=== PATIENT | male | born 1955 | race Caucasian/White ===

== ENCOUNTER → 2020-08-12 12:34 | Outpatient (BNVA) | payer BC, SELFPAY | PROVIDERS: PCP Internal Medicine; Visit Provider Internal Medicine | DX: Z76.89 Persons encountering health services in other specified circumstances (principal) ==

== ENCOUNTER → 2021-02-10 13:14 | Outpatient (BNVA) | payer BC, SELFPAY | PROVIDERS: PCP Internal Medicine; Referring Provider Internal Medicine; Visit Provider Internal Medicine ==

== ENCOUNTER → 2021-03-16 12:22 | Outpatient (BNVA) | payer BC, SELFPAY | PROVIDERS: PCP Internal Medicine; Visit Provider Physician Assistant ==

== ENCOUNTER 2021-03-28 08:29 | Outpatient (REF) | payer BC, SELFPAY ==
--- NOTE | ~2021-03-28 | FL_ITS ---
EXAMINATION: FL BARIUM SWALLOW CLINICAL INFORMATION: Dysphagia. COMPARISON: None. TECHNIQUE: Barium swallow examination is performed using fluoroscopic evaluation in addition to multiple fluoroscopic spot views. The patient is imaged both upright and prone and using both thick and thin sulfate along with effervescent granules. Fluoroscopy time: 2.1 minutes DAP: 23.003 Gycm2 Images: 61 FINDINGS: Following oral administration of thick barium and barium-coated turkey, there is normal propagation of bolus from the oral cavity through the pharynx and esophagus and into the stomach without any evidence of obstruction, narrowing or stricture. On placing patient prone and lying supine and oral administration of thin barium, there is good distention of the esophagus without any intraluminal filling defect. There is no gastroesophageal reflux or hiatal hernia. FL/FL barium swallow IMPRESSION: Unremarkable barium swallow exam. No obstruction, constriction or intraluminal lesion.
== END 2021-03-28 08:30 | disposition home or self-care (01) ==
LOC: HO.XRAY 08:29
PROVIDERS: PCP Internal Medicine; Visit Provider Physician Assistant
DX: R13.10 Dysphagia, unspecified (principal)
CPT/HCPCS: 74220

== ENCOUNTER 2021-04-18 08:28 | Outpatient (REF) | payer BC, SELFPAY ==
--- NOTE | ~2021-04-18 | US_ITS ---
EXAMINATION: US COMPLETE ABDOMEN WITH LIVER ELASTOGRAPHY CLINICAL INFORMATION: Gastroesophageal reflux disease without esophagitis. COMPARISON: Ultrasound abdomen 07/23/2018 TECHNIQUE: Real-time imaging of the abdominal viscera. Noninvasive ultrasound liver fibrosis assessment is performed using Roel ElastPQ point quantification shear wave elastography (pSWE) with a C5-2 MHz transducer. Multiple elastography samples are obtained. FINDINGS: PANCREAS: The visualized proximal body of the pancreas is homogeneous. The rest of the pancreas is obscured by overlying gas. ABDOMINAL AORTA: The proximal, middle, and distal aortic segments are normal in caliber. INFERIOR VENA CAVA: Visualized portions are normal. LIVER: The liver demonstrates normal size and contour with increased echogenicity. No focal lesion or intrahepatic biliary duct dilatation. The right lobe measures 20.0 cm in length. The left lobe measures 10.3 cm in length. Portal flow is hepatopetal. Shear wave liver elastography median stiffness is 1.83 m/s (reference: Normal median stiffness is 1.3 m/s or less). IQR/median stiffness to assess sampling precision is 0.26 (reference: Good quality data set is IQR/median stiffness of 0.15 or less). GALLBLADDER: Normal. The gallbladder is physiologically distended without evidence of stones, sludge, polyps, wall thickening or pericholecystic fluid. COMMON BILE DUCT: Normal in caliber measuring 0.3 cm in diameter. RIGHT KIDNEY: Normal. No hydronephrosis. No renal calculi or focal parenchymal lesions. The kidney measures 11.2 cm in maximum dimension. LEFT KIDNEY: Normal. No hydronephrosis. No renal calculi or focal parenchymal lesions. The kidney measures 12.4 cm in maximum dimension. SPLEEN: The spleen is mildly enlarged. The spleen measures 13.8 cm in maximum dimension. There is a splenule which measures 1.4 x 1.6 x 1.2 cm. FREE FLUID: None. US/US abdomen comp w elastography IMPRESSION: 1. Diffuse hepatic steatosis without focal lesion. There are mild splenomegaly The rest of the abdominal ultrasound is unremarkable. Overall no change from previous ultrasound exam 07/23/2018 with no echogenic renal calculi seen at this time. 2. Liver Elastography: Median liver stiffness measures 1.83 suggestive of cACLD. REFERENCE: Society of Radiologists in Ultrasound Liver Stiffness Thresholds (2020): LIVER STIFFNESS THRESHOLDS: *Liver Stiffness equal or less than 1.3 m/s: High probability of being normal. *Liver Stiffness less than 1.7 m/s: In the absence of other known clinical signs, rules out compensated advanced chronic liver disease. *Liver Stiffness 1.7-2.1 m/s: Suggestive of compensated advanced chronic liver disease but need further test for confirmation. *Liver Stiffness over 2.1 m/s: Rules in compensated advanced chronic liver disease. *Liver Stiffness over 2.4 m/s: Suggestive of clinically significant portal hypertension. QUALITY OF DATA SET: *IQR/Median value equal or less than 0.15 implies a quality data set. *IQR/Median value over 0.15 implies a poor quality data set. SIGNIFICANT CHANGE FROM PRIOR EXAM: Significant change if liver stiffness measurement is 10% or greater from prior exam. OTHER CONSIDERATIONS: The stage of liver fibrosis may be overestimated in the setting of acute hepatitis, liver inflammation, elevated liver function tests, hepatic vascular congestion, obstructive cholestasis, non-fasting state, and infiltrative diseases such as amyloidosis and lymphoma. In some patients with NAFLD, the liver stiffness thresholds for compensated advanced chronic liver disease may be lower. In causes other than viral hepatitis and NAFLD, liver stiffness thresholds are not well established.
== END 2021-04-18 08:29 | disposition home or self-care (01) ==
LOC: HO.US 08:28
PROVIDERS: PCP Internal Medicine; Visit Provider Physician Assistant
DX: K21.9 Gastro-esophageal reflux disease without esophagitis (principal)
CPT/HCPCS: 76705; 76981

== ENCOUNTER → 2021-09-13 13:04 | Outpatient (BNVA) | payer BC, SELFPAY | PROVIDERS: PCP Internal Medicine; Visit Provider Physician Assistant ==

== ENCOUNTER → 2021-11-14 12:51 | Outpatient (BNVA) | payer BC, SELFPAY | PROVIDERS: PCP Internal Medicine; Visit Provider Nurse Practitioner Family | DX: Z13.89 Encounter for screening for other disorder (principal) ==

== ENCOUNTER → 2022-03-27 15:12 | Outpatient (BNVA) | payer BC, SELFPAY | PROVIDERS: PCP Internal Medicine; Visit Provider Internal Medicine | DX: I63.40 Cerebral infarction due to embolism of unspecified cerebral artery (principal); I10 Essential (primary) hypertension; E11.8 Type 2 diabetes mellitus with unspecified complications; E78.5 Hyperlipidemia, unspecified; G47.33 Obstructive sleep apnea (adult) (pediatric) | CPT/HCPCS: 93005 ==

== ENCOUNTER 2022-07-19 09:43 | Outpatient (AMB) | payer BC, SELFPAY ==
--- NOTE | 2022-07-19 09:47 | MHC.OFFVIS ---
Intake Intake Visit Reasons: Hx of kidney stones Intake Note: New patient is present for HX of Kidney Stones Blood Thinner: Apixaban(Eliquis) Patient states that he does not feel any discomfort or pain. Does not believe he has any stones at this time. 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 Cornejo. He has a past medical history of embolic stroke, hypertension, GERD, obesity, obstructive sleep apnea, hyperlipidemia, and type 2 diabetes. He presents to the office today for follow-up of his nephrolithiasis. In discussion with the patient today he reports to be doing and feeling well. He reports a previous longstanding history of nephrolithiasis requiring surgical intervention in the past with Dr. Torres and Dr. Lima at [facility]. Recent renal imaging results reviewed with the patient today. Bilateral kidneys with no calculi, lesions, and or hydronephrosis noted. When asked he reports compliance with potassium citrate and allopurinol for as prescribed. When asked he does report urinary dribbling however he denies urinary urgency, urinary frequency, incontinence, nocturia, hematuria, dysuria, foul smelling urine, changes to urinary stream, flank pain, fever, and or chills. He is happy with his current voiding parameters. In office urinalysis results reviewed with the patient today. He otherwise offers no other issues or concerns at this time. [facility] Medical History Embolic stroke Essential hypertension GERD (gastroesophageal reflux disease) Morbid obesity GERMAN (obstructive sleep apnea) Other and unspecified hyperlipidemia Stroke Type 2 diabetes mellitus with unspecified complications Surgical History History of esophagogastroduodenoscopy (EGD) History of loop recorder (~02/13/20) History of transesophageal echocardiography (AMINA) (~02/19/20) Hx of colonoscopy Status post uvulopalatopharyngoplasty Family History Father No problems noted. Mother No problems noted. Social History Household Members: Spouse Household Members Other:: 1 son Alcohol intake: current Patient Tobacco Use Status: Former Tobacco user Quit Date: 30 years ago Current occupational status: unemployed Review of Systems Const Denies chills and Denies fever(s) Card Reports no additional complaints and Denies syncope Resp Denies cough GI Denies abdominal pain and Denies heartburn Reports as per HPI and Denies change in libido Neuro Denies syncope Psych Denies change in libido Endo Denies change in libido Physical Exam Const General: cooperative, healthy appearing, comfortable and no acute distress Orientation/consciousness: patient oriented x3 HEENT Face and sinus: Yes normal facial exam Mouth: moist mucous membranes Neck Neck: Yes normal visual inspection, Yes full ROM and Yes trachea midline Chest Chest palpation & inspection: normal inspection of the chest Resp Effort & Inspection: normal respiratory effort, able to speak in complete sentences and no respiratory distress GI Inspection: Yes normal to inspection Back/Spine/Pelvis Cervical Spine: normal cervical lordosis Thoracic/Lumbar Spine: thoracic and lumbar spine normal to inspection Skin General skin exam: no rashes or lesions noted Neuro General: patient oriented x3, gait normal, tone normal and moves all extremities Extrem General: Yes normal to inspection and Yes capillary refill normal Results AMB Urinalysis, Automated UA Leukoctes 0 Erika/uL Last Edit by GRADY Silva on 07/19/22 10:22 UA Nitrite Negative Last Edit by GRADY Silva on 07/19/22 10:22 UA Urobilinogen 0.2 mg/dL Last Edit by GRADY Silva on 07/19/22 10:22 UA Protein 15 mg/dL Last Edit by GRADY Silva on 07/19/22 10:22 UA pH 5.5 Last Edit by GRADY Silva on 07/19/22 10:22 UA Blood 0 Luis Miguel/uL Last Edit by GRADY Silva on 07/19/22 10:22 UA Specific Reagan 1.010 Last Edit by GRADY Silva on 07/19/22 10:22 UA Ketone Negative Last Edit by GRADY Silva on 07/19/22 10:22 UA Bilirubin 0 mg/dL Last Edit by GRADY Silva on 07/19/22 10:22 UA Glucose 1000 mg/dL Last Edit by GRADY Silva on 07/19/22 10:22 Results Reviewed Results Reviewed: Laboratory Last Values Urine pH (Auto) 5.5 07/19/22 09:52 Specific Reagan (Auto) 1.010 07/19/22 09:52 Urine Protein (Auto) 15 mg/dL 07/19/22 09:52 Glucose (UA)(Auto) 1000 mg/dL 07/19/22 09:52 Urine Ketones (Auto) Negative 07/19/22 09:52 Urine Blood (Auto) 0 Luis Miguel/uL 07/19/22 09:52 Urine Nitrite (Auto) Negative 07/19/22 09:52 Urine Bilirubin (Auto) 0 mg/dL 07/19/22 09:52 Urine Urobilinogen (Auto) 0.2 mg/dL 07/19/22 09:52 Leukocyte Esterase (Auto) 0 Erika/uL 07/19/22 09:52 Assessment & Plan Assessment & Plan (1) Bilateral nephrolithiasis: Comment: Longstanding prior ureteroscopy and ESWL Code(s): N20.0 - Calculus of kidney Plan Start potassium citrate Six-month follow-up Orders: Orders AMB Urinalysis Automated 07/19/22 Z13.9 - Encounter for screening, unspecified US renal BI 6 Months N20.0 - Calculus of kidney Medications: New potassium citrate ER 20 mEq (2 x 10 mEq (1,080 mg)) PO BID 360 tabs 1RF 90 days N20.0 - Calculus of kidney Patient Instructions: Imaging studies, laboratory and physical exam results were discussed and reviewed in detail. No major barriers to patient understanding were identified. An opportunity to ask questions regarding the treatment plan was provided. All questions were answered. The patient expressed understanding and agreement with the above treatment plan. The patient is aware they should contact our office by phone for worsening of their current condition or the appearance of new urologic symptoms. Compliance is encouraged with any medications and followup testing that is ordered. It is a privilege to participate in the urologic care of your patient. If you have any questions or concerns regarding treatment for the above conditions, or other urologic issues, please do not hesitate to contact me. The office telephone contact is [phone]. This note is constructed using voice recognition software. While every effort has been made to ensure accuracy orange picker machine operator errors may have been included. Yours sincerely, Dr Levar Green MD, [facility] - Urology Providers of Expert, Compassionate Care for the Genitourinary System Coding Level of Care Code New Pt Level 4 (84828) Diagnoses Bilateral nephrolithiasis N20.0
== END 2022-07-19 10:37 | disposition home or self-care (01) ==
LOC: HO.HUSH 09:43
PROVIDERS: PCP Internal Medicine; Visit Provider Urology
DX: N20.0 Calculus of kidney (principal)
CPT/HCPCS: 99204; 99499

== ENCOUNTER → 2022-08-23 15:39 | Outpatient (BNVA) | payer BC, SELFPAY | PROVIDERS: PCP Internal Medicine; Visit Provider Nurse Practitioner Family | DX: Z13.89 Encounter for screening for other disorder (principal) ==

== ENCOUNTER 2022-09-13 08:58 | Outpatient (REF) | payer BC, SELFPAY ==
[2022-09-13 09:05] VITALS: BP 155/70; PULSE 65; RESP 16; TEMP 36.4; O2SAT 98
[2022-09-13 09:06] VITALS: BMI 32.5
[2022-09-13 09:47] VITALS: BP 136/67; PULSE 60; RESP 16; O2SAT 98
--- NOTE | 2022-09-13 10:43 | PM.OP ---
Brief Operative Note Date of Service: 09/13/22 Pre-op diagnosis: Implantable loop recorder in place Post-op diagnosis: same Procedure: Removal of implantable loop recorder Implants: After obtaining consent patient was brought to the minor surgery suite. Patient was day and laid on the operative table. The precordial area was then shaved, prepped and draped in a sterile fashion. Patient was then given 2% lidocaine intradermally and subcutaneously over the implantable loop recorder. A small incision of about 1.5 cm reserve made over the head of the device. The device was then removed with help of a Stephany retractor. The wound was then closed with a Steri-Strip in a sterile fashion after obtaining adequate hemostasis. A pressure dressing was then applied Surgeon: Sam Fairchild MD Anesthesia: local Was an Senior Javascript Engineer used for this Procedure?: No Estimated blood loss (mL): 5 Pathology: none sent Condition: stable Disposition: same day
== END 2022-09-13 08:59 | disposition home or self-care (01) ==
LOC: HO.MS 08:58
PROVIDERS: PCP Internal Medicine; Visit Provider Internal Medicine Cardiovascular Disease
PROC: (CPT 33286; principal; 2022-09-13 09:00)
DX: Z45.09 Encounter for adjustment and management of other cardiac device (principal)
CPT/HCPCS: 33286

== ENCOUNTER → 2022-09-21 14:40 | Outpatient (BNVA) | payer BC, SELFPAY | PROVIDERS: PCP Internal Medicine; Referring Provider Internal Medicine; Visit Provider Internal Medicine | DX: Z13.89 Encounter for screening for other disorder (principal) ==

== ENCOUNTER 2022-10-23 10:30 | Outpatient (REF) | payer BC, SELFPAY ==
--- NOTE | ~2022-10-23 | XR_ITS ---
EXAMINATION: X-ray bilateral knees CLINICAL INFORMATION: Knee pain COMPARISON: 06/24/2018 x-ray. TECHNIQUE: AP bilateral knees one view. Right knee 2 views. FINDINGS: Right knee: Severe patellofemoral compartment arthritis, marked joint space loss, osteophytes, sclerosis. Mild medial and lateral compartment arthritis. Small ossific densities within the joint space, suggestive of loose bodies. Probable component of chondrocalcinosis. No acute fracture or dislocation is seen. Left knee: On the AP projection, there is Mild medial and lateral compartment osteoarthritis. Chondrocalcinosis/loose bodies in the medial and lateral compartment. Chronic appearing ossifications along the lateral pole of the patella, incompletely evaluated. XR/XR knee RT 2V IMPRESSION: Right knee: Tricompartment osteoarthritis. Severe patellofemoral compartment arthritis. Interval progression from previous. Loose bodies. Probable chondrocalcinosis. Left knee: Mild osteoarthritis as above. Chondrocalcinosis/loose bodies.
--- NOTE | ~2022-10-23 | XR_ITS ---
EXAMINATION: X-ray bilateral knees CLINICAL INFORMATION: Knee pain COMPARISON: 06/24/2018 x-ray. TECHNIQUE: AP bilateral knees one view. Right knee 2 views. FINDINGS: Right knee: Severe patellofemoral compartment arthritis, marked joint space loss, osteophytes, sclerosis. Mild medial and lateral compartment arthritis. Small ossific densities within the joint space, suggestive of loose bodies. Probable component of chondrocalcinosis. No acute fracture or dislocation is seen. Left knee: On the AP projection, there is Mild medial and lateral compartment osteoarthritis. Chondrocalcinosis/loose bodies in the medial and lateral compartment. Chronic appearing ossifications along the lateral pole of the patella, incompletely evaluated. XR/XR knee standing BI IMPRESSION: Right knee: Tricompartment osteoarthritis. Severe patellofemoral compartment arthritis. Interval progression from previous. Loose bodies. Probable chondrocalcinosis. Left knee: Mild osteoarthritis as above. Chondrocalcinosis/loose bodies.
== END 2022-10-23 10:31 | disposition home or self-care (01) ==
LOC: HO.HOSX 10:30
PROVIDERS: Visit Provider Orthopaedic Surgery
DX: M17.11 Unilateral primary osteoarthritis, right knee (principal); E11.8 Type 2 diabetes mellitus with unspecified complications; I63.40 Cerebral infarction due to embolism of unspecified cerebral artery
CPT/HCPCS: 20610; 73560; 73565; J1100

== ENCOUNTER 2022-12-28 08:57 | Outpatient (REF) | payer BC, SELFPAY ==
--- NOTE | ~2022-12-28 | US_ITS ---
EXAMINATION: US RETROPERITONEAL LIMITED (RENAL ONLY) CLINICAL INFORMATION: Calculus of kidney. COMPARISON: Ultrasound kidneys 08/08/2021. X-ray abdomen KUB 08/08/2021 and 08/20/2020. Ultrasound abdomen complete 04/18/2021. TECHNIQUE: Real-time imaging of the kidneys. FINDINGS: RIGHT KIDNEY: 10.8 x 5.3 x 5.7 cm (SAG x AP x TRV). The kidney is normal in size, contour, and echogenicity. Renal cortical thickness is normal. No calculi or focal parenchymal lesions. No hydronephrosis. LEFT KIDNEY: 11.7 x 5.9 x 4.9 cm (SAG x AP x TRV). The kidney is normal in size, contour, and echogenicity. Renal cortical thickness is normal. No calculi or focal parenchymal lesions. No hydronephrosis. Few linear echogenic areas are seen. US/US renal BI IMPRESSION: Essentially unremarkable renal ultrasound. No echogenic stones or hydronephrosis. Nonspecific few linear echogenic areas in left kidney.
== END 2022-12-28 08:58 | disposition home or self-care (01) ==
LOC: HO.US 08:57
PROVIDERS: PCP Internal Medicine; Visit Provider Urology
DX: N20.0 Calculus of kidney (principal)
CPT/HCPCS: 76775

== ENCOUNTER → 2023-01-25 14:23 | Outpatient (BNVA) | payer BC, SELFPAY | PROVIDERS: Visit Provider Internal Medicine | DX: I63.40 Cerebral infarction due to embolism of unspecified cerebral artery (principal); I10 Essential (primary) hypertension | CPT/HCPCS: 93005 ==

== ENCOUNTER 2023-03-27 10:00 | Outpatient (AMB) | payer BC, SELFPAY ==
--- NOTE | 2023-03-27 10:02 | A.OFFVIS_ITS ---
Intake Intake Visit Reasons: 6m/US(set) Intake Note: Patient presents for follow up Kidney Stones/ultrasound (imaging 12/28/22) Urology Medications: none Blood Thinner: Apixaban(Eliquis) Principal Accounts Clerk Required: No Accompanied by: Self / Same As Patient Allergies Sulfa (Sulfonamide Antibiotics) [SULFA (SULFONAMIDE ANTIBIOTICS)] Allergy (Intermediate, Verified 03/27/23 10:42) HIVES pioglitazone [From Actos] Adverse Reaction (Unknown, Verified 03/27/23 10:42) ankle swelling Medication List - Last Reconciled 03/27/23 by LAMBERTO Cuellar allopurinol 100 mg PO DAILY alpha lipoic acid 600 mg PO BID apixaban 5 mg PO BID dulaglutide (Trulicity) mg subcut empagliflozin 25 mg PO DAILY fluticasone propionate 50 mcg/actuation sprays intranasal folic acid 1 mg PO DAILY lisinopril 20 mg PO DAILY loratadine (Allergy Relief (loratadine)) 10 mg PO DAILY metformin 1,000 mg PO BID omeprazole 40 mg PO DAILY rosuvastatin 40 mg PO DAILY HPI HPI Comments History of Present Illness Details John is a very pleasant 67-year-old male patient of Dr. Cornejo. He has a past medical history of embolic stroke, hypertension, GERD, obesity, obstructive sleep apnea, hyperlipidemia, and type 2 diabetes. He presents to the office today for follow-up of his nephrolithiasis. In discussion with the patient today he reports to be doing and feeling well. He reports a previous longstanding history of nephrolithiasis requiring surgical intervention in the past with Dr. Torres and Dr. Lima at [facility]. Recent renal imaging results reviewed with the patient today. Bilateral kidneys with no calculi, lesions, and or hydronephrosis noted. When asked he reports compliance with potassium citrate and allopurinol for as prescribed. When asked he does report urinary dribbling however he denies urinary urgency, urinary frequency, incontinence, nocturia, hematuria, dysuria, foul smelling urine, changes to urinary stream, flank pain, fever, and or chills. He is happy with his current voiding parameters. In office urinalysis results reviewed with the patient today. He otherwise offers no other issues or concerns at this time. FORMERLY [facility], 1928–1983 Medical History Embolic stroke Essential hypertension GERD (gastroesophageal reflux disease) Morbid obesity GERMAN (obstructive sleep apnea) Other and unspecified hyperlipidemia Stroke Type 2 diabetes mellitus with unspecified complications Surgical History History of esophagogastroduodenoscopy (EGD) History of loop recorder (~02/13/20) History of transesophageal echocardiography (AMINA) (~02/19/20) Hx of colonoscopy Status post uvulopalatopharyngoplasty Family History Father No problems noted. Mother No problems noted. Social History Household Members: Spouse Household Members Other:: 1 son Alcohol intake: current Patient Tobacco Use Status: Former Tobacco user Quit Date: 30 years ago Current occupational status: unemployed Review of Systems Const All systems reviewed & are unremarkable except as noted in HPI and below Reports as per HPI Eyes Reports no additional complaints ENT Reports no additional complaints Card Reports as per HPI Resp Reports no additional complaints GI Reports as per HPI Reports as per HPI Musc Reports no additional complaints Neuro Reports as per HPI Psych Reports no additional complaints Endo Reports as per HPI Murail/Lymph Reports no additional complaints Aller/Immun Reports no additional complaints Physical Exam Const General: cooperative, healthy appearing, comfortable, no acute distress, well developed, alert and awake Nutritional Appearance: overweight Orientation/consciousness: patient oriented x3 Limitations: no limitations HEENT Head: Yes normal to inspection, Yes normocephalic and Yes atraumatic Ears: hearing grossly normal bilaterally Eyes General: appearance normal, both eyes and all related structures Neck Neck: Yes normal visual inspection and Yes trachea midline Chest Chest palpation & inspection: normal inspection of the chest Resp Effort & Inspection: normal respiratory effort and able to speak in complete sentences Cardio Rate: regular rate GI Inspection: Yes normal to inspection General: Yes no CVA tenderness Back/Spine/Pelvis Back: no CVA tenderness Skin General skin exam: no rashes or lesions noted Neuro General: patient oriented x3 Extrem General: Yes normal to inspection Psych Appearance: grossly normal and well kempt Mental Status: mental status grossly normal Speech and movement: Normal speech and movement present and Clear speech present Affect: normal affect Attitude: cooperative Thought process: Normal thought process present Thought content: Normal thought content present Insight: Good insight present (Psych) Judgement: Good judgement present (Psych) Results AMB Urinalysis, Automated UA Leukoctes 0 Erika/uL Last Edit by Newsummitbiodanny Noonan on 03/27/23 10:30 UA Nitrite Negative Last Edit by inFreeDAalon ParkingCarmaleno on 03/27/23 10:30 UA Urobilinogen 0.2 mg/dL Last Edit by inFreeDAalon ParkingCarmaleno on 03/27/23 10:30 UA Protein 15 mg/dL Last Edit by BioMarker Strategiesleno on 03/27/23 10:30 UA pH 6.0 Last Edit by CrepeGuys on 03/27/23 10:30 UA Blood 0 Luis Miguel/uL Last Edit by [employer] Strategiesleno on 03/27/23 10:30 UA Specific [place] 1.010 Last Edit by [employer] Strategiesleno on 03/27/23 10:30 UA Ketone Negative Last Edit by [employer] Strategiesleno on 03/27/23 10:30 UA Bilirubin 0 mg/dL Last Edit by CrepeGuys on 03/27/23 10:30 UA Glucose 1000 mg/dL Last Edit by CrepeGuys on 03/27/23 10:30 Results Reviewed Results Reviewed: Laboratory Last Values Urine pH (Auto) 6.0 03/27/23 10:03 Specific [place] (Auto) 1.010 03/27/23 10:03 Urine Protein (Auto) 15 mg/dL 03/27/23 10:03 Glucose (UA)(Auto) 1000 mg/dL 03/27/23 10:03 Urine Ketones (Auto) Negative 03/27/23 10:03 Urine Blood (Auto) 0 Luis Miguel/uL 03/27/23 10:03 Urine Nitrite (Auto) Negative 03/27/23 10:03 Urine Bilirubin (Auto) 0 mg/dL 03/27/23 10:03 Urine Urobilinogen (Auto) 0.2 mg/dL 03/27/23 10:03 Leukocyte Esterase (Auto) 0 Erika/uL 03/27/23 10:03 Date of Service: 12/28/22 EXAMINATION: US RETROPERITONEAL LIMITED (RENAL ONLY) FINDINGS: RIGHT KIDNEY: 10.8 x 5.3 x 5.7 cm (SAG x AP x TRV). The kidney is normal in size, contour, and echogenicity. Renal cortical thickness is normal. No calculi or focal parenchymal lesions. No hydronephrosis. LEFT KIDNEY: 11.7 x 5.9 x 4.9 cm (SAG x AP x TRV). The kidney is normal in size, contour, and echogenicity. Renal cortical thickness is normal. No calculi or focal parenchymal lesions. No hydronephrosis. Few linear echogenic areas are seen. IMPRESSION: Essentially unremarkable renal ultrasound. No echogenic stones or hydronephrosis. Nonspecific few linear echogenic areas in left kidney. Assessment & Plan Assessment & Plan (1) Bilateral nephrolithiasis: Comment: Longstanding prior ureteroscopy and ESWL Code(s): N20.0 - Calculus of kidney Plan In office urinalysis results reviewed with the patient today; as noted above. Recent renal ultrasound results reviewed with the patient today; as noted above Continue Allopurinol as prescribed Stop potassium citrate as discussed Educated, encouraged, and instructed on the importance of drinking plenty of water daily. Continue adding 1 oz of lemon juice to water daily. Patient denies any bothersome urinary issues or concerns at this time. Discussed pelvic floor exercises/therapy to assist with urinary dribbling; information provided. Retroperitoneal ultrasound in 6 months. Follow-up in 6 months with imaging to be completed prior; or sooner with any issues, concerns, and or questions. Orders: Orders US retroperitoneal comp 6 Months N20.0 - Calculus of kidney AMB Urinalysis Automated Today N20.0 - Calculus of kidney, Z13.9 - Encounter for screening, unspecified Patient Instructions: The patient had an opportunity to ask questions regarding the treatment plan. All questions were answered. Physical exam, labs, and imaging were discussed and reviewed in detail. As well as risks, benefits, and discussion of treatment choices. No major barriers to understanding were identified. The patient expressed understanding and agreement with the above treatment plan. The patient was made aware they should contact our office by phone for worsening of their current condition, the appearance of new symptoms, or with any questions or concerns. Compliance is encouraged with any medications and follow up testing that is ordered. It is a privilege to be allowed the opportunity to participate in? your urological care.? Again, if you have any questions or concerns If you have any questions or concerns please do not hesitate to contact me. The office is [phone]. This note is constructed using voice recognition software. While every effort has been made to ensure accuracy button station worker errors may have been included. Yours sincerely, LAMBERTO Cuellar Coding Level of Care Code Est Pt Level 3 (33740) Diagnoses Bilateral nephrolithiasis N20.0
== END 2023-03-27 10:50 | disposition home or self-care (01) ==
PROVIDERS: PCP Internal Medicine; Visit Provider Nurse Practitioner Family
DX: Z13.9 Encounter for screening, unspecified (principal); N20.0 Calculus of kidney
CPT/HCPCS: 99213

== ENCOUNTER → 2023-03-27 10:00 | Outpatient (BNVA) | payer BC, SELFPAY | PROVIDERS: PCP Internal Medicine; Visit Provider Nurse Practitioner Family | DX: N20.0 Calculus of kidney (principal) | CPT/HCPCS: 81003 ==

== ENCOUNTER 2023-09-20 09:59 | Outpatient (REF) | payer BC, SELFPAY ==
--- NOTE | ~2023-09-20 | US_ITS ---
EXAMINATION: US RETROPERITONEAL COMPLETE (RENAL) CLINICAL INFORMATION: Calculus of kidney. COMPARISON: Renal ultrasound 12/28/2022 and 08/08/2021. X-ray abdomen 08/08/2021. TECHNIQUE: Real-time imaging of the kidneys and bladder. FINDINGS: RIGHT KIDNEY: 11.4 x 7.4 x 5.8 cm (SAG x AP x TRV). The kidney is normal in size, contour, and echogenicity. Renal cortical thickness is normal. No calculi or focal parenchymal lesions. No hydronephrosis. LEFT KIDNEY: 12.6 x 6.8 x 6.3 cm (SAG x AP x TRV). The kidney is normal in size, contour, and echogenicity. Renal cortical thickness is normal. No calculi or focal parenchymal lesions. No hydronephrosis. BLADDER: Well distended. Bilateral ureteral jets are demonstrated. Prevoid bladder volume is 280 mL. Postvoid bladder volume is 15 mL. There is bladder wall thickening to 9 mm. OTHER: Prostate dimensions are 4.6 x 3.9 x 4.8 cm, volume 44.9 ml. US/US retroperitoneal comp IMPRESSION: 1. Unremarkable ultrasound appearance of the kidneys. 2. There is mild prostatomegaly. 3. There is bladder wall thickening to 9 mm, possibly hypertrophic. Recommend correlation with the patient's most recent urinalysis.
== END 2023-09-20 10:00 | disposition home or self-care (01) ==
LOC: HO.US 09:59
PROVIDERS: Visit Provider Nurse Practitioner Family
DX: N20.0 Calculus of kidney (principal)
CPT/HCPCS: 76770

== ENCOUNTER 2023-09-25 09:28 | Outpatient (AMB) | payer BC, SELFPAY ==
--- NOTE | 2023-09-25 09:06 | A.OFFVIS_ITS ---
Intake Intake Visit Reasons: 6m follow up/US(set) Intake Note: Patient presents today for follow up bilateral nephrolithiasis and ultrasound Imagin09/20/23 Urology Medications: Allopurinol Blood Thinner: Apixaban Spring Crater Required: No Accompanied by: Self / Same As Patient Allergies Sulfa (Sulfonamide Antibiotics) [SULFA (SULFONAMIDE ANTIBIOTICS)] Allergy (Intermediate, Verified 09/25/23 20:57) HIVES pioglitazone [From Actos] Adverse Reaction (Unknown, Verified 09/25/23 20:57) ankle swelling Medication List - Last Reconciled 09/25/23 by LUÍS Cuellar- allopurinol 100 mg PO DAILY alpha lipoic acid 600 mg PO BID apixaban 5 mg PO BID empagliflozin 25 mg PO DAILY fluticasone propionate 50 mcg/actuation sprays intranasal folic acid 1 mg PO DAILY lisinopril 20 mg PO DAILY loratadine (Allergy Relief (loratadine)) 10 mg PO DAILY metformin 1,000 mg PO BID omeprazole 40 mg PO DAILY tirzepatide (Mounjaro) 2.5 mg subcut QWEEK HPI HPI Comments History of Present Illness Details John is a very pleasant 67-year-old male patient of Dr. Cornejo. He has a past medical history of embolic stroke, hypertension, GERD, obesity, obstructive sleep apnea, hyperlipidemia, and type 2 diabetes. He presents to the office today for follow-up of his nephrolithiasis. In discussion with the patient today he reports to be doing and feeling well. Recent renal imaging results reviewed with the patient today. Bilateral kidneys with no calculi, lesions, and or hydronephrosis. The bladder is well distended. Bilateral ureteral jets are demonstrated. Pre void bladder volume is approximately 280 mL. Postvoid bladder volume is approximately 15 mL. There is bladder wall thickening to 9 mm. He reports a previous longstanding history of nephrolithiasis requiring surgical intervention in the past with Dr. Torres and Dr. Lima at [facility]. When asked he does report urinary dribbling however he denies urinary urgency, urinary frequency, incontinence, nocturia, hematuria, dysuria, foul smelling urine, changes to urinary stream, flank pain, fever, and or chills. He is happy with his current voiding parameters. In office urinalysis results reviewed with the patient today. He otherwise offers no other issues or concerns at this time. PSA 01/26--0.7 PFS Medical History Morbid obesity GERD (gastroesophageal reflux disease) GERMAN (obstructive sleep apnea) Other and unspecified hyperlipidemia Essential hypertension Type 2 diabetes mellitus with unspecified complications Embolic stroke Stroke Surgical History Hx of colonoscopy History of esophagogastroduodenoscopy (EGD) Status post uvulopalatopharyngoplasty History of transesophageal echocardiography (AMINA) (~02/19/20) History of loop recorder (~02/13/20) Family History Father No problems noted. Mother No problems noted. Social History Household Members: Spouse Household Members Other:: 1 son Alcohol intake: current Patient Tobacco Use Status: Former Tobacco user Quit Date: 30 years ago Current occupational status: unemployed Review of Systems Const All systems reviewed & are unremarkable except as noted in HPI and below Reports as per HPI Eyes Reports no additional complaints ENT Reports no additional complaints Card Reports as per HPI Resp Reports no additional complaints GI Reports as per HPI Reports as per HPI Musc Reports no additional complaints Neuro Reports as per HPI Psych Reports no additional complaints Endo Reports as per HPI Murali/Lymph Reports no additional complaints Aller/Immun Reports no additional complaints Physical Exam Const General: cooperative, healthy appearing, comfortable, no acute distress, well developed, alert and awake Nutritional Appearance: overweight Orientation/consciousness: patient oriented x3 Limitations: no limitations HEENT Head: Yes normal to inspection, Yes normocephalic and Yes atraumatic Ears: hearing grossly normal bilaterally Eyes General: appearance normal, both eyes and all related structures Neck Neck: Yes normal visual inspection and Yes trachea midline Chest Chest palpation & inspection: normal inspection of the chest Resp Effort & Inspection: normal respiratory effort and able to speak in complete sentences Cardio Rate: regular rate GI Inspection: Yes normal to inspection General: Yes no CVA tenderness Back/Spine/Pelvis Back: no CVA tenderness Skin General skin exam: no rashes or lesions noted Neuro General: patient oriented x3 Extrem General: Yes normal to inspection Psych Appearance: grossly normal and well kempt Mental Status: mental status grossly normal Speech and movement: Normal speech and movement present and Clear speech present Affect: normal affect Attitude: cooperative Thought process: Normal thought process present Thought content: Normal thought content present Insight: Good insight present (Psych) Judgement: Good judgement present (Psych) Results AMB Urinalysis, Automated UA Leukoctes 0 Erika/uL Last Edit by eBryl Mcqueen CMA on 09/25/23 09 :47 UA Nitrite Negative Last Edit by Beryl Mcqueen CMA on 09/25/23 09: 47 UA Urobilinogen 0.2 mg/dL Last Edit by Beryl Mcqueen CMA on 4 09:47 UA Protein 30 mg/dL Last Edit by Beryl Mcqueen CMA on 09/25/23 09:4 7 UA pH 6.0 Last Edit by Beryl Mcqueen CMA on 09/25/23 09:47 UA Blood 0 Luis Miguel/uL Last Edit by Beryl Mcqueen CMA on 09/25/23 09:47 UA Specific [place] 1.015 Last Edit by Beryl Mcqueen CMA on 09:47 UA Ketone Positive Last Edit by Beryl Mcqueen CMA on 09/25/23 09:4 7 5MG/DL Beryl Mcqueen 09/25/23 09:47 UA Bilirubin 0 mg/dL Last Edit by Beryl Mcqueen CMA on 09/25/23 09: 47 UA Glucose 1000 mg/dL Last Edit by Beryl Mcqueen CMA on 09/25/23 09 :47 Results Reviewed Results Reviewed: Laboratory Last Values Urine pH (Auto) 6.0 09/25/23 09:39 Specific [place] (Auto) 1.015 09/25/23 09:39 Urine Protein (Auto) 30 mg/dL 09/25/23 09:39 Glucose (UA)(Auto) 1000 mg/dL 09/25/23 09:39 Urine Ketones (Auto) Positive 09/25/23 09:39 Urine Blood (Auto) 0 Luis Miguel/uL 09/25/23 09:39 Urine Nitrite (Auto) Negative 09/25/23 09:39 Urine Bilirubin (Auto) 0 mg/dL 09/25/23 09:39 Urine Urobilinogen (Auto) 0.2 mg/dL 09/25/23 09:39 Leukocyte Esterase (Auto) 0 Erika/uL 09/25/23 09:39 Date of Service: 09/20/23 EXAMINATION: US RETROPERITONEAL COMPLETE (RENAL) FINDINGS: RIGHT KIDNEY: 11.4 x 7.4 x 5.8 cm (SAG x AP x TRV). The kidney is normal in size, contour, and echogenicity. Renal cortical thickness is normal. No calculi or focal parenchymal lesions. No hydronephrosis. LEFT KIDNEY: 12.6 x 6.8 x 6.3 cm (SAG x AP x TRV). The kidney is normal in size, contour, and echogenicity. Renal cortical thickness is normal. No calculi or focal parenchymal lesions. No hydronephrosis. BLADDER: Well distended. Bilateral ureteral jets are demonstrated. Prevoid bladder volume is 280 mL. Postvoid bladder volume is 15 mL. There is bladder wall thickening to 9 mm. OTHER: Prostate dimensions are 4.6 x 3.9 x 4.8 cm, volume 44.9 ml. IMPRESSION: 1. Unremarkable ultrasound appearance of the kidneys. 2. There is mild prostatomegaly. 3. There is bladder wall thickening to 9 mm, possibly hypertrophic. Recommend correlation with the patient's most recent urinalysis. Assessment & Plan Assessment & Plan (1) Bilateral nephrolithiasis: Comment: Longstanding prior ureteroscopy and ESWL Code(s): N20.0 - Calculus of kidney (2) Urinary dribbling: Code(s): N39.43 - Post-void dribbling (3) Bladder wall thickening: Code(s): N32.89 - Other specified disorders of bladder Plan In office urinalysis results reviewed with the patient today; as noted above. Recent retroperitoneal ultrasound results reviewed with the patient today; as noted above. Discussed at length potential causes for bladder wall thickening; discussed further workup with in office cystoscopy however patient denies any bothersome urinary issues and does not feel this is necessary at this time. He does report urinary dribbling; however does not find this bothersome. Reports be happy with current voiding parameters. Discussed, educated, and stressed the importance of drinking plenty of water daily. Discussed continue to add 1 oz of lemon juice to water daily. Will obtain PSA Follow-up in 6 months with labd to be completed prior and PVR at next office visit; or sooner with any issues, concerns, and or questions. Orders: Orders AMB Urinalysis Automated Today R33.9 - Retention of urine, unspecified Prostate Specific Antigen 6 Months N40.0 - Benign prostatic hyperplasia without lower urinary tract symptoms Patient Instructions: The patient had an opportunity to ask questions regarding the treatment plan. All questions were answered. Physical exam, labs, and imaging were discussed and reviewed in detail. As well as risks, benefits, and discussion of treatment choices. No major barriers to understanding were identified. The patient expressed understanding and agreement with the above treatment plan. The patient was made aware they should contact our office by phone for worsening of their current condition, the appearance of new symptoms, or with any questions or concerns. Compliance is encouraged with any medications and follow up testing that is ordered. It is a privilege to be allowed the opportunity to participate in? your urological care.? Again, if you have any questions or concerns If you have any questions or concerns please do not hesitate to contact me. The office is [phone]. This note is constructed using voice recognition software. While every effort has been made to ensure accuracy electrical power station technician errors may have been included. Yours sincerely, LAMBERTO Cuellra Coding Level of Care Code Est Pt Level 3 (01580) Diagnoses Bilateral nephrolithiasis N20.0 Urinary dribbling N39.43 Bladder wall thickening N32.89
== END 2023-09-25 10:17 | disposition home or self-care (01) ==
PROVIDERS: PCP Internal Medicine; Visit Provider Nurse Practitioner Family
DX: N20.0 Calculus of kidney (principal); N39.43 Post-void dribbling; N32.89 Other specified disorders of bladder
CPT/HCPCS: 99213

== ENCOUNTER → 2023-09-25 09:28 | Outpatient (BNVA) | payer BC, SELFPAY | PROVIDERS: PCP Internal Medicine; Visit Provider Nurse Practitioner Family | DX: N20.0 Calculus of kidney (principal); N39.43 Post-void dribbling; N32.89 Other specified disorders of bladder; R33.9 Retention of urine, unspecified | CPT/HCPCS: 81003 ==

== ENCOUNTER 2024-02-27 14:05 | Outpatient (AMB) | payer BC, SELFPAY ==
--- NOTE | 2024-02-27 14:13 | A.OFFVIS_ITS ---
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 Accompanied by: Self / Same As Patient Allergies Sulfa (Sulfonamide Antibiotics) [SULFA (SULFONAMIDE ANTIBIOTICS)] Allergy (Intermediate, Verified 09/25/23 20:57) HIVES pioglitazone [From Actos] Adverse Reaction (Unknown, Verified 09/25/23 20:57) ankle swelling Medication List - Last Reconciled 02/27/24 by Mango Morales MD allopurinol 100 mg PO DAILY alpha lipoic acid 600 mg PO BID apixaban 5 mg PO BID empagliflozin 25 mg PO DAILY fluticasone propionate 50 mcg/actuation sprays intranasal folic acid 1 mg PO DAILY lisinopril 20 mg PO DAILY loperamide 2 mg PO Q6H PRN loratadine (Allergy Relief (loratadine)) 10 mg PO DAILY metformin 1,000 mg PO BID omeprazole 40 mg PO DAILY simethicone (Gas Relief (simethicone)) 125 mg PO BID-QID PRN tirzepatide (Mounjaro) 2.5 mg subcut QWEEK HPI Comments Details: John returns for follow-up. To recall, he was referred initially for evaluation of cardioembolic source of stroke. He is empirically on Eliquis. About 26-27 years ago, he had a similar episode but not clear as to what happened if it was stroke or not. He has numerous cardiovascular risk factors including obesity, type 2 diabetes, h ypertension, dyslipidemia. Since last seen, he is doing good. No new complaints. Nothing cardiac whatsoever. There is a family history of cardiac issues in the family. Father had a myocardial infarction in his 50s and from the same. Mother had myocardial infarctions as well as bypass surgery. [facility] Medical History Morbid obesity GERD (gastroesophageal reflux disease) GERMAN (obstructive sleep apnea) Other and unspecified hyperlipidemia Essential hypertension Type 2 diabetes mellitus with unspecified complications Embolic stroke Stroke Surgical History Hx of colonoscopy History of esophagogastroduodenoscopy (EGD) Status post uvulopalatopharyngoplasty History of transesophageal echocardiography (AMINA) (~02/19/20) History of loop recorder (~02/13/20) Family History Father No problems noted. Mother No problems noted. Social History Household Members: Spouse Household Members Other:: 1 son Alcohol intake: current Patient Tobacco Use Status: Former Tobacco user Current occupational status: unemployed Review of Systems Const Denies chills, Denies fatigue, Denies fever(s), Denies weight gain and Denies weight loss ENT Denies dizziness Card Denies chest pain, Denies leg edema, Denies lightheadedness, Denies palpitations, Denies dyspnea on exertion, Denies orthopnea and Denies other Resp Denies cough and Denies dyspnea on exertion GI Denies hematochezia and Denies change in stool character Musc Denies abnormal gait, Denies muscle weakness, Denies numbness, Denies radiating pain into limb and Denies tingling Neuro Denies abnormal gait, Denies dizziness, Denies numbness and Denies tingling Endo Denies fatigue and Denies palpitations Physical Exam Vital Signs: Last Vital Signs Pulse 65 02/27/24 14:16 BP 118/60 02/27/24 14:16 BMI result Body Mass Index 30.8 Const General: comfortable and no acute distress Orientation/consciousness: patient oriented x3 HEENT Other: Unremarkable Head: Yes normal to inspection Neck Neck: Yes normal visual inspection Chest Chest palpation & inspection: normal inspection of the chest Resp Auscultation: clear to auscultation bilaterally Cardio Palpation: normal PMI Heart sounds: S1 normal heart sound present, S2 normal heart sound present, no gallops, no murmurs and no rubs GI Palpation (GI): Soft to palpation Back/Spine/Pelvis Other: unremarkable Skin General skin exam: no rashes or lesions noted Neuro General: patient oriented x3 Extrem General: Yes normal to inspection Psych Mental Status: mental status grossly normal Office Procedures EKG Details: EKG with underlying sinus rhythm at 65/Min; minimal criteria for LVH; can not exclude old inferior infarct but could be from body habitus; nonspecific ST-T changes. Overall, similar to prior. [id number], Complete Assessment & Plan Assessment & Plan (1) Embolic stroke: Code(s): I63.9 - Cerebral infarction, unspecified Category: Medical Qualifiers: Precerebral and cerebral artery: unspecified cerebral artery Qualified Code(s): I63.40 - Cerebral infarction due to embolism of unspecified cerebral artery (2) Type 2 diabetes mellitus with unspecified complications: Code(s): E11.8 - Type 2 diabetes mellitus with unspecified complications Category: Medical (3) Essential hypertension: Code(s): I10 - Essential (primary) hypertension Category: Medical (4) Other and unspecified hyperlipidemia: Code(s): E78.5 - Hyperlipidemia, unspecified Category: Medical (5) GERMAN (obstructive sleep apnea): Comment: s/p [id number] about 15 years ago Code(s): G47.33 - Obstructive sleep apnea (adult) (pediatric) Category: Medical (6) Morbid obesity: Code(s): E66.01 - Morbid (severe) obesity due to excess calories Category: Medical Plan All pertinent studies reviewed. Echocardiogram with LVEF 55-60% and otherwise unremarkable. Transesophageal echocardiogram showed evidence of atrial septal aneurysm, patent foramen ovale; [id number] shunt noted by color Doppler but bubble study was negative for [id number]-[id number] shunt. Implantable loop monitor showed 1 episode of possible atrial fibrillation but the episode was only for about 40 seconds and the rate was only in the 60s. Nothing recurrent after this episode. Myocardial perfusion imaging study from [facility], 2019 shows no evidence of any ischemia or infarction. He exercised for 8 minutes and 54 minutes on Kang protocol reaching 9 Mets. Brain MRI had shown a small infarct in cerebellum. Brain CT had also shown old infarcts. CTA of the neck does not show any significant disease. Overall, uncertain etiology for the stroke. Possible atrial fibrillation but there was only 1 episode on the ILR. As he has been on Eliquis without any issues he can continue the same. Otherwise, mainly risk factor modification. His weight is unlikely to change and has been like this for a long time. Other issues include diabetes, hypertension and dyslipidemia will need to be controlled as much able. He was on pravastatin in the past and we will switch that to Crestor last time. He states he got muscle aches and he stopped it completely. We can reduce his lipids and then probably either go back to pravastatin or try atorvastatin. A prior LDL was 86 mg/dL from [facility] [place] but he might have been on pravastatin at that time. Follow-up in 1 year. In the interim, he will call us with concerns. Orders: Orders Lipid Panel Today E78.5 - Hyperlipidemia, unspecified Liver Panel Today E78.5 - Hyperlipidemia, unspecified Coding Level of Care Code Est Pt Level 4 (91573) Diagnoses Cerebrovascular accident (CVA) due to embolism of cerebral artery I63.40 Precerebral and cerebral artery: unspecified cerebral artery Type 2 diabetes mellitus with unspecified complications E11.8 Essential hypertension I10 Other and unspecified hyperlipidemia E78.5 GERMAN (obstructive sleep apnea) G47.33 Morbid obesity E66.01 CPT Codes EKG - CPT: 14902-[id number], Complete ([id number])
[2024-02-27 14:16] VITALS: BP 118/60; PULSE 65; BMI 30.8
== END 2024-02-27 14:39 | disposition home or self-care (01) ==
PROVIDERS: Visit Provider Internal Medicine
DX: I63.40 Cerebral infarction due to embolism of unspecified cerebral artery (principal); E11.8 Type 2 diabetes mellitus with unspecified complications; I10 Essential (primary) hypertension; E78.5 Hyperlipidemia, unspecified; G47.33 Obstructive sleep apnea (adult) (pediatric); E66.01 Morbid (severe) obesity due to excess calories
CPT/HCPCS: 93010; 99214

== ENCOUNTER → 2024-02-27 14:05 | Outpatient (BNVA) | payer BC, SELFPAY | PROVIDERS: Visit Provider Internal Medicine | DX: I63.40 Cerebral infarction due to embolism of unspecified cerebral artery (principal); E11.8 Type 2 diabetes mellitus with unspecified complications; I10 Essential (primary) hypertension; E78.5 Hyperlipidemia, unspecified; G47.33 Obstructive sleep apnea (adult) (pediatric); E66.01 Morbid (severe) obesity due to excess calories; Z68.30 Body mass index [BMI] 30.0-30.9, adult; Z79.01 Long term (current) use of anticoagulants; Z79.84 Long term (current) use of oral hypoglycemic drugs; Z79.899 Other long term (current) drug therapy | CPT/HCPCS: 93005 ==

== ENCOUNTER 2024-03-03 12:57 | Outpatient (REF) | payer BC, SELFPAY ==
--- NOTE | ~2024-03-03 | US_ITS ---
EXAMINATION: US RETROPERITONEAL LIMITED (RENAL ONLY) CLINICAL INFORMATION: Calculus of kidney. COMPARISON: Ultrasound retroperitoneal 09/20/2023. Ultrasound renal 12/28/2022. X-ray abdomen 08/08/2021 and 08/20/2020. TECHNIQUE: Real-time imaging of the kidneys. Limited visualization due to bowel gas. FINDINGS: RIGHT KIDNEY: 11.7 x 6.5 x 6.3 cm (SAG x AP x TRV). No hydronephrosis. No renal calculi. Renal cortical thickness is normal. Limited visualization. LEFT KIDNEY: 12.5 x 6.1 x 5.2 cm (SAG x AP x TRV). 1.2 cm left renal lower pole calculus. Renal cortical thickness is normal. No hydronephrosis. Limited visualization. US/US renal BI IMPRESSION: 1.2 cm left renal lower pole calculus. No hydronephrosis.
== END 2024-03-03 12:58 | disposition home or self-care (01) ==
LOC: HO.US 12:57
PROVIDERS: PCP Nurse Practitioner Family; Visit Provider Nurse Practitioner Family
DX: N20.0 Calculus of kidney (principal)
CPT/HCPCS: 76775

== ENCOUNTER 2024-03-08 08:18 | Outpatient (REF) | payer BC, SELFPAY ==
[2024-03-08 10:01] LABS: Estimated Average Glucose 134 mg/dL; Hemoglobin A1c % 6.3 % (<6.0)
[2024-03-08 10:09] LABS: Alanine Aminotransferase 36 U/L (0-40); Albumin Level 4.3 g/dL (3.5-5.0); Alkaline Phosphatase 57 U/L (39-117); Anion Gap 12 (12-20); Aspartate Amino Transferase 22 U/L (5-37); Bilirubin Direct 0.2 mg/dL (0.0-0.5); Bilirubin Total 0.6 mg/dL (0.0-1.0); Blood Urea Nitrogen 18 mg/dL (9-16); Calcium 9.2 mg/dL (8.4-10.2); Carbon Dioxide 28 mmol/L (22-29); Chloride 106 mmol/L (96-108); Cholesterol 171 mg/dL (<200); Estimated Glomerular Filt Rate > 60; Glucose Random 109 mg/dL (60-115); HDL Cholesterol 45 mg/dL (>40); LDL Cholesterol Calculated 106 mg/dL (<100); Potassium 4.4 mmol/L (3.3-5.1); Sodium 142 mmol/L (135-145); Total Protein 6.8 g/dL (6.5-8.0); Triglycerides 102 mg/dL (<150)
[2024-03-08 10:16] LABS: Prostate Specific Antigen 0.34 ng/mL (<0.05-4.0)
== END 2024-03-08 08:19 | disposition home or self-care (01) ==
LOC: HO.LAB 08:18
PROVIDERS: Absent Provider Nurse Practitioner Family; PCP Nurse Practitioner Family; Visit Provider Internal Medicine
DX: Z12.5 Encounter for screening for malignant neoplasm of prostate (principal); N40.0 Benign prostatic hyperplasia without lower urinary tract symptoms; E11.8 Type 2 diabetes mellitus with unspecified complications; E78.5 Hyperlipidemia, unspecified
CPT/HCPCS: 36415; 80048; 80061; 80076; 83036; 84153

== ENCOUNTER 2024-04-03 12:51 | Emergency (ER) | payer BC, SELFPAY ==
[2024-04-03 12:55] VITALS: BP 185/66; PULSE 65; RESP 20; TEMP 36.2; O2SAT 99; BMI 30.2
--- NOTE | 2024-04-03 12:59 | ED.SKABFB ---
HPI - Skin/Abscess/Foreign Bdy General Chief complaint: Allergic Reaction Stated complaint: stung by swarm of bees , hard to swallow Time Seen by Provider: 04/03/24 13:01 History of Present Illness ED Provider: Keely PARIKH narrative: The patient is a 68-year-old male with a history of embolic cerebellar strokes who was on apixaban. He was doing some outdoor work today when he disturbed a high bees and sustained multiple bee stings on many areas of his body at around 12:15 PM. He says that he ran inside and took his clothes off because he had bees under his clothes. He then took shower. He has multiple bee stings on multiple portions of his body. He called his doctor's office and was advised to come to the emergency room. He subsequently developed a sense of generalized numbness to his face. He also feels like he has a slight sense of thickness in his throat and a slight sense of being unable to take a full breath. He took 50 mg of Benadryl prior to arrival in the emergency room. Related Data Home Medications ?Medication ?Instructions ?Recorded ?Confirmed alpha lipoic acid 600 mg capsule 600 mg PO BID 08/12/20 02/27/24 apixaban 5 mg tablet 5 mg PO BID 08/12/20 02/27/24 empagliflozin 25 mg tablet 25 mg PO DAILY 08/12/20 02/27/24 folic acid 1 mg tablet 1 mg PO DAILY 08/12/20 02/27/24 lisinopril 20 mg tablet 20 mg PO DAILY 08/12/20 02/27/24 loratadine 10 mg tablet (Allergy 10 mg PO DAILY 08/12/20 02/27/24 Relief (loratadine)) omeprazole 40 mg capsule,delayed 40 mg PO DAILY 08/12/20 02/27/24 release fluticasone propionate 50 spray intranasal 01/25/23 02/27/24 mcg/actuation nasal spray,suspension metformin 1,000 mg tablet 1,000 mg PO BID 03/27/23 02/27/24 tirzepatide 2.5 mg/0.5 mL 2.5 mg subcut QWEEK 09/25/23 02/27/24 subcutaneous pen injector (Franklyn) loperamide 2 mg capsule 2 mg PO Q6H PRN 02/27/24 02/27/24 simethicone 125 mg capsule (Gas 125 mg PO BID-QID PRN 02/27/24 02/27/24 Relief (simethicone)) Previous Rx's ?Medication ?Instructions ?Recorded allopurinol 100 mg tablet 100 mg PO DAILY 90 days #90 tabs 03/10/24 pravastatin 20 mg tablet 20 mg PO BEDTIME 90 days #90 tabs 03/18/24 epinephrine 0.3 mg/0.3 mL 0.3 mg (0.3 mL) IM Q4H PRN 04/03/24 injection, auto-injector hypersensitivity reaction #2 ea Allergies Allergy/AdvReac Type Severity Reaction Status Date / Time Sulfa (Sulfonamide Allergy Intermediate HIVES Verified 04/03/24 12:59 Antibiotics) [SULFA (SULFONAMIDE ANTIBIOTICS)] pioglitazone [From Actos] AdvReac Unknown ankle Verified 04/03/24 12:59 swelling Review of Systems Review of Systems: Yes all other systems are reviewed and are negative [facility] Past Medical History Medical History Morbid obesity GERD (gastroesophageal reflux disease) GERMAN (obstructive sleep apnea) Other and unspecified hyperlipidemia Essential hypertension Type 2 diabetes mellitus with unspecified complications Embolic stroke Stroke Surgical History Hx of colonoscopy History of esophagogastroduodenoscopy (EGD) Status post uvulopalatopharyngoplasty History of transesophageal echocardiography (AMINA) (~02/19/20) History of loop recorder (~02/13/20) Family History Family History Father No problems noted. Mother No problems noted. Social History Social History Household Members: Spouse Household Members Other:: 1 son Alcohol intake: current Patient Tobacco Use Status: Former Tobacco user Smoked in Last 30 Days: No Use of substances other than those prescribed or required for medical reasons: No Advance Directives: No Advance Directives Information Provided: Yes Do you have a plan to hurt others: No Plan Current occupational status: unemployed Physical Exam Vital Signs: Vital Signs: Last Vital Signs Temp 97.9 F 04/03/24 15:30 Pulse 88 04/03/24 15:30 Resp 17 04/03/24 15:30 BP 134/69 04/03/24 15:30 Pulse Ox 99 04/03/24 15:30 O2 Del Method Room Air 04/03/24 15:30 BMI result Body Mass Index 30.2 Const: Other: The patient is awake, alert, pleasant, cheerful, cooperative, he does not appear in acute distress. HEENT: Other: No obvious swelling to the face. Face is symmetrical. The pharynx appears unremarkable. The patient has had a uvulectomy. There is no posterior pharyngeal swelling. Eyes: General: appearance normal, both eyes and all related structures Conjunctivae: conjunctivae normal Pupils: Equal, round and reactive pupils present EOM: EOMs intact bilaterally Neck: Other: No stridor Resp: Other: No increased work of breathing. Air entry seems slightly less than anticipated. No cem wheezing however. Cardio: Rate: regular rate Rhythm: regular rhythm Heart sounds: S1 normal heart sound present and S2 normal heart sound present GI: Other: Abdomen is soft and nontender Skin: Other: The patient has multiple areas of patches of erythema consistent with bee stings. This is on his torso and on his extremities. He does not have diffuse urticaria. Neuro: Other: The patient is awake and alert with a normal mental status. The patient's speech might be very minimally thick but essentially his speech is normal. Face is symmetrical. Eye movements normal. Moves extremities normally. The patient is neurologically intact. Cranial nerves: Yes Equal, round and reactive pupils present Extrem: Other: The patient has some patches of erythema consistent with bee stings but no edema or hives. Course Course Course Narrative: This is a Rapid Medical Examination (RME) performed by Cecil Parrish PA-C in triage. Full HPI, ROS, assessment and treatment plan per primary provider in the Main ED. 68 yo male here for eval after sustaining multiple bee stings while working in the yard [employer]. admits numbness to entire face and tongue which began 15 mins after bee stings, now endorses throat tickle. no known allergy to bees. took 50 mg of benadryl 15 mins [employer] in ed. + airway patent. lungs clear. speaking in full complete sentences. Plan: basic labs, meds, ekg Medications Administered Discontinued Medications Generic Name Dose Route Start Last Admin Trade Name Konstantin PRN Reason Stop Dose Admin Albuterol Sulfate 2.5 mg 04/03/24 13:17 04/03/24 13:36 Albuterol Sulfate (0.083%) 2.5 Mg/3 Ml Vial.Neb INHALE 04/03/24 13:18 2.5 mg ONCE ONE Administration Dexamethasone 10 mg 04/03/24 15:00 04/03/24 15:42 Dexamethasone 2 Mg Tablet PO 04/03/24 15:01 10 mg ONCE ONE Administration Famotidine 20 mg 04/03/24 13:17 04/03/24 13:28 Famotidine 20 Mg Tablet PO 04/03/24 13:18 20 mg ONCE ONE Administration Loratadine 10 mg 04/03/24 13:17 04/03/24 13:28 Loratadine 10 Mg Tablet PO 04/03/24 13:18 10 mg ONCE ONE Administration Medical Decision Making Medical Decision Making [facility] Narrative: The patient is a 68-year-old male on apixaban because of a history of embolic strokes who is doing some gardening at his home when he disturbed a nest of bees and was stung multiple times on multiple parts of his body. He has multiple beast things but he does not have diffuser to carry or other signs of a clear generalized allergic reaction although has possibly some mild diminished air entry in his lungs without wheezes. The patient had already taken 50 mg of Benadryl prior to arrival. It was not clear to me that an EpiPen was indicated. He was given 10 mg of loratadine and 20 mg of oral famotidine. He was given an albuterol treatment. He was observed for several hours. ?Overall the patient felt improved although some of his localized beast sting reactions seemed to enlarge in size. ?He certainly had no worsening of any systemic symptoms. Ultimately I felt he was safe for discharge. He was given 10 mg of dexamethasone prior to discharge as well. I have sent an EpiPen prescription to his pharmacy. I think you should follow up with his doctor for a referral to an community relations coordinator for testing to see if he actually has any allergy findings. I suspect that this was probably more case of multiple local reactions rather than true anaphylaxis. Independent Interpretation I performed an independent interpretation of an: EKG Interpretation: EKG at 13:30 shows normal sinus rhythm at 65 beats per minute. No definite acute findings. Discharge Plan Discharge Clinical Impression: Bee sting Patient Disposition: Home, Self-Care Instructions: Insect Bite or Sting (ED) Additional Instructions: You had multiple bee stings. It is not clear if you really need an EpiPen but in the short run I have sent an EpiPen prescription to your pharmacy. I would recommend keeping the EpiPen Handy until you follow up with an community relations coordinator to discuss whether you truly are allergic to bee stings. In the short run also follow up with your regular doctor and perhaps they can give you a referral to an community relations coordinator. If you feel significantly worse please return to the emergency department. Prescriptions: New epinephrine 0.3 mg/0.3 mL auto-injector 0.3 mg IM Q4H PRN (Reason: hypersensitivity reaction) Qty: 2 0RF No Action allopurinol 100 mg tablet 100 mg PO DAILY 90 Days Qty: 90 0RF pravastatin 20 mg tablet 20 mg PO BEDTIME 90 Days Qty: 90 3RF folic acid 1 mg tablet 1 mg PO DAILY lisinopril 20 mg tablet 20 mg PO DAILY omeprazole 40 mg capsule,delayed release(DR/EC) 40 mg PO DAILY Eliquis 5 mg tablet 5 mg PO BID Jardiance 25 mg tablet 25 mg PO DAILY alpha lipoic acid 600 mg capsule 600 mg PO BID loratadine [Allergy Relief (loratadine)] 10 mg tablet 10 mg PO DAILY Mounjaro 2.5 mg/0.5 mL pen injector 2.5 mg subcut QWEEK fluticasone propionate 50 mcg/actuation spray,suspension intranasal metformin 1,000 mg tablet 1,000 mg PO BID loperamide 2 mg capsule 2 mg PO Q6H PRN simethicone [Gas Relief (simethicone)] 125 mg capsule 125 mg PO BID-QID PRN Referrals: Kika Alejandro, APPLIQUER ZIGZAG [Primary Care Provider] - (Multiple bee stings) Interventions: ED Discharge Assessment Last Done: 04/03/24 15:30 Discharge Date/Time: 04/03/24 15:46 Print Language: Cymro
--- NOTE | 2024-04-03 13:00 | ECG_ITS ---
Test Reason : Allergic Reaction Blood Pressure : / mmHG Vent. Rate : 065 BPM Atrial Rate : 065 BPM P-R Int : 202 ms QRS Dur : 106 ms QT Int : 386 ms P-R-T Axes : -14 -19 029 degrees QTc Int : 401 ms Normal sinus rhythm Cannot rule out Anterior infarct , age undetermined Abnormal ECG When compared with ECG of 26-JAN-2020 10:09, No significant change was found Referred By: Jhoan Lutz Electronically Signed By:ANA HUA
[2024-04-03 13:05] VITALS: BP 155/73; PULSE 65; RESP 16; O2SAT 98
[2024-04-03] MEDS: Famotidine 20 MG TABLET PO (13:28)
[2024-04-03] MEDS: Loratadine 10 MG TABLET PO (13:28)
[2024-04-03] MEDS: Albuterol Sulfate (0.083%) 2.5 MG/3 ML VIAL.NEB INHALE (13:36)
[2024-04-03 13:40] VITALS: PULSE 67; RESP 18; O2SAT 97
[2024-04-03 15:20] VITALS: BP 135/64; PULSE 62; RESP 20; TEMP 36.8; O2SAT 99
[2024-04-03 15:30] VITALS: BP 134/69; PULSE 88; RESP 17; TEMP 36.6; O2SAT 99
[2024-04-03] MEDS: dexAMETHasone 2 MG TABLET 10 MG PO (15:42)
== END 2024-04-03 15:46 | disposition home or self-care (01) ==
PROVIDERS: Emergency Provider Emergency Medicine; PCP Nurse Practitioner Family
DX: R13.19 Other dysphagia (principal); T63.441A Toxic effect of venom of bees, accidental (unintentional), initial encounter; R94.31 Abnormal electrocardiogram [ECG] [EKG]; R20.0 Anesthesia of skin; Z79.899 Other long term (current) drug therapy; Z87.891 Personal history of nicotine dependence
CPT/HCPCS: 93005; 94640; 99284; 99285; J8540

== ENCOUNTER 2024-04-16 10:29 | Outpatient (AMB) | payer BC, SELFPAY ==
--- NOTE | 2024-04-16 10:33 | A.OFFVIS_ITS ---
Intake Visit Reasons: 6m/US/PVR Intake Note: Patient presents today for follow up bilateral nephrolithiasis, urinary dribbling, ultrasound and lab results Imaging Completed: 03/03/24 PSA: 0.34 Urology Medications: Allopurinol Blood Thinner: Apixaban PVR: 14ml's Viscosity Tester Required: No Accompanied by: Self / Same As Patient Allergies Sulfa (Sulfonamide Antibiotics) [SULFA (SULFONAMIDE ANTIBIOTICS)] Allergy (Intermediate, Verified 04/16/24 11:11) HIVES pioglitazone [From Actos] Adverse Reaction (Unknown, Verified 04/16/24 11:11) ankle swelling Medication List - Last Reconciled 04/16/24 by LUÍS Cuellar- allopurinol 100 mg PO DAILY 90 days alpha lipoic acid 600 mg PO BID apixaban 5 mg PO BID empagliflozin 25 mg PO DAILY epinephrine 0.3 mg (0.3 mL) IM Q4H PRN fluticasone propionate 50 mcg/actuation sprays intranasal folic acid 1 mg PO DAILY lisinopril 20 mg PO DAILY loperamide 2 mg PO Q6H PRN loratadine (Allergy Relief (loratadine)) 10 mg PO DAILY metformin 1,000 mg PO BID omeprazole 40 mg PO DAILY potassium citrate ER 20 mEq (2 x 10 mEq (1,080 mg)) PO BID 90 days pravastatin 20 mg PO BEDTIME 90 days simethicone (Gas Relief (simethicone)) 125 mg PO BID-QID PRN tirzepatide (Mounjaro) mg subcut HPI Comments Details: John is a very pleasant 68-year-old male patient of Dr. Cornejo. He has a past medical history of embolic stroke, hypertension, GERD, obesity, obstructive sleep apnea, hyperlipidemia, and type 2 diabetes. He presents to the office today for follow-up of his nephrolithiasis. In discussion with the patient today he reports to be doing and feeling well. Recent renal imaging results reviewed with the patient today. Left kidney with 1.2 cm left renal lower pole calculus. No hydronephrosis noted bilaterally. When asked he currently denies any bothersome urinary issues or concerns. We discussed likelihood of uric acid forming stone given no stones noted on previous ultrasound 6 months ago. In office urinalysis results reviewed with the patient today. PH 5.5. We discussed, stress, and educated on the importance of adequat e hydration relation to nephrolithiasis as well as overall health and well- being. He does have a history of bladder wall thickening noted on previous imaging bladder wall thickening to 9 mm. He reports a previous longstanding history of nephrolithiasis requiring surgical intervention in the past with Dr. Torres and Dr. Lima at [facility]. When asked he does report urinary dribbling however he denies urinary urgency, urinary frequency, incontinence, nocturia, hematuria, dysuria, foul smelling urine, changes to urinary stream, flank pain, fever, and or chills. He otherwise offers no other issues or concerns at this time. PSAs 01/26 0.7, 03/29 0.3 PFSH Medical History Morbid obesity GERD (gastroesophageal reflux disease) GERMAN (obstructive sleep apnea) Other and unspecified hyperlipidemia Essential hypertension Type 2 diabetes mellitus with unspecified complications Embolic stroke Stroke Surgical History Hx of colonoscopy History of esophagogastroduodenoscopy (EGD) Status post uvulopalatopharyngoplasty History of transesophageal echocardiography (AMIAN) (~02/19/20) History of loop recorder (~02/13/20) Family History Father No problems noted. Mother No problems noted. Social History (Reviewed 02/27/24 @ 14:19 by Carline Mcqueen [facility]) Household Members: Spouse Household Members Other:: 1 son Alcohol intake: current Patient Tobacco Use Status: Former Tobacco user Current occupational status: unemployed Review of Systems Const All systems reviewed & are unremarkable except as noted in HPI and below Reports as per HPI Eyes Reports no additional complaints ENT Reports no additional complaints Card Reports as per HPI Resp Reports no additional complaints GI Reports as per HPI Reports as per HPI Musc Reports no additional complaints Neuro Reports as per HPI Psych Reports no additional complaints Endo Reports as per HPI Murali/Lymph Reports no additional complaints Aller/Immun Reports no additional complaints Physical Exam Const General: cooperative, healthy appearing, comfortable, no acute distress, well developed, alert and awake Nutritional Appearance: overweight Orientation/consciousness: patient oriented x3 Limitations: no limitations HEENT Head: Yes normal to inspection, Yes normocephalic and Yes atraumatic Ears: hearing grossly normal bilaterally Eyes General: appearance normal, both eyes and all related structures Neck Neck: Yes normal visual inspection and Yes trachea midline Chest Chest palpation & inspection: normal inspection of the chest Resp Effort & Inspection: normal respiratory effort and able to speak in complete sentences Cardio Rate: regular rate GI Inspection: Yes normal to inspection General: Yes no CVA tenderness Back/Spine/Pelvis Back: no CVA tenderness Skin General skin exam: no rashes or lesions noted Neuro General: patient oriented x3 Extrem General: Yes normal to inspection Psych Appearance: grossly normal and well kempt Mental Status: mental status grossly normal Speech and movement: Normal speech and movement present and Clear speech present Affect: normal affect Attitude: cooperative Thought process: Normal thought process present Thought content: Normal thought content present Insight: Fair insight present (Psych) Judgement: Fair judgement present (Psych) Office Procedures Post Void Residual Post Residual Void Post Void Residual (PVR): 14 [id number] Void Residual by ultrasound Results AMB Urinalysis, Automated UA Leukoctes 0 Erika/uL Last Edit by [employer] on 04/16/24 10:53 UA Nitrite Last Edit by [employer] on 04/16/24 10:53 UA Urobilinogen 0.2 mg/dL Last Edit by [employer] on 04/16/24 10:53 UA Protein 30 mg/dL Last Edit by [employer] on 04/16/24 10:53 UA pH 5.5 Last Edit by [employer] on 04/16/24 10:53 UA Blood 0 Luis Miguel/uL Last Edit by [employer] on 04/16/24 10:53 UA Specific [place] 1.015 Last Edit by [employer] on 04/16/24 10:53 UA Ketone Last Edit by [employer] on 04/16/24 10:53 UA Bilirubin 0 mg/dL Last Edit by [employer] on 04/16/24 10:53 UA Glucose 1000 mg/dL Last Edit by [employer] on 04/16/24 10:53 Results Reviewed Results Reviewed: Date of Service: 03/03/24 US RETROPERITONEAL LIMITED (RENAL ONLY) FINDINGS: RIGHT KIDNEY: 11.7 x 6.5 x 6.3 cm (SAG x AP x TRV). No hydronephrosis. No renal calculi. Renal cortical thickness is normal. Limited visualization. LEFT KIDNEY: 12.5 x 6.1 x 5.2 cm (SAG x AP x TRV). 1.2 cm left renal lower pole calculus. Renal cortical thickness is normal. No hydronephrosis. Limited visualization. IMPRESSION: 1.2 cm left renal lower pole calculus. No hydronephrosis. Assessment & Plan Assessment & Plan (1) Bilateral nephrolithiasis: Comment: Longstanding prior ureteroscopy and ESWL Code(s): N20.0 - Calculus of kidney Category: Medical Plan In office urinalysis results reviewed with the patient today; as noted above. Discussed, educated, and stressed the importance of adequate hydration relation to nephrolithiasis as well as overall health and well-being. Patient currently denies any bothersome urinary issues or concerns. Recent renal imaging results reviewed with the patient today. Discussed at length uric acid forming stones. Start potassium citrate as discussed and prescribed. Recent PSA results reviewed with the patient today; as noted above. Patient reports be happy with current voiding parameters. Will obtain renal ultrasound in 6 months. Follow-up in 6 months with imaging to be completed prior; or sooner with any issues, concerns, and or questions. Orders: Orders AMB Urinalysis Automated Today Z13.9 - Encounter for screening, unspecified AMB Post Void Residual by ultrasound Today N39.43 - Post-void dribbling US renal BI 6 Months N20.0 - Calculus of kidney Medications: New potassium citrate ER 20 mEq (2 x 10 mEq (1,080 mg)) PO BID 90 days 360 tabs 1RF N20.0 - Calculus of kidney Patient Instructions: The patient had an opportunity to ask questions regarding the treatment plan. All questions were answered. Physical exam, labs, and imaging were discussed and reviewed in detail. As well as risks, benefits, and discussion of treatment choices. No major barriers to understanding were identified. The patient expressed understanding and agreement with the above treatment plan. The patient was made aware they should contact our office by phone for worsening of their current condition, the appearance of new symptoms, or with any questions or concerns. Compliance is encouraged with any medications and follow up testing that is ordered. It is a privilege to be allowed the opportunity to participate in? your urological care.? Again, if you have any questions or concerns If you have any questions or concerns please do not hesitate to contact me. The office is [phone]. This note is constructed using voice recognition software. While every effort has been made to ensure accuracy ophthalmic aide errors may have been included. Yours sincerely, LUÍS Cuellar-PIPER Coding Level of Care Code Est Pt Level 4 (86684) Diagnoses Bilateral nephrolithiasis N20.0 CPT Codes Post Residual Void - PVR CPT Code: 36051-Fjer Void Residual by ultrasound ([id number])
== END 2024-04-16 11:13 | disposition home or self-care (01) ==
PROVIDERS: Visit Provider Nurse Practitioner Family
DX: Z13.9 Encounter for screening, unspecified (principal); N20.0 Calculus of kidney
CPT/HCPCS: 99214

== ENCOUNTER → 2024-04-16 10:29 | Outpatient (BNVA) | payer BC, SELFPAY | PROVIDERS: Visit Provider Nurse Practitioner Family | DX: N20.0 Calculus of kidney (principal); N39.43 Post-void dribbling | CPT/HCPCS: 51798; 81003 ==

== ENCOUNTER 2024-04-21 11:04 | Outpatient (AMB) | payer BC, SELFPAY ==
--- NOTE | 2024-04-21 11:15 | A.OFFPC_ITS ---
Vital Signs 04/21/24 11:26 Height 6 ft 1 in Weight 237 lb 6 oz BMI 31.3 BP 122/64 Blood Pressure Location Lt brachial Position Sitting Respiration 16 Pulse 68 Pulse Source Pulse Oximeter Temp 97.7 F Temp Source Oral Pulse Oximetry (%) 97 Oxygen Delivery Method Room Air Intake Visit Reasons: Establish Care Intake Note: patient here for new patient visit. Field Case Manager Required: No Allergies Sulfa (Sulfonamide Antibiotics) [SULFA (SULFONAMIDE ANTIBIOTICS)] Allergy (Intermediate, Verified 04/21/24 12:00) HIVES pioglitazone [From Actos] Adverse Reaction (Unknown, Verified 04/21/24 12:00) ankle swelling Medication List - Last Reconciled 04/21/24 by Kika Alejandro CNP allopurinol 100 mg PO DAILY 90 days alpha lipoic acid 600 mg PO BID apixaban 5 mg PO BID empagliflozin 25 mg PO DAILY fluticasone propionate 50 mcg/actuation sprays intranasal folic acid 1 mg PO DAILY lisinopril 20 mg PO DAILY loperamide 2 mg PO Q6H PRN loratadine (Allergy Relief (loratadine)) 10 mg PO DAILY metformin 1,000 mg PO BID omeprazole 40 mg PO DAILY potassium citrate ER 20 mEq (2 x 10 mEq (1,080 mg)) PO BID 90 days simethicone (Gas Relief (simethicone)) 125 mg PO BID-QID PRN tirzepatide (Mounjaro) mg subcut Tobacco use date assessed: 04/21/24 Fall risk assessment: 2 + Falls in past year Last assessed Fall Risk: 04/21/24 Dental Screening Dental Screen Date: 04/21/24 Did you have a dental visit in the last 12 months?: Yes Did you have a dental problem in the last 6 months where you did not have access to dental care?: No Was dental information given to patient?: Patient has dentist HPI HPI Comments History of Present Illness Details New patient Prior PCP:?Formerly [facility] (virtual) Last office visit/CPE: About 6 months ago Acute issue(s): Diabetes -He is on metformin 1000 mg twice daily, Jardiance 25mg daily, Mounjaro 10mg Weekly subcu injections -His last A1c was 6.3% on 03/08/2024 GERD -He is on omeprazole 40 mg daily HTN -Lisinopril 20mg daily History of embolic stroke -Eliquis 5mg daily Kidney stones -Potassium Citrate ER 10mg weekly He admits to taking his medications as prescribed without adverse reactions He notes that he has been making healthy lifestyle changes, including diet and exercise He denies anxiety or depressive symptoms He is followed by endocrinology at [facility] [place] [facility] He is followed [place] [facility] [place] for recurring renal calculi He is followed [place] [facility] Last colonoscopy was at [facility], possibly 6 years ago: Benign polyp He is up-to-date on shingles and pneumonia vaccines Last eye exam was with [facility] last fall. His next annual eye exam is scheduled for next month Last tetanus vaccine is unknown PMHx: GERD, GERMAN, hyperlipidemia, essential hypertension, type 2 diabetes, embolic stroke (2019), renal calculi, hepatic steatosis, IBS, intermittent low back pain, fibromyalgia, OA both knees SurgHx: Status post uvulopalatopharyngoplasty FHx: Mom: Hypertension, diabetes, cardiovascular disease. Dad: Hypertension. MGM: Hypertension, alcoholism, mental illness. PGM: Cardiovascular disease SocHx: Former smoker; quit 30 years ago. Drinks 3 beers monthly. Uses THC gummies or drops occasionally for pain management PFSH Medical History (Updated 04/21/24 @ 13:54 by Nohemi Lanza) Imbalance Memory loss Fatty liver Irritable bowel syndrome Arthritis Diabetes High cholesterol High blood pressure Sinusitis History of torn meniscus of knee Kidney stone Nasal sinus polyp Morbid obesity GERD (gastroesophageal reflux disease) GERMAN (obstructive sleep apnea) Other and unspecified hyperlipidemia Essential hypertension Type 2 diabetes mellitus with unspecified complications Embolic stroke Stroke Surgical History Hx of colonoscopy History of esophagogastroduodenoscopy (EGD) Status post uvulopalatopharyngoplasty History of transesophageal echocardiography (AMINA) (~02/19/20) History of loop recorder (~02/13/20) Family History (Updated 04/21/24 @ 13:56 by Nohemi Lanza) Father High blood pressure Mother High blood pressure Diabetes Cardiovascular disease Maternal Grandmother High blood pressure Alcohol abuse FH: mental illness Paternal Grandmother Cardiovascular disease Family/Other Cardiovascular disease Social History Household Members: Spouse Household Members Other:: 1 son Housing: House Alcohol intake: current Patient Tobacco Use Status: Former Tobacco user e-Cigarette/Vaping Use: Never Used service: No Current occupational status: unemployed Current occupational exposures/hazards: No Cognitive needs: No Hearing needs: No Vision needs: No Questionnaire PHQ-9 Over the last 2 weeks, how often have you been bothered by any of the following problems? 1. Little interest or pleasure in doing things: several days 2. Feeling down, depressed, or hopeless: not at all 3. Trouble falling or staying asleep, or sleeping too much: several days 4. Feeling tired or having little energy: more than half the days 5. Poor appetite or overeating: not at all 6. Feeling bad about yourself - or that you are a failure or have let yourself or your family down: not at all 7. Trouble concentrating on things, such as reading the newspaper or watching television: more than half the days 8. Moving or speaking so slowly that other people could have noticed. Or the opposite - being so fidgety or restless that you have been moving around a lot more than usual: more than half the days 9. Thoughts that you would be better off or of hurting yourself in some way: not at all Total score: 8 Depression Screening Interpretation: Positive (denies depression or h/o depression ) Depression Screening Done: Yes 43801 - PHQ-9 Billing: Yes Source: Developed by Drs. Jeromy Varghese, Radha Truong, Michael Shell and colleagues, with an educational emily from [employer]. Thrive Questionnaire Date Thrive assessed: 04/21/24 I am a: Patient What is your living situation today?: I have a steady place to live Within the past 12 months, did the food you bought not last and you didn't have the money to get more?: Never true Within the past 12 months, did you worry whether your food would run out before you got money to buy more?: Never true Do you have trouble paying for medicines?: No Do you have trouble getting transportation to medical appointments?: No Do you have trouble paying your heating and electricity bill?: No Do you have trouble taking care of your child, family member or friend?: No Do you have trouble with day-to-day activities such as bathing, preparing meals, shopping, managing finances, etc.?: No Are you currently unemployed and looking for a job?: No Are you interested in more education?: No Please select the resources that you would like help with: None Currently or been in a relationship where the following occur: No concerns reported THRIVE Score: 0 AUDIT C Alcohol Use Questionnaire (AUDIT-C) 1. How often do you have a drink containing alcohol?: 2-4 times a month 2. How many drinks containing alcohol do you have on a typical day when you are drinking?: 1 or 2 3. How often do you have six or more drinks on one occasion?: Never Total Score: 2 Score Reviewed/Action Taken: No KVNG-7 AMB Questionnaire KVNG-7 Date KVNG - 7 assessed: 04/21/24 Feeling nervous, anxious, or on edge: 1 = Several days Not being able to stop or control worryin = Not at all Worrying too much about different things: 1 = Several days Trouble relaxin = Several days Being so restless that it is hard to sit still: 1 = Several days Becoming easily annoyed or irritable: 1 = Several days Feeling afraid as if something awful might happen: 0 = Not at all Total KVNG-7 score (0-4 normal; 5-9 mild; 10-14 moderate; 15-21 severe): 5 Source: Developed by Drs. Jeromy Varghese, Radha Truong, Michael Shell and colleagues, with an educational emily from [employer]. KVNG-7 Assessment Billing KVNG-7 Assessment Tool: KVNG-7 Assessment 78515 Review of Systems Const Details: Const Denies chills, Denies fatigue, Denies fever(s), Denies headache(s) and Denies weakness ENT Denies dizziness and Denies headache(s) Card Denies chest pain, Denies lightheadedness, Denies dyspnea and Denies other (Palpitations) Resp Denies cough, Denies dyspnea, Denies wheezing and Denies other ( shortness of breath) GI Denies abdominal pain, Denies melena, Denies hematochezia, Denies change in bowel habits, Denies dyspepsia and Denies nausea Denies hematuria and Denies dysuria Musc Denies abnormal gait, Denies myalgias, Denies arthralgias, Denies numbness and Denies tingling Skin/Breast Denies rash, Denies unusual bruising and Denies wounds Neuro Denies abnormal gait, Denies dizziness, Denies headache(s), Denies memory loss, Denies numbness, Denies Sensory deficit (Neuro), Denies tingling and Denies weakness Psych Denies anxiety, Denies depression, Denies memory loss Endo Denies cold intolerance, Denies fatigue, Denies heat intolerance, Denies polydipsia and Denies polyuria Aller/Immun Denies wheezing Physical exam (Primary Care) Vital Signs: Last Vital Signs Temp 97.7 F 04/21/24 11:26 Pulse 68 04/21/24 11:26 Resp 16 04/21/24 11:26 BP 122/64 04/21/24 11:26 Pulse Ox 97 04/21/24 11:26 Oxygen Delivery Method Room Air 04/21/24 11:26 BMI result Body Mass Index 31.3 Tobacco/Smoking Status: Tobacco use Status Tobacco use date assessed 04/21/24 04/21/24 11:25 Patient Tobacco Use Status Former Tobacco user 04/21/24 11:16 e-Cigarette/Vaping Use Never Used 04/21/24 11:25 PHQ-9: PHQ-9 Score PHQ-9: Total score 8 04/21/24 13:56 Depression Screening Interpretation: Positive (denies depression or h/o depression ) Thrive Assessment: Date of Thrive Assessment Date Thrive assessed 04/21/24 04/21/24 11:32 Currently or been in a relationship where the following occur: No concerns reported Const Other: General: no acute distress and well developed Nutritional Appearance: well nourished Orientation/consciousness: patient oriented x3 HENMT Head: Yes normocephalic and Yes atraumatic Eyes General: appearance normal, both eyes and all related structures Pupils: Equal, round and reactive pupils present EOM: EOMs intact bilaterally Resp Effort & Inspection: normal respiratory effort Auscultation: clear to auscultation bilaterally Cardio Rate: regular rate Rhythm: regular rhythm Heart sounds: S1 normal heart sound present, S2 normal heart sound present, no gallops, no murmurs and no rubs GI Palpation (GI): No Abdominal aortic bruit present, Soft to palpation, nontender, No hepatosplenomegaly present and No Rebound tenderness present Auscultation: normal bowel sounds General: Yes no CVA tenderness Back/Spine/Pelvis Back: no CVA tenderness Cervical Spine: cervical ROM normal and No Cervical spine tenderness Thoracic/Lumbar Spine: thoraco-lumbar ROM normal, No pain with thoraco-lumbar ROM, No thoracic spinal tenderness and No lumbar spinal tenderness Extrem General: Yes normal to inspection, No edema and No calf tenderness Skin General: warm and dry. Normal skin color. Normal skin turgor Lesions: no lesions Rashes: no rashes Trauma: no lacerations or abrasions Wounds: no wounds Nails: normal Neuro General: patient oriented x3, gait normal and no focal neuro deficit Cranial nerves: Yes Equal, round and reactive pupils present Cognition (Neuro): normal cognition Gait exam (Neuro): Normal gait present Sensory Exam: No Sensory deficit (Neuro) Psych Appearance: grossly normal Affect: normal affect Attitude: cooperative Thought process: Normal thought process present Immunizations Boostrix Tdap 2.5 Lf unit-8 mcg-5 Lf/0.5 mL intramuscular syringe Performing Provider: Kika Alejandro CNP [place]forming [place] [facility] Administered by: Tona Fernandez RN on 04/21/24 12:49 Dose Route Admin Location Dispensed Lot Number Expiration Date [facility] Database Tester 0.5 mL IM Right Deltoid 0.5 mL [id number] 05/14/26 [id number] [employer] VIS Given Date VIS Provided VIS Publication Date 04/21/24 Single Vaccine 21 Eligibility Eligibility Date Funding Source Not [facility] Eligible 04/21/24 Private Assessment and Plan Assessment & Plan (1) Normal physical examination, routine: Code(s): Z00.00 - Encounter for general adult medical examination without abnormal findings Plan: No significant physical restrictions or limitations noted Continue current treatment regimen Continue follow-up with Cardiology, endocrinology, Urology, and Nephrology as planned Encouraged to get lab work done and follow-up for a telehealth visit 2-3 weeks for labs review Return sooner with symptoms or concerns Verbalized understanding and agreed with the treatment plan (2) Type 2 diabetes mellitus with unspecified complications: Code(s): E11.8 - Type 2 diabetes mellitus with unspecified complications Plan: His last A1c on 03/08/2024 was 6.3% Followed by [facility] Continue current treatment regimen Verbalized understanding and agreed with the plan (3) Essential hypertension: Code(s): I10 - Essential (primary) hypertension Plan: Resting blood pressure is 122/64, within goal of less than 130/80 Continue current treatment regimen Low-sodium diet encouraged Will continue to monitor Verbalized understanding and agreed with the plan (4) Embolic stroke: Code(s): I63.9 - Cerebral infarction, unspecified Qualifiers: Precerebral and cerebral artery: unspecified cerebral artery Qualified Code(s): I63.40 - Cerebral infarction due to embolism of unspecified cerebral artery Plan: History of embolic stroke Continue to take Eliquis 5 mg twice daily (5) Other and unspecified hyperlipidemia: Code(s): E78.5 - Hyperlipidemia, unspecified Plan: Recent lipid panel level is unremarkable except for slightly elevated LDL, 106; LDL goal is less than 100 He stop taking pravastatin 20 mg at bedtime Advised to limit foods high in saturated fat and avoid foods high in trans fat Routine exercise encouraged Continue follow-up with endocrinology as planned Verbalized understanding and agreed with the treatment plan (6) GERD (gastroesophageal reflux disease): Code(s): K21.9 - Gastro-esophageal reflux disease without esophagitis Plan: No acute symptoms Continue to take omeprazole as prescribed (7) Vaccine for tetanus toxoid: Code(s): Z23 - Encounter for immunization Plan: His last tetanus vaccine is unknown Tdap vaccine administered administered today by our nurse (8) Obesity (BMI 30-39.9): Code(s): E66.9 - Obesity, unspecified Plan: He currently weighs 237 lb, BMI is 31.3 Declines referral to dietitian or weight management at this time and notes he will continue to make lifestyle changes Healthy diet and routine exercise encouraged You may inform his PCP as needed for dietitian or weight management referral (9) Eye exam, routine: Code(s): Z01.00 - Encounter for examination of eyes and vision without abnormal findings Plan: Last eye exam was with [facility] last fall. His next annual eye exam is scheduled for next month He will sign a release for his PCP to obtain records (10) Laboratory tests ordered as part of a complete physical exam (CPE): Code(s): Z00.00 - Encounter for general adult medical examination without abnormal findings Plan: Fasting labs ordered as part of a complete physical exam. Advised to fast for at least 10 hours before getting labs drawn. May drink water Verbalized understanding and agreed with treatment plan. Orders: Orders PSA, Ultra Sensitive Today Z00.00 - Encounter for general adult medical examination without abnormal findings Microalbumin, Random (w Creat) Today Z00.00 - Encounter for general adult medical examination without abnormal findings TDaP Immunization Today Z23 - Encounter for immunization Complete Blood Count Auto Diff Today Z00.00 - Encounter for general adult medical examination without abnormal findings TSH reflex Free T4 Today Z00.00 - Encounter for general adult medical examination without abnormal findings Coding Level of Care Code New Pt Level 4 (09674) New Pt Prev Care >65yr (94657) Diagnoses Normal physical examination, routine Z00.00 Type 2 diabetes mellitus with unspecified complications E11.8 Essential hypertension I10 Cerebrovascular accident (CVA) due to embolism of cerebral artery I63.40 Precerebral and cerebral artery: unspecified cerebral artery Other and unspecified hyperlipidemia E78.5 GERD (gastroesophageal reflux disease) K21.9 Vaccine for tetanus toxoid Z23 Obesity (BMI 30-39.9) E66.9 Eye exam, routine Z01.00 Laboratory tests ordered as part of a complete physical exam (CPE) Z00.00 Additional Codes KVNG-7 Assessment Billing - KVNG-7 Assessment Tool: KVNG-7 Assessment [id number] ([id number])
[2024-04-21 11:26] VITALS: BP 122/64; PULSE 68; RESP 16; TEMP 36.5; O2SAT 97; BMI 31.3
== END 2024-04-21 12:54 | disposition home or self-care (01) ==
PROVIDERS: Visit Provider Nurse Practitioner Family
DX: Z00.00 Encounter for general adult medical examination without abnormal findings (principal); E11.8 Type 2 diabetes mellitus with unspecified complications; I10 Essential (primary) hypertension; I63.40 Cerebral infarction due to embolism of unspecified cerebral artery; E78.5 Hyperlipidemia, unspecified; K21.9 Gastro-esophageal reflux disease without esophagitis; Z23 Encounter for immunization; E66.9 Obesity, unspecified

== ENCOUNTER → 2024-04-21 11:04 | Outpatient (BNVA) | payer BC, SELFPAY | PROVIDERS: Visit Provider Nurse Practitioner Family | DX: Z00.00 Encounter for general adult medical examination without abnormal findings (principal); E11.8 Type 2 diabetes mellitus with unspecified complications; I10 Essential (primary) hypertension; E78.5 Hyperlipidemia, unspecified; K21.9 Gastro-esophageal reflux disease without esophagitis; E66.9 Obesity, unspecified; Z68.31 Body mass index [BMI] 31.0-31.9, adult; Z86.73 Personal history of transient ischemic attack (TIA), and cerebral infarction without residual deficits; Z79.01 Long term (current) use of anticoagulants; Z79.899 Other long term (current) drug therapy; Z23 Encounter for immunization | CPT/HCPCS: 90471; 90715; 96127 ==

== ENCOUNTER 2024-04-21 12:58 | Outpatient (REF) | payer BC, SELFPAY ==
[2024-04-21 14:30] LABS: MANUAL DIFF FLAG NO
[2024-04-21 14:39] LABS: Basophils Percent Auto 0.5 % (0-2); Eosinophils Absolute Auto 0.1 X10*3/uL (0.0-0.4); Eosinophils Percent Auto 2.2 % (0-4); Hematocrit 43.6 % (42.0-52.0); Hemoglobin 14.7 g/dl (14.0-18.0); Imm Gran Abs Auto 0.02 X10*3/uL (0.00-0.03); Imm Gran Pct Auto 0.3 % (0.0-0.4); Lymphocytes Absolute Auto 1.8 X10*3/uL (1.2-4.9); Lymphocytes Percent Auto 28.4 % (20-40); Mean Corpuscular HGB Conc 33.7 g/dl (31.0-36.0); Mean Corpuscular Hemoglobin 28.7 pg (27.0-33.0); Mean Corpuscular Volume 85.2 fL (80.0-98.0); Mean Platelet Volume 9.9 fL (9.4-12.4); Monocytes Absolute Auto 0.5 X10*3/uL (0.1-1.2); Monocytes Percent Auto 8.5 % (2-11); Neutrophils Absolute Auto 3.7 x10*3/uL (2.0-8.3); Neutrophils Percent Auto 60.1 % (45-73); Platelet Count 263 X10*3/uL (160-400); Red Blood Count 5.12 X10*6/uL (4.60-5.80); Red Cell Distribution Width 12.9 % (11.0-16.0); White Blood Count 6.2 X10*3/uL (4.8-10.8)
[2024-04-21 15:08] LABS: Creatinine Urine 49.26 mg/dL; Microalbum/Creatinine Ratio Ur 336.9 ug/mg cr (<30)
[2024-04-21 15:28] LABS: TSH reflex Free T4 2.15 uIU/mL (0.32-4.0)
[2024-04-27 11:49] LABS: PSA, Ultra Sensitive 0.69 ng/mL
== END 2024-04-21 12:59 | disposition home or self-care (01) ==
LOC: HO.WFDLDS 12:58
PROVIDERS: Visit Provider Nurse Practitioner Family
DX: Z00.00 Encounter for general adult medical examination without abnormal findings (principal); Z12.5 Encounter for screening for malignant neoplasm of prostate
CPT/HCPCS: 36415; 82043; 82570; 84153; 84443; 85025

== ENCOUNTER 2024-05-09 15:27 | Outpatient (AMB) | payer BC, SELFPAY ==
--- NOTE | 2024-05-09 15:24 | A.OFFPC_ITS ---
Intake Visit Reasons: Telehealth 2-3 wks labs review Accounts Payable Manager Required: No Allergies Sulfa (Sulfonamide Antibiotics) [SULFA (SULFONAMIDE ANTIBIOTICS)] Allergy (Intermediate, Verified 05/09/24 15:25) HIVES pioglitazone [From Actos] Adverse Reaction (Unknown, Verified 05/09/24 15:25) ankle swelling Tobacco use date assessed: 04/21/24 Dental Screening Dental Screen Date: 04/21/24 HPI HPI Comments History of Present Illness Details 68 y/o male presents for a telehealth fo r review of recent lab results He admits to taking his medications as prescribed He offers no complaints and denies acute symptoms at this time [facility] Medical History (Updated 05/09/24 @ 15:59 by Kika Alejandro CNP) Imbalance Memory loss Fatty liver Irritable bowel syndrome Arthritis Diabetes High cholesterol High blood pressure Sinusitis History of torn meniscus of knee Kidney stone Nasal sinus polyp Morbid obesity GERD (gastroesophageal reflux disease) GERMAN (obstructive sleep apnea) Other and unspecified hyperlipidemia Essential hypertension Type 2 diabetes mellitus with unspecified complications Embolic stroke Stroke Surgical History Hx of colonoscopy History of esophagogastroduodenoscopy (EGD) Status post uvulopalatopharyngoplasty History of transesophageal echocardiography (AMINA) (~02/19/20) History of loop recorder (~02/13/20) Family History (Updated 04/21/24 @ 13:56 by Nohemi Lanza MA) Father High blood pressure Mother High blood pressure Diabetes Cardiovascular disease Maternal Grandmother High blood pressure Alcohol abuse FH: mental illness Paternal Grandmother Cardiovascular disease Family/Other Cardiovascular disease Social History Household Members: Spouse Household Members Other:: 1 son Housing: House Alcohol intake: current Patient Tobacco Use Status: Former Tobacco user e-Cigarette/Vaping Use: Never Used service: No Current occupational status: unemployed Current occupational exposures/hazards: No Cognitive needs: No Hearing needs: No Vision needs: No Questionnaire Thrive Questionnaire Date Thrive assessed: 04/21/24 KVNG-7 AMB Questionnaire KVNG-7 Date KVNG - 7 assessed: 04/21/24 Source: Developed by Drs. Jeromy Varghese, Radha Truong, Michael Shell and colleagues, with an educational emily from [employer]. Review of Systems Const Details: Const Denies chills, Denies fatigue, Denies fever(s), Denies headache(s) and Denies weakness ENT Denies dizziness and Denies headache(s) Card Denies chest pain, Denies lightheadedness, Denies dyspnea and Denies other (Palp itations) Resp Denies cough, Denies dyspnea, Denies wheezing and Denies other ( shortness of breath) GI Denies abdominal pain, Denies melena, Denies hematochezia, Denies change in bowel habits, Denies dyspepsia and Denies nausea Denies hematuria and Denies dysuria Musc Denies abnormal gait, Denies myalgias, Denies arthralgias, Denies numbness and Denies tingling Skin/Breast Denies rash, Denies unusual bruising and Denies wounds Neuro Denies abnormal gait, Denies dizziness, Denies headache(s), Denies memory loss, Denies numbness, Denies Sensory deficit (Neuro), Denies tingling and Denies weakness Endo Denies cold intolerance, Denies fatigue, Denies heat intolerance, Denies polydipsia and Denies polyuria Aller/Immun Denies wheezing Physical exam (Primary Care) Tobacco/Smoking Status: Tobacco use Status Tobacco use date assessed 04/21/24 05/09/24 15:26 Patient Tobacco Use Status Former Tobacco user 05/09/24 15:26 e-Cigarette/Vaping Use Never Used 05/09/24 15:26 Thrive Assessment: Date of Thrive Assessment Date Thrive assessed 04/21/24 05/09/24 15:26 Const Other: Telehealth visit. No physical exam Telehealth Telehealth Telehealth Platform: Telephone Location of provider rendering services: practice address Location of patient: address on file Patient Identification confirmed using: Name, : Yes Telehealth method: voice only Patient verbally consented to treatment: Yes Patient verbally consented to billing insurance company: Yes Patient informed of any privacy concerns related to visit: Yes Coding Level of Care Code Tele Est Pt Level 3 (40457) Diagnoses Albuminuria R80.9 Time Spent (min) 15 Assessment & Plan Assessment & Plan (1) Albuminuria: Code(s): R80.9 - Proteinuria, unspecified Category: Medical Plan: Recent lab results are unremarkable except for elevated microalbumin/creatinine ratio, 336.9. BUN/creatinine and urinalysis is normal. Blood pressure is controlled and diabetes is well controlled. He is on an WILBERT-I He admits to drinking 5-6 cups of coffee daily. He is unsure whether he is well hydrated with water/fluids Dehydration is likely Adequate hydration encouraged Will recheck urine microalbumin/creatinine ratio in a couple months. Advised to get lab work done before his next visit May referred to Nephrology if albumin/creatinine ratio remains significantly e levated Verbalized understanding and agreed with the treatment plan Orders: Orders Microalbumin, Random (w Creat) 2 Months R80.9 - Proteinuria, unspecified
== END 2024-05-09 16:20 | disposition home or self-care (01) ==
LOC: HO.HMCFM 15:27
PROVIDERS: PCP Nurse Practitioner Family; Visit Provider Nurse Practitioner Family
DX: R80.9 Proteinuria, unspecified (principal)

== ENCOUNTER → 2024-05-09 15:27 | Outpatient (BNVA) | payer BC, SELFPAY | PROVIDERS: PCP Nurse Practitioner Family; Visit Provider Nurse Practitioner Family ==

== ENCOUNTER 2024-07-11 12:40 | Outpatient (AMB) | payer BC, SELFPAY ==
--- NOTE | 2024-07-11 13:52 | AM.OFFWIN_ITS ---
Intake Vital Signs 07/11/24 13:56 Weight 229 lb BP 140/90 H Blood Pressure Location Lt brachial Position Sitting Pulse 66 Pulse Source Pulse Oximeter Pulse Oximetry (%) 99 Oxygen Delivery Method Room Air Intake Visit Reasons: EP-yeast infection Intake Note: Patient here for some type of infection on his buttocks that he noticed about 1 month ago. Patient Tobacco Use Status: Former Tobacco user Allergies Sulfa (Sulfonamide Antibiotics) [SULFA (SULFONAMIDE ANTIBIOTICS)] Allergy (Intermediate, Verified 07/11/24 13:57) HIVES pioglitazone [From Actos] Adverse Reaction (Unknown, Verified 07/11/24 13:57) ankle swelling Do you need a note to return to daycare/school/sports/work: No HPI HPI Comments History of Present Illness Details History of Present Illness The patient is a 68-year-old male presenting with an anal rash for 2 months. The patient reports a long-standing history of gastrointestinal (GI) issues, which have intermittently led to hemorrhoids, typically resolving when his GI condition stabilizes. However, after a flare-up of GI issues in May and June, accompanied by a suspected exposure to listeria-contaminated chicken leading to fever and other symptoms, the hemorrhoids did not resolve as expected. A week and a half prior to this visit, upon inspection, the patient noted that it was not hemorrhoids causing discomfort but instead a red, rash-like irritation around the anus. This rash did not exhibit white crusting or dryness. Concerned about potential Jardiance-related side effects, the patient speculated a yeast infection due to past experiences and began using miconazole, which initially appeared beneficial but later ineffective. The patient expressed apprehension regarding a possible link to listeria or fungal infection due to similar historical presentations. Onset of symptoms started after consuming a recalled chicken salad, leading to listeria concerns which were not confirmed by diagnostic blood tests as his primary care provider advised emergency evaluation rather than non-emergency testing. Physical Exam General: Cooperative, healthy appearing, comfortable, no acute distress and well developed Orientation: Patient oriented x3 Limitations: Balance issues noted Head: Normal to inspection Ears: Hearing grossly normal bilaterally Nose: Normal external nose present Face and sinus: Normal facial exam Eyes: Appearance normal, both eyes and all related structures Neck: Normal visual inspection and Yes full ROM Respiratory: Normal respiratory effort and able to speak in complete sentences. Skin: erythematous rash around the anus Neuro: Patient oriented x3 Extremities: Normal to inspection [facility] Medical History (Updated 07/11/24 @ 14:16 by Eli Ash PA-C) Imbalance Memory loss Fatty liver Irritable bowel syndrome Arthritis Diabetes High cholesterol High blood pressure Sinusitis History of torn meniscus of knee Kidney stone Nasal sinus polyp Morbid obesity GERD (gastroesophageal reflux disease) GERMAN (obstructive sleep apnea) Other and unspecified hyperlipidemia Essential hypertension Type 2 diabetes mellitus with unspecified complications Embolic stroke Stroke Surgical History Hx of colonoscopy History of esophagogastroduodenoscopy (EGD) Status post uvulopalatopharyngoplasty History of transesophageal echocardiography (AMINA) (~02/19/20) History of loop recorder (~02/13/20) Family History (Updated 04/21/24 @ 13:56 by Nohemi Lanza MA) Father High blood pressure Mother High blood pressure Diabetes Cardiovascular disease Maternal Grandmother High blood pressure Alcohol abuse FH: mental illness Paternal Grandmother Cardiovascular disease Family/Other Cardiovascular disease Social History Household Members: Spouse Household Members Other:: 1 son Housing: House Alcohol intake: current Patient Tobacco Use Status: Former Tobacco user e-Cigarette/Vaping Use: Never Used service: No Current occupational status: unemployed Current occupational exposures/hazards: No Cognitive needs: No Hearing needs: No Vision needs: No Review of Systems Const All systems reviewed & are unremarkable except as noted in HPI and below Physical Exam Vital Signs: Last Vital Signs Pulse 66 07/11/24 13:56 BP 140/90 H 07/11/24 13:56 Pulse Ox 99 07/11/24 13:56 Oxygen Delivery Method Room Air 07/11/24 13:56 Assessment & Plan Assessment & Plan (1) Tinea cruris: Code(s): B35.6 - Tinea cruris Plan: - Continue topical antifungal cream (miconazole) application twice daily to manage local symptoms. Sent RX for fluconazole, may repeat dose in one week if symptoms persist. Keep the area clean and dry. - Advise the patient to maintain the affected area clean and dry to aid symptom resolution. Patient was informed and verbally consented to the use of an ambient scribe for clinic note documentation during this visit. Medications: New fluconazole may repeat second dose 7 days after first dose if symptoms persist 150 mg PO QWEEK 2 tabs 0RF Coding Level of Care Code Est Pt Level 3 (96846) Diagnoses Tinea cruris B35.6
[2024-07-11 13:56] VITALS: BP 140/90; PULSE 66; O2SAT 99
== END 2024-07-11 14:40 | disposition home or self-care (01) ==
PROVIDERS: PCP Nurse Practitioner Family; Visit Provider Physician Assistant
DX: B35.6 Tinea cruris (principal)

== ENCOUNTER 2024-08-11 15:55 | Outpatient (AMB) | payer BC, SELFPAY ==
[2024-08-11 15:57] VITALS: BP 124/76; PULSE 63; O2SAT 98; BMI 29.5
--- NOTE | 2024-08-11 15:57 | MHC.PC.OV ---
Vital Signs 08/11/24 15:57 Height 6 ft 1 in Weight 223 lb 6 oz BMI 29.5 BP 124/76 Blood Pressure Location Lt brachial Position Sitting Pulse 63 Pulse Source Pulse Oximeter Pulse Oximetry (%) 98 Oxygen Delivery Method Room Air Intake Visit Reasons: TITUS to Dr. Abdullahi Church Supervisor Required: No Accompanied by: Self / Same As Patient Allergies Sulfa (Sulfonamide Antibiotics) [SULFA (SULFONAMIDE ANTIBIOTICS)] Allergy (Intermediate, Verified 08/11/24 16:18) HIVES pioglitazone [From Actos] Adverse Reaction (Unknown, Verified 08/11/24 16:18) ankle swelling Medication List - Last Reconciled 08/11/24 by Derrek Abdullahi MD allopurinol 100 mg PO DAILY 90 days alpha lipoic acid 600 mg PO BID apixaban 5 mg PO BID 90 days empagliflozin 25 mg PO DAILY fluticasone propionate 50 mcg/actuation sprays intranasal folic acid 1 mg PO DAILY lisinopril 20 mg PO DAILY loperamide 2 mg PO Q6H PRN loratadine (Allergy Relief (loratadine)) 10 mg PO DAILY omeprazole 40 mg PO DAILY potassium citrate ER 20 mEq (2 x 10 mEq (1,080 mg)) PO BID 90 days simethicone (Gas Relief (simethicone)) 125 mg PO BID-QID PRN tirzepatide (Mounjaro) mg subcut Tobacco use date assessed: 08/11/24 Fall risk assessment: 1 Fall in past year Last assessed Fall Risk: 08/11/24 Dental Screening Dental Screen Date: 08/11/24 Did you have a dental visit in the last 12 months?: Yes Did you have a dental problem in the last 6 months where you did not have access to dental care?: No Was dental information given to patient?: Patient has dentist HPI TITUS to Dr. Abdullahi HPI Details Patient comes in today to transfer care from [facility] States that he currently feels okay but recalls that he had some concerns about a month ago about potential exposure to listeria after consuming some salads that were eventually recalled States that he had some GI symptoms at the time, including nausea, vomiting and diarrhea but these all gradually resolved on their own after a few days He reports (+) history of diabetes, embolic stroke and chronic low back pain He reports a longstanding issue with chronic back pain, originating several years ago and suggested by past x-rays to be related to spinal disc deterioration States that he was once considered for back surgery but has managed the pain conservatively since then Patient also describes intermittent generalized body pains, attributed in the past to fibromyalgia by a former physician. Despite trying acupuncture previously with success, he notes variable results with current practitioners. Diabetes management has been ongoing for many years. He has discontinued metformin approximately two months ago due to gastrointestinal side effects, resulting in symptom resolution Patient has a history of two embolic strokes, one discovered retrospectively, and is on chronic anticoagulation therapy due to a patent foramen ovale (PFO). He has managed his diabetes with additional medications and was under the care of a product safety coordinator for kidney stones until three years ago. His recent lab work revealed an elevated microalbumin/creatinine ratio, indicating possible chronic kidney disease, which he attributes to diabetes [facility] Medical History (Updated 08/12/24 @ 07:34 by Derrek Abdullahi MD) Lumbar degenerative disc disease Imbalance Memory loss Fatty liver Irritable bowel syndrome Arthritis Diabetes High cholesterol High blood pressure Sinusitis History of torn meniscus of knee Kidney stone Nasal sinus polyp Morbid obesity GERD (gastroesophageal reflux disease) GERMAN (obstructive sleep apnea) Other and unspecified hyperlipidemia Essential hypertension Type 2 diabetes mellitus with unspecified complications Embolic stroke Stroke Surgical History Hx of colonoscopy History of esophagogastroduodenoscopy (EGD) Status post uvulopalatopharyngoplasty History of transesophageal echocardiography (AMINA) (~02/19/20) History of loop recorder (~02/13/20) Family History Father High blood pressure Mother High blood pressure Diabetes Cardiovascular disease Maternal Grandmother High blood pressure Alcohol abuse FH: mental illness Paternal Grandmother Cardiovascular disease Family/Other Cardiovascular disease Social History Household Members: Spouse Household Members Other:: 1 son Housing: House Alcohol intake: current Patient Tobacco Use Status: Former Tobacco user e-Cigarette/Vaping Use: Never Used service: No Current occupational status: unemployed Current occupational exposures/hazards: No Cognitive needs: No Hearing needs: No Vision needs: No Questionnaire PHQ-9 Over the last 2 weeks, how often have you been bothered by any of the following problems? 1. Little interest or pleasure in doing things: several days 2. Feeling down, depressed, or hopeless: not at all 3. Trouble falling or staying asleep, or sleeping too much: several days 4. Feeling tired or having little energy: more than half the days 5. Poor appetite or overeating: not at all 6. Feeling bad about yourself - or that you are a failure or have let yourself or your family down: not at all 7. Trouble concentrating on things, such as reading the newspaper or watching television: more than half the days 8. Moving or speaking so slowly that other people could have noticed. Or the opposite - being so fidgety or restless that you have been moving around a lot more than usual: more than half the days 9. Thoughts that you would be better off or of hurting yourself in some way: not at all Total score: 8 Depression Screening Interpretation: Positive (denies depression or h/o depression ) Depression Screening Done: Yes 28136 - PHQ-9 Billing: Yes Source: Developed by Drs. Jeromy Varghese, Radha Truong, Michael Shell and colleagues, with an educational emily from [employer]. Thrive Questionnaire Date Thrive assessed: 08/11/24 I am a: Patient What is your living situation today?: I have a steady place to live Within the past 12 months, did the food you bought not last and you didn't have the money to get more?: Never true Within the past 12 months, did you worry whether your food would run out before you got money to buy more?: Never true Do you have trouble paying for medicines?: No Do you have trouble getting transportation to medical appointments?: No Do you have trouble paying your heating and electricity bill?: No Do you have trouble taking care of your child, family member or friend?: No Do you have trouble with day-to-day activities such as bathing, preparing meals, shopping, managing finances, etc.?: No Are you currently unemployed and looking for a job?: No Are you interested in more education?: No Please select the resources that you would like help with: None Currently or been in a relationship where the following occur: No concerns reported THRIVE Score: 0 AUDIT C Alcohol Use Questionnaire (AUDIT-C) 1. How often do you have a drink containing alcohol?: Monthly or less 2. How many drinks containing alcohol do you have on a typical day when you are drinking?: 1 or 2 3. How often do you have six or more drinks on one occasion?: Never Total Score: 1 Score Reviewed/Action Taken: Yes KVNG-7 AMB Questionnaire KVNG-7 Date KVNG - 7 assessed: 08/11/24 Feeling nervous, anxious, or on edge: 0 = Not at all Not being able to stop or control worryin = Not at all Worrying too much about different things: 0 = Not at all Trouble relaxin = Not at all Being so restless that it is hard to sit still: 0 = Not at all Becoming easily annoyed or irritable: 0 = Not at all Feeling afraid as if something awful might happen: 0 = Not at all Total KVNG-7 score (0-4 normal; 5-9 mild; 10-14 moderate; 15-21 severe): 0 Source: Developed by Drs. Jeromy Varghese, Radha Truong, Michael Shell and colleagues, with an educational emily from [employer]. Review of Systems Const Denies chills, Denies fatigue, Denies fever(s) and Denies headache(s) ENT Denies dysphagia, Denies dizziness, Denies otalgia, Denies headache(s), Denies neck pain, Denies odynophagia and Denies sore throat Card Denies chest pain, Denies palpitations and Denies dyspnea Resp Denies chest congestion, Denies cough and Denies dyspnea GI Denies abdominal pain, Denies constipation, Denies dysphagia, Denies heartburn, Denies diarrhea, Denies nausea, Denies odynophagia and Denies vomiting Denies dysuria, Denies nocturia and Denies urinary frequency Musc Reports back pain (over the lower back - chronic) and Denies neck pain Skin/Breast Denies rash Neuro Denies dizziness and Denies headache(s) Endo Denies fatigue and Denies palpitations Physical exam (Primary Care) Vital Signs: Last Vital Signs Pulse 63 08/11/24 15:57 BP 124/76 08/11/24 15:57 Pulse Ox 98 08/11/24 15:57 Oxygen Delivery Method Room Air 08/11/24 15:57 BMI result Body Mass Index 29.5 Tobacco/Smoking Status: Tobacco use Status Tobacco use date assessed 08/11/24 08/11/24 16:02 Patient Tobacco Use Status Former Tobacco user 08/11/24 16:02 e-Cigarette/Vaping Use Never Used 08/11/24 16:02 PHQ-9: PHQ-9 Score PHQ-9: Total score 8 08/11/24 16:35 Depression Screening Interpretation: Positive (denies depression or h/o depression ) Thrive Assessment: Date of Thrive Assessment Date Thrive assessed 08/11/24 08/11/24 16:02 Currently or been in a relationship where the following occur: No concerns reported Const General: no acute distress and alert HENMT Ears: TM's normal bilaterally and EAC's normal Throat: Yes posterior oropharynx normal and Yes tonsils normal (no TP congestion) Neck Neck: Yes supple and No lymphadenopathy Thyroid: Thyroid normal Resp Auscultation: clear to auscultation bilaterally, no rales and no wheezes Cardio Rate: regular rate Rhythm: regular rhythm Heart sounds: no murmurs GI Palpation (GI): Soft to palpation and nontender Auscultation: normal bowel sounds General: Yes no CVA tenderness Back/Spine/Pelvis Back: no CVA tenderness Thoracic/Lumbar Spine: lumbar spinal tenderness Skin General skin exam: no rashes or lesions noted Extrem General: Yes no clubbing, cyanosis or edema Coding Level of Care Code Est Pt Level 4 (67939) Diagnoses Cerebrovascular accident (CVA) due to embolism of cerebral artery I63.40 Precerebral and cerebral artery: unspecified cerebral artery Type 2 diabetes mellitus with unspecified complications E11.8 Essential hypertension I10 Other and unspecified hyperlipidemia E78.5 GERMAN (obstructive sleep apnea) G47.33 Degeneration of intervertebral disc of lumbar region with discogenic back pain M51.360 Disc-related pain type: discogenic back pain only Morbid obesity E66.01 Additional Codes PHQ-9 - 44372 - PHQ-9 Billing: Yes ([id number]) Assessment & Plan Assessment & Plan (1) Embolic stroke: Code(s): I63.9 - Cerebral infarction, unspecified Category: Medical Qualifiers: Precerebral and cerebral artery: unspecified cerebral artery Qualified Code(s): I63.40 - Cerebral infarction due to embolism of unspecified cerebral artery Plan: Echocardiogram with LVEF 55-60%; is otherwise unremarkable. Transesophageal echocardiogram showed evidence of atrial septal aneurysm, patent foramen ovale; quta-[id number] shunt noted by color Doppler but bubble study was negative for nxmqz-ui-lzno shunt. Implantable loop monitor showed 1 episode of possible atrial fibrillation but the episode was only for about 40 seconds and the rate was only in the 60s. Nothing recurrent after this episode. Myocardial perfusion imaging study from [facility], 2019 shows no evidence of any ischemia or infarction. He exercised for 8 minutes and 54 minutes on Kang protocol reaching 9 Mets. Brain MRI had shown a small infarct in cerebellum. Brain CT had also shown old infarcts. CTA of the neck does not show any significant disease. Continue Eliquis 5 mg BID for thromboembolism prophylaxis Follow-up with cardiology as scheduled (2) Type 2 diabetes mellitus with unspecified complications: Code(s): E11.8 - Type 2 diabetes mellitus with unspecified complications Category: Medical Plan: Patient's HgbA1c was most recently at 6.3% back in March 2024 - goal is at least less than 7.0% or an ideally less than 6.5% Reinforced diabetic diet Continue Jardiance 25 mg QD and Mounjaro 10 mg SQ once a week (3) Essential hypertension: Code(s): I10 - Essential (primary) hypertension Category: Medical Plan: Reinforced low-sodium diet - goal is systolic BP of 120 mm or less Continue lisinopril 20 mg QD (4) Other and unspecified hyperlipidemia: Code(s): E78.5 - Hyperlipidemia, unspecified Category: Medical Plan: Reinforce low-cholesterol diet Patient used to be on rosuvastatin 40 mg QD but does not appear to be on any medication for cholesterol at this time Will recheck his fasting lipids and labs in 3 months for follow-up (5) GERMAN (obstructive sleep apnea): Comment: s/p [id number] about 15 years ago Code(s): G47.33 - Obstructive sleep apnea (adult) (pediatric) Category: Medical Plan: Follow-up with sleep Medicine as scheduled (6) Lumbar degenerative disc disease: Code(s): M51.369 - Other intervertebral disc degeneration, lumbar region without mention of lumbar back pain or lower extremity pain Category: Medical Qualifiers: Disc-related pain type: discogenic back pain only Qualified Code(s): M51.360 - Other intervertebral disc degeneration, lumbar region with discogenic back pain only Plan: Reinforced activity and weight lifting restrictions Will send him for repeat x-rays of the lumbar spine for further evaluation/follow-up (7) Morbid obesity: Code(s): E66.01 - Morbid (severe) obesity due to excess calories Category: Medical Plan: Reinforced diet/exercise as tolerated/lose weight Plan Follow up in 3 months Orders: Orders Complete Blood Count Auto Diff 3 Months D64.9 - Anemia, unspecified Vitamin B12 and Folate 3 Months E53.8 - Deficiency of other specified B group vitamins Homocysteine 3 Months E72.11 - Homocystinuria XR lumbar spine 2-3V 08/11/24 M54.50 - Low back pain, unspecified Comprehensive [place]. Panel Fast 3 Months E78.00 - Pure hypercholesterolemia, unspecified Lipid Panel 3 Months E78.00 - Pure hypercholesterolemia, unspecified TSH reflex Free T4 3 Months E78.00 - Pure hypercholesterolemia, unspecified UA CC w/rflx Micro + Cult 3 Months R30.0 - Dysuria Microalbumin, Random (w Creat) 3 Months E11.9 - Type 2 diabetes mellitus without complications Hemoglobin A1c 3 Months E11.9 - Type 2 diabetes mellitus without complications Vitamin D 25-OH Total 3 Months E55.9 - Vitamin D deficiency, unspecified
--- OUTSIDE RECORDS SUMMARY | 2024-08-11 17:27 | XMS_ITS ---
Author Organization Unknown Allergies, Adverse Reactions, Alerts Substance Reaction Status Sulfa antibiotics Difficulty Breathing, rash, fe betty, nausea active Tetanus-diphtheria toxoids td possible r xn to Td (but received around the same time as a Sulfa drig- so cause of rxn undetermined) active Flonase bone pain in his nose active Problems Problem Status Start date Recorded date Hypertension active 2023-07-15 [id number]:1 1:03Z History of tobacco abuse active 2023-07-1510-15-09T13:11:09Z Chronic pain syndrome active 2023-07-1515T21:31:17Z Environmental allergies active 2023-07-152022T13:10:17Z Encounter for behavioral health screening active 2023-07-15 Encounter for wellness examination active 2022-08 History of CVA (cerebrovascular accident) active 2023-07-15 Advance care planning active 2023-07-152022-08T18:50:15Z Type 2 diabetes mellitus active 2023-07-1511-07-29T21:30:24Z GERD (gastroesophageal reflux disease) active 28-07-10 Prostate cancer screening active 2023-07-1528-07-10T13:10:04Z Colon cancer screening active 2023-07-1508-05T13:21:34Z Kidney stones active 2023-07-15 1951-72-57G16: 10:51Z Plan of Treatment Patient Care team information Name Category Status Period Participants - - Proposed period not known - - - Proposed period not known - - - Proposed period not known - - - Proposed period not known -
--- OUTSIDE RECORDS SUMMARY | 2024-08-11 17:27 | XMS_ITS ---
Continuity of Care Document (CCD) Created on: August 11, 2024 Melody John J External Reference #: [id number] : [id number] Sex: Male Author Organization [facility] [address] [place] [address] Phone [phone] Problems Active Problems Provider Date Type 2 diabetes mellitus BARBARA Howell Onse t: 12/04/2023 Essential hypertension BARBARA Howell Onset: 12/04/2023 Social History Type Date Description Comments Sex Unknown Tobacco Use Start: Unknown End: Unknown Quit 1992 ETOH Use Rarely consumes alcohol Tobacco Use Start: Unknown End: Unknown Patient is a former smoker Allergies and adverse reactions Active Allergies Criticality Reaction Severity Comments Date Sulfa Antibiotics Unable to assess criticality Nausea and Vomiting, Urticaria, High Fever 12/04/2023 Environmental Unable to assess criticality Congestion, swelling of the face, sinus infections 12/04/2023 Medications Active Medications SIG Qnty Indications Order ing Provider Date Onetouch UltraStrips use 1 strip via meter three times daily dx: e11.9 300units E11Chidi Laughlin M.D. 12/04/2023 Onetouch Delica Plus Lancets Extra Fine 33GPlus 33G Misc use one to test blood sugars twice a day dx: e11.9 300units Leroy Laughlin M.D. 12/04/2023 Freestyle Capri 2/Alvin/Flash Glucose Monitoring Sdghbe2Bxdwii Device use as directed with sensors dx: e11.9 1units E11Chidi Laughlin M.D. 12/04/2023 Freestyle Capri 2/Sensor/Flash Glucose Monitoring Gbwigs0Zfnkow Misc 1 sensor to skin every fourteen days as directed dx: e11.9 6units E11.9 Iva Laughlin M.D. 12/04/2023 Mounjaro7.5mg/0.5ML Solution Pen-Inject inject 7.5 mg subcutaneously once a week as directed Dx: E11.9 2ml E11.9 Iva Laughlin M.D. 12/04/2023 Probiotic BlendCapsules once each morning Unknown 0 Rwmnlgodru49dx Tablets one with dinner Unknown Alpha-Lipoic Fssm486yy Capsules a total of 600 mg each morning Unknown Tylenol Extra Zkpzbzfj475lb Tablets a few times a week, as needed for pain Unknown Vitamin B-ComplexTablets Daily - B6/Folic Acid/B12 tablet Unknown Couzybfypie621pv Chewtabs as needed, once or twice a month Unknown Loperamide HCL2mg Capsules as needed, every couple of weeks Unknown Metformin MBC2750wa Tablets Twice a day [facility] Jwjavggpnf07vb Tablets Once a day with dinner Rosalind Cornejo M.D. Lzmmaiqwp70ty Tablets Once a day in the morning Rosalind Cornejo M.D. Folic Plhd0ai Tablets Once a day with laraner Pillo Cid MD Aqzvblx3xe Tablets Twice a day Mango Tinoco MD Bncujgsjgxs960hv Tablets Once a day in the morning [facility] Vital Signs Date Vital Result Comment 12/04/2023 1:25pm BP Systolic 140 mmHg BP Diastolic 70 mmHg Heart Rate 79 /min Height 73 inches 6'1 Weight 240.00 lb BMI (Body Mass Index) 31.7 kg/m2 Results Test Acquired Date Facility Test Result [facility] Laboratory test finding 12/04/2023 Inhouse Glucose Fingerstick 107 Medical Devices Description No Information Available Encounters Type Date Location Provider Dx Diagnosis Office Visit 12/04/2023 1:30p Main Office BARBARA Howell E11.9 Type 2 diabet es mellitus without complications E66.9 Obesity, unspecified E78.5 Hyperlipidemia, unsp ecified I10 Essential (primary) hypertension Z68.31 Body mass index [BMI ] 31.0-31.9, adult Assessments Date Code Description Provider 12/04/2023 E11.9 Type 2 diabetes mellitus wit hout complications BARBARA Howell 12/04/2023 E66.9 Obesity, unspecified BARBARA Howell 12/04/2023 E78.5 Hyperlipidemia, unspecified BARBARA Howell 12/04/2023 I10 Essential (primary) hyperten brandy BARBARA Howell 12/04/2023 Z68.31 Body mass index [BMI] 31.0-3 1.9, adult ABRBARA Howell Plan of Treatment 12/04/2023 - BARBARA Howell* E11.9 Type 2 diabetes mellitus without complications * E66.9 Obesity, unspecified * E78.5 Hyperlipidemia, unspecified * I10 Essential (primary) hypertension * Z68.31 Body mass index [BMI] 31.0-31.9, adult* New Medication:* Mounjaro 7.5 mg/0.5ML * Onetouch Ultra * Onetouch Delica Plus Lancets Extra Fine 33G Plus 33G * Freestyle Capri 2/Alvin/Flash Glucose Monitoring System 2 Alvin * Freestyle Capri 2/Sensor/Flash Glucose Monitoring System 2 Sensor * New Labs:* CMP W/Egfr, Ordered: 12/04/23 * Lipid Panel, Ordered: 12/04/23 * Urine Microalb+Creat+Ratio RDM, Ordered: 12/04/23 Functional Status Description No Information Available Mental Status Description No Information Available Referrals Description No Information Available
== END 2024-08-11 16:48 | disposition home or self-care (01) ==
PROVIDERS: PCP Nurse Practitioner Family; Visit Provider Internal Medicine
DX: I63.40 Cerebral infarction due to embolism of unspecified cerebral artery (principal); E11.8 Type 2 diabetes mellitus with unspecified complications; E66.01 Morbid (severe) obesity due to excess calories; Z68.29 Body mass index [BMI] 29.0-29.9, adult; I10 Essential (primary) hypertension; E78.5 Hyperlipidemia, unspecified; G47.33 Obstructive sleep apnea (adult) (pediatric); M51.360 Other intervertebral disc degeneration, lumbar region with discogenic back pain only

== ENCOUNTER → 2024-08-11 15:55 | Outpatient (BNVA) | payer BC, SELFPAY | PROVIDERS: PCP Nurse Practitioner Family; Visit Provider Internal Medicine | DX: E11.8 Type 2 diabetes mellitus with unspecified complications (principal); I10 Essential (primary) hypertension; E78.5 Hyperlipidemia, unspecified; G47.33 Obstructive sleep apnea (adult) (pediatric); M51.360 Other intervertebral disc degeneration, lumbar region with discogenic back pain only; E66.01 Morbid (severe) obesity due to excess calories; Z68.29 Body mass index [BMI] 29.0-29.9, adult; Z86.73 Personal history of transient ischemic attack (TIA), and cerebral infarction without residual deficits; Z79.01 Long term (current) use of anticoagulants; Z79.899 Other long term (current) drug therapy | CPT/HCPCS: 96127 ==

== ENCOUNTER 2024-08-28 09:47 | Outpatient (REF) | payer BC, SELFPAY ==
--- NOTE | ~2024-08-28 | XR_ITS ---
CLINICAL HISTORY: M54.50 - Low back pain, unspecified 3 views lumbar spine Comparison: None Findings: Normal vertebral body alignment. No acute fractures or dislocation. There is multiple level degenerative disc change. There is aortic calcification. IMPRESSION: No acute findings. This document has been electronically signed by: Janak Velarde MD on 08/30/2024 08:04:30
== END 2024-08-28 09:48 | disposition home or self-care (01) ==
LOC: HO.XRAY 09:47
PROVIDERS: Visit Provider Internal Medicine
DX: M54.50 Low back pain, unspecified (principal)
CPT/HCPCS: 72100

== ENCOUNTER → 2024-08-28 09:50 | Outpatient (BNV) | payer BC, SELFPAY | PROVIDERS: Visit Provider Specialist | DX: M54.50 Low back pain, unspecified (principal) | CPT/HCPCS: 72100 ==

== ENCOUNTER 2024-10-01 12:30 | Outpatient (REF) | payer BC, SELFPAY ==
--- NOTE | ~2024-10-01 | US_ITS ---
EXAMINATION: US KIDNEY BILATERAL HISTORY: N20.0 - Calculus of kidney TECHNIQUE: Real-time grayscale ultrasound imaging of the kidneys was performed and images were reviewed. COMPARISON: Comparison is made with the prior examination dated 03/03/2024. FINDINGS: Right kidney: The right kidney measures 10.6 x 6.6 x 5.2 cm. Renal parenchymal echotexture and thickness are normal. There are no masses. There is no hydronephrosis or renal calculi. Left Kidney: The left kidney measures 12.9 x 5.9 x 4.9 cm. Renal parenchymal echotexture and thickness are normal. There are no masses. There is a linear calcification at the lower pole which may represent a calcified vessel. No definite calculi are seen. There is no hydronephrosis. US/US renal BI IMPRESSION: No definite renal calculi are identified. Electronically signed by: Jeromy Baires MD 10/01/2024 01:22 PM [facility]
--- OUTSIDE RECORDS SUMMARY | 2024-10-01 15:18 | XMS_ITS | Encounter Summary ---
Author Organization [facility], Address [address] [place] [address] Phone Care Team Providers Care Ruby Software Developer Name Role Phone Rosalind Cornejo MD Primary Care Provider [phone] Encounter Details Date Type Department Care Team (Late st Contact Info) Description 08/19/2021 Documentation Only [facility], [address] [place] [address] Yocatsa Whittington [address] [place] [phone] Social History Tobacco Use Types Packs/Day Years Used Date Smoking Tobacco: Former Cigarettes Q uit: 05/06/1993 Comments:Smoking History Inf o:Every day Alcohol Use Standard Drinks/Week Comments Yes 0 (1 standard drink = 0.6 oz pure alcohol) Alcoholic Drinks/day: Occasional social drink Sex and Gender Information Value Date Recorded Sex Assigned at Male 10/15/2020 2:24 PM EST Legal Sex Male 4:37 PM EST Gender Identity Male 10/15/2020 2:24 PM EST Sexual Orientation Straight 10/15/2020 2: 24 PM EST documented as of this encounter Plan of Treatment Not on file documented as of this encounter Visit Diagnoses Not on filedocumented in this encounter Care Teams Ruby Software Developer Relationship Specialty Start Date End Date Rosalind Cornejo MD [address] [place] [address] PCP - General 06/10/19 documented as of this encounter
--- OUTSIDE RECORDS SUMMARY | 2024-10-01 15:18 | XMS_ITS | Clinical Summary ---
Author Organization [facility], Address [address] [place] [address] Phone Care Team Providers Care Supervisor Respiratory Name Role Phone Rosalind Cornejo MD Primary Care Provider Allergies Active Allergy Reactions Criticality Noted Date Comments Sulfa Antibiotics Other (see comments) 02/06/20 20 Hydrocodone-Acetaminophen Other (see comments) 02/06/2020 Medications SITagliptin-metFO RMIN (Janumet) 50-1000 MG per tablet Take 1 tablet by mouth 2 (two) times a day Active simethicone (MYLICON) 125 MG chewable tablet Chew 1 tablet if needed Active loratadine (Claritin) 10 MG tablet Take 1 tablet by mouth 1 (one) time each day Active Alpha-Lipoic Acid 600 MG capsule Take 600 mg by mouth daily Active Empagliflozin 25 MG tablet Take 1 tablet by mouth daily Active Turmeric 400 MG capsule Take 1 capsule by mouth 1 (one) time each day Active allopurinol (ZYLOPRIM) 100 MG tablet TAKE 1 TABLET DAILY 90 tablet 3 1 Active apixaban (Eliquis) 5 MG tablet Take 5 mg by mouth twice a day 0 Active folic acid (FOLVITE) 1 MG tablet Take 1 mg by mouth 1 (one) time each day 0 Active omeprazole (PriLOSEC) [address] capsule Take 40 mg by mouth 1 (one) time each day Active Empagliflozin (Jardiance) 25 MG tablet Take 25 mg by mouth 1 (one) time each day Active lisinopril 20 MG tablet Take 20 mg by mouth every night Active Misc Natural Products (GLUCOSAMINE CHONDROITIN MSM PO) Take 2 tablets by mouth twice a day Active MAGNESIUM BISGLYCINATE PO Take 400 mg by mouth twice a day Active cholecalciferol (D3 Maximum Strength) 125 MCG (5000 UT) capsule Take 1 tablet by mouth 1 (one) time each day Active omega-3 (FISH OIL) 1200 MG capsule Take 2,400 mg by mouth twice a day Active B UYDTYYD-QPFWSJ-RX PO Take 3 tablets by mouth 1 (one) time each day in the morning Active acetaminophen (TYLENOL) 500 MG tablet Take 1-2 tablets by mouth if needed Active pravastatin (PRAVACHOL) 20 MG tablet Take 20 mg by mouth every night Active Active Problems Problem Noted Date Diagnosed Date Chronic kidney disease, stage 2 (mild) 1 Hypertensive disorder 10/22/2020 Increased frequency of urination 02/06/2020 Jose Raul hematuria 02/06/2020 Lower urinary tract symptoms due to benign prostatic hypertrophy 02/06/2020 Renal stone 02/06/2020 Diabetes mellitus 03/03/2013 Overview (04/15/2021): Diabetes mellitus Diabetes mellitus Immunizations Name Administration Dates Next Due Influenza Split High Dose Preservative Free IM 1 08/16/2019 Pneumococcal Polysaccharide 08/17/2020 Family History Medical History Relation Comments Heart disease Father Heart disease Mother Relation Status Comments Father Unknown Mother Social History Tobacco Use Types Packs/Day Years [...] Orientation Straight 10/15/2020 2: 24 PM EST Last Filed Vital Signs Vital Sign Reading Time Taken Comments Blood Pressure 115/62 02/27/2018 12:00 PM EDT Pulse 71 02/27/2018 12:00 PM EDT Temperature - - Respiratory Rate 16 02/27/2018 12:00 PM EDT Oxygen Saturation - - Inhaled Oxygen Concentration - - Weight 110 kg (243 lb) 02/27/2018 12:00 PM EDT Height 185.4 cm (6' 1 ) 02/27/2018 12:00 PM EDT Body Mass Index 32.06 02/27/2018 12:00 PM EDT Plan of Treatment Health Maintenance Due Date Last Done Comments Colorectal Cancer Screening: Annual FOBT 2005 Colorectal Cancer Screening: Colonoscopy 2005 Colorectal Cancer Screening: Sigmoidoscopy 2005 Diabetes: Hemoglobin A1C 10/24/2019 Diabetes: Ophthalmology Exam 10/24/2019 Diabetes: Pedal Pulse Checked 10/24/2019 Diabetes: Sensory Foot Exam 10/24/2019 Diabetes: Visual Foot Exam 10/24/2019 Pneumococcal Vaccine: 65+ Ye ars (2 of 2 - PCV) 08/17/2021 08/17/2020 Influenza Vaccine (#1) 2024 06/16/2020 Hepatitis B Vaccine Aged Out No longe r eligible based on patient's age to complete this topic Insurance [facility] Care Teams Supervisor Respiratory Relationship Specialty Start Date End Date Rosalind Cornejo MD [address] [place] [address] PCP - General 06/10/19
--- OUTSIDE RECORDS SUMMARY | 2024-10-01 15:18 | XMS_ITS | Continuity of Care Document ---
Author Organization [facility] [address] [place] [address] Phone [phone] Problems Active Problems Provider Date Type 2 [...] 300units Leroy Laughlin M.D. 12/04/2023 Freestyle Capri 2/Sterling/Flash Glucose Monitoring Vwecyc5Imybtm Device use as directed with sensors dx: e11.9 1units E11Chidi Laughlin M.D. 12/04/2023 Freestyle Capri 2/Sensor/Flash Glucose Monitoring Iwruei2Gunohv Misc 1 sensor to skin every fourteen days as directed dx: e11.9 6units E11.9 Iva Laughlin M.D. 12/04/2023 Mounjaro7.5mg/0.5ML Solution Pen-Inject inject 7.5 mg subcutaneously once a week as directed Dx: E11.9 2ml E11.9 Iva Laughlin M.D. 12/04/2023 Probiotic BlendCapsules once each morning Unknown 0 Dolcbqndyp37an Tablets one with dinner Unknown Alpha-Lipoic Hbzy656xq Capsules a total of 600 mg each morning Unknown Tylenol Extra Ijdviwwi201vn Tablets a few times a week, as needed for pain Unknown Vitamin B-ComplexTablets Daily - B6/Folic Acid/B12 tablet Unknown Hscqmhbejip109nl Chewtabs as needed, once or twice a month Unknown Loperamide HCL2mg Capsules as needed, every couple of weeks Unknown Metformin EAX4197ls Tablets Twice a day [facility] Crkenlynop43cu Tablets Once a day with dinner Rosalind Cornejo M.D. Qjyihdhcj63ml Tablets Once a day in the morning Rosalind Cornejo M.D. Folic Nrfb7ql Tablets Once a day with laraner Pillo Cid MD Abyqcdu9ip Tablets Twice a day Mango Tinoco MD Kchhutnulcf877xd Tablets Once a day in the morning [facility] Vital Signs Date Vital Result Comment 12/04/2023 [...] Body mass index [BMI] 31.0-3 1.9, adult BARBARA Howell Plan of Treatment 12/04/2023 - BARBARA Howell* E11.9 Type 2 diabetes mellitus without complications * E66.9 Obesity, unspecified * E78.5 Hyperlipidemia, unspecified * I10 Essential (primary) hypertension * Z68.31 Body mass index [BMI] 31.0-31.9, adult* New Medication:* Mounjaro 7.5 mg/0.5ML * Onetouch Ultra * Onetouch Delica Plus Lancets Extra Fine 33G Plus 33G * Freestyle Capri 2/Sterling/Flash Glucose Monitoring System 2 Sterling * Freestyle Capri 2/Sensor/Flash Glucose Monitoring System 2 Sensor * New Labs:* CMP W/Egfr, Ordered: 12/04/23 * Lipid Panel, Ordered: 12/04/23 * Urine Microalb+Creat+Ratio RDM, Ordered: 12/04/23 Functional Status Description No Information Available Mental Status Description No Information Available Referrals Description No Information Available
== END 2024-10-01 12:31 | disposition home or self-care (01) ==
LOC: HO.US 12:30
PROVIDERS: Visit Provider Nurse Practitioner Family
DX: N20.0 Calculus of kidney (principal)
CPT/HCPCS: 76775

== ENCOUNTER → 2024-10-01 12:32 | Outpatient (BNV) | payer BC, SELFPAY | PROVIDERS: Visit Provider Radiology Diagnostic Radiology | DX: N20.0 Calculus of kidney (principal) | CPT/HCPCS: 76775 ==

== ENCOUNTER 2024-10-10 14:35 | Outpatient (REF) | payer BC, SELFPAY ==
--- NOTE | ~2024-10-10 | CT_ITS ---
CLINICAL HISTORY: SINO NASAL POLYPS CT sinus without IV contrast Comparison: None Findings: The frontal, ethmoid, sphenoid and maxillary sinuses are well pneumatized . No air-fluid levels. Small polyps within the left maxillary sinus and ethmoid cavities. Ostiomeatal units demonstrated bilateral antrectomies and partial ethmoidectomies Mucoperiosteal thickening right frontal recess. No mitchel bullosa. Bilateral middle turbinectomies.No Blaze cells. Nasal septum slightly deviated to the right The planum sphenoidale, cribriform plate and orbital scott are intact. The orbital contents are unremarkable. The visualized mastoid air cells showed no effusion. Symmetric fat-containing parapharyngeal spaces. The limited view the intracranial contents are unremarkable. Temporomandibular joints are congruent. Impression: 1. 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 2. Small polyps within the left maxillary sinus and right ethmoid air cell surgical bed. Minimal mucoperiosteal thickening floor the right maxillary sinus This document has been electronically signed by: Jean Paul Mathew MD on 10/13/2024 10:46:28
--- OUTSIDE RECORDS SUMMARY | 2024-10-10 16:17 | XMS_ITS | Encounter Summary ---
Author Organization [facility], Address [address] [place] [address] Phone Care Team Providers Care Cmm Inspector Name Role Phone Rosalind Cornejo MD Primary Care Provider [phone]- [phone] Encounter Details Date Type Department Care Team (Late st Contact Info) Description 08/19/2021 Documentation Only [facility], [address] [place] [address] Yocasta Whittington [address] [place] [phone] Social History Tobacco Use Types Packs/Day Years [...] on filedocumented in this encounter Care Teams Cmm Inspector Relationship Specialty Start Date End Date Rosalind Cornejo MD [address] [place] [address] PCP - General 06/10/19 documented as of this encounter
--- OUTSIDE RECORDS SUMMARY | 2024-10-10 16:17 | XMS_ITS | Clinical Summary ---
Author Organization [facility], Address [address] [facility] [address] [place] [address] Phone Care Team Providers Care Snap Attacher Name Role Phone Rosalind Cornejo MD Primary [...] by mouth twice a day Active B MUMBABJ-ULUGDM-MH PO Take 3 tablets by mouth 1 [...] this topic Insurance [facility] Care Teams Snap Attacher Relationship Specialty Start Date End Date Rosalind Cornejo MD [address] [place] [address] PCP - General 06/10/19
--- OUTSIDE RECORDS SUMMARY | 2024-10-10 16:17 | XMS_ITS ---
[...] Start date Recorded date Hypertension active 2023-07-15 5310-68-96Q07:1 1:03Z History of tobacco abuse active 2023-07-1510-15-09T13:11:09Z [...] screening active 2023-07-1508-05T13:21:34Z Kidney stones active 2023-07-15 9667-37-20K60: 10:51Z Plan of Treatment Patient Care team information Name Category Status Period Participants - - Proposed period not known - - - Proposed period not known - - - Proposed period not known - - - Proposed period not known - - - Proposed period not known -
--- OUTSIDE RECORDS SUMMARY | 2024-10-10 16:17 | XMS_ITS | Continuity of Care Document ---
Author Organization [facility] [address] [place] [address] Phone [phone] Problems Active Problems Provider Date Type 2 [...] 300units Leroy Laughlin M.D. 12/04/2023 Freestyle Capri 2/Hoskins/Flash Glucose Monitoring Razgrv5Acweqq Device use as directed with sensors dx: e11.9 1units E11Chidi Laughlin M.D. 12/04/2023 Freestyle Capri 2/Sensor/Flash Glucose Monitoring Jfetun0Oxemoo Misc 1 sensor to skin every fourteen days as directed dx: e11.9 6units E11.9 Iva Laughlin M.D. 12/04/2023 Mounjaro7.5mg/0.5ML Solution Pen-Inject inject 7.5 mg subcutaneously once a week as directed Dx: E11.9 2ml E11.9 Iva Laughlin M.D. 12/04/2023 Probiotic BlendCapsules once each morning Unknown 0 Rssjvmpaao93zm Tablets one with dinner Unknown Alpha-Lipoic Splz558uy Capsules a total of 600 mg each morning Unknown Tylenol Extra Kadghzaf847la Tablets a few times a week, as needed for pain Unknown Vitamin B-ComplexTablets Daily - B6/Folic Acid/B12 tablet Unknown Fqcvrtjuvji141lm Chewtabs as needed, once or twice a month Unknown Loperamide HCL2mg Capsules as needed, every couple of weeks Unknown Metformin OTV0518th Tablets Twice a day [facility] Ebpzxqhyux52vy Tablets Once a day with dinner Rosalind Cornejo M.D. Wxruwigwx54ga Tablets Once a day in the morning Rosalind Cornejo M.D. Folic Sgaa2md Tablets Once a day with laraner Pillo Cid MD Ajlqfwt2yw Tablets Twice a day Mango Tinoco MD Cjsszqbfjwu062mu Tablets Once a day in the morning [facility] Vital Signs Date Vital Result Comment [...] Fine 33G Plus 33G * Freestyle Capri 2/Hoskins/Flash Glucose Monitoring System 2 Hoskins * Freestyle Capri 2/Sensor/Flash Glucose Monitoring System 2 Sensor * New Labs:* CMP W/Egfr, Ordered: 12/04/23 * Lipid Panel, Ordered: 12/04/23 * Urine Microalb+Creat+Ratio RDM, Ordered: 12/04/23 Functional Status Description No Information Available Mental Status Description No Information Available Referrals Description No Information Available
== END 2024-10-10 14:36 | disposition home or self-care (01) ==
LOC: HO.CT 14:35
PROVIDERS: Visit Provider Otolaryngology
DX: J33.0 Polyp of nasal cavity (principal)
CPT/HCPCS: 70486

== ENCOUNTER → 2024-10-10 14:37 | Outpatient (BNV) | payer BC, SELFPAY | PROVIDERS: Visit Provider Radiology Diagnostic Radiology | DX: J33.9 Nasal polyp, unspecified (principal) | CPT/HCPCS: 70486 ==

== ENCOUNTER 2024-10-14 10:31 | Outpatient (REF) | payer BC, SELFPAY ==
--- OUTSIDE RECORDS SUMMARY | 2024-10-14 14:05 | XMS_ITS | Encounter Summary ---
Author Organization [facility], Address [address] [place] [address] Phone Care Team Providers Care Coloring Machine Operator Name Role Phone Rosalind Cornejo MD Primary Care Provider [phone] Encounter Details Date Type Department Care Team (Late st Contact Info) Description 08/19/2021 Documentation Only [facility], [address] [place] [address] Yocasta Whittington [address] [place] [phone] Social History Tobacco Use Types Packs/Day Years [...] on filedocumented in this encounter Care Teams Coloring Machine Operator Relationship Specialty Start Date End Date Rosalind Cornejo MD [address] [place] [address] PCP - General 06/10/19 documented as of this encounter
--- OUTSIDE RECORDS SUMMARY | 2024-10-14 14:05 | XMS_ITS ---
Continuity of Care Document (CCD) Created on: October 14, 2024 Melody John J External Reference #: [id number] : [id number] Sex: Male Author Organization [facility] [address] [place] [address] Phone [phone] Problems Active Problems Provider Date Type 2 [...] 300units Leroy Laughlin M.D. 12/04/2023 Freestyle Capri 2/[place]/Flash Glucose Monitoring Tjcrdi3Ihglem Device use as directed with sensors dx: e11.9 1units E11Chidi Laughlin M.D. 12/04/2023 Freestyle Capri 2/Sensor/Flash Glucose Monitoring Ykfffg8Kbfwho Misc 1 sensor to skin every fourteen days as directed dx: e11.9 6units E11.9 Iva Laughlin M.D. 12/04/2023 Mounjaro7.5mg/0.5ML Solution Pen-Inject inject 7.5 mg subcutaneously once a week as directed Dx: E11.9 2ml E11.9 Iva Laughlin M.D. 12/04/2023 Probiotic BlendCapsules once each morning Unknown 0 Izhyxzomnc64tw Tablets one with dinner Unknown Alpha-Lipoic Wkex444uy Capsules a total of 600 mg each morning Unknown Tylenol Extra Xgiolawd420no Tablets a few times a week, as needed for pain Unknown Vitamin B-ComplexTablets Daily - B6/Folic Acid/B12 tablet Unknown Kdararticui642iv Chewtabs as needed, once or twice a month Unknown Loperamide HCL2mg Capsules as needed, every couple of weeks Unknown Metformin EQK5468kx Tablets Twice a day [facility] Qahwuegthl79gv Tablets Once a day with dinner Rosalind Cornejo M.D. Xnzxcxryd81pg Tablets Once a day in the morning Rosalind Cornejo M.D. Folic Vgpo1ed Tablets Once a day with laraner Pillo Cid MD Jrmtbhp1tj Tablets Twice a day Mango Tinoco MD Mojvunnrhud122av Tablets Once a day in the morning [facility] Vital Signs Date Vital Result Comment [...] Body mass index [BMI] 31.0-3 1.9, adult BABRARA Howell Plan of Treatment 12/04/2023 - BARBARA Howell* E11.9 Type 2 diabetes mellitus without complications * E66.9 Obesity, unspecified * E78.5 Hyperlipidemia, unspecified * I10 Essential (primary) hypertension * Z68.31 Body mass index [BMI] 31.0-31.9, adult* New Medication:* Mounjaro 7.5 mg/0.5ML * Onetouch Ultra * Onetouch Delica Plus Lancets Extra Fine 33G Plus 33G * Freestyle Capri 2/[place]/Flash Glucose Monitoring System 2 [place] * Freestyle Capri 2/Sensor/Flash Glucose Monitoring System 2 Sensor * New Labs:* CMP W/Egfr, Ordered: 12/04/23 * Lipid Panel, Ordered: 12/04/23 * Urine Microalb+Creat+Ratio RDM, Ordered: 12/04/23 Functional Status Description No Information Available Mental Status Description No Information Available Referrals Description No Information Available
--- OUTSIDE RECORDS SUMMARY | 2024-10-14 14:05 | XMS_ITS | Clinical Summary ---
Author Organization [facility], Address [address] [place] [address] Phone Care Team Providers Care Amalgamator Name Role Phone Rosalind Cornejo MD Primary Care Provider [phone] Allergies Active Allergy Reactions Criticality Noted Date [...] by mouth twice a day Active B RTHZDMU-YOMMER-JT PO Take 3 tablets by mouth 1 [...] patient's age to complete this topic Insurance [facility] Care Teams Amalgamator Relationship Specialty Start Date End Date Rosalind Cornejo MD [address] [place] [address] PCP - General 06/10/19
[2024-10-14 16:14] LABS: Urine Cytology See Pathology rpt
== END 2024-10-14 10:32 | disposition home or self-care (01) ==
LOC: HO.LNP 10:31
PROVIDERS: Visit Provider Nurse Practitioner Family
DX: R31.0 Gross hematuria (principal)
CPT/HCPCS: 81003; 88112

== ENCOUNTER 2024-10-14 10:31 | Outpatient (AMB) | payer BC, SELFPAY ==
--- NOTE | 2024-10-14 10:33 | A.OFFVIS_ITS ---
Intake Visit Reasons: 6m/US(set) Intake Note: Patient presents today for a 6 month follow up/US Imaging Completed: 10/01/24 Urology Medications: Allopurinol Blood Thinner: Apixaban Antibiotic Allergy: Sulfa PVR: 14ml's Senior Business Development Analyst Required: No Accompanied by: Self / Same As Patient Allergies Sulfa (Sulfonamide Antibiotics) [SULFA (SULFONAMIDE ANTIBIOTICS)] Allergy (Intermediate, Verified 10/14/24 10:53) HIVES pioglitazone [From Actos] Adverse Reaction (Unknown, Verified 10/14/24 10:53) ankle swelling Medication List - Last Reconciled 10/14/24 by LUÍS Cuellar- allopurinol 100 mg PO DAILY 90 days alpha lipoic acid 600 mg PO BID apixaban 5 mg PO BID 90 days empagliflozin 25 mg PO DAILY fluconazole 150 mg PO Q3D 2 doses fluticasone propionate 50 mcg/actuation sprays intranasal folic acid 1 mg PO DAILY lisinopril 20 mg PO DAILY loperamide 2 mg PO Q6H PRN loratadine (Allergy Relief (loratadine)) 10 mg PO DAILY omeprazole 40 mg PO DAILY 90 days potassium citrate ER 20 mEq (2 x 10 mEq (1,080 mg)) PO BID 90 days simethicone (Gas Relief (simethicone)) 125 mg PO BID-QID PRN tirzepatide (Mounjaro) mg subcut HPI Comments Details: John is a very pleasant 68-year-old male patient of Dr. Cornejo. He has a past medical history of embolic stroke, hypertension, GERD, obesity, obstructive sleep apnea, hyperlipidemia, and type 2 diabetes. He presents to the office today for follow-up of his nephrolithiasis. In discussion with the patient today he reports to be doing and feeling well. Recent renal imaging results reviewed with the patient today. 09/30 bilateral kidneys with normal echotexture and thickness. There are no renal masses or hydronephrosis noted bilaterally. No renal calculi noted. He does report noting episode of gross hematuria since his last office visit here. He reports this is happened in the past however is unsure if this is related to his longstanding history of nephrolithiasis. We discussed at length potential causes of gross hematuria as well as further workup to include CT urogram for further assessment evaluation as well as near future in office cystoscopy. 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 In office urinalysis results reviewed with the patient today. PVR 14 mL. He discusses his longstanding history of nephrolithiasis and surgical intervention for nephrolithiasis with Dr. Torres and Dr. Lima at [facility]. When asked he does report urinary dribbling however he denies urinary urgency, urinary frequency, incontinence, nocturia, dysuria, foul smelling urine, changes to urinary stream, flank pain, fever, and or chills. He otherwise offers no other issues or concerns at this time. PSAs 01/26 0.7, 03/29 0.3. PFSH Medical History Lumbar degenerative disc disease Imbalance Memory loss Fatty liver Irritable bowel syndrome Arthritis Diabetes High cholesterol High blood pressure Sinusitis History of torn meniscus of knee Kidney stone Nasal sinus polyp Morbid obesity GERD (gastroesophageal reflux disease) GERMAN (obstructive sleep apnea) Other and unspecified hyperlipidemia Essential hypertension Type 2 diabetes mellitus with unspecified complications Embolic stroke Stroke Surgical History Hx of colonoscopy History of esophagogastroduodenoscopy (EGD) Status post uvulopalatopharyngoplasty History of transesophageal echocardiography (AMINA) (~02/19/20) History of loop recorder (~02/13/20) Family History Father High blood pressure Mother High blood pressure Diabetes Cardiovascular disease Maternal Grandmother High blood pressure Alcohol abuse FH: mental illness Paternal Grandmother Cardiovascular disease Family/Other Cardiovascular disease Social History Household Members: Spouse Household Members Other:: 1 son Housing: House Alcohol intake: current Patient Tobacco Use Status: Former Tobacco user e-Cigarette/Vaping Use: Never Used service: No Current occupational status: unemployed Current occupational exposures/hazards: No Cognitive needs: No Hearing needs: No Vision needs: No Review of Systems Const All systems reviewed & are unremarkable except as noted in HPI and below Reports as per HPI Eyes Reports no additional complaints ENT Reports no additional complaints Card Reports as per HPI Resp Reports no additional complaints GI Reports as per HPI Reports as per HPI Musc Reports no additional complaints Neuro Reports as per HPI Psych Reports no additional complaints Endo Reports as per HPI Murali/Lymph Reports no additional complaints Aller/Immun Reports no additional complaints Physical Exam Const General: cooperative, healthy appearing, comfortable, no acute distress, well developed, alert and awake Nutritional Appearance: overweight Orientation/consciousness: patient oriented x3 Limitations: no limitations HEENT Head: Yes normal to inspection, Yes normocephalic and Yes atraumatic Ears: hearing grossly normal bilaterally Eyes General: appearance normal, both eyes and all related structures Neck Neck: Yes normal visual inspection and Yes trachea midline Chest Chest palpation & inspection: normal inspection of the chest Resp Effort & Inspection: normal respiratory effort and able to speak in complete sentences Cardio Rate: regular rate GI Inspection: Yes normal to inspection General: Yes no CVA tenderness Back/Spine/Pelvis Back: no CVA tenderness Skin General skin exam: no rashes or lesions noted Neuro General: patient oriented x3 Extrem General: Yes normal to inspection Psych Appearance: grossly normal and well kempt Mental Status: mental status grossly normal Speech and movement: Normal speech and movement present and Clear speech present Affect: normal affect Attitude: cooperative Thought process: Normal thought process present Thought content: Normal thought content present Insight: Fair insight present (Psych) Judgement: Fair judgement present (Psych) Results AMB Urinalysis, Automated UA Leukoctes 0 Erika/uL Last Edit by Lyla Vance on 10/14/24 11:11 UA Nitrite Negative Last Edit by Lyla Vance on 10/14/24 11:11 UA Urobilinogen 3.5 mg/dL Last Edit by Lyla Vance on 10/14/24 11:11 UA Protein 0.3 mg/dL Last Edit by Lyla Vance on 10/14/24 11:11 UA pH 5.5 Last Edit by Lyla Vance on 10/14/24 11:11 UA Blood 0 Luis Miguel/uL Last Edit by Lyla Vance on 10/14/24 11:11 UA Specific [place] 1.015 Last Edit by Lyla Vance on 10/14/24 11:11 UA Ketone Negative Last Edit by Lyla Vance on 10/14/24 11:11 UA Bilirubin 0 mg/dL Last Edit by Lyla Vance on 10/14/24 11:11 UA Glucose 60 mg/dL Last Edit by Lyla Vance on 10/14/24 11:11 Results Reviewed Results Reviewed: Laboratory Last Values Urine pH (Auto) 5.5 10/14/24 10:43 Specific [place] (Auto) 1.015 10/14/24 10:43 Urine Protein (Auto) 0.3 mg/dL 10/14/24 10:43 Glucose (UA)(Auto) 60 mg/dL 10/14/24 10:43 Urine Ketones (Auto) Negative 10/14/24 10:43 Urine Blood (Auto) 0 Luis Miguel/uL 10/14/24 10:43 Urine Nitrite (Auto) Negative 10/14/24 10:43 Urine Bilirubin (Auto) 0 mg/dL 10/14/24 10:43 Urine Urobilinogen (Auto) 3.5 mg/dL 10/14/24 10:43 Leukocyte Esterase (Auto) 0 Erika/uL 10/14/24 10:43 Date of Service: 10/01/24 EXAMINATION: US KIDNEY BILATERAL FINDINGS: Right kidney: The right kidney measures 10.6 x 6.6 x 5.2 cm. Renal parenchymal echotexture and thickness are normal. There are no masses. There is no hydronephrosis or renal calculi. Left Kidney: The left kidney measures 12.9 x 5.9 x 4.9 cm. Renal parenchymal echotexture and thickness are normal. There are no masses. There is a linear calcification at the lower pole which may represent a calcified vessel. No definite calculi are seen. There is no hydronephrosis. IMPRESSION: No definite renal calculi are identified. Assessment & Plan Assessment & Plan (1) Gross hematuria: Code(s): R31.0 - Gross hematuria Category: Medical (2) Urinary dribbling: Code(s): N39.43 - Post-void dribbling Category: Medical (3) Bilateral nephrolithiasis: Comment: Longstanding prior ureteroscopy and ESWL Code(s): N20.0 - Calculus of kidney Category: Medical Plan In office urinalysis results reviewed with the patient today; no hematuria noted; will send for urine cytology We discussed at length potential causes of gross hematuria as well as further workup and risks and benefits of these interventions. Recent renal imaging results reviewed with patient today; as noted above. Patient currently denies any bothersome urinary issues. Reports be happy with current voiding parameters. Will obtain CT urogram for further assessment evaluation. BUN and creatinine ordered for imaging. Will obtain PSA for further assessment evaluation. Discussed, educated, and stressed the importance of adequate hydration relation to nephrolithiasis as well as overall health and well-being. We discussed importance of management and diabetes for overall health and well- being. Follow-up in 3 months with imaging and labs; or sooner with any issues, concerns, and or questions. Orders: Orders AMB Urinalysis Automated Today Z13.9 - Encounter for screening, unspecified CT urogram Today R31.0 - Gross hematuria Prostate Specific Antigen Today N39.43 - Post-void dribbling Blood Urea Nitrogen Today R31.0 - Gross hematuria Creatinine Today R31.0 - Gross hematuria Urine Cytology Today R31.0 - Gross hematuria Patient Instructions: The patient had an opportunity to ask questions regarding the treatment plan. All questions were answered. Physical exam, labs, and imaging were discussed and reviewed in detail. As well as risks, benefits, and discussion of treatment choices. No major barriers to understanding were identified. The patient expressed understanding and agreement with the above treatment plan. The patient was made aware they should contact our office by phone for worsening of their current condition, the appearance of new symptoms, or with any questions or concerns. Compliance is encouraged with any medications and follow up testing that is ordered. It is a privilege to be allowed the opportunity to participate in? your urological care.? Again, if you have any questions or concerns If you have any questions or concerns please do not hesitate to contact me. The office is [phone]. This note is constructed using voice recognition software. While every effort has been made to ensure accuracy conveyor tender concrete mixing plant errors may have been included. Yours sincerely, LAMBERTO Cuellar Coding Level of Care Code Est Pt Level 4 (40573) Complex EM visit Add On G2211 Diagnoses Gross hematuria R31.0 Urinary dribbling N39.43 Bilateral nephrolithiasis N20.0 Time Spent (min) 25
--- OUTSIDE RECORDS SUMMARY | 2024-10-14 12:35 | XMS_ITS | Encounter Summary ---
Author Organization [facility], Address [address] [place] [address] Phone Care Team Providers Care Childcare Attendant Name Role Phone Rosalind Cornejo MD Primary Care Provider [phone] Encounter Details Date Type Department Care Team (Late st Contact Info) Description 08/19/2021 Documentation Only [facility], [address] [place] [address] Yocasta Whittington [address] [place] [phone] Social History Tobacco Use Types Packs/Day Years [...] on filedocumented in this encounter Care Teams Childcare Attendant Relationship Specialty Start Date End Date Rosalind Cornejo MD [address] [place] [address] PCP - General 06/10/19 documented as of this encounter
--- OUTSIDE RECORDS SUMMARY | 2024-10-14 12:35 | XMS_ITS | Continuity of Care Document ---
Author Organization [facility] [address] [place] [address] Phone [phone] Problems Active Problems Provider Date Type 2 [...] sugars twice a day dx: e11.9 300units Leory Laughlin M.D. 12/04/2023 Freestyle Capri 2/[place]/Flash Glucose Monitoring Vyuodu6Kbdtzi Device use as directed with sensors dx: e11.9 1units E11Chidi Laughlin M.D. 12/04/2023 Freestyle Cpari 2/Sensor/Flash Glucose Monitoring Milxyo0Yioudg Misc 1 sensor to skin every fourteen days as directed dx: e11.9 6units E11.9 Iva Laughlin M.D. 12/04/2023 Mounjaro7.5mg/0.5ML Solution Pen-Inject inject 7.5 mg subcutaneously once a week as directed Dx: E11.9 2ml E11.9 Iva Laughlin M.D. 12/04/2023 Probiotic BlendCapsules once each morning Unknown 0 Bgihutftck70zs Tablets one with dinner Unknown Alpha-Lipoic Vehy477nh Capsules a total of 600 mg each morning Unknown Tylenol Extra Yyrqnpxr253ig Tablets a few times a week, as needed for pain Unknown Vitamin B-ComplexTablets Daily - B6/Folic Acid/B12 tablet Unknown Qwgggunmozd899xo Chewtabs as needed, once or twice a month Unknown Loperamide HCL2mg Capsules as needed, every couple of weeks Unknown Metformin [id number] Tablets Twice a day [facility] Aifmfwkhsl02lp Tablets Once a day with dinner Rosalind Cornejo M.D. Ndhzsecyt62fq Tablets Once a day in the morning Rosalind Cornejo M.D. Folic Fztn4cw Tablets Once a day with lraaner Pillo Cid MD Vllburc0wm Tablets Twice a day Mango Tinoco MD Epwcamizdlu820rm Tablets Once a day in the morning [facility] Vital Signs Date Vital Result Comment 12/04/2023 1:25pm BP Systolic 140 mmHg BP Diastolic 70 mmHg Heart Rate 79 /min Height 73 inches 6'1 Weight 240.00 lb BMI (Body Mass Index) 31.7 kg/m2 Results Test Acquired Date Facility Test Result H/L Range N ote Glucose Fingerstick 12/04/2023 Inhouse Glucose Fingerstick 107 [employer] [...] Fine 33G Plus 33G * Freestyle Capri 2/[place]/Flash Glucose Monitoring System 2 [place] * Freestyle Capri 2/Sensor/Flash Glucose Monitoring System 2 Sensor * New Labs:* CMP W/Egfr, Ordered: 12/04/23 * Lipid Panel, Ordered: 12/04/23 * Urine Microalb+Creat+Ratio RDM, Ordered: 12/04/23 Functional Status Description No Information Available Mental Status Description No Information Available Referrals Description No Information Available
--- OUTSIDE RECORDS SUMMARY | 2024-10-14 12:36 | XMS_ITS | Clinical Summary ---
Author Organization [facility], Address [address] [place] [address] Phone Care Team Providers Care Sales Professional Bilingual Name Role Phone Rosalind Cornejo MD Primary Care Provider [phone] Allergies Active Allergy Reactions Criticality Noted Date [...] by mouth twice a day Active B KQVJOIA-JJAKZF-KB PO Take 3 tablets by mouth 1 [...] patient's age to complete this topic Insurance [facility] Care Teams Sales Professional Bilingual Relationship Specialty Start Date End Date Rosalind Cornejo MD [address] [place] [address] PCP - General 06/10/19
== END 2024-10-14 11:23 | disposition home or self-care (01) ==
LOC: HO.HUSH 10:32
PROVIDERS: Visit Provider Nurse Practitioner Family
DX: R31.0 Gross hematuria (principal); N39.43 Post-void dribbling; N20.0 Calculus of kidney; Z13.9 Encounter for screening, unspecified
CPT/HCPCS: 99214

== ENCOUNTER 2024-11-07 08:50 | Outpatient (REF) | payer BC, SELFPAY ==
[2024-11-07 09:12] LABS: MANUAL DIFF FLAG NO
--- OUTSIDE RECORDS SUMMARY | 2024-11-07 09:21 | XMS_ITS | Clinical Summary ---
Author Organization [facility], Address [address] [place] [address] Phone Care Team Providers Care Web Database Developer Name Role Phone Rosalind Cornejo MD [...] by mouth twice a day Active B XJQUYJK-KHOZOL-IX PO Take 3 tablets by mouth 1 [...] patient's age to complete this topic Insurance [facility] Care Teams Web Database Developer Relationship Specialty Start Date End Date Rosalind Cornejo MD [address] [place] [address] PCP - General 06/10/19
--- OUTSIDE RECORDS SUMMARY | 2024-11-07 09:21 | XMS_ITS ---
[...] Start date Recorded date Hypertension active 2023-07-15 0060-52-16G76:1 1:03Z History of tobacco abuse active 2023-07-1510-15-09T13:11:09Z [...] screening active 2023-07-1508-05T13:21:34Z Kidney stones active 2023-07-15 0075-12-50N43: 10:51Z Plan of Treatment Patient Care team information Name Category Status Period Participants - - Proposed period not known - - - Proposed period not known - - - Proposed period not known - - - Proposed period not known - - - Proposed period not known -
--- OUTSIDE RECORDS SUMMARY | 2024-11-07 09:21 | XMS_ITS | Encounter Summary ---
Author Organization [facility], Address [address] [place] [address] Phone Care Team Providers Care Retail Planning Manager Name Role Phone Rosalind Cornejo MD Primary Care Provider [phone]- [phone] Encounter Details Date Type Department Care Team (Late st Contact Info) Description 08/19/2021 Documentation Only [facility], [address] [place] [address] Yocasta Whittington [address] [place] [phone] Social History Tobacco Use Types Packs/Day Years [...] on filedocumented in this encounter Care Teams Retail Planning Manager Relationship Specialty Start Date End Date Rosalind Cornejo MD [address] [place] [address] PCP - General 06/10/19 documented as of this encounter
[2024-11-07 09:41] LABS: Basophils Percent Auto 0.6 % (0-2); Eosinophils Absolute Auto 0.3 X10*3/uL (0.0-0.4); Hematocrit 44.9 % (42.0-52.0); Hemoglobin 14.8 g/dl (14.0-18.0); Imm Gran Abs Auto 0.03 X10*3/uL (0.00-0.03); Imm Gran Pct Auto 0.6 % (0.0-0.4); Lymphocytes Absolute Auto 1.8 X10*3/uL (1.2-4.9); Lymphocytes Percent Auto 35.9 % (20-40); Mean Corpuscular Hemoglobin 28.4 pg (27.0-33.0); Monocytes Absolute Auto 0.5 X10*3/uL (0.1-1.2); Monocytes Percent Auto 9.4 % (2-11); Neutrophils Absolute Auto 2.4 x10*3/uL (2.0-8.3); Neutrophils Percent Auto 48.5 % (45-73); Platelet Count 309 X10*3/uL (160-400); Red Blood Count 5.22 X10*6/uL (4.60-5.80)
[2024-11-07 10:03] LABS: Appearance Urine Clear; Color Urine Yellow; Glucose Urine UA >=1000 mg/dL (Negative); Leukocyte Esterase Urine Negative (Negative); Nitrite Urine Negative (Negative); PH 6.5 (5.0-9.0); Specific Gravity - Urine >= 1.030 (1.005-1.025); UMIC TRIGGER UACC YES; Urine Blood Negative (Negative); Urine Ketones Negative (Negative); Urine Protein 30 (1+) mg/dL (Neg-Trace)
[2024-11-07 10:05] LABS: Bacteria Urine None Seen (None Seen); Hyaline Casts Urine 0-2 /LPF (0-2); RBC Urine 0-2 /HPF (0-2); Squamous Epithelial Cell Urine 0-2 /HPF (0-2); WBC Urine 0-5 /HPF (0-5)
[2024-11-07 11:03] LABS: Creatinine Urine 92.08 mg/dL; Microalbum/Creatinine Ratio Ur 274.7 ug/mg cr (<30)
[2024-11-07 11:13] LABS: Folate 12.7 ng/mL (> or = 4.0); Vitamin B12 375 pg/mL (200-900)
[2024-11-07 11:25] LABS: Alanine Aminotransferase 22 U/L (0-40); Albumin Level 4.5 g/dL (3.5-5.0); Alkaline Phosphatase 78 U/L (39-117); Anion Gap 11 (12-20); Aspartate Amino Transferase 22 U/L (5-37); Bilirubin Total 0.3 mg/dL (0.0-1.0); Blood Urea Nitrogen 27 mg/dL (9-16); Calcium 9.6 mg/dL (8.4-10.2); Carbon Dioxide 29 mmol/L (22-29); Chloride 108 mmol/L (96-108); Cholesterol 168 mg/dL (<200); Estimated Glomerular Filt Rate > 60; Glucose Fasting 123 mg/dL (60-99); HDL Cholesterol 37 mg/dL (>40); LDL Cholesterol Calculated 114 mg/dL (<100); Potassium 5.1 mmol/L (3.3-5.1); Sodium 143 mmol/L (135-145); Total Protein 7.4 g/dL (6.5-8.0); Triglycerides 86 mg/dL (<150)
[2024-11-07 11:26] LABS: Estimated Average Glucose 134 mg/dL; Hemoglobin A1C 175.1846 umol/L; Hemoglobin A1c % 6.3 % (<6.0)
[2024-11-07 11:28] LABS: Vitamin D 25-OH Total 43.4 ng/mL (>30)
[2024-11-12 21:38] LABS: Homocysteine 17.9 umol/L (<11.4)
== END 2024-11-07 08:51 | disposition home or self-care (01) ==
LOC: HO.LAB 08:50
PROVIDERS: PCP Internal Medicine; Visit Provider Internal Medicine
DX: D64.9 Anemia, unspecified (principal); E78.00 Pure hypercholesterolemia, unspecified; E11.9 Type 2 diabetes mellitus without complications; E53.8 Deficiency of other specified B group vitamins; E72.11 Homocystinuria; E55.9 Vitamin D deficiency, unspecified
CPT/HCPCS: 36415; 80053; 80061; 81001; 81003; 82043; 82306; 82570; 82607; 82746; 83036; 83090; 84443; 85025

== ENCOUNTER 2024-11-11 15:22 | Outpatient (AMB) | payer BC, SELFPAY ==
[2024-11-11 15:23] VITALS: BP 110/64; PULSE 68; O2SAT 96; BMI 30.3
--- NOTE | 2024-11-11 15:23 | A.OFFPC_ITS ---
Vital Signs 11/11/24 15:23 Height 6 ft 1 in Weight 229 lb 6 oz BMI 30.3 BP 110/64 Blood Pressure Location Lt brachial Position Sitting Pulse 68 Pulse Source Pulse Oximeter Pulse Oximetry (%) 96 Oxygen Delivery Method Room Air Intake Visit Reasons: DM Tetryl Wringer Operator Required: No Accompanied by: Self / Same As Patient Allergies Sulfa (Sulfonamide Antibiotics) [SULFA (SULFONAMIDE ANTIBIOTICS)] Allergy (Intermediate, Verified 11/11/24 15:45) HIVES pravastatin Adverse Reaction (Intermediate, Verified 11/11/24 15:58) increased muscle pains rosuvastatin Adverse Reaction (Intermediate, Verified 11/11/24 15:58) increased muscle pains pioglitazone [From Actos] Adverse Reaction (Unknown, Verified 11/11/24 15:45) ankle swelling Medication List - Last Reconciled 11/11/24 by Derrek Abdullahi MD allopurinol 100 mg PO DAILY 90 days alpha lipoic acid 600 mg PO BID amoxicillin-pot clavulanate 875-125 mg 1 tab PO BID 10 days apixaban 5 mg PO BID 90 days empagliflozin 25 mg PO DAILY fluconazole 150 mg PO Q3D 2 doses fluticasone propionate 50 mcg/actuation sprays intranasal folic acid 1 mg PO DAILY lisinopril 20 mg PO DAILY loperamide 2 mg PO Q6H PRN loratadine (Allergy Relief (loratadine)) 10 mg PO DAILY omeprazole 40 mg PO DAILY 90 days potassium citrate ER 20 mEq (2 x 10 mEq (1,080 mg)) PO BID 90 days simethicone (Gas Relief (simethicone)) 125 mg PO BID-QID PRN tirzepatide (Mounjaro) 10 mg subcut QWEEK Tobacco use date assessed: 11/11/24 Fall risk assessment: 2 + Falls in past year Last assessed Fall Risk: 11/11/24 Dental Screening Dental Screen Date: 11/11/24 Did you have a dental visit in the last 12 months?: Yes Did you have a dental problem in the last 6 months where you did not have access to dental care?: No Was dental information given to patient?: Patient has dentist HPI KYRA HPI Details Patient comes in today for his follow-up visit States that he feels okay He denies any headaches or dizziness Denies any chest pains, no shortness of breath No nausea/vomiting, no abdominal pain No change in bowel habits noted States that his chronic low back pain and joint pains have been mostly manageable He had his follow-up labs done a few days ago - to discuss his results [facility] Medical History (Updated 11/16/24 @ 23:04 by Derrek Abdullahi MD) Pure hypercholesterolemia Lumbar degenerative disc disease Imbalance Memory loss Fatty liver Irritable bowel syndrome Arthritis Diabetes High cholesterol High blood pressure Sinusitis History of torn meniscus of knee Kidney stone Nasal sinus polyp Morbid obesity GERD (gastroesophageal reflux disease) GERMAN (obstructive sleep apnea) Other and unspecified hyperlipidemia Essential hypertension Type 2 diabetes mellitus with unspecified complications Embolic stroke Stroke Surgical History Hx of colonoscopy History of esophagogastroduodenoscopy (EGD) Status post uvulopalatopharyngoplasty History of transesophageal echocardiography (AMINA) (~02/19/20) History of loop recorder (~02/13/20) Family History Father High blood pressure Mother High blood pressure Diabetes Cardiovascular disease Maternal Grandmother High blood pressure Alcohol abuse FH: mental illness Paternal Grandmother Cardiovascular disease Family/Other Cardiovascular disease Social History Household Members: Spouse Household Members Other:: 1 son Housing: House Alcohol intake: current Patient Tobacco Use Status: Former Tobacco user e-Cigarette/Vaping Use: Never Used service: No Current occupational status: unemployed Current occupational exposures/hazards: No Cognitive needs: No Hearing needs: No Vision needs: No Questionnaire PHQ-9 Over the last 2 weeks, how often have you been bothered by any of the following problems? 1. Little interest or pleasure in doing things: several days 2. Feeling down, depressed, or hopeless: not at all 3. Trouble falling or staying asleep, or sleeping too much: several days 4. Feeling tired or having little energy: more than half the days 5. Poor appetite or overeating: not at all 6. Feeling bad about yourself - or that you are a failure or have let yourself or your family down: not at all 7. Trouble concentrating on things, such as reading the newspaper or watching television: more than half the days 8. Moving or speaking so slowly that other people could have noticed. Or the opposite - being so fidgety or restless that you have been moving around a lot more than usual: more than half the days 9. Thoughts that you would be better off or of hurting yourself in some way: not at all Total score: 8 Depression Screening Interpretation: Positive (denies depression or h/o depression) Depression Screening Done: Yes 20850 - PHQ-9 Billing: Yes Source: Developed by Drs. Jeromy Varghese, Radha Truong, Michael Shell and colleagues, with an educational emily from [employer]. Thrive Questionnaire Date Thrive assessed: 11/11/24 I am a: Patient What is your living situation today?: I have a steady place to live Within the past 12 months, did the food you bought not last and you didn't have the money to get more?: Never true Within the past 12 months, did you worry whether your food would run out before you got money to buy more?: Never true Do you have trouble paying for medicines?: No Do you have trouble getting transportation to medical appointments?: No Do you have trouble paying your heating and electricity bill?: No Do you have trouble taking care of your child, family member or friend?: No Do you have trouble with day-to-day activities such as bathing, preparing meals, shopping, managing finances, etc.?: No Are you currently unemployed and looking for a job?: No Are you interested in more education?: No Please select the resources that you would like help with: None Currently or been in a relationship where the following occur: No concerns reported THRIVE Score: 0 AUDIT C Alcohol Use Questionnaire (AUDIT-C) 1. How often do you have a drink containing alcohol?: Monthly or less 2. How many drinks containing alcohol do you have on a typical day when you are drinking?: 1 or 2 3. How often do you have six or more drinks on one occasion?: Never Total Score: 1 Score Reviewed/Action Taken: Yes KVNG-7 AMB Questionnaire KVNG-7 Date KVNG - 7 assessed: 11/11/24 Feeling nervous, anxious, or on edge: 0 = Not at all Not being able to stop or control worryin = Not at all Worrying too much about different things: 0 = Not at all Trouble relaxin = Not at all Being so restless that it is hard to sit still: 0 = Not at all Becoming easily annoyed or irritable: 0 = Not at all Feeling afraid as if something awful might happen: 0 = Not at all Total KVNG-7 score (0-4 normal; 5-9 mild; 10-14 moderate; 15-21 severe): 0 Source: Developed by Drs. Jeromy Varghese, Radha Truong, Michael Shell and colleagues, with an educational emily from [employer]. Review of Systems Const Denies chills, Denies fatigue, Denies fever(s) and Denies headache(s) ENT Denies dysphagia, Denies dizziness, Denies otalgia, Denies headache(s), Denies neck pain, Denies odynophagia and Denies sore throat Card Denies chest pain, Denies palpitations and Denies dyspnea Resp Denies chest congestion, Denies cough and Denies dyspnea GI Denies abdominal pain, Denies constipation, Denies dysphagia, Denies heartburn, Denies diarrhea, Denies nausea, Denies odynophagia and Denies vomiting Denies dysuria, Denies nocturia and Denies urinary frequency Musc Reports back pain (over the lower back - chronic) and Denies neck pain Skin/Breast Denies rash Neuro Denies dizziness and Denies headache(s) Endo Denies fatigue and Denies palpitations Physical exam (Primary Care) Vital Signs: Last Vital Signs Pulse 68 11/11/24 15:23 BP 110/64 11/11/24 15:23 Pulse Ox 96 11/11/24 15:23 Oxygen Delivery Method Room Air 11/11/24 15:23 BMI result Body Mass Index 30.3 Tobacco/Smoking Status: Tobacco use Status Tobacco use date assessed 11/11/24 11/11/24 15:27 Patient Tobacco Use Status Former Tobacco user 11/11/24 15:27 e-Cigarette/Vaping Use Never Used 11/11/24 15:27 PHQ-9: PHQ-9 Score PHQ-9: Total score 8 11/11/24 15:49 Depression Screening Interpretation: Positive (denies depression or h/o depression) Thrive Assessment: Date of Thrive Assessment Date Thrive assessed 11/11/24 11/11/24 15:27 Currently or been in a relationship where the following occur: No concerns reported Const General: no acute distress and alert HENMT Ears: TM's normal bilaterally and EAC's normal Throat: Yes posterior oropharynx normal and Yes tonsils normal (no TP congestion) Neck Neck: Yes supple and No lymphadenopathy Thyroid: Thyroid normal Resp Auscultation: clear to auscultation bilaterally, no rales and no wheezes Cardio Rate: regular rate Rhythm: regular rhythm Heart sounds: no murmurs GI Palpation (GI): Soft to palpation and nontender Auscultation: normal bowel sounds General: Yes no CVA tenderness Back/Spine/Pelvis Back: no CVA tenderness Thoracic/Lumbar Spine: lumbar spinal tenderness Skin General skin exam: no rashes or lesions noted Extrem General: Yes no clubbing, cyanosis or edema Results Reviewed Results Reviewed: Laboratory Tests 10/14/24 11/07/24 11/07/24 10:43 09:02 09:04 WBC 5.0 Hgb 14.8 Hct 44.9 Plt Count 309 Sodium 143 Potassium 5.1 Creatinine 1.10 Estimated GFR > 60 Fasting Glucose 123 H Hemoglobin A1c % 6.3 H Calcium 9.6 AST 22 ALT 22 Triglycerides 86 Cholesterol 168 LDL Cholesterol, Calc 114 H HDL Cholesterol 37 L Vitamin B12 375 25-OH Vitamin D Total 43.4 TSH 1.70 Ur Specific [place] >= 1.030 H Specific [place] (Auto) 1.015 Urine Protein 30 (1+) H Urine Glucose (UA) >=1000 H Urine Blood Negative Urine Nitrite Negative Ur Leukocyte Esterase Negative Microalb/Creat Ratio 274.7 H Coding Level of Care Code Est Pt Level 4 (98794) Complex EM visit Add On G2211 Diagnoses Cerebrovascular accident (CVA) due to embolism of cerebral artery I63.40 Precerebral and cerebral artery: unspecified cerebral artery Type 2 diabetes mellitus with unspecified complications E11.8 Essential hypertension I10 Pure hypercholesterolemia E78.00 GERMAN (obstructive sleep apnea) G47.33 Degeneration of intervertebral disc of lumbar region with discogenic back pain M51.360 Disc-related pain type: discogenic back pain only Morbid obesity E66.01 Additional Codes PHQ-9 - 39349 - PHQ-9 Billing: Yes ([id number]) Assessment & Plan Assessment & Plan (1) Embolic stroke: Code(s): I63.9 - Cerebral infarction, unspecified Category: Medical Qualifiers: Precerebral and cerebral artery: unspecified cerebral artery Qualified Code(s): I63.40 - Cerebral infarction due to embolism of unspecified cerebral artery Plan: Transthoracic echocardiogram with LVEF 55-60%; is otherwise unremarkable. Transesophageal echocardiogram showed evidence of atrial septal aneurysm, patent foramen ovale; vbjv-jg-krxje shunt noted by color Doppler but bubble study was negative for dvozh-jz-gepb shunt. Implantable loop monitor showed 1 episode of possible atrial fibrillation but the episode was only for about 40 seconds and the rate was only in the 60s. Nothing recurrent after this episode. Myocardial perfusion imaging study from [facility] done in 2019 showed no evidence of any ischemia or infarction. He exercised for 8 minutes and 54 minutes on Kang protocol reaching 9 Mets. Brain MRI had shown a small infarct in cerebellum. Brain CT had also shown old infarcts. CTA of the neck does not show any significant disease. Continue Eliquis 5 mg BID for thromboembolism prophylaxis Follow-up with cardiology as scheduled (2) Type 2 diabetes mellitus with unspecified complications: Code(s): E11.8 - Type 2 diabetes mellitus with unspecified complications Category: Medical Plan: Patient's HgbA1c was at 6.3% on his labs done a few days ago, same as his previous HgbA1c (6.3%) done back in March 2024 - goal is at least less than 7.0% or an ideally less than 6.5% Reinforced diabetic diet Continue Jardiance 25 mg QD and Mounjaro 10 mg SQ once a week (3) Essential hypertension: Code(s): I10 - Essential (primary) hypertension Category: Medical Plan: Reinforced low-sodium diet - goal is systolic BP of 120 mm or less Continue Lisinopril 20 mg QD (4) Pure hypercholesterolemia: Code(s): E78.00 - Pure hypercholesterolemia, unspecified Category: Medical Plan: Results of his labs done a few days ago reviewed and discussed with patient - he is advised that his cholesterol numbers are still NOT at goal Reinforced low cholesterol diet Patient used to take Rosuvastatin 40 mg QD but states that he quit taking it due to increased myalgia while on the medication He recalls experiencing similar symptoms with Pravastatin in the past He is advised that his Homocysteine level was also elevated on his recent labs, suggesting an increased risk There was also (+) aortic calcifications noted incidentally on lumbar spine x- rays done back in August 2024 Will try starting patient on Repatha 140 mg SQ every 2 weeks to help get his cholesterol numbers to goal Will recheck his fasting lipids and labs in 4 months for follow-up (5) GERMAN (obstructive sleep apnea): Comment: s/p ymjxp-exuuno-bbuocswzcdfifa about 15 years ago Code(s): G47.33 - Obstructive sleep apnea (adult) (pediatric) Category: Medical Plan: Follow-up with Sleep Medicine as scheduled (6) Lumbar degenerative disc disease: Code(s): M51.369 - Other intervertebral disc degeneration, lumbar region without mention of lumbar back pain or lower extremity pain Category: Medical Qualifiers: Disc-related pain type: discogenic back pain only Qualified Code(s): M51.360 - Other intervertebral disc degeneration, lumbar region with discogenic back pain only Plan: Reinforced activity and weight lifting restrictions Repeat x-rays of the lumbar spine done back in August 2024 revealed (+) multilevel degenerative disc changes but no acute findings (7) Morbid obesity: Code(s): E66.01 - Morbid (severe) obesity due to excess calories Category: Medical Plan: Reinforced diet/exercise as tolerated/lose weight Plan Follow up in 4 months Orders: Orders Hemoglobin A1c 4 Months E11.9 - Type 2 diabetes mellitus without complications Lipid Panel 4 Months E78.00 - Pure hypercholesterolemia, unspecified Complete Blood Count Auto Diff 4 Months D64.9 - Anemia, unspecified Comprehensive [place]. Panel Fast 4 Months E78.00 - Pure hypercholesterolemia, unspecified Medications: New Repatha SureClick (evolocumab) 140 mg subcut Q2W 4 weeks 2 mL 5RF NS Changed From tirzepatide (Mounjaro) subcut To tirzepatide (Mounjaro) 10 mg subcut QWEEK Discontinued amoxicillin-pot clavulanate 875-125 mg Discontinued Reason: Patient no longer taking 1 tab PO BID 10 days 20 tabs 0RF
--- OUTSIDE RECORDS SUMMARY | 2024-11-11 18:17 | XMS_ITS ---
[...] Start date Recorded date Hypertension active 2023-07-15 9594-17-73T40:1 1:03Z History of tobacco abuse active 2023-07-1510-15-09T13:11:09Z [...] screening active 2023-07-1508-05T13:21:34Z Kidney stones active 2023-07-15 5042-96-10Z10: 10:51Z Plan of Treatment Patient Care team information Name Category Status Period Participants - - Proposed period not known - - - Proposed period not known - - - Proposed period not known - - - Proposed period not known - - - Proposed period not known -
--- OUTSIDE RECORDS SUMMARY | 2024-11-11 18:17 | XMS_ITS | Clinical Summary ---
Author Organization [facility], Address [address] [place] [address] Phone Care Team Providers Care Airborne Operations Superintendent Name Role Phone Rosalind Cornejo MD Primary [...] by mouth twice a day Active B JBZPYOC-BYVZLW-LV PO Take 3 tablets by mouth 1 [...] 2 - PCV) 08/17/2021 08/17/2020 Influenza Vaccine (Season Ended) 2025 06/16/20 Hepatitis B Vaccine Aged Out No longe r eligible based on patient's age to complete this topic Insurance [facility] Care Teams Airborne Operations Superintendent Relationship Specialty Start Date End Date Rosalind Cornejo MD [address] [place] [address] PCP - General 06/10/19
--- OUTSIDE RECORDS SUMMARY | 2024-11-11 18:17 | XMS_ITS | Continuity of Care Document ---
Author Organization [facility] [address] [place] [address] Phone [phone] Problems Active Problems Provider Date Type 2 [...] 300units Leroy Laughlin M.D. 12/04/2023 Freestyle Capri 2/[place]/Flash Glucose Monitoring Lsruvq1Zmxydt Device use as directed with sensors dx: e11.9 1units E11Chidi Laughlin M.D. 12/04/2023 Freestyle Capri 2/Sensor/Flash Glucose Monitoring Jdmfkl4Exiobn Misc 1 sensor to skin every fourteen days as directed dx: e11.9 6units E11.9 Iva Laughlin M.D. 12/04/2023 Mounjaro7.5mg/0.5ML Solution Pen-Inject inject 7.5 mg subcutaneously once a week as directed Dx: E11.9 2ml E11.9 Iva Laughlin M.D. 12/04/2023 Probiotic BlendCapsules once each morning Unknown 0 Bzzvjspiyb04fk Tablets one with dinner Unknown Alpha-Lipoic Boah052ff Capsules a total of 600 mg each morning Unknown Tylenol Extra Iaphxitu762sf Tablets a few times a week, as needed for pain Unknown Vitamin B-ComplexTablets Daily - B6/Folic Acid/B12 tablet Unknown Fuwmfjlzqng113uh Chewtabs as needed, once or twice a month Unknown Loperamide HCL2mg Capsules as needed, every couple of weeks Unknown Metformin SQJ1101xv Tablets Twice a day [facility] Vdtvhaktqt72te Tablets Once a day with dinner Rosalind Cornejo M.D. Ncxixdjzw00yw Tablets Once a day in the morning Rosalind Cornejo M.D. Folic Fnzn2oh Tablets Once a day with laraner Pillo Cid MD Wungkfu3bt Tablets Twice a day Mango Tinoco MD Wwtwtvtmjlt161rg Tablets Once a day in the morning [facility] Vital Signs Date Vital Result Comment [...] Fine 33G Plus 33G * Freestyle Capri 2/[place]/Flash Glucose Monitoring System 2 [place] * Freestyle Capri 2/Sensor/Flash Glucose Monitoring System 2 Sensor * New Labs:* CMP W/Egfr, Ordered: 12/04/23 * Lipid Panel, Ordered: 12/04/23 * Urine Microalb+Creat+Ratio RDM, Ordered: 12/04/23 Functional Status Description No Information Available Mental Status Description No Information Available Referrals Description No Information Available
--- OUTSIDE RECORDS SUMMARY | 2024-11-11 18:17 | XMS_ITS | Encounter Summary ---
Author Organization [facility], Address [address] [place] [address] Phone Care Team Providers Care Certified Ophthalmic Technician Name Role Phone Rosalind Cornejo MD Primary Care Provider [phone] Encounter Details Date Type Department Care Team (Late st Contact Info) Description 08/19/2021 Documentation Only [facility], [address] [place] [address] Yocasta Whittington [address] [place] [id number] Social History Tobacco Use Types Packs/Day Years [...] on filedocumented in this encounter Care Teams Certified Ophthalmic Technician Relationship Specialty Start Date End Date Rosalind Cornejo MD [address] [place] [address] PCP - General 06/10/19 documented as of this encounter
== END 2024-11-11 16:10 | disposition home or self-care (01) ==
LOC: HO.HMCH 15:22
PROVIDERS: PCP Nurse Practitioner Family; Visit Provider Internal Medicine
DX: I63.40 Cerebral infarction due to embolism of unspecified cerebral artery (principal); E11.8 Type 2 diabetes mellitus with unspecified complications; E66.01 Morbid (severe) obesity due to excess calories; Z68.30 Body mass index [BMI] 30.0-30.9, adult; I10 Essential (primary) hypertension; E78.00 Pure hypercholesterolemia, unspecified; G47.33 Obstructive sleep apnea (adult) (pediatric); M51.360 Other intervertebral disc degeneration, lumbar region with discogenic back pain only

== ENCOUNTER → 2024-11-11 15:22 | Outpatient (BNVA) | payer BC, SELFPAY | PROVIDERS: PCP Nurse Practitioner Family; Visit Provider Internal Medicine | DX: E11.8 Type 2 diabetes mellitus with unspecified complications (principal); I10 Essential (primary) hypertension; E78.00 Pure hypercholesterolemia, unspecified; G47.33 Obstructive sleep apnea (adult) (pediatric); M51.360 Other intervertebral disc degeneration, lumbar region with discogenic back pain only; E66.01 Morbid (severe) obesity due to excess calories; Z68.30 Body mass index [BMI] 30.0-30.9, adult; Z86.73 Personal history of transient ischemic attack (TIA), and cerebral infarction without residual deficits; Z79.01 Long term (current) use of anticoagulants; Z79.84 Long term (current) use of oral hypoglycemic drugs; Z79.899 Other long term (current) drug therapy | CPT/HCPCS: 96127 ==

== ENCOUNTER 2025-01-05 07:55 | Outpatient (REF) | payer BC, SELFPAY ==
--- OUTSIDE RECORDS SUMMARY | 2025-01-05 07:59 | XMS_ITS | Continuity of Care Document ---
Author Organization [facility] [address] [place] [address] Phone [phone] Problems Active Problems Provider Date Type 2 [...] 300units Leroy Laughlin M.D. 12/04/2023 Freestyle Capri 2/Brent/Flash Glucose Monitoring Pznkvd7Mnfsjt Device use as directed with sensors dx: e11.9 1units E11Chidi Laughlin M.D. 12/04/2023 Freestyle Capri 2/Sensor/Flash Glucose Monitoring Qwhlpy5Xxplhj Misc 1 sensor to skin every fourteen days as directed dx: e11.9 6units E11.9 Iva Laughlin M.D. 12/04/2023 Mounjaro7.5mg/0.5ML Solution Pen-Inject inject 7.5 mg subcutaneously once a week as directed Dx: E11.9 2ml E11.9 Iva Laughlin M.D. 12/04/2023 Probiotic BlendCapsules once each morning Unknown 0 Xfgenensxa03dh Tablets one with dinner Unknown Alpha-Lipoic Uofh300im Capsules a total of 600 mg each morning Unknown Tylenol Extra Vwalmezx949mx Tablets a few times a week, as needed for pain Unknown Vitamin B-ComplexTablets Daily - B6/Folic Acid/B12 tablet Unknown Ktfvnewrxpi165fm Chewtabs as needed, once or twice a month Unknown Loperamide HCL2mg Capsules as needed, every couple of weeks Unknown Metformin HUK0733ut Tablets Twice a day [facility] Bzydbtllwh50ha Tablets Once a day with dinner Rosalind Cornejo M.D. Mqlvxdvlw14ti Tablets Once a day in the morning Rosalind Cornejo M.D. Folic Qhiq9wh Tablets Once a day with laraner Pillo Cid MD Aocgped3so Tablets Twice a day Mango Tinoco MD Kditamkjwuo305hn Tablets Once a day in the morning [facility] Vital Signs Date Vital Result Comment 12/04/2023 [...] Fine 33G Plus 33G * Freestyle Capri 2/Brent/Flash Glucose Monitoring System 2 Brent * Freestyle Capri 2/Sensor/Flash Glucose Monitoring System 2 Sensor * New Labs:* CMP W/Egfr, Ordered: 12/04/23 * Lipid Panel, Ordered: 12/04/23 * Urine Microalb+Creat+Ratio RDM, Ordered: 12/04/23 Functional Status Description No Information Available Mental Status Description No Information Available Referrals Description No Information Available
[2025-01-05 08:50] LABS: Blood Urea Nitrogen 24 mg/dL (9-16); Estimated Glomerular Filt Rate 58
[2025-01-05 09:13] LABS: Prostate Specific Antigen 0.37 ng/mL (<0.05-4.0)
== END 2025-01-05 07:56 | disposition home or self-care (01) ==
LOC: HO.LAB 07:55
PROVIDERS: PCP Internal Medicine; Visit Provider Nurse Practitioner Family
DX: R31.0 Gross hematuria (principal); N39.43 Post-void dribbling; Z12.5 Encounter for screening for malignant neoplasm of prostate
CPT/HCPCS: 36415; 82565; 84153; 84520

== ENCOUNTER 2025-01-13 09:15 | Outpatient (REF) | payer BC, SELFPAY ==
--- NOTE | ~2025-01-13 | CT_ITS ---
CLINICAL HISTORY: R31.0 - Gross hematuria CT abdomen and pelvis with and without contrast Comparison: None Findings: No consolidation or effusion. There are several tiny nonobstructive calculi within the lower pole of the left kidney. Solitary 2 mm nonobstructive calculus within the right kidney. No ureteral calculus or hydronephrosis. 4 mm cyst within the lower pole of the left kidney. No suspicious kidney nodule. The liver, spleen, pancreas and adrenal glands are unremarkable. There are no calcified gallstones. Small umbilical hernia containing fat. No bowel herniation. No bowel edema or dilatation. Heterogeneous prostate gland with median lobe hypertrophy. Borderline bladder wall thickening. Normal appendix. The bones are intact. IMPRESSION: 1. There are tiny nonobstructive calculi within the bilateral kidneys. 2. Borderline thickening of the bladder wall. Correlate with urinalysis to exclude cystitis. 3. Heterogeneous prostate gland with median lobe hypertrophy. This document has been electronically signed by: Jennifer Lares MD on 01/13/2025 15:59:30
[2025-01-13] MEDS: iohexoL 350 MG/ML 100 ML INFUS..BTL IV (10:22)
== END 2025-01-13 09:16 | disposition home or self-care (01) ==
LOC: HO.CT 09:15
PROVIDERS: PCP Internal Medicine; Visit Provider Nurse Practitioner Family
DX: R31.0 Gross hematuria (principal)
CPT/HCPCS: 74178; Q9967

== ENCOUNTER → 2025-01-13 09:17 | Outpatient (BNV) | payer BC, SELFPAY | PROVIDERS: PCP Internal Medicine; Visit Provider Radiology Diagnostic Radiology | DX: R31.0 Gross hematuria (principal) | CPT/HCPCS: 74178 ==

== ENCOUNTER 2025-02-26 13:45 | Outpatient (AMB) | payer BC, SELFPAY ==
--- OUTSIDE RECORDS SUMMARY | 2025-02-26 13:48 | XMS_ITS | Patient Health Record ---
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 Name Role Phone Chantal CHANG, Rosalind Primary Care Provider Andres Westbrook Unavailable [phone] Allergies Allergen (clinical drug ingredient) Drug/Non Drug Allergy documented on EMR Reaction Allergy Type Onset Date Status gentamicin Gentamicin Sulfate Unknown Drug Allergy Active Spinal Needle Unknown Drug Allergy Act nilda sulfa Unknown Drug Allergy Active general Unknown Drug Allergy Active Reason For Referral No Information Medications Medication SIG (Take, Route, Frequency, Duration) Notes Start Date End Date Status Aspirin 81 MG 1 tablet Orally Once a day Active Ranitidine & Diet Manage Prod 150 MG Orally Active Etodolac 500 MG 1 tablet Orally Twic e a day Not-Taking tiZANidine HCl 4 MG 1 tablet as needed Orally every 8 hrs Active glipiZIDE Not-Taking Extra-Depth Diabetic Shoes with 3 Pair Custom heat-molded multi-density innersoles . for 1 year . Dx: 250.60,735.4,701; Duration: . Active B Complex Orally Active Lactic Acid E 10-3500 %-UNT/30GM as directed Externally bid; Duration: 30 days 02/17/2014 Not-Takin g Vitamin B 12 250 MCG Orally Active Loratadine 10 MG 1 tablet Orally Once a day Active D3 Adult 1000 UNIT Orally A ctive Metoprolol Succinate ER 25 MG 1 tablet Orally Once a day Active Fish Oil + D3 3987-1876 MG-UNIT 1 capsule Orally Three times a day Active Nortriptyline HCl 25 MG 1 capsule Orally Once a day Active Ginseng-Complex 800 MG Orally Active Pravastatin Sodium 40 MG 1 tablet Orally Once a day Active Omeprazole Active Urea 40 % 1 application to affected area on feet Externally Twice a day; Duration: 30 days 08/13/2015 Active Biotin 5000 MCG 1 capsule Orally Onc e a day Active Janumet 50-1000 MG 1 tablet with meals Orally Twice a day Active Chromium Picolinate 800 MCG Orally Active Lisinopril 20 MG 1 tablet Orally Once a day Active Cinnamon Plus Chromium 200-1000 MCG-MG Orally Active Problems No Known Problems Plan Of Treatment Pending Test Test Name Order Date Hemoglobin A1c 02/09/2015 [id number] NAIL, 6 OR MORE 05/11/2015 [id number] NAIL, 6 OR MORE 08/13/2015 [id number] NAIL, 6 OR MORE 02/17/2014 [id number] NAIL, 6 OR MORE 02/09/2015 [id number]-Tlyx Destruction, 1-14 02/09/2015 [id number]-Nqja Destruction, 1-14 02/17/2014 [id number]-Xaiz Destruction, 1-14 08/13/2015 [id number]-GQBZ SKIN LESIONS, OVER 4 02/18/20 14 [id number]-MITV SKIN LESIONS, OVER 4 02/10/20 15 [id number]-WBCG SKIN LESIONS, OVER 4 08/13/19 16 [id number]-TOXL SKIN LESIONS, OVER 4 05/11/20 15 Insurance Providers Payer Name Payer Address Payer Phone Subscriber Number Group Number Insured Name Patient Relationship to Insured Coverage Start Date Coverage End Date [facility] [address] [place] [address] [phone] [id number] Spouse - patient is the spouse of the insured Medical (General) History Medical History History ICD Code Anxiety Arthritis Back,Hip,and Knee pain Fibromyalgia Headaches High blood pressure Reflux Sinus conditions Diabetic Surgical History Surgery Date(Month/Year) UPPP 2003 Sinus cleaning 2003
--- OUTSIDE RECORDS SUMMARY | 2025-02-26 13:49 | XMS_ITS | Clinical Summary ---
Author Organization [facility] Address [address] [place] [address] [place] [id number] Phone Care Team Providers Care Wood Cutter Name Role Phone Juwan Su MD Unavailable [phone] Derrek Abdullahi MD Primary Care Provider [phone] Allergies Active Allergy Reactions Criticality Noted Date Comments Gentamicin Sulfate Unknown 01/15/2025 Hydrocodone-Acetaminop hen 02/06/2020 Other reaction(s): Other (see comments) Sulfa (Sulfonamide Antibiotics) Other (See Comments) 01/08/2018 Medications lisinopril (PRINIVIL,ZESTRIL ) 20 MG tablet Take 1 tablet by mouth daily. Active loperamide (IMODIUM) 2 mg capsule Take 2 mg by mouth as needed. Active loratadine (CLARITIN) 10 mg tablet Take 1 tablet by mouth daily. Active simethicone (MYLICON) 125 MG chewable tablet Take 1 tablet by mouth as needed. Active allopurinol (ZYLOPRIM) 100 MG tablet Take 1 tablet by mouth daily. 9 Active alpha lipoic acid 600 mg Cap Take 600 mg by mouth daily. Active Medication-Free TextIndications:c bd oil/ gummies Indications: cbd oil/ gummies Active apixaban (ELIQUIS) 5 mg tablet Take 5 mg by mouth 2 (two) times a day. Active omeprazole (PRILOSEC) 40 MG capsule Take 40 mg by mouth daily. Active MOUNJARO 10 mg/0.5 mL PnIj subcutaneous penIndications:Ty pe 2 diabetes mellitus without complication, without long-term current use of insulin INJECT 0.5 MLS (10 MG TOTAL) UNDER THE SKIN ONCE A WEEK 2 mL 11 4 Active magnesium 250 mg Tab Take 300 mg by mouth 2 (two) times a day. 5 Active fluticasone propionate (FLONASE ALLERGY RELIEF NASL) 1 spray by Nasal route daily. 5 Active empagliflozin (JARDIANCE) 25 mg tabletIndications :Type 2 diabetes mellitus without complication, without long-term current use of insulin Take 1 tablet (25 mg total) by mouth daily. 90 tablet 3 5 Active REPATHA SURECLICK 140 mg/mL PnIj subcutaneous pen injector 5 Active Active Problems Problem Noted Date Diagnosed Date Type 2 diabetes mellitus wit hout complication, without long-term current use of insulin 03/03/2013 Overview (09/26/2014): Diabetes mellitus Assessment & Plan (01/15/2025 12:30 PM EDT): - His blood glucose levels have remained stable, with an estimated A1c of 6.8% based on 9 days of CGM data and an average glucose level of 144. The variation in his blood sugar levels is 15.6%, which is within the goal of less than 36%. - The current medication regimen appears to be effectively managing his condition. His A1c level has decreased from 6.2% in September to 6% today. - He will continue his current regimen of Mounjaro 10 mg weekly and Jardiance 25 mg daily. He was advised to utilize his existing supply of Mounjaro 5 mg by taking two doses per week. - He was also advised to monitor the expiration dates of his medications and to keep them until their expiration date in case needed for future use. - He reports experiencing fatigue and cold intolerance, which are not believed to be related to his blood sugar levels. - His thyroid function was within the normal range in April, and his hemoglobin level was in the normal range at 14.7. - He was advised to consult with his primary care physician regarding these symptoms and to consider having his thyroid function and CBC rechecked Orders: POCT Hemoglobin A1c Follow-up: The patient will follow up in 6 months. Assessment & Plan (09/16/2024 4:37 PM EST): Continues on moderate dosing of GIP/GLP1, max dosing of SGLT2 Has been off metformin and longstanding GI symptoms have resolved, recommend remaining off of this, especially with no negative impact on sugars Discussed concern with yeast infection, this does not sound completely due to SGLT2i use, but did discuss the risk Currently having no symptoms, so we discussed monitoring this and reaching out if having any repeated yeast infections/UTIs Will continue current doses of GLP1/GIP an SGLT2i Blood pressure normal today, up to date on annual routine labwork which has been scanned in Up to date on eye and foot care Advised to contact office with any questions or concerns, otherwise we will follow up in 4 months Assessment & Plan (06/16/2024 4:22 PM EST): Continues on moderate dosing of GIP/GLP1, max dosing of SGLT2 and metformin GI concerns that have been ongoing even before initiation of GIP/GLP1 We discussed trialing off metformin to see if this helps with GI symptoms Discussed CGM trial to be done with start of increased dosage which Prakash is agreeable to Will continue current doses of GLP1/GIP an SGLT2i Blood pressure normal today, up to date on annual routine labwork which has been scanned in Up to date on eye and foot care Advised to contact office with any questions or concerns, otherwise we will follow up in 3 months Assessment & Plan (04/09/2024 8:07 PM EDT): Blood sugar patterns very good per CGM up until date of multiple bee stings, then blood sugars tend to run quite a bit higher, likely related to physical stress and treatment to reduce allergic reaction Advised to continue SGLT2i and metformin at current dosing, Mounjaro 10 mg dose seems to be reasonable Encouraged reaching out with any questions or concerns prior to next visit We will follow up in 2 months Assessment & Plan (03/12/2024 11:12 AM EDT): A1c has improved and is meeting goal Continues on moderate dosing of GIP/GLP1, max dosing of SGLT2 and metformin, tolerating these well for the most part We discussed optimizing GLP1ra/GIP, Through shared decision making, Prakash would like to try increase Mounjaro to benefit from additional weight loss We discussed signs/symptoms of hypoglycemia and while low risk, did discuss this is possible with increased GLP/GIP dosage and metformin use and would mean decrease of metformin would be necessary Discussed CGM trial to be done with start of increased dosage which Prakash is agreeable to Will continue on metformin and SGLT2i Blood pressure normal today Up to date on annual labwork, these were reviewed with Prakash, GFR in optimal range, discussed cholesterol panel and benefit of statin, Prakash is followed by cardiology and we will defer to them with med decision Advised to contact office with any questions or concerns, otherwise we will follow up in 3 months, sooner via the patient gateway to discuss CGM results with increased Mounjaro dosing Assessment & Plan (09/11/2023 2:13 PM EST): A1c has improved mildly since last visit Continues on GLP1, SGLT2, and metformin, tolerating these well for the most part We discussed optimizing GLP1 dose or switching to GLP1ra/GIP medication, Mounjaro, this was revisited today Through shared decision making, Prakash would like to try Mounjaro since there wasn't much improvement he saw with GLP1 dose optimization Will continue on metformin and SGLT2i Blood pressure normal today Up to date on annual labwork, these were reviewed, GFR in optimal range, microalbuminuria present, continues on SGLT2i which will offer some renal protection Received updated covid booster and flu vaccine at local pharmacy Encouraged efforts at balanced, mindful eating and making slow, gradual lifestyle adjustments Encouraged efforts at increasing physical activity as tolerated Advised to contact office with any questions or concerns, otherwise we will follow up in 6 months, I will check in with Prakash in about a month to see how he is tolerating Mounjaro and we will assess need for dose optimization. Assessment & Plan (08/29/2023 11:21 AM EST): CGM Trial Type of Diabetes: Diabetes mellitus Type 2 Assessment/HPI: John is here today for CGM trial. Procedures: Glucose Monitoring: Type of Sensor: Tutorspree G6 Pro Instruction: Patient Instructed on:, Calibrations, When to test BS, Troubleshooting, What to expect with the sensor, Patient instructed to remove sensor if redness, pain or bleeding occurs. . Insertion Site Selected: Right Arm Site Prep: Insertion site wiped with alcohol. Insertion: completed, area looks good, no redness, no bleeding. Plan: Patient will remove sensor and return in 2 weeks to drop off at front counter clerk or follow up appointment. Assessment & Plan (06/11/2023 2:04 PM EST): A1c has worsened since last visit despite starting GLP1ra therapy, patient is tolerating this well for the most part, does some unusual side effects We discussed optimizing dose or switching to GLP1ra/GIP medication, Shantanuunrachel, we discussed this at length today Through shared decision making, Prakash will trial optimized dose of Trulicity, if unable to tolerate increase or does not lead to blood sugar improvement, then will try Mounrachel Randalluel is agreeable to this, we discussed that he can trial the increased dose at home by doubling up current 0.75 mg supply until able to get prescription from the pharmacy Will continue on metformin and SGLT2i Blood pressure normal today Up to date on annual labwork, these were reviewed, GFR in optimal range, microalbuminuria present, continues on SGLT2i which will offer some renal protection Received updated covid booster and flu vaccine at local pharmacy Encouraged efforts at balanced, mindful eating and making slow, gradual lifestyle adjustments Encouraged efforts at increasing physical activity as tolerated Advised to contact office with any questions or concerns, otherwise we will follow up in 3 months, Prakash will come in 2 weeks sooner for CGM placement. He plans on doing an unblinded Dexcom G6 Pro CGM again prior to our followup Assessment & Plan (03/07/2023 4:28 PM EDT): CGM download reviewed with John, A1c improved, but supoptimal TIR on trial Reassuring for minimal variation and TAR2 Could consider GLP-1ra therapy if needed for stronger glycemic reduction compared to Januvia component part of Gale Lopez is agreeable to try this, reviewed that this would require a new script of metformin alone to be sent, John is agreeable with this Reviewed action, timing, frequency, administration technique, side effects, and risk vs benefits with medication GLP-1ra would be desirable given added protection against CV events Demonstrated administration with byron rocha and John appropriately demonstrated this back appropriately Will continue on metformin and SGLT2i Blood pressure normal today Up to date on annual labwork, these were reviewed, GFR in optimal range, microalbuminuria present, continues on SGLT2i which will offer some renal protection Encouraged efforts at balanced, mindful eating and making slow, gradual lifestyle adjustments Encouraged efforts at increasing physical activity as tolerated Advised to contact office with any questions or concerns, otherwise we will follow up in 3 months Assessment & Plan (02/20/2023 3:22 PM EDT): John has been having worsening control, latest A1c is 7.8% With limited glycemic data, difficult to assess efficacy of current diabetes regimen. We discussed the value in doing a CGM trial, John is agreeable to an unblinded CGM trial and will follow along with Dexcom Could consider GLP-1ra therapy if needed for more glycemic reduction On metformin- DPP4i combo, does report occ diarrhea, not taking evening dose with dinner, encouraged to do so and to see if this helps symptoms On SGLT2i, does report UTIs twice a year, not necessarily bothered by these, doesn't feel this started around the time of SGLT2 start, encouraged to stay well hydrated to decrease risk for UTIs Blood pressure essentially normal today. Labs >[facility], has had recent labs at [facility] which we can request Encouraged efforts at balanced, mindful eating and making slow, gradual lifestyle adjustments Encouraged efforts at increasing physical activity as tolerated Advised to contact office with any questions or concerns, otherwise we will follow up in 2 weeks for CGM evaluation CGM Trial Type of Diabetes: Diabetes mellitus Type 2 Assessment/HPI: John is here today for CGM trial. Procedures: Glucose Monitoring: Type of Sensor: Dexcom Pro unblinded Instruction: Patient Instructed on:, Calibrations, When to test BS, Troubleshooting, What to expect with the sensor, Patient instructed to remove sensor if redness, pain or bleeding occurs. . Insertion Site Selected: left arm Site Prep: Insertion site wiped with alcohol. Insertion: completed, area looks good, no redness, no bleeding. Plan: Patient will remove sensor and return in 2 weeks for follow up appointment. Obstructive sleep apnea syndrome 03/03/2013 Overview (09/26/2014): Obstructive sleep apnea syndrome Chronic pain 03/03/2013 Overview (09/26/2014): Chronic pain Encounters Date Type Department Care Team Description 01/15/2025 11:20 AM EDT Office Visit [facility] [address] [place] [address] Matilda Hannah, BAILEY Type 2 diabetes mellitus without complication, without long-term current use of insulin (Primary Dx) 01/06/2025 10:30 AM EDT Nurse Only [address] [place] [address] Matilda Hannah, BAILEY Type 2 diabetes mellitus without complication, without long-term current use of insulin (Primary Dx) 12/08/[address] [place] [address] Chanelle Moreno MA Medication Refill from Last 3 Months Immunizations Immunization Administration Dates Next Due COVID-19 (Pre-05/28) Pfizer Vaccine, mRNA, PF ,09/25/2020 Influenza High-Dose Quadrivalent Preservative Fr ee IM 06/16/2020 Influenza, whole 06/06/2010 Pneumococcal conjugate PCV20 04/10/2023 Pneumococcal polysaccharide PPSV23 08/17/2020 Family History Medical History Relation Comments Coronary artery disease Father coronary artery disease Coronary artery disease Mother coronary artery disease Multiple sclerosis Sister Multiple scle rosis Relation Status Comments Father Mother Sister Social History Tobacco Use Types Packs/Day Years Used Date Smoking Tobacco: Former Passive Smoke Exposure: Past Smokeless Tobacco: Never Tobacco Cessation:Counseling Given: Not Answered Alcohol Use Standard Drinks/Week Comments Yes 0 (1 standard drink = 0.6 oz pur e alcohol) once a week maybe Education Answer Date Recorded Are you interested in more education? Not on elyssa e 11/30/2022 Are you concerned about learning? Not on file 11/30/2022 No 11/30/2022 No 11/30/2022 Digital Access Answer Date Recorded No 12/31/2022 No 12/31/2022 Reliable internet access at home? Not on file 12/31/2022 Device with a working camera? Not on file Sex and Gender Information Value Date Recorded Sex Assigned at Male 08/10/2020 12:39 AM EST Legal Sex Male 7:59 PM EST Gender Identity Male 08/10/2020 12:39 AM EST Sexual Orientation Not on file Last Filed Vital Signs Vital Sign Reading Time Taken Comments Blood Pressure 105/55 01/15/2025 11:22 AM EDT Pulse 70 01/15/2025 11:22 AM EDT Temperature 36.6 C (97.8 F) 09/11/2023 10:10 AM EST Respiratory Rate 20 08/10/2020 12:3 7 AM EST Oxygen Saturation 97% 01/15/2025 11: 22 AM EDT Inhaled Oxygen Concentration - - Weight 102.4 kg (225 lb 12.8 oz) 2024 11:22 AM EDT Height 185.4 cm (6' 0.99 ) 09/16/2024 1 0:51 AM EST Body Mass Index 29.8 09/16/2024 10:51 AM EST Plan of Treatment Upcoming Encounters Date Type Department Care Team (Late st Contact Info) Description 06/23/2025 9:00 AM EST Office Visit [facility] [address] [place] [address] Katelyn Santa [address] [facility] [place] [address] [email or web address] 07/16/2025 11:20 AM EST Office Visit [facility] [address] [place] [address] Matilda Hannah CNP [address] [facility] [place] [address] [email or web address] Health Maintenance Due Date Last Done Comments Adult Td,Tdap Booster 1955 DEPRESSION SCREENING 1968 SMOKING Hx and SMOKELESS TOBACCO SCREENING 1969 COLOGUARD 2001 FIT TEST 2001 FOBT 2001 SIGMOIDOSCOPY 2001 VIRTUAL COLONOSCOPY 2001 DIABETIC EYE EXAM 09/26/2014 CREATININE LEVEL 08/10/2021 08/10/2020, 01/2018, 09/04/2017, Additional history exists POTASSIUM LEVEL 08/10/2021 08/10/2020, 08/08, 07/05/2017 ABDOMINAL AORTIC ANEURYSM (AAA) SCREENING 2021 LIPID PANEL 01/27/2024 01/26/2023, 09/04/2017 COVID-19 VACCINE ( season) 2024 05/17/2023, 05/09/2022, 11/17/2021, Additional history exists BLOOD PRESSURE 07/17/2025 01/15/2025 HEMOGLOBIN A1C 07/17/2025 01/15/2025, 09/06, 06/16/2024, Additional history exists COLONOSCOPY 01/09/2028 01/08/2018 COLORECTAL CANCER SCREENING 01/09/2028 HEPATITIS C SCREENING Completed 12/14/2017 PNEUMOCOCCAL VACCINES (50+ years) Completed 04/10/2023, 08/17/2020 RSV VACCINE Completed 06/17/2023 ZOSTER VACCINES Completed 07/13/2023, 03/04/2023 HEPATITIS A VACCINES Aged Out No long er eligible based on patient's age to complete this topic HIB VACCINES Aged Out No longer eligi ble based on patient's age to complete this topic MENINGOCOCCAL VACCINES (ACWY) Aged Out No longer eligible based on patient's age to complete this topic MENINGOCOCCAL VACCINES (B) Aged Out N o longer eligible based on patient's age to complete this topic Medical Devices Not on file Procedures Procedure Name Priority Date/Time Associated Diagnosis Comments POCT HEMOGLOBIN A1C Routine 01/15/2025 11:48 AM EDT Type 2 diabetes mellitus without complication, without long-term current use of insulin BASIC METABOLIC PANEL STAT 08/10/2020 1:05 AM EST ENDOSCOPY, COLON 01/08/2018 5:39 PM EDT LIPID PANEL Routine 09/04/2017 9:49 AM EST Uric acid nephrolithiasis from Last 3 Months or Most Recently Relevant to Health Maintenance Results * (ABNORMAL) POCT Hemoglobin A1c (01/15/2025 11:48 AM EDT) Hemoglobin A1c 6.0(A) 4.2 - 5.6 % [facility] Other 01/15/2025 11:4 8 AM EDT us Matilda Hannah CNP POINT OF CARE TEST ORDERABLES Final Result Performing Organization Address [facility] Co de Phone Number [address] [address], [facility] * (ABNORMAL) Basic metabolic panel (08/10/2020 1:05 AM EST) SODIUM 139 133 - 146 mmol/L [facility] CHLORIDE 103 96 - 108 mmol/L [facility] POTASSIUM 4.5 3.3 - 5.1 mmol/L [facility] CO2 28 21 - 35 mmol/L [facility] BUN 19 6 - 19 mg/dL [facility] CREATININE 1.10 0.5 - 1.5 mg/dL [facility] GLUCOSE 156(H) 70 - 99 mg/dL [facility] CALCIUM 9.4 8.4 - 10.3 mg/dL [facility] EGFR 71 >59 mL/min/1.7 3m2 [facility] Comment:Estimated glomerular filtration rate calculated using the CKD-EPI equation. ANION GAP 13 10 - 20 mmol/L [facility] Blood 08/10/2020 1:05 AM EST 08/10/2020 1:29 AM EST us Jeromy Klein MD LAB BLOOD ORDERABLES Fin al Result Performing Organization Address City/[facility]/ZIP Co de Phone Number [address] [address] * ENDOSCOPY, COLON (01/08/2018 5:39 PM EDT) Narrative Transcriptions Ray Hernandez MD - 01/08/2018 5:39 PM EDT Patient Name: John Oliver Attending MD:: RAY HERNANDEZ MD Procedure Date: 01/08/2018 5:39 PM Date of : 1955 Age: 62 Admit Type: Outpatient Gender: Male Room: [place] [address] Referring MD: ROSALIND HUTCHINS MD Exam Type: Colonoscopy Indications: Change in bowel habits Medications: Sedation Required Anesthesia Staff Assistance Procedure: Informed consent was obtained from the patient after discussion of the indications, limitations,alternatives, benefits, and risks of the procedure. Risksspecifically discussed include but are not limited to medication reactions, missed lesions, bleeding, perforation, orthe need for emergent surgery. Throughout the procedure, the patient's blood pressure, pulse, end-tidal CO2, and oxygen saturations were monitored continuously. The Olympus pediatric variable colonoscope [id number]-[id number] was introduced through the anus and advanced to thececum, identified by appendiceal orifice and ileocecal valve.The colonoscopy was performed without difficulty. Thepatient tolerated the procedure well. The quality of the bowel preparation was good. Complications: No immediate complications. Estimated blood loss:Minimal. Findings: The perianal and digital rectal examinations werenormal. A 5 mm polyp was found in the transverse colon. Thepolyp was sessile. The polyp was removed with a cold biopsy forceps. Resection and retrieval were complete. Few small diverticula, no significant diverticulardisease. Internal hemorrhoids were found during retroflexion.The hemorrhoids were mild. Impression: - One 5 mm polyp in the transverse colon, removed witha cold biopsy forceps. Resected and retrieved. - Internal hemorrhoids. Recommendation: - Discharge patient to home (ambulatory). - Await pathology results. - Return to GI office as previously scheduled. RYA HERNANDEZ MD 01/08/2018 6:12:37 PM This report has been signed electronically. Number of Addenda: 0 Note Initiated On: 01/08/2018 5:39 PM Procedure Code(s): --- Professional --- 93195, Colonoscopy, flexible; with biopsy, single or multiple --- Technical --- 48903, Colonoscopy, flexible; with biopsy, single or multiple Diagnosis Code(s): --- Professional --- D12.3, Benign neoplasm of transverse colon (hepatic flexure orsplenic flexure) K64.8, Other hemorrhoids R19.4, Change in bowel habit --- Technical --- D12.3, Benign neoplasm of transverse colon (hepatic flexure orsplenic flexure) K64.8, Other hemorrhoids R19.4, Change in bowel habit CPT copyright 2016 [employer]. All rights reserved. The codes documented in this report are preliminary and upon project controls specialist reviewmay be revised to meet current compliance requirements. [address] [place] [id number] [place] Rosalind Hutchins MD GI PROCEDURE ORDERABLES Fin al Result * Lipid panel (09/04/2017 9:49 AM EST) HDL 47 mg/dL [facility] Comment: Interpretation: Risk Level Males Decreased >45 mg/dL Average 40-45 mg/dL Increased <40 mg/dL CHOLESTEROL 195 0 - 240 mg/dL [facility] TRIGLYCERIDES 113 30 - 160 mg/dL [facility] LDL 125 50 - 129 mg/dL [facility] Comment: LDL levels in terms of risk for coronary heart disease: <100 mg/dL: Optimal 100-129 mg/dL: Near or above optimal 130-159 mg/dL: Borderline high 160-189 mg/dL: High >190 mg/dL: Very High CARDIAC RISK RATIO 4.1 3.4 - 5.0 [facility] Blood 09/04/2017 9:49 AM EST 09/04/2017 9:53 AM EST us Raymond Shafer MD LAB BLOOD ORDERABLES Final Resul t [address] [address] from Last 3 Months or Most Recently Relevant to Health Maintenance Insurance [place] [address] [place] [address] [place] [address] [place] [address] [place] [address] [place] [address] [place] [address] [facility] Care Teams Wood Cutter Relationship Specialty Start Date End Date Derrek Abdullahi MD [address] [place] [address] [place] [address] PCP - General Internal Medicine 09/16/24 Juwan Su MD [address] [place] [address], [address] [place] [id number] Historical LMR Provider 05/27/17 Additional Source Comments The information contained in this document represents components of the legal health record. It is not the complete legal health record.[facility]
--- OUTSIDE RECORDS SUMMARY | 2025-02-26 13:49 | XMS_ITS | Continuity of Care Document ---
Author Organization [facility] [address] [place] [address] Phone [phone] Problems Active Problems Provider Date Type 2 diabetes mellitus BARBARA Howell Onse t: 12/04/2023 Essential hypertension BARBARA Howell Onset: 12/04/2023 Social History Type Date Description Comments Sex Male Sex Unknown Tobacco Use Start: Unknown End: [...] sugars twice a day dx: e11.9 300units E11Chidi Laughlin M.D. 12/04/2023 Freestyle Capri 2/[place]/Flash Glucose Monitoring [id number] Device use as directed with sensors dx: e11.9 1units E11Chidi Laughlin M.D. 12/04/2023 Freestyle Capri 2/Sensor/Flash Glucose Monitoring [id number] Misc 1 sensor to skin every fourteen days as directed dx: e11.9 6units E11.9 Iva Laughlin M.D. 12/04/2023 Mounjaro7.5mg/0.5ML Solution Pen-Inject inject 7.5 mg subcutaneously once a week as directed Dx: E11.9 2ml E11.9 Iva Laughlin M.D. 12/04/2023 Probiotic BlendCapsules once each morning Unknown 0 Rqatxpxfti22ii Tablets one with dinner Unknown Alpha-Lipoic Ibqd628ss Capsules a total of 600 mg each morning Unknown Tylenol Extra [id number] Tablets a few times a week, as needed for pain Unknown Vitamin B-ComplexTablets Daily - B6/Folic Acid/B12 tablet Unknown Kgezwsyvevm751gu Chewtabs as needed, once or twice a month Unknown Loperamide HCL2mg Capsules as needed, every couple of weeks Unknown Metformin [id number] Tablets Twice a day [facility] Supxkvqegz60um Tablets Once a day with dinner Rosalind Cornejo M.D. Arnakiuzh93xz Tablets Once a day in the morning Rosalind Cornejo M.D. Folic Otjo1dd Tablets Once a day with dinner Pillo Cid MD Wegkuji2or Tablets Twice a day Mango Tinoco MD Pjrxejphccb711lt Tablets Once a day in the morning [facility] Vital Signs Date Vital Result Comment [...] Fine 33G Plus 33G * Freestyle Capri 2/[place]/Flash Glucose Monitoring System 2 [place] * Freestyle Capri 2/Sensor/Flash Glucose Monitoring System 2 Sensor * New Labs:* CMP W/Egfr, Ordered: 12/04/23 * Lipid Panel, Ordered: 12/04/23 * Urine Microalb+Creat+Ratio RDM, Ordered: 12/04/23 Functional Status Description No Information Available Mental Status Description No Information Available Referrals Description No Information Available
--- OUTSIDE RECORDS SUMMARY | 2025-02-26 13:49 | XMS_ITS | Encounter Summary ---
Author Organization [facility], Address [address] [place] [address] Phone Care Team Providers Care Die Filer Name Role Phone Rosalind Cornejo MD Primary Care Provider [phone] Encounter Details Date Type Department Care Team (Late st Contact Info) Description 08/19/2021 Documentation Only [facility], [address] [place] [address] Yocasta Whittington [address] [place] [phone] Social History Tobacco Use Types Packs/Day Years [...] on filedocumented in this encounter Care Teams Die Filer Relationship Specialty Start Date End Date Rosalind Cornejo MD [address] [place] [id number] PCP - General 06/10/19 documented as of this encounter
[2025-02-26 13:50] VITALS: BP 120/60; PULSE 63; BMI 29.7
--- NOTE | 2025-02-26 13:50 | A.OFFVIS_ITS ---
Vital Signs 02/26/25 13:50 Height 6 ft 1 in Weight 224 lb 13.944 oz BMI 29.7 BP 120/60 Blood Pressure Location Lt brachial Position Sitting Pulse 63 Pulse Source Monitor Intake Visit Reasons: 1 yr f/up Allergies Sulfa (Sulfonamide Antibiotics) (SULFA (SULFONAMIDE ANTIBIOTICS)) Allergy (Intermediate, Verified 11/11/24 15:45) HIVES pravastatin Adverse Reaction (Intermediate, Verified 11/11/24 15:58) increased muscle pains rosuvastatin Adverse Reaction (Intermediate, Verified 11/11/24 15:58) increased muscle pains pioglitazone (From Actos) Adverse Reaction (Unknown, Verified 11/11/24 15:45) ankle swelling Medication List - Last Reconciled 02/26/25 by Mango Morales MD allopurinol 100 mg PO DAILY 90 days alpha lipoic acid 600 mg PO BID apixaban 5 mg PO BID 90 days doxycycline hyclate 200 mg (2 x 100 mg) PO ONCE empagliflozin 25 mg PO DAILY fluconazole 150 mg PO Q3D 2 doses fluticasone propionate 50 mcg/actuation sprays intranasal folic acid 1 mg PO DAILY lisinopril 20 mg PO DAILY loperamide 2 mg PO Q6H PRN loratadine (Allergy Relief (loratadine)) 10 mg PO DAILY omeprazole 40 mg PO DAILY 90 days potassium citrate ER 20 mEq (2 x 10 mEq (1,080 mg)) PO BID 90 days Repatha SureClick (evolocumab) 140 mg subcut Q2W 4 weeks NS simethicone (Gas Relief (simethicone)) 125 mg PO BID-QID PRN tirzepatide (Mounjaro) 10 mg subcut QWEEK HPI Comments Details: John returns for follow-up. To recall, he was referred initially for evaluation of cardioembolic source of stroke. He is empirically on Eliquis. More than 30 years ago, he had a similar episode but not clear as to what happened if it was stroke or not. He has numerous cardiovascular risk factors including obesity, type 2 diabetes, hypertension, dyslipidemia. Since last seen, he is doing good. No new complaints. Nothing cardiac whatsoever. [facility] Medical History (Updated 02/26/25 @ 10:25 by Jhony Garrett MA) Carpal tunnel syndrome Carpal tunnel syndrome, bilateral upper limbs Pure hypercholesterolemia Lumbar degenerative disc disease Imbalance Memory loss Fatty liver Irritable bowel syndrome Arthritis Diabetes High cholesterol High blood pressure Sinusitis History of torn meniscus of knee Kidney stone Nasal sinus polyp Morbid obesity GERD (gastroesophageal reflux disease) GERMAN (obstructive sleep apnea) Other and unspecified hyperlipidemia Essential hypertension Type 2 diabetes mellitus with unspecified complications Embolic stroke Stroke Surgical History Hx of colonoscopy History of esophagogastroduodenoscopy (EGD) Status post uvulopalatopharyngoplasty History of transesophageal echocardiography (AMINA) (~02/19/20) History of loop recorder (~02/13/20) Family History Father High blood pressure Mother High blood pressure Diabetes Cardiovascular disease Maternal Grandmother High blood pressure Alcohol abuse FH: mental illness Paternal Grandmother Cardiovascular disease Family/Other Cardiovascular disease Social History Household Members: Spouse Household Members Other:: 1 son Housing: House Alcohol intake: current Patient Tobacco Use Status: Former Tobacco user e-Cigarette/Vaping Use: Never Used service: No Current occupational status: unemployed Current occupational exposures/hazards: No Cognitive needs: No Hearing needs: No Vision needs: No Review of Systems Const Denies weakness ENT Denies dizziness Card Denies chest pain, Denies chest pain with activity, Denies syncope, Denies rapid heart rate, Denies pedal edema, Denies edema, Denies leg edema, Denies lightheadedness, Denies palpitations, Denies dyspnea, Denies dyspnea on exertion and Denies orthopnea Resp Denies cough, Denies dyspnea and Denies dyspnea on exertion GI Denies hematochezia and Denies change in stool character Musc Denies abnormal gait, Denies muscle cramps, Denies muscle weakness, Denies numbness, Denies radiating pain into limb and Denies tingling Neuro Denies abnormal gait, Denies dizziness, Denies syncope, Denies numbness, Denies tingling and Denies weakness Endo Denies palpitations Physical Exam Vital Signs: Last Vital Signs Pulse 63 02/26/25 13:50 BP 120/60 02/26/25 13:50 BMI result Body Mass Index 29.7 Const General: comfortable and no acute distress Orientation/consciousness: patient oriented x3 HEENT Other: Unremarkable Head: Yes normal to inspection Neck Neck: Yes normal visual inspection Chest Chest palpation & inspection: normal inspection of the chest Resp Auscultation: clear to auscultation bilaterally Cardio Palpation: normal PMI Heart sounds: S1 normal heart sound present, S2 normal heart sound present, no gallops, no murmurs and no rubs GI Palpation (GI): Soft to palpation Back/Spine/Pelvis Other: unremarkable Skin General skin exam: no rashes or lesions noted Neuro General: patient oriented x3 Extrem General: Yes normal to inspection Psych Mental Status: mental status grossly normal Office Procedures EKG Details: EKG with underlying sinus rhythm at 63/Min; no ischemic changes; [place] [address]-Qqzprnrrxibhshyzx, Complete Assessment & Plan Assessment & Plan (1) Embolic stroke: Code(s): I63.9 - Cerebral infarction, unspecified Category: Medical Qualifiers: Precerebral and cerebral artery: unspecified cerebral artery Qualified Code(s): I63.40 - Cerebral infarction due to embolism of unspecified cerebral artery (2) Type 2 diabetes mellitus with unspecified complications: Code(s): E11.8 - Type 2 diabetes mellitus with unspecified complications Category: Medical (3) Essential hypertension: Code(s): I10 - Essential (primary) hypertension Category: Medical (4) Other and unspecified hyperlipidemia: Code(s): E78.5 - Hyperlipidemia, unspecified Category: Medical (5) GERMAN (obstructive sleep apnea): Comment: s/p xtheb-thclzs-sahlkumshxoqbr about 15 years ago Code(s): G47.33 - Obstructive sleep apnea (adult) (pediatric) Category: Medical (6) Morbid obesity: Code(s): E66.01 - Morbid (severe) obesity due to excess calories Category: Medical Plan Pertinent studies reviewed. Echocardiogram with LVEF 55-60% and otherwise unremarkable. Transesophageal echocardiogram showed evidence of atrial septal aneurysm, patent foramen ovale; lkua-sd-thkfk shunt noted by color Doppler, but bubble study was negative for biweb-zw-xigm shunt. Implantable loop monitor showed 1 episode of possible atrial fibrillation but the episode was only for about 40 seconds and the rate was only in the 60s. Nothing recurrent after this episode. Myocardial perfusion imaging study from [facility], 2019 shows no evidence of any ischemia or infarction. He exercised for 8 minutes and 54 minutes on Kang protocol reaching 9 Mets. Brain MRI had shown a small infarct in cerebellum. Brain CT had also shown old infarcts. CTA of the neck does not show any significant disease. Overall, uncertain etiology for the stroke. ? PFO vs atrial fibrillation but there was only 1 episode on the ILR. As he has been on Eliquis without any issues he can continue the same. He also feels comfortable taking it long-term and would prefer to keep it that way. Otherwise, mainly risk factor modification. His weight is unlikely to change and has been like this for a long time. Other issues include diabetes, hypertension and dyslipidemia will need to be controlled as much able. Last hemoglobin A1c is 6.3%. Repeat lipids pending on Repatha. Follow-up in 1 year. In the interim, he will call us with concerns. Discussion Notes During the consultation, we discussed the patient's history of stroke and the management of his cardiovascular conditions. I explained the rationale for continuing Eliquis despite the lack of consistent atrial fibrillation detection, emphasizing the importance of stroke prevention. We also reviewed the patent foramen ovale and concluded that surgical intervention is not warranted at this time due to insufficient evidence of its contribution to the patient's strokes. The patient was informed about the cosmetic nature of varicose veins and the potential benefits of compression stockings to reduce swelling. Patient was informed and verbally consented to the use of an ambient scribe for clinic note documentation during this visit. Patient Instructions: - Continue taking Eliquis as prescribed to prevent stroke. - Monitor for any signs of bleeding and report significant changes. - Consider using compression stockings to reduce swelling in the legs. - Schedule regular follow-up appointments to monitor cardiovascular health. Coding Level of Care Code Est Pt Level 4 (25374) Diagnoses Cerebrovascular accident (CVA) due to embolism of cerebral artery I63.40 Precerebral and cerebral artery: unspecified cerebral artery Type 2 diabetes mellitus with unspecified complications E11.8 Essential hypertension I10 Other and unspecified hyperlipidemia E78.5 GERMAN (obstructive sleep apnea) G47.33 Morbid obesity E66.01 CPT Codes EKG - CPT: 08626-[id number], Complete ([id number])
== END 2025-02-26 14:21 | disposition home or self-care (01) ==
LOC: HO.HCS 13:46
PROVIDERS: Visit Provider Internal Medicine
DX: I63.40 Cerebral infarction due to embolism of unspecified cerebral artery (principal); E11.8 Type 2 diabetes mellitus with unspecified complications; I10 Essential (primary) hypertension; E78.5 Hyperlipidemia, unspecified; G47.33 Obstructive sleep apnea (adult) (pediatric); E66.01 Morbid (severe) obesity due to excess calories
CPT/HCPCS: 93010; 99214

== ENCOUNTER → 2025-02-26 13:45 | Outpatient (BNVA) | payer BC, SELFPAY | PROVIDERS: Visit Provider Internal Medicine | DX: I63.40 Cerebral infarction due to embolism of unspecified cerebral artery (principal); E11.8 Type 2 diabetes mellitus with unspecified complications; I10 Essential (primary) hypertension; E78.5 Hyperlipidemia, unspecified; G47.33 Obstructive sleep apnea (adult) (pediatric); E66.01 Morbid (severe) obesity due to excess calories; Z68.29 Body mass index [BMI] 29.0-29.9, adult; Z79.01 Long term (current) use of anticoagulants | CPT/HCPCS: 93005 ==

== ENCOUNTER 2025-03-03 09:24 | Outpatient (AMB) | payer BC, SELFPAY ==
--- NOTE | 2025-03-03 09:25 | A.OFFVIS_ITS ---
Intake Visit Reasons: [address]/ Labs(set) Intake Note: Patient is present for 4M/CT/LABS Urology Medication:ALLOPURINOL,POTASSIUM CITRATE Antibiotic Allergy:SULFA,PRAVASTATIN,ROSUVASTASTIN Blood Thinner:APIXABAN Karate Teacher Required: No Allergies Sulfa (Sulfonamide Antibiotics) (SULFA (SULFONAMIDE ANTIBIOTICS)) Allergy (Intermediate, Verified 03/03/25 10:18) HIVES pravastatin Adverse Reaction (Intermediate, Verified 03/03/25 10:18) increased muscle pains rosuvastatin Adverse Reaction (Intermediate, Verified 03/03/25 10:18) increased muscle pains pioglitazone (From Actos) Adverse Reaction (Unknown, Verified 03/03/25 10:18) ankle swelling Medication List - Last Reconciled 03/03/25 by LAMBERTO Cuellar allopurinol 100 mg PO DAILY 90 days alpha lipoic acid 600 mg PO BID apixaban 5 mg PO BID 90 days empagliflozin 25 mg PO DAILY fluticasone propionate 50 mcg/actuation sprays intranasal lisinopril 20 mg PO DAILY loperamide 2 mg PO Q6H PRN loratadine (Allergy Relief (loratadine)) 10 mg PO DAILY omeprazole 40 mg PO DAILY 90 days potassium citrate ER 20 mEq (2 x 10 mEq (1,080 mg)) PO BID 90 days Repatha SureClick (evolocumab) 140 mg subcut Q2W 4 weeks NS simethicone (Gas Relief (simethicone)) 125 mg PO BID-QID PRN tirzepatide (Mounjaro) 10 mg subcut QWEEK HPI Comments Details: John is a very pleasant 69-year-old male patient of Dr. Cornejo. He has a past medical history of embolic stroke, hypertension, GERD, obesity, obstructive sleep apnea, hyperlipidemia, and type 2 diabetes. He presents to the office today for follow-up of his nephrolithiasis, renal cysts, and microscopic hematuria. In discussion with the patient today he reports to be doing and feeling well. Recent renal imaging results reviewed with the patient today. CT urogram 01/28 there are several tiny nonobstructing calculi within the lower pole of the left kidney. Solitary 2 mm nonobstructive calculus within the right kidney. No ureteral calculus or hydronephrosis. 4 mm cyst within the lower pole of the left kidney. No suspicious kidney nodules. Penis prostate gland within the median lobe hypertrophy. Borderline bladder wall thickening. Correlate with urinalysis to exclude cystitis. In office urinalysis results reviewed with the patient today. No microscopic hematuria noted. When asked he denies any bothersome urinary issues. We did discussed signs and symptoms of bladder wall thickening and cystitis. When asked he does report urinary dribbling however he denies urinary urgency, urinary frequency, incontinence, nocturia, dysuria, foul smelling urine, changes to urinary stream, flank pain, fever, and or chills. He otherwise offers no other issues or concerns at this time. PSAs 01/26 0.7, 03/29 0.3. 01/28 0.4 He discusses his longstanding history of nephrolithiasis and surgical intervention for nephrolithiasis with Dr. Torres and Dr. Lima at [facility]. He also discusses his upcoming appointment with his PCP next month. He reports compliance with potassium citrate and allopurinol as prescribed. [facility] Medical History Carpal tunnel syndrome Carpal tunnel syndrome, bilateral upper limbs Pure hypercholesterolemia Lumbar degenerative disc disease Imbalance Memory loss Fatty liver Irritable bowel syndrome Arthritis Diabetes High cholesterol High blood pressure Sinusitis History of torn meniscus of knee Kidney stone Nasal sinus polyp Morbid obesity GERD (gastroesophageal reflux disease) GERMAN (obstructive sleep apnea) Other and unspecified hyperlipidemia Essential hypertension Type 2 diabetes mellitus with unspecified complications Embolic stroke Stroke Surgical History Hx of colonoscopy History of esophagogastroduodenoscopy (EGD) Status post uvulopalatopharyngoplasty History of transesophageal echocardiography (AMINA) (~02/19/20) History of loop recorder (~02/13/20) Family History Father High blood pressure Mother High blood pressure Diabetes Cardiovascular disease Maternal Grandmother High blood pressure Alcohol abuse FH: mental illness Paternal Grandmother Cardiovascular disease Family/Other Cardiovascular disease Social History Household Members: Spouse Household Members Other:: 1 son Housing: House Alcohol intake: current Patient Tobacco Use Status: Former Tobacco user e-Cigarette/Vaping Use: Never Used service: No Current occupational status: unemployed Current occupational exposures/hazards: No Cognitive needs: No Hearing needs: No Vision needs: No Review of Systems Const All systems reviewed & are unremarkable except as noted in HPI and below Reports as per HPI Eyes Reports no additional complaints ENT Reports no additional complaints Card Reports as per HPI Resp Reports no additional complaints GI Reports as per HPI Reports as per HPI Musc Reports no additional complaints Neuro Reports as per HPI Psych Reports no additional complaints Endo Reports as per HPI Murali/Lymph Reports no additional complaints Aller/Immun Reports no additional complaints Physical Exam Const General: cooperative, healthy appearing, comfortable, no acute distress, well developed, alert and awake Nutritional Appearance: overweight Orientation/consciousness: patient oriented x3 Limitations: no limitations HEENT Head: Yes normal to inspection, Yes normocephalic and Yes atraumatic Ears: hearing grossly normal bilaterally Eyes General: appearance normal, both eyes and all related structures Neck Neck: Yes normal visual inspection and Yes trachea midline Chest Chest palpation & inspection: normal inspection of the chest Resp Effort & Inspection: normal respiratory effort and able to speak in complete sentences Cardio Rate: regular rate GI Inspection: Yes normal to inspection General: Yes no CVA tenderness Back/Spine/Pelvis Back: no CVA tenderness Skin General skin exam: no rashes or lesions noted Neuro General: patient oriented x3 Extrem General: Yes normal to inspection Psych Appearance: grossly normal and well kempt Mental Status: mental status grossly normal Speech and movement: Normal speech and movement present and Clear speech present Affect: normal affect Attitude: cooperative Thought process: Normal thought process present Thought content: Normal thought content present Insight: Fair insight present (Psych) Judgement: Fair judgement present (Psych) Results AMB Urinalysis, Automated UA Leukoctes 0 Erika/uL Last Edit by DONALD Anderson on 03/03/25 09:43 UA Nitrite Negative Last Edit by DONALD Anderson on 03/03/25 09:43 UA Urobilinogen 0.2 mg/dL Last Edit by DONALD Anderson on 03/03/25 09:4 3 UA Protein 15 mg/dL Last Edit by DONALD Anderson on 03/03/25 09:43 UA pH 6.0 Last Edit by DONALD Anderson on 03/03/25 09:43 UA Blood 0 Luis Miguel/uL Last Edit by DONALD Anderson on 03/03/25 09:43 UA Specific Goldonna 1.015 Last Edit by DONALD Anderson on 03/03/25 09: 43 UA Ketone Negative Last Edit by DONALD Anderson on 03/03/25 09:43 UA Bilirubin 0 mg/dL Last Edit by DONALD Anderson on 03/03/25 09:43 UA Glucose 1000 mg/dL Last Edit by DONALD Anderson on 03/03/25 09:43 Results Reviewed Results Reviewed: Laboratory Last Values Urine pH (Auto) 6.0 03/03/25 09:32 Specific Goldonna (Auto) 1.015 03/03/25 09:32 Urine Protein (Auto) 15 mg/dL 03/03/25 09:32 Glucose (UA)(Auto) 1000 mg/dL 03/03/25 09:32 Urine Ketones (Auto) Negative 03/03/25 09:32 Urine Blood (Auto) 0 Luis Miguel/uL 03/03/25 09:32 Urine Nitrite (Auto) Negative 03/03/25 09:32 Urine Bilirubin (Auto) 0 mg/dL 03/03/25 09:32 Urine Urobilinogen (Auto) 0.2 mg/dL 03/03/25 09:32 Leukocyte Esterase (Auto) 0 Erika/uL 03/03/25 09:32 Date of Service: 01/13/25 Procedure(s): CT urogram Findings: No consolidation or effusion. There are several tiny nonobstructive calculi within the lower pole of the left kidney. Solitary 2 mm nonobstructive calculus within the right kidney. No ureteral calculus or hydronephrosis. 4 mm cyst within the lower pole of the left kidney. No suspicious kidney nodule. The liver, spleen, pancreas and adrenal glands are unremarkable. There are no calcified gallstones. Small umbilical hernia containing fat. No bowel herniation. No bowel edema or dilatation. Heterogeneous prostate gland with median lobe hypertrophy. Borderline bladder wall thickening. Normal appendix. The bones are intact. IMPRESSION: 1. There are tiny nonobstructive calculi within the bilateral kidneys. 2. Borderline thickening of the bladder wall. Correlate with urinalysis to exclude cystitis. 3. Heterogeneous prostate gland with median lobe hypertrophy. Assessment & Plan Assessment & Plan (1) Bilateral nephrolithiasis: Comment: Longstanding prior ureteroscopy and ESWL Code(s): N20.0 - Calculus of kidney Category: Medical (2) Urinary dribbling: Code(s): N39.43 - Post-void dribbling Category: Medical (3) Bladder wall thickening: Code(s): N32.89 - Other specified disorders of bladder Category: Medical Plan In office urinalysis results with the patient today; as noted above. Previous urine cytology results reviewed with the patient today; as noted above. Recent CT results reviewed with the patient today; as noted above. He currently denies any bothersome urinary issues or concerns. He reports be happy with current. We discussed potential causes nephrolithiasis, microscopic hematuria, bladder wall thickening, and question of cystitis; we discussed further treatment options and risks and benefits of these treatment options. All questions were answered. Continue potassium citrate and allopurinol as prescribed. Will continue with surveillance monitoring. We discussed the importance of adequate hydration relation to nephrolithiasis as well as overall health and well-being. We discussed the importance of management and diabetes for overall health and well-being. Will obtain renal ultrasound in 6 months. Follow-up in 6 months with imaging and labs; or sooner with any issues, concerns, and or questions. Orders: Orders AMB Urinalysis Automated Today Z13.9 - Encounter for screening, unspecified US renal BI 6 Months N20.0 - Calculus of kidney Creatinine Today R39.15 - Urgency of urination Blood Urea Nitrogen Today R39.15 - Urgency of urination Patient Instructions: The patient had an opportunity to ask questions regarding the treatment plan. All questions were answered. Physical exam, labs, and imaging were discussed and reviewed in detail. As well as risks, benefits, and discussion of treatment choices. No major barriers to understanding were identified. The patient expressed understanding and agreement with the above treatment plan. The patient was made aware they should contact our office by phone for worsening of their current condition, the appearance of new symptoms, or with any questions or concerns. Compliance is encouraged with any medications and follow up testing that is ordered. It is a privilege to be allowed the opportunity to participate in? your urological care.? Again, if you have any questions or concerns If you have any questions or concerns please do not hesitate to contact me. The office is [phone]. This note is constructed using voice recognition software. While every effort has been made to ensure accuracy bunch maker errors may have been included. Yours sincerely, LAMBERTO Cuellar Coding Level of Care Code Est Pt Level 3 (66279) Complex EM visit Add On G2211 Diagnoses Bilateral nephrolithiasis N20.0 Urinary dribbling N39.43 Bladder wall thickening N32.89
--- OUTSIDE RECORDS SUMMARY | 2025-03-03 09:51 | XMS_ITS | Clinical Summary ---
Author Organization [facility] Address [address] [place] [address] [place] [address] Phone Care Team Providers Care Almond Paste Mixer Name Role Phone Juwan Su MD Unavailable [phone] Derrek Abdullahi MD Primary Care Provider [phone] Allergies Active Allergy Reactions Criticality Noted Date [...] trial. Procedures: Glucose Monitoring: Type of Sensor: DeskMetrics G6 Pro Instruction: Patient Instructed on:, Calibrations, [...] 2 weeks to drop off at front line leader or follow up appointment. Assessment & Plan [...] normal today. Labs >2 years old in [facility], has had recent labs at [facility] which we can request Encouraged efforts at [...] Description 01/15/2025 11:20 AM EDT Office Visit [facility] Diabetes [address] [place] [address] Matilad Hannah, BAILEY Type 2 diabetes mellitus without complication, without long-term current use of insulin (Primary Dx) 01/06/2025 10:30 AM EDT Nurse Only [address] [place] [address] Matilda Hannah, BAILEY Type 2 diabetes mellitus without complication, without long-term current use of insulin (Primary Dx) 12/08/[address] [place] [address] Chanelle Moreno MA Medication Refill from Last [...] Description 06/23/2025 9:00 AM EST Office Visit [facility] Medicine [address] [place] [address] Katelyn Santa [address] [facility] [place] [address] [email or web address] 07/16/2025 11:20 AM EST Office Visit [facility] Diabetes Center [address] [place] [address] Matilda Hannah CNP [address] [facility], 1st [place] [address] Health Maintenance Due Date Last Done Comments [...] Hemoglobin A1c 6.0(A) 4.2 - 5.6 % [facility] Other 01/15/2025 11:4 8 AM EDT us Matilda Hannah CNP POINT OF CARE TEST ORDERABLES Final Result Performing Organization Address [facility] Co de Phone Number [address] [address], [facility] * (ABNORMAL) Basic metabolic panel (08/10/2020 1:05 AM EST) SODIUM 139 133 - 146 mmol/L [facility] CHLORIDE 103 96 - 108 mmol/L [facility] POTASSIUM 4.5 3.3 - 5.1 mmol/L [facility] CO2 28 21 - 35 mmol/L [facility] BUN 19 6 - 19 mg/dL [facility] CREATININE 1.10 0.5 - 1.5 mg/dL [facility] GLUCOSE 156(H) 70 - 99 mg/dL [facility] CALCIUM 9.4 8.4 - 10.3 mg/dL [facility] EGFR 71 >59 mL/min/1.7 3m2 [facility] Comment:Estimated glomerular filtration rate calculated using the CKD-EPI equation. ANION GAP 13 10 - 20 mmol/L [facility] Blood 08/10/2020 1:05 AM EST 08/10/2020 1:29 AM EST us Jeromy Klein MD LAB BLOOD ORDERABLES Fin al Result Performing Organization Address City/[facility]/ZIP Co de Phone Number [address] [address] * ENDOSCOPY, COLON (01/08/2018 5:39 PM EDT) Narrative Transcriptions Ray Hernandez MD - 01/08/2018 5:39 PM EDT Patient Name: John Oliver Attending MD:: RAY HERNANDEZ MD Procedure Date: 01/08/2018 5:39 PM Date of : 1955 Age: 62 Admit Type: Outpatient Gender: Male Room: [place] [address] Referring MD: ROSALIND HUTCHINS MD Exam Type: [...] Return to GI office as previously scheduled. RAY HERNANDEZ MD 01/08/2018 6:12:37 PM This report has been signed electronically. Number of Addenda: 0 Note Initiated On: 01/08/2018 5:39 PM Procedure Code(s): --- Professional --- 96361, Colonoscopy, flexible; with biopsy, single or multiple --- Technical --- 80542, Colonoscopy, flexible; with biopsy, single or multiple Diagnosis Code(s): --- Professional --- D12.3, Benign neoplasm of transverse colon (hepatic flexure orsplenic flexure) K64.8, Other hemorrhoids R19.4, Change in bowel habit --- Technical --- D12.3, Benign neoplasm of transverse colon (hepatic flexure orsplenic flexure) K64.8, Other hemorrhoids R19.4, Change in bowel habit CPT copyright 2016 [employer]. All rights reserved. The codes documented in this report are preliminary and upon home service consultant reviewmay be revised to meet current compliance requirements. [address] [place] [address] us Rosalind Hutchins MD GI PROCEDURE ORDERABLES Fin al Result * Lipid panel (09/04/2017 9:49 AM EST) HDL 47 mg/dL [facility] Comment: Interpretation: Risk Level Males Decreased >45 mg/dL Average 40-45 mg/dL Increased <40 mg/dL CHOLESTEROL 195 0 - 240 mg/dL [facility] TRIGLYCERIDES 113 30 - 160 mg/dL [facility] LDL 125 50 - 129 mg/dL [facility] Comment: LDL levels in terms of risk for coronary heart disease: <100 mg/dL: Optimal 100-129 mg/dL: Near or above optimal 130-159 mg/dL: Borderline high 160-189 mg/dL: High >190 mg/dL: Very High CARDIAC RISK RATIO 4.1 3.4 - 5.0 [facility] Blood 09/04/2017 9:49 AM EST 09/04/2017 9:53 AM EST us Raymond Shafer MD LAB BLOOD ORDERABLES Final Resul t [address] [address] from Last 3 Months or Most Recently Relevant to Health Maintenance Insurance [address] [address] [place] [address] [place] [address] [place] [address] [place] [address] [place] [address] [place] [address] [facility] Care Teams Almond Paste Mixer Relationship Specialty Start Date End Date Derrek Abdullahi MD [address] [place] [address] [place] [address] PCP - General Internal Medicine 09/16/24 Juwan Su MD [address] [place] [address], [address] [place] [address] Historical LMR Provider 05/27/17 Additional Source Comments The information contained in this document represents components of the legal health record. It is not the complete legal health record.[facility]
--- OUTSIDE RECORDS SUMMARY | 2025-03-03 09:51 | XMS_ITS | Encounter Summary ---
Author Organization [facility], Address [address] [place] [address] Phone Care Team Providers Care Speech Pathology Supervisor Name Role Phone Rosalind Cornejo MD Primary Care Provider [phone] Encounter Details Date Type Department Care Team (Late st Contact Info) Description 08/19/2021 Documentation Only [facility], [address] [place] [address] Yocasta Whittington [address] [place] [phone] Social History Tobacco Use Types Packs/Day Years [...] on filedocumented in this encounter Care Teams Speech Pathology Supervisor Relationship Specialty Start Date End Date Rosalind Cornejo MD [address] [place] [address] PCP - General 06/10/19 documented as of this encounter
--- OUTSIDE RECORDS SUMMARY | 2025-03-03 09:51 | XMS_ITS | Continuity of Care Document ---
Author Organization [facility] [address] [facility] [address] [place] [address] Phone [phone] Problems Active Problems Provider Date Type 2 [...] twice a day dx: e11.9 300units E11Chidi Laughiln M.D. 12/04/2023 Freestyle Capri 2/[place]/Flash Glucose Monitoring Jnzldw7Ctgdni Device use as directed with sensors dx: e11.9 1units E11Chidi Laughlin M.D. 12/04/2023 Freestyle Capri 2/Sensor/Flash Glucose Monitoring Alclft2Hueonm Misc 1 sensor to skin every fourteen days as directed dx: e11.9 6units E11.9 Iva Laughlin M.D. 12/04/2023 Mounjaro7.5mg/0.5ML Solution Pen-Inject inject 7.5 mg subcutaneously once a week as directed Dx: E11.9 2ml E11.9 Iva Laughlin M.D. 12/04/2023 Probiotic BlendCapsules once each morning Unknown 0 Hoovrkyizo97qq Tablets one with dinner Unknown Alpha-Lipoic Zljq539lk Capsules a total of 600 mg each morning Unknown Tylenol Extra Nzkfsafn692wv Tablets a few times a week, as needed for pain Unknown Vitamin B-ComplexTablets Daily - B6/Folic Acid/B12 tablet Unknown Csnvfoxlrgs602og Chewtabs as needed, once or twice a month Unknown Loperamide HCL2mg Capsules as needed, every couple of weeks Unknown Metformin LMH3765ll Tablets Twice a day [facility] Zdiexzvidv92oa Tablets Once a day with dinner Rosalind Cornejo M.D. Dhoztggfo70aa Tablets Once a day in the morning Rosalind Cornejo M.D. Folic Gnnv2ji Tablets Once a day with dinner Pillo Cid MD Hhrcdwq5ma Tablets Twice a day Mango Tinoco MD Nwtpjbilsjf233kp Tablets Once a day in the morning [facility] Vital Signs Date Vital Result Comment 12/04/2023 [...] Fine 33G Plus 33G * Freestyle Capri 2/[place]/Flash Glucose Monitoring System 2 [place] * Freestyle Capri 2/Sensor/Flash Glucose Monitoring System 2 Sensor * New Labs:* CMP W/Egfr, Ordered: 12/04/23 * Lipid Panel, Ordered: 12/04/23 * Urine Microalb+Creat+Ratio RDM, Ordered: 12/04/23 Functional Status Description No Information Available Mental Status Description No Information Available Referrals Description No Information Available
--- OUTSIDE RECORDS SUMMARY | 2025-03-03 09:51 | XMS_ITS | Patient Health Record ---
Author Organization [facility] [place] Address [address] [place] [address] Care Team Providers Care Bottom Polisher Name Role Phone Chantal CHANG, Rosalind Primary Care Provider Andres Westbrook Unavailable [phone] Allergies Allergen (clinical drug ingredient) Drug/Non Drug [...] a day Active Fish Oil + D3 2196-2609 MG-UNIT 1 capsule Orally Three times a [...] Test Name Order Date Hemoglobin A1c 02/09/2015 70279-[id number] NAIL, 6 OR MORE 05/11/2015 61769-MRTQWUL NAIL, 6 OR MORE 08/13/2015 48209-DJUYVEY NAIL, 6 OR MORE 02/17/2014 72625-TECKXGE NAIL, 6 OR MORE 02/09/2015 62666-Epcw Destruction, 1-14 02/09/2015 76946-Okec Destruction, 1-14 02/17/2014 02212-Yibg Destruction, 1-14 08/13/2015 28731-SUZX SKIN LESIONS, OVER 4 02/18/20 14 66521-DLYJ SKIN LESIONS, OVER 4 02/10/20 15 85466-KICD SKIN LESIONS, OVER 4 08/13/19 16 47631-QFQW SKIN LESIONS, OVER 4 05/11/20 15 Insurance Providers Payer Name Payer Address Payer Phone Subscriber Number Group Number Insured Name Patient Relationship to Insured Coverage Start Date Coverage End Date [facility] [address] [place] [address] [id number] Spouse - patient is the spouse of the insured Medical (General) History Medical History History ICD Code Anxiety Arthritis Back,Hip,and Knee pain Fibromyalgia Headaches High blood pressure Reflux Sinus conditions Diabetic Surgical History Surgery Date(Month/Year) UPPP 2003 Sinus cleaning 2003
== END 2025-03-03 10:20 | disposition home or self-care (01) ==
LOC: HO.HUSH 09:24
PROVIDERS: Visit Provider Nurse Practitioner Family
DX: N20.0 Calculus of kidney (principal); N39.43 Post-void dribbling; N32.89 Other specified disorders of bladder; Z13.9 Encounter for screening, unspecified
CPT/HCPCS: 99213

== ENCOUNTER → 2025-03-03 09:24 | Outpatient (BNVA) | payer BC, SELFPAY | PROVIDERS: Visit Provider Nurse Practitioner Family | DX: N20.0 Calculus of kidney (principal) | CPT/HCPCS: 81003 ==

== ENCOUNTER 2025-03-04 14:00 | Outpatient (AMB) | payer BC, SELFPAY ==
--- NOTE | 2025-03-04 14:29 | MHC.OFFVIS ---
Vital Signs 03/04/25 14:29 Height 6 ft 1 in Intake Visit Reasons: 6 month hand cramp Allergies Sulfa (Sulfonamide Antibiotics) (SULFA (SULFONAMIDE ANTIBIOTICS)) Allergy (Intermediate, Verified 03/04/25 14:33) HIVES pravastatin Adverse Reaction (Intermediate, Verified 03/04/25 14:33) increased muscle pains rosuvastatin Adverse Reaction (Intermediate, Verified 03/04/25 14:33) increased muscle pains pioglitazone (From Actos) Adverse Reaction (Unknown, Verified 03/04/25 14:33) ankle swelling Medication List - Last Reconciled 03/04/25 by Dione Anne, BAILEY allopurinol 100 mg PO DAILY 90 days alpha lipoic acid 600 mg PO BID apixaban 5 mg PO BID 90 days empagliflozin 25 mg PO DAILY fluticasone propionate 50 mcg/actuation sprays intranasal lisinopril 20 mg PO DAILY loperamide 2 mg PO Q6H PRN loratadine (Allergy Relief (loratadine)) 10 mg PO DAILY omeprazole 40 mg PO DAILY 90 days potassium citrate ER 20 mEq (2 x 10 mEq (1,080 mg)) PO BID 90 days Repatha SureClick (evolocumab) 140 mg subcut Q2W 4 weeks NS simethicone (Gas Relief (simethicone)) 125 mg PO BID-QID PRN tirzepatide (Mounjaro) 10 mg subcut QWEEK HPI Comments Details: He was doing okay. Notices balance is off a bit more the last few months. He had one fall few weeks ago when walking his dog as he was rushing through construction site. Nocturnal hand cramps are much better with magnesium twice a day, down to about 1-2x/week from 5+/week. Fingers very rarely getting locked and contorted. Found to have PFO, had LINQ implant for monitoring afib which apparently showed one episode of possible afib lasting about 20 minutes. Some fatigue and weakness. Had small cerebellar embolic stroke in 01/2020. Hx of generalized body pain diagnosed as fibromyalgia, hypertension, hyperlipidemia, possibly sleep apnea, and a stroke in 1992 with acute onset of vertigo and imbalance, and CT scan in 2009 that showed an inferior right cerebellar infarct. He was worked up at [facility] in 2012 for his neurological problem. On the morning of admission, he woke up and as he opened his eyes, everything appeared tilted and things started to move. He felt nauseous and thought he might be getting a migraine, so he rested for a while. When he tried to get up and walk, everything was spinning and he started to vomit. MRI of the brain showed 2 small acute infarcts in the left cerebellum and the vermian area, and an old stroke in the right inferior cerebellum. There may also be a small punctate acute stroke in the right hemisphere in the insular cortex. He had a CTA, which showed no occlusive disease in the neck or intracranial circulation. 2012 MRA of head and neck were normal. He has had an echo which was negative, but AMINA shows a PFO. Cardiac rhythm has been normal. [facility] Medical History Carpal tunnel syndrome Carpal tunnel syndrome, bilateral upper limbs Pure hypercholesterolemia Lumbar degenerative disc disease Imbalance Memory loss Fatty liver Irritable bowel syndrome Arthritis Diabetes High cholesterol High blood pressure Sinusitis History of torn meniscus of knee Kidney stone Nasal sinus polyp Morbid obesity GERD (gastroesophageal reflux disease) GERMAN (obstructive sleep apnea) Other and unspecified hyperlipidemia Essential hypertension Type 2 diabetes mellitus with unspecified complications Embolic stroke Stroke Surgical History Hx of colonoscopy History of esophagogastroduodenoscopy (EGD) Status post uvulopalatopharyngoplasty History of transesophageal echocardiography (AMINA) (~02/19/20) History of loop recorder (~02/13/20) Family History Father High blood pressure Mother High blood pressure Diabetes Cardiovascular disease Maternal Grandmother High blood pressure Alcohol abuse FH: mental illness Paternal Grandmother Cardiovascular disease Family/Other Cardiovascular disease Social History Household Members: Spouse Household Members Other:: 1 son Housing: House Alcohol intake: current Patient Tobacco Use Status: Former Tobacco user e-Cigarette/Vaping Use: Never Used service: No Current occupational status: unemployed Current occupational exposures/hazards: No Cognitive needs: No Hearing needs: No Vision needs: No Review of Systems Const Denies chills, Denies daytime sleepiness, Denies difficulty sleeping, Denies fatigue, Denies fever(s), Denies frequent falls, Denies headache(s), Denies increased appetite, Denies poor appetite, Denies snoring, Denies weakness, Denies weight gain and Denies weight loss Eyes Denies loss of vision ENT Denies vertigo, Denies dizziness, Denies headache(s) and Denies neck pain Card Denies chest pain at rest, Denies chest pain with activity, Denies syncope, Denies leg edema, Denies palpitations, Denies dyspnea and Denies dyspnea on exertion Resp Denies cough, Denies dyspnea, Denies dyspnea on exertion and Denies snoring GI Denies abdominal pain, Denies constipation, Denies heartburn, Denies diarrhea and Denies nausea Denies urinary frequency, Denies urinary incontinence and Denies urinary urgency Musc Denies abnormal gait, Reports back pain, Reports myalgias, Reports arthralgias, Denies neck pain, Reports numbness and Reports tingling Neuro Denies abnormal gait, Denies vertigo, Denies dizziness, Denies syncope, Denies frequent falls, Denies headache(s), Denies lack of coordination, Denies loss of vision, Denies memory loss, Reports numbness, Denies Other visual disturbances, Denies restless legs, Denies seizure-like activity, Reports tingling, Denies paresthesias, Denies tremor(s) and Denies weakness Psych Denies anxiety, Denies depression, Denies auditory hallucinations, Denies memory loss and Denies visual hallucinations Endo Denies fatigue and Denies palpitations Physical Exam Const Other: General Appearance:? normal, in no acute distress. Heart:? S1, S2 normal, no murmurs. Lungs:? clear anteriorly and posteriorly. Musculoskeletal:? normal. Extremities:? L great toe mild swelling. Psych:? alert, oriented, cognitive function intact, cooperative with exam. Neuro Other: Abnormal Neurological Findings:?none.? Mental Status: alert and oriented X 3. Normal attention, orientation, memory, and affect. Cranial Nerves: Pupils are equal, round, and reactive to light. External ocular muscles are intact. Visual chamberlain are full, no ptosis. Face is symmetrical, no facial weakness or droop. Facial sensations are normal. Tongue protrudes in midline. Palate elevates symmetrically. Shoulder shrugging is normal Motor Examination: Normal muscle tone, bulk and strength. No atrophy or fasciculations. No drift of the extended upper extremities. DTR 2+. Plantars are flexor. Straight Leg Raisin degrees. Sensory Exam: Normal light touch, temperature, pinprick, vibration, and joint-position sensations. Rhomberg sign is absent. Coordination: No ataxia. No titubation. Dorbiw-qu-eend, yaik-lqnp-rspo test, and rapid alternating movements were normal. Gait Exam: Within normal limits. Cerebellar Signs: Fjhsvn-ho-epvk and njjg-jw-eylp is normal. No dysdiadochokinesia. Extrapyramidal System: No tremor, rigidity with normal facial expressions. No bradykinesia. No bradyphrenia. Normal arm swing and posture. No propulsion or retropulsion. Speech: Normal. No dysphasia or dysarthria. Assessment & Plan Assessment & Plan (1) Nocturnal muscle cramp: Code(s): R25.2 - Cramp and spasm Category: Medical Plan: Continue magnesium 300mg 1 capsule twice a day. (2) History of stroke: Code(s): Z86.73 - Personal history of transient ischemic attack (TIA), and cerebral infarction without residual deficits Category: Medical Plan: He was interested in PT referral to help with balance. Referral placed. Orders: Orders PT Evaluation and Treatment Today Z86.73 - Personal history of transient ischemic attack (TIA), and cerebral infarction without residual deficits Coding Level of Care Code Est Pt Level 4 (51622) Diagnoses Nocturnal muscle cramp R25.2 History of stroke Z86.73
--- OUTSIDE RECORDS SUMMARY | 2025-03-04 14:41 | XMS_ITS | Encounter Summary ---
Author Organization [facility], Address [address] [place] [address] Phone Care Team Providers Care Scallop Dredger Name Role Phone Rosalind Cornejo MD Primary Care Provider [phone] Encounter Details Date Type Department Care Team (Late st Contact Info) Description 08/19/2021 Documentation Only [facility], [address] [place] [address] Yocasta Whittington [address] [place] [phone] Social History Tobacco Use Types Packs/Day Years [...] on filedocumented in this encounter Care Teams Scallop Dredger Relationship Specialty Start Date End Date Rosalind Cornejo MD [address] [place] [address] PCP - General 06/10/19 documented as of this encounter
--- OUTSIDE RECORDS SUMMARY | 2025-03-04 14:41 | XMS_ITS | Continuity of Care Document ---
Author Organization [facility] [address] [facility] [address] [place] [address] Phone [phone] Problems Active Problems Provider Date Type 2 [...] 300units E11Chidi Laughlin M.D. 12/04/2023 Freestyle Capri 2/[place]/Flash Glucose Monitoring Updxoj3Wltxnf Device use as directed with sensors dx: e11.9 1units E11Chidi Laughlin M.D. 12/04/2023 Freestyle Capri 2/Sensor/Flash Glucose Monitoring Vgckku5Fdxvij Misc 1 sensor to skin every fourteen days as directed dx: e11.9 6units E11.9 Iva Laughlin M.D. 12/04/2023 Mounjaro7.5mg/0.5ML Solution Pen-Inject inject 7.5 mg subcutaneously once a week as directed Dx: E11.9 2ml E11.9 Iva Laughlin M.D. 12/04/2023 Probiotic BlendCapsules once each morning Unknown 0 Iniuznptjh55uu Tablets one with dinner Unknown Alpha-Lipoic Bjgx260ek Capsules a total of 600 mg each morning Unknown Tylenol Extra Cqsdostf273di Tablets a few times a week, as needed for pain Unknown Vitamin B-ComplexTablets Daily - B6/Folic Acid/B12 tablet Unknown Vwqypvppmwr898ka Chewtabs as needed, once or twice a month Unknown Loperamide HCL2mg Capsules as needed, every couple of weeks Unknown Metformin PPV0799xm Tablets Twice a day [facility] Puiesqnwwl97kh Tablets Once a day with dinner Rosalind Cornejo M.D. Mectqlktf63kg Tablets Once a day in the morning Rosalind Cornejo M.D. Folic Cypj5bu Tablets Once a day with dinner Pillo Cid MD Bngzdyk9fi Tablets Twice a day Mango Tinoco MD Dnfvhoifheu950qh Tablets Once a day in the morning [facility] Vital Signs Date Vital Result Comment [...] Fine 33G Plus 33G * Freestyle Capri 2/[place]/Flash Glucose Monitoring System 2 [place] * Freestyle Capri 2/Sensor/Flash Glucose Monitoring System 2 Sensor * New Labs:* CMP W/Egfr, Ordered: 12/04/23 * Lipid Panel, Ordered: 12/04/23 * Urine Microalb+Creat+Ratio RDM, Ordered: 12/04/23 Functional Status Description No Information Available Mental Status Description No Information Available Referrals Description No Information Available
--- OUTSIDE RECORDS SUMMARY | 2025-03-04 14:41 | XMS_ITS | Patient Health Record ---
Author Organization [facility] [place] Address [address] [place] [address] Care Team Providers Care Racking Machine Operator Name Role Phone Chantal CHANG, Rosalind Primary Care Provider Andres Westbrook Unavailable [phone] Allergies Allergen (clinical drug ingredient) Drug/Non Drug [...] a day Active Fish Oil + D3 6763-4453 MG-UNIT 1 capsule Orally Three times a [...] Test Name Order Date Hemoglobin A1c 02/09/2015 [id number] NAIL, 6 OR MORE 05/11/2015 58516-EMAHMBA NAIL, 6 OR MORE 08/13/2015 57599-WYYHVZK NAIL, 6 OR MORE 02/17/2014 76002-KMOKLZY NAIL, 6 OR MORE 02/09/2015 39345-Mdvg Destruction, 1-14 02/09/2015 87966-Pwux Destruction, 1-14 02/17/2014 13170-Cvmt Destruction, 1-14 08/13/2015 11554-GKKV SKIN LESIONS, OVER 4 02/18/20 14 31021-IVSI SKIN LESIONS, OVER 4 02/10/20 15 64006-IZEZ SKIN LESIONS, OVER 4 08/13/19 16 72923-JTIU SKIN LESIONS, OVER 4 05/11/20 15 Insurance Providers Payer Name Payer Address Payer Phone Subscriber Number Group Number Insured Name Patient Relationship to Insured Coverage Start Date Coverage End Date [facility] [address] [place] [address] [phone] [id number] [address] Spouse - patient is the spouse of the insured Medical (General) History Medical History History ICD Code Anxiety Arthritis Back,Hip,and Knee pain Fibromyalgia Headaches High blood pressure Reflux Sinus conditions Diabetic Surgical History Surgery Date(Month/Year) UPPP 2003 Sinus cleaning 2003
--- OUTSIDE RECORDS SUMMARY | 2025-03-04 14:41 | XMS_ITS | Clinical Summary ---
Author Organization [facility] Address [address] [place] [address] [place] [address] Phone Care Team Providers Care Teletray Operator Name Role Phone Juwan Su MD Unavailable [phone] Derrek Abdullahi MD Primary Care Provider [phone] Allergies Active Allergy Reactions Criticality Noted Date [...] trial. Procedures: Glucose Monitoring: Type of Sensor: [employer] G6 Pro Instruction: Patient Instructed on:, Calibrations, [...] in 2 weeks to drop off at motel front desk attendant or follow up appointment. Assessment & Plan [...] normal today. Labs >2 years old in [place], has had recent labs at [facility] which we can request Encouraged efforts at [...] Description 01/15/2025 11:20 AM EDT Office Visit [facility] Diabetes [address] [place] [address] Matilda Hannah, BAILEY Type 2 diabetes mellitus without complication, without long-term current use of insulin (Primary Dx) 01/06/2025 10:30 AM EDT Nurse Only [address] [place] [address] Maitlda Hannah, BAILEY Type 2 diabetes mellitus without complication, without long-term current use of insulin (Primary Dx) 12/08/[address] [place] [address] Chanelle Moreno MA Medication Refill from Last [...] Description 06/23/2025 9:00 AM EST Office Visit [facility] Medicine [address] [place] [address] Katelyn Santa [address] [facility] [place] [address] [email or web address] 07/16/2025 11:20 AM EST Office Visit [facility] [address] [place] [address] Matilda Hannah CNP [address] [facility] 1st [place] [address] Health Maintenance Due Date Last Done Comments [...] Hemoglobin A1c 6.0(A) 4.2 - 5.6 % [facility] Other 01/15/2025 11:4 8 AM EDT us Matilda Hannah CNP POINT OF CARE TEST ORDERABLES Final Result Performing Organization Address [facility] Co de Phone Number [address] [address], [facility] * (ABNORMAL) Basic metabolic panel (08/10/2020 1:05 AM EST) SODIUM 139 133 - 146 mmol/L [facility] CHLORIDE 103 96 - 108 mmol/L [facility] POTASSIUM 4.5 3.3 - 5.1 mmol/L [facility] CO2 28 21 - 35 mmol/L [facility] BUN 19 6 - 19 mg/dL [facility] CREATININE 1.10 0.5 - 1.5 mg/dL [facility] GLUCOSE 156(H) 70 - 99 mg/dL [facility] CALCIUM 9.4 8.4 - 10.3 mg/dL [facility] EGFR 71 >59 mL/min/1.7 3m2 [facility] Comment:Estimated glomerular filtration rate calculated using the CKD-EPI equation. ANION GAP 13 10 - 20 mmol/L [facility] Blood 08/10/2020 1:05 AM EST 08/10/2020 1:29 AM EST us Jeromy Klein MD LAB BLOOD ORDERABLES Fin al Result Performing Organization Address City/[facility]/ZIP Co de Phone Number [address] [address] * ENDOSCOPY, COLON (01/08/2018 5:39 PM EDT) Narrative Transcriptions Ray Hernandez MD - 01/08/2018 5:39 PM EDT Patient Name: John Oliver Attending MD:: RAY HERNANDEZ MD Procedure Date: 01/08/2018 5:39 PM Date of : 1955 Age: 62 Admit Type: Outpatient Gender: Male Room: [place] [address] Referring MD: ROSALIND HUTCHINS MD Exam Type: [...] 5:39 PM Procedure Code(s): --- Professional --- 35688, Colonoscopy, flexible; with biopsy, single or multiple --- Technical --- 91905, Colonoscopy, flexible; with biopsy, single or multiple Diagnosis Code(s): --- Professional --- D12.3, Benign neoplasm of transverse colon (hepatic flexure orsplenic flexure) K64.8, Other hemorrhoids R19.4, Change in bowel habit --- Technical --- D12.3, Benign neoplasm of transverse colon (hepatic flexure orsplenic flexure) K64.8, Other hemorrhoids R19.4, Change in bowel habit CPT copyright 2016 [employer]. All rights reserved. The codes documented in this report are preliminary and upon manager technical support reviewmay be revised to meet current compliance requirements. [address] [place] [address] us Rosalind Hutchins MD GI PROCEDURE ORDERABLES Fin al Result * Lipid panel (09/04/2017 9:49 AM EST) HDL 47 mg/dL [facility] Comment: Interpretation: Risk Level Males Decreased >45 mg/dL Average 40-45 mg/dL Increased <40 mg/dL CHOLESTEROL 195 0 - 240 mg/dL [facility] TRIGLYCERIDES 113 30 - 160 mg/dL [facility] LDL 125 50 - 129 mg/dL [facility] Comment: LDL levels in terms of risk for coronary heart disease: <100 mg/dL: Optimal 100-129 mg/dL: Near or above optimal 130-159 mg/dL: Borderline high 160-189 mg/dL: High >190 mg/dL: Very High CARDIAC RISK RATIO 4.1 3.4 - 5.0 [facility] Blood 09/04/2017 9:49 AM EST 09/04/2017 9:53 AM EST us Raymond Shafer MD LAB BLOOD ORDERABLES Final Resul t [address] [address] from Last 3 Months or Most Recently Relevant to Health Maintenance Insurance [place] [address] [place] [address] [place] [address] [place] [address] [place] [address] [place] [address] [place] [address] [facility] Care Teams Teletray Operator Relationship Specialty Start Date End Date Derrek Abdullahi MD [address] [place] [address] [place] [address] PCP - General Internal Medicine 09/16/24 Juwan Su MD [address] [place] [address], [address] [place] [id number] Historical LMR Provider 05/27/17 Additional Source Comments The information contained in this document represents components of the legal health record. It is not the complete legal health record.[facility]
== END 2025-03-04 14:58 | disposition home or self-care (01) ==
LOC: HO.HSM 14:00
PROVIDERS: PCP Internal Medicine; Referring Provider Internal Medicine; Visit Provider Registered Nurse
DX: R25.2 Cramp and spasm (principal); Z86.73 Personal history of transient ischemic attack (TIA), and cerebral infarction without residual deficits
CPT/HCPCS: 99214

== ENCOUNTER 2025-03-24 08:02 | Outpatient (REF) | payer BC, SELFPAY ==
[2025-03-24 08:38] LABS: MANUAL DIFF FLAG NO
[2025-03-24 08:50] LABS: Hematocrit 43.1 % (42.0-52.0); Hemoglobin 14.4 g/dl (14.0-18.0); Imm Gran Abs Auto 0.02 X10*3/uL (0.00-0.03); Imm Gran Pct Auto 0.4 % (0.0-0.4); Lymphocytes Absolute Auto 1.5 X10*3/uL (1.2-4.9); Mean Corpuscular HGB Conc 33.4 g/dl (31.0-36.0); Mean Corpuscular Hemoglobin 28.7 pg (27.0-33.0); Mean Corpuscular Volume 86.0 fL (80.0-98.0); NRBC Abs Auto 0.000 X10*3/uL (0.0-0.012); NRBC Pct Auto 0.0 /100WBC (0.0-0.2); Platelet Count 249 X10*3/uL (160-400); Red Blood Count 5.01 X10*6/uL (4.60-5.80); White Blood Count 5.6 X10*3/uL (4.8-10.8)
[2025-03-24 09:08] LABS: Appearance Urine Clear; Glucose Urine UA >=1000 mg/dL (Negative); PH 7.0 (5.0-9.0); Specific Gravity - Urine >= 1.030 (1.005-1.025); UMIC TRIGGER UACC YES
[2025-03-24 09:37] LABS: Alanine Aminotransferase 21 U/L (0-40); Albumin Level 4.5 g/dL (3.5-5.0); Alkaline Phosphatase 77 U/L (39-117); Anion Gap 14 (12-20); Aspartate Amino Transferase 34 U/L (5-37); Blood Urea Nitrogen 23 mg/dL (9-16); Calcium 9.2 mg/dL (8.4-10.2); Carbon Dioxide 28 mmol/L (22-29); Chloride 106 mmol/L (96-108); Cholesterol 100 mg/dL (<200); Estimated Glomerular Filt Rate > 60; HDL Cholesterol 42 mg/dL (>40); Potassium 4.6 mmol/L (3.3-5.1); Sodium 143 mmol/L (135-145); Total Protein 6.9 g/dL (6.5-8.0); Triglycerides 101 mg/dL (<150)
[2025-03-24 09:44] LABS: Hemoglobin A1C 169.6729 umol/L; Total Hemoglobin (HGBA1C) 3759.1911 umol/L
== END 2025-03-24 08:03 | disposition home or self-care (01) ==
LOC: HO.LAB 08:02
PROVIDERS: PCP Internal Medicine; Visit Provider Internal Medicine
DX: E78.00 Pure hypercholesterolemia, unspecified (principal); E11.9 Type 2 diabetes mellitus without complications; D64.9 Anemia, unspecified; R30.0 Dysuria
CPT/HCPCS: 36415; 80053; 80061; 81001; 81003; 83036; 85025

== ENCOUNTER 2025-04-02 15:55 | Outpatient (AMB) | payer BC, SELFPAY ==
[2025-04-02 16:01] VITALS: BP 132/66; PULSE 66; TEMP 36.2; O2SAT 98; BMI 29.3
--- NOTE | 2025-04-02 16:01 | MHC.PC.OV ---
Vital Signs 04/02/25 16:01 Height 6 ft 1 in Weight 222 lb BMI 29.3 BP 132/66 Blood Pressure Location Lt brachial Position Sitting Pulse 66 Pulse Source Pulse Oximeter Temp 97.1 F Temp Source Temporal Artery Scan Pulse Oximetry (%) 98 Oxygen Delivery Method Room Air Intake Visit Reasons: 4 Months Allergies Sulfa (Sulfonamide Antibiotics) (SULFA (SULFONAMIDE ANTIBIOTICS)) Allergy (Intermediate, Verified 04/02/25 16:27) HIVES pravastatin Adverse Reaction (Intermediate, Verified 04/02/25 16:27) increased muscle pains rosuvastatin Adverse Reaction (Intermediate, Verified 04/02/25 16:27) increased muscle pains pioglitazone (From Actos) Adverse Reaction (Unknown, Verified 04/02/25 16:27) ankle swelling Medication List - Last Reconciled 04/02/25 by Derrek Abdullahi MD allopurinol 100 mg PO DAILY 90 days alpha lipoic acid 600 mg PO BID apixaban 5 mg PO BID 90 days empagliflozin 25 mg PO DAILY fluticasone propionate 50 mcg/actuation sprays intranasal lisinopril 20 mg PO DAILY loperamide 2 mg PO Q6H PRN loratadine (Allergy Relief (loratadine)) 10 mg PO DAILY omeprazole 40 mg PO DAILY 90 days potassium citrate ER 20 mEq (2 x 10 mEq (1,080 mg)) PO BID 90 days Repatha SureClick (evolocumab) 140 mg subcut Q2W 4 weeks NS simethicone (Gas Relief (simethicone)) 125 mg PO BID-QID PRN tirzepatide (Mounjaro) 10 mg subcut QWEEK Tobacco use date assessed: 04/02/25 Fall risk assessment: 1 Fall in past year Last assessed Fall Risk: 04/02/25 Dental Screening Dental Screen Date: 04/02/25 Did you have a dental visit in the last 12 months?: Yes Did you have a dental problem in the last 6 months where you did not have access to dental care?: No Was dental information given to patient?: Patient has dentist HPI 4 Months HPI Details Patient comes in today for his follow-up visit States that he feels okay He denies any headaches or dizziness Denies any chest pains, no shortness of breath No nausea/vomiting, no abdominal pain but reports that he has been experiencing recurrent heartburns symptoms over the past few weeks despite his current Rx No change in bowel habits noted States that his chronic low back pain and joint pains have been mostly manageable He had his follow-up labs done last week - to discuss his results [facility] Medical History Carpal tunnel syndrome Carpal tunnel syndrome, bilateral upper limbs Pure hypercholesterolemia Lumbar degenerative disc disease Imbalance Memory loss Fatty liver Irritable bowel syndrome Arthritis Diabetes High cholesterol High blood pressure Sinusitis History of torn meniscus of knee Kidney stone Nasal sinus polyp Morbid obesity GERD (gastroesophageal reflux disease) GERMAN (obstructive sleep apnea) Other and unspecified hyperlipidemia Essential hypertension Type 2 diabetes mellitus with unspecified complications Embolic stroke Stroke Surgical History Hx of colonoscopy History of esophagogastroduodenoscopy (EGD) Status post uvulopalatopharyngoplasty History of transesophageal echocardiography (AMINA) (~02/19/20) History of loop recorder (~02/13/20) Family History Father High blood pressure Mother High blood pressure Diabetes Cardiovascular disease Maternal Grandmother High blood pressure Alcohol abuse FH: mental illness Paternal Grandmother Cardiovascular disease Family/Other Cardiovascular disease Social History Household Members: Spouse Household Members Other:: 1 son Housing: House Alcohol intake: current Patient Tobacco Use Status: Former Tobacco user e-Cigarette/Vaping Use: Never Used service: No Current occupational status: unemployed Current occupational exposures/hazards: No Cognitive needs: No Hearing needs: No Vision needs: No Questionnaire PHQ-9 Over the last 2 weeks, how often have you been bothered by any of the following problems? 1. Little interest or pleasure in doing things: not at all 2. Feeling down, depressed, or hopeless: not at all 3. Trouble falling or staying asleep, or sleeping too much: not at all 4. Feeling tired or having little energy: not at all 5. Poor appetite or overeating: not at all 6. Feeling bad about yourself - or that you are a failure or have let yourself or your family down: not at all 7. Trouble concentrating on things, such as reading the newspaper or watching television: not at all 8. Moving or speaking so slowly that other people could have noticed. Or the opposite - being so fidgety or restless that you have been moving around a lot more than usual: not at all 9. Thoughts that you would be better off or of hurting yourself in some way: not at all Total score: 0 Depression Screening Interpretation: Negative Depression Screening Done: Yes 48920 - PHQ-9 Billing: Yes Source: Developed by Drs. Jeromy Varghese, Radha Truong, Michael Shell and colleagues, with an educational emily from [employer]. Thrive Questionnaire Date Thrive assessed: 03/30/25 I am a: Patient What is your living situation today?: I have a steady place to live Within the past 12 months, did the food you bought not last and you didn't have the money to get more?: Never true Within the past 12 months, did you worry whether your food would run out before you got money to buy more?: Never true Do you have trouble paying for medicines?: No Do you have trouble getting transportation to medical appointments?: No Do you have trouble paying your heating and electricity bill?: No Do you have trouble taking care of your child, family member or friend?: No Do you have trouble with day-to-day activities such as bathing, preparing meals, shopping, managing finances, etc.?: No Are you currently unemployed and looking for a job?: No Are you interested in more education?: No Please select the resources that you would like help with: None Currently or been in a relationship where the following occur: No concerns reported THRIVE Score: 0 AUDIT C Alcohol Use Questionnaire (AUDIT-C) 1. How often do you have a drink containing alcohol?: 2-4 times a month 2. How many drinks containing alcohol do you have on a typical day when you are drinking?: 1 or 2 3. How often do you have six or more drinks on one occasion?: Never Total Score: 2 Score Reviewed/Action Taken: Yes KVNG-7 AMB Questionnaire KVNG-7 Date KVNG - 7 assessed: 11/11/24 Feeling nervous, anxious, or on edge: 0 = Not at all Not being able to stop or control worryin = Not at all Worrying too much about different things: 0 = Not at all Trouble relaxin = Several days Being so restless that it is hard to sit still: 0 = Not at all Becoming easily annoyed or irritable: 0 = Not at all Feeling afraid as if something awful might happen: 1 = Several days Total KVNG-7 score (0-4 normal; 5-9 mild; 10-14 moderate; 15-21 severe): 2 Source: Developed by Drs. Jeromy Varghese, Radha Truong, Michael Shell and colleagues, with an educational emily from [employer]. Review of Systems Const Denies chills, Denies fatigue, Denies fever(s) and Denies headache(s) ENT Denies dysphagia, Denies dizziness, Denies otalgia, Denies headache(s), Denies neck pain, Denies odynophagia and Denies sore throat Card Denies chest pain, Denies palpitations and Denies dyspnea Resp Denies chest congestion, Denies cough and Denies dyspnea GI Denies abdominal pain, Denies constipation, Denies dysphagia, Reports heartburn (increased lately), Denies diarrhea, Denies nausea, Denies odynophagia and Denies vomiting Denies difficulty urinating, Denies dysuria, Denies nocturia and Denies urinary frequency Musc Reports back pain (over the lower back - chronic) and Denies neck pain Skin/Breast Denies rash Neuro Denies dizziness and Denies headache(s) Endo Denies fatigue and Denies palpitations Physical exam (Primary Care) Vital Signs: Last Vital Signs Temp 97.1 F 04/02/25 16:01 Pulse 66 04/02/25 16:01 BP 132/66 04/02/25 16:01 Pulse Ox 98 04/02/25 16:01 Oxygen Delivery Method Room Air 04/02/25 16:01 BMI result Body Mass Index 29.3 Tobacco/Smoking Status: Tobacco use Status Tobacco use date assessed 04/02/25 04/02/25 16:08 Patient Tobacco Use Status Former Tobacco user 04/02/25 16:08 e-Cigarette/Vaping Use Never Used 04/02/25 16:08 PHQ-9: PHQ-9 Score PHQ-9: Total score 0 04/02/25 16:33 Depression Screening Interpretation: Negative Thrive Assessment: Date of Thrive Assessment Date Thrive assessed 03/30/25 04/02/25 16:08 Currently or been in a relationship where the following occur: No concerns reported Const General: no acute distress and alert HENMT Ears: TM's normal bilaterally and EAC's normal Throat: Yes posterior oropharynx normal and Yes tonsils normal (no TP congestion) Neck Neck: Yes supple and No lymphadenopathy Thyroid: Thyroid normal Resp Auscultation: clear to auscultation bilaterally, no rales and no wheezes Cardio Rate: regular rate Rhythm: regular rhythm Heart sounds: no murmurs GI Palpation (GI): Soft to palpation and nontender Auscultation: normal bowel sounds General: Yes no CVA tenderness Back/Spine/Pelvis Back: no CVA tenderness Thoracic/Lumbar Spine: lumbar spinal tenderness Skin General skin exam: no rashes or lesions noted Extrem General: Yes no clubbing, cyanosis or edema Results Reviewed Results Reviewed: Laboratory Tests 03/24/25 03/24/25 08:22 08:34 WBC 5.6 Hgb 14.4 Hct 43.1 Plt Count 249 Sodium 143 Potassium 4.6 Creatinine 1.05 Estimated GFR > 60 Fasting Glucose 119 H Hemoglobin A1c % 6.3 H Calcium 9.2 AST 34 ALT 21 Triglycerides 101 Cholesterol 100 LDL Cholesterol, Calc 38 HDL Cholesterol 42 Ur Specific Combs >= 1.030 H Urine Protein 30 (1+) H Urine Glucose (UA) >=1000 H Urine Blood Negative Urine Nitrite Negative Ur Leukocyte Esterase Negative Coding Level of Care Code Est Pt Level 4 (35111) Diagnoses Cerebrovascular accident (CVA) due to embolism of cerebral artery I63.40 Precerebral and cerebral artery: unspecified cerebral artery Type 2 diabetes mellitus with unspecified complications E11.8 Essential hypertension I10 Pure hypercholesterolemia E78.00 GERMAN (obstructive sleep apnea) G47.33 Gastroesophageal reflux disease without esophagitis K21.9 Esophagitis presence: without esophagitis Degeneration of intervertebral disc of lumbar region with discogenic back pain M51.360 Disc-related pain type: discogenic back pain only Morbid obesity E66.01 Additional Codes PHQ-9 - 31204 - PHQ-9 Billing: Yes ([id number]) Assessment & Plan Assessment & Plan (1) Embolic stroke: Code(s): I63.9 - Cerebral infarction, unspecified Category: Medical Qualifiers: Precerebral and cerebral artery: unspecified cerebral artery Qualified Code(s): I63.40 - Cerebral infarction due to embolism of unspecified cerebral artery Plan: Transthoracic echocardiogram with LVEF 55-60%; is otherwise unremarkable. Transesophageal echocardiogram showed evidence of atrial septal aneurysm, patent foramen ovale; ecmt-[id number]-pnydd shunt noted by color Doppler but bubble study was negative for loegu-yz-kdga shunt. Implantable loop monitor showed 1 episode of possible atrial fibrillation but the episode was only for about 40 seconds and the rate was only in the 60s. Nothing recurrent after this episode. Myocardial perfusion imaging study from [facility] done in 2019 showed no evidence of any ischemia or infarction. He exercised for 8 minutes and 54 minutes on Kang protocol reaching 9 Mets. Brain MRI had shown a small infarct in cerebellum. Brain CT had also shown old infarcts. CTA of the neck does not show any significant disease. Continue Eliquis 5 mg BID for thromboembolism prophylaxis Follow-up with cardiology as scheduled (2) Type 2 diabetes mellitus with unspecified complications: Code(s): E11.8 - Type 2 diabetes mellitus with unspecified complications Category: Medical Plan: Patient's HgbA1c was again at 6.3% on his labs done last week - goal is at least less than 7.0% or ideally less than 6.5% Reinforced diabetic diet Continue Jardiance 25 mg QD and Mounjaro 10 mg SQ once a week (3) Essential hypertension: Code(s): I10 - Essential (primary) hypertension Category: Medical Plan: Reinforced low-sodium diet - goal is systolic BP of 120 mm or less Continue Lisinopril 20 mg QD (4) Pure hypercholesterolemia: Code(s): E78.00 - Pure hypercholesterolemia, unspecified Category: Medical Plan: Results of his labs done last week reviewed and discussed with patient - he is advised that his cholesterol numbers have improved significantly from previous Reinforced low cholesterol diet Patient used to take Rosuvastatin 40 mg QD but states that he quit taking it due to increased myalgia while on the medication He recalls experiencing similar symptoms with Pravastatin in the past He is advised that his Homocysteine level was also elevated on his recent labs, suggesting an increased risk Continue Repatha 140 mg SQ every 2 weeks Will recheck his fasting lipids and labs in 4 months for follow-up (5) GERMAN (obstructive sleep apnea): Comment: s/p [id number] about 15 years ago Code(s): G47.33 - Obstructive sleep apnea (adult) (pediatric) Category: Medical Plan: Follow-up with Sleep Medicine as scheduled (6) GERD (gastroesophageal reflux disease): Code(s): K21.9 - Gastro-esophageal reflux disease without esophagitis Category: Medical Qualifiers: Esophagitis presence: without esophagitis Qualified Code(s): K21.9 - Gastro-esophageal reflux disease without esophagitis Plan: Dietary restrictions reinforced Continue Omeprazole 40 mg QD Due to his increasing heartburn despite his current Rx, will refer him to GI for further evaluation He is also now due for repeat colonoscopy and will refer him to GI for this as well (7) Lumbar degenerative disc disease: Code(s): M51.369 - Other intervertebral disc degeneration, lumbar region without mention of lumbar back pain or lower extremity pain Category: Medical Qualifiers: Disc-related pain type: discogenic back pain only Qualified Code(s): M51.360 - Other intervertebral disc degeneration, lumbar region with discogenic back pain only Plan: Reinforced activity and weight lifting restrictions Repeat x-rays of the lumbar spine done back in August 2024 revealed (+) multilevel degenerative disc changes but no acute findings (8) Morbid obesity: Code(s): E66.01 - Morbid (severe) obesity due to excess calories Category: Medical Plan: Reinforced diet/exercise as tolerated/lose weight Plan Follow up in 4 months Orders: Orders Comprehensive Strawberry. Panel Fast 4 Months E78.00 - Pure hypercholesterolemia, unspecified UA CC w/rflx Micro + Cult 4 Months R30.0 - Dysuria Hemoglobin A1c 4 Months E11.9 - Type 2 diabetes mellitus without complications Vitamin B12 and Folate 4 Months E53.8 - Deficiency of other specified B group vitamins Complete Blood Count Auto Diff 4 Months D64.9 - Anemia, unspecified Lipid Panel 4 Months E78.00 - Pure hypercholesterolemia, unspecified TSH reflex Free T4 4 Months E78.00 - Pure hypercholesterolemia, unspecified Microalbumin, Random (w Creat) 4 Months E11.9 - Type 2 diabetes mellitus without complications Vitamin D 25-OH Total 4 Months E55.9 - Vitamin D deficiency, unspecified Referrals Gastroenterology Referral K21.9 - Gastro-esophageal reflux disease without esophagitis, Z12.11 - Encounter for screening for malignant neoplasm of colon
--- OUTSIDE RECORDS SUMMARY | 2025-04-02 16:16 | XMS_ITS | Encounter Summary ---
Author Organization [facility] Address [address] [place] [address] [place] [address] Phone Care Team Providers Care Demolition Specialist Name Role Phone Rosalind Cornejo MD Primary Care Provider [phone] Benji Hassan MD Unavailable [phone] Tex Lin MD Unavailable [email or web address] Juwan Su MD Unavailable [phone] Rosalind Cornejo MD Unavailable [phone] John Santoyo PACKAGING MACHINE OPERATOR Unavailable [phone] Rosalind Cornejo MD Unavailable [phone] pS Gusman DO Primary Care Provider Chanda Fernando DISPLAY DECORATOR Unavailable [phone] Rosalind Cornejo MD Unavailable [phone] Andrei Hayes MD Primary Care Provider Derrek Abdullahi MD Primary Care Provider Encounter Details Date Type Department Care Team (Late st Contact Info) Description 05/26/2017 Ancillary Orders [facility] Department [address] [place] [address] Gm Torres MD [facility], [address] [place] [address] [email or web address] Kidney stones Social History Tobacco Use Types Packs/Day Years Used Date Smoking Tobacco: Former Sex and Gender Information Value Date Recorded Sex Assigned at Male 08/10/2020 12:39 AM EST Legal Sex Male 7:59 PM EST Gender Identity Male 08/10/2020 12:39 AM EST Sexual Orientation Not on file documented as of this encounter Plan of Treatment Upcoming Encounters Date Type Department Care Team (Late st Contact Info) Description 06/23/2025 9:00 AM EST Office Visit [facility] Family Medicine [address] [place] [address] [place] [address] Katelyn Santa [address] [facility], [address] [place] [address] [email or web address] 07/16/2025 11:20 AM EST Office Visit [facility] [address] [place] [address] Matilda Hannah CNP [address] [facility], 1st [place] [address] documented as of this encounter Results * US Kidneys and Bladder (06/08/2017 9:58 AM EDT) Anatomical Region Laterality Modality Abdomen, Kidney Ultrasound 06/08/2017 10:0 3 AM EDT Impressions 06/08/2017 10:06 AM EDT Bilateral non-obstructing nephrolithiasis without additional renal pathology apparent. Approximate 4% post void residual bladder volume. POS [id number] Narrative 06/08/2017 10:06 AM EDT COMPARISON: 12/27/2016 FINDINGS: The kidneys are within normal limits overall size with right measuring 12.2 x 6.5 cm and left 13.1 x 6.0 cm in a longitudinal plane. There is chronic shadowing calculus in the lower pole of the left kidney currently measuring 8 mm in span. There is a 7 mm echogenic focus in lower pole of the right kidney which displays twinkle artifact and may represent the calculus demonstrated on the CT, although it seems to be bigger currently. No additional calculi are identified. No renal mass or cyst are noted. No hydronephrosis present. The pre-void bladder measured 486.0 cc and the post-void bladder 21.5 cc consistent with a approximate 4% residual volume. No gross intravesicular mass was identified. Procedure Note Benji Bell MD - 06/08/2017 COMPARISON: 12/27/2016 FINDINGS: The kidneys are within normal limits overall size with right djibxpjur78.2 x 6.5 cm and left 13.1 x 6.0 cm in a longitudinal plane. There ischronic shadowing calculus in the lower pole of the left kidney currentlymeasuring 8 mm in span. There is a 7 mm echogenic focus in lower pole ofthe right kidney which displays twinkle artifact and may represent thecalculus demonstrated on the CT, although it seems to be bigger currently.No additional calculi are identified. No renal mass or cyst are noted.No hydronephrosis present. The pre-void bladder measured 486.0 cc and the post-void bladder 21.5 ccconsistent with a approximate 4% residual volume. No gross intravesicularmass was identified. IMPRESSION: Bilateral non-obstructing nephrolithiasis without additional renalpathology apparent. Approximate 4% post void residual bladder volume. POS [id number] Gm Torres MD [facility] RENAL Final Result documented in this encounter Visit Diagnoses Diagnosis Kidney stones Calculus of kidney Kidney stones Calculus of kidney documented in this encounter Care Teams Demolition Specialist Relationship Specialty Start Date End Date Rosalind Cornejo MD [address] [place] [address] PCP - General 02/03/14 08/08/23 Sp Gusman DO [address] [place] [address], 2nd [place] [address] PCP - General Family Medicine 08/09/23 02/18/24 Andrei Hayes MD [address] [place] [address] PCP - General Family Medicine 02/19/24 09/15/24 Derrek Abdullahi MD [address] [place] [address] [place] [address] PCP - General Internal Medicine 09/16/24 Benji Hassan MD [address] [place] [address] [email or web address] Historical LMR Provider 05/27/17 08/13/21 Tex Lin MD [email or web address] Historical LMR Provider 05/27/17 08/13/21 Juwan Su MD [address] [place] [address] [email or web address] Historical LMR Provider 05/27/17 Rosalind Cornejo MD [address] [place] [address] [email or web address] Historical LMR Provider 05/27/17 08/08/23 John Santoyo CNP [address] [place] [address] Historical LMR Provider 05/27/17 08/13/21 Rosalind Cornejo MD [address] [place] [address] [email or web address] Insurance Assigned Provider 12/07/18 08/08/23 Chanda Fernando, DISPLAY DECORATOR [address] [place] [address] Nurse Practitioner 08/09/23 09/15/24 Rosalind Cornejo MD [address] [place] [address] [email or web address] Insurance Assigned Provider 12/07/18 10/13/23 documented as of this encounter Additional Source Comments The information contained in this document represents components of the legal health record. It is not the complete legal health record.[facility]
--- OUTSIDE RECORDS SUMMARY | 2025-04-02 16:16 | XMS_ITS | Clinical Summary ---
Author Organization [facility], Address [address] [facility] 3 [place] [address] Phone Care Team Providers Care Technical Training Instructor Name Role Phone Rosalind Cornejo MD Primary [...] by mouth twice a day Active B [id number] PO Take 3 tablets by mouth 1 [...] Overview (04/15/2021): Diabetes mellitus Diabetes mellitus Immunizations Immunization Administration Dates Next Due Influenza Split High [...] Diabetes: Visual Foot Exam 10/24/2019 Pneumococcal Vaccine: 50+ Ye ars (2 of 2 - PCV) 08/17/2021 08/17/2020 Influenza Vaccine (#1) 2025 06/16/2020 Pneumococcal Vaccine: Peds ( 0 to 5 Years) and At-Risk Patients (6 to 49 Years) Discontinued 08/17/2020 Hepatitis B Vaccine Aged Out No longe r eligible based on patient's age to complete this topic Insurance [facility] Care Teams Technical Training Instructor Relationship Specialty Start Date End Date Rosalind Cornejo MD [address] [place] [address] PCP - General 06/10/19
--- OUTSIDE RECORDS SUMMARY | 2025-04-02 16:16 | XMS_ITS | Encounter Summary ---
Author Organization [facility] Address [address] [facility] [address] [place] [address] Phone Care Team Providers Care Data Processing Equipment Repairer Name Role Phone Rosalind Cornejo MD Primary Care Provider [phone] Janak Hassan MD Unavailable [phone] Tex Lin MD Unavailable [email or web address] Juwan Su MD Unavailable [phone] Rosalind Cornejo MD Unavailable [phone] John Santoyo FORKLIFT TRUCK OPERATOR Unavailable [phone] Rosalind Cornejo MD Unavailable Sp Gusman DO Primary Care Provider Chanda Fernando PROFESSOR OF ARCHITECTURE Unavailable [phone] Rosalind Cornejo MD Unavailable [phone] Andrei Hayes MD Primary Care Provider Derrek Abdullahi MD Primary Care Provider Encounter Details Date Type Department Care Team (Latest Contact Info) Description 09/11/2017 Transcribe Orders [facility] Laboratory [address] [place], [place] [phone] Raymond Shafer MD [address] [facility] [address] [place], [place] [id number] Uric acid nephrolithiasis (Primary Dx) Social History Tobacco Use Types Packs/Day Years [...] Description 06/23/2025 9:00 AM EST Office Visit [facility] [address] [place] [address] Katelyn Santa 22 [facility], [address] [place] [address] [email or web address] 07/16/2025 11:20 AM EST Office Visit [facility] [address] [place] [address] Matilda Hannah CNP 22 [facility], 1st [place] [address] documented as of this encounter Results * Creatinine clearance (09/11/2017 4:11 PM EST) URINE CREATININE Cancelled due to incomplete collection. mg/dL [facility] Comment:Corrected on 09/12 A T 1004: previously reported as 51 Blood 09/11/2017 4:11 PM EST 09/11/2017 4:14 PM EST us Raymond Shafer MD LAB BLOOD ORDERABLES Edited Resu lt - Final [facility] [address] [place] [address] * Sodium, 24 hr urine (09/11/2017 4:11 PM EST) URINE SODIUM Cancelled due to incomplete collection. mmol/L [facility] Comment:Corrected on 09/12 A T 1004: previously reported as 91 SODIUM OUTPUT NOT CALCULATED 40 - 220 mmol/total output [facility] Comment:Corrected on 09/12 A T 1004: previously reported as 288 Urine (Urine) 09/11/2017 4:1 1 PM EST 09/11/2017 4:14 PM EST us Raymond Shafer MD URINE ORDERABLES Edited Result - Final Performing Organization Address [facility] de Phone Number [address] [address] * Potassium, 24 hr urine (09/11/2017 4:11 PM EST) URINE POTASSIUM Cancelled due to incomplete collection. mmol/L [facility] Comment:Corrected on 09/12 A T 1004: previously reported as 21.9 POTASSIUM OUTPUT NOT CALCULATED mmol/total output [facility] Comment:Corrected on 09/12 A T 1004: previously reported as 69.2 Urine (Urine) 09/11/2017 4:1 1 PM EST 09/11/2017 4:14 PM EST us Raymond Shafer MD URINE ORDERABLES Edited Result - Final Performing Organization Address [facility] de Phone Number [address] [address] * Uric acid, 24 hr urine (09/11/2017 4:11 PM EST) URINE URIC ACID Cancelled due to incomplete clooection. mg/dL [facility] Comment:Corrected on 09/12 A T 1004: previously reported as 20.8 Uric Acid, Timed Urine NOT CALCULATED 250 - 750 mg/total output [facility] Comment:Corrected on 09/12 A T 1004: previously reported as 657.3 Urine (Urine) 09/11/2017 4:1 1 PM EST 09/11/2017 4:14 PM EST us Raymond Shafer MD URINE ORDERABLES Edited Result - Final Performing Organization Address [facility] de Phone Number [address] [address] * Phosphorus, 24 hr urine (09/11/2017 4:11 PM EST) URINE PHOSPHORUS Cancelled due to incomplete collection. mg/dL [facility] Comment:Corrected on 09/12 A T 1004: previously reported as 29.7 PHOSPHORUS OUTPUT NOT CALCULATED 400 - 1300 mg/total output [facility] Comment:Corrected on 09/12 A T 1004: previously reported as 938.5 Urine (Urine) 09/11/2017 4:1 1 PM EST 09/11/2017 4:14 PM EST us Raymond Shafer MD URINE ORDERABLES Edited Result - Final Performing Organization Address [facility]/ZIP Co de Phone Number [address] [address] * Calcium, 24 hour urine (09/11/2017 4:11 PM EST) URINE CALCIUM Cancelled due to incomplete collection. mg/dL [facility] Comment:Corrected on 09/12 A T 1004: previously reported as 2.8 CALCIUM OUTPUT NOT CALCULATED 100 - 300 mg/total output [facility] Comment:Corrected on 09/12 A T 1004: previously reported as 88 Urine (Urine) 09/11/2017 4:1 1 PM EST 09/11/2017 4:14 PM EST us Raymond Shafer MD URINE ORDERABLES Edited Result - Final [address] [address] * Total protein, 24 hr urine (09/11/2017 4:11 PM EST) URINE TOTAL PROTEIN Cancelled due to incomplete collection. mg/dL [facility] Comment:Corrected on 09/12 A T 1004: previously reported as 7.6 Protein, time varied urine (mg/TV) NOT CALCULATED 0 - 165 mg/total output [facility] Comment:Corrected on 09/12 A T 1004: previously reported as 240 Urine (Urine) 09/11/2017 4:1 1 PM EST 09/11/2017 4:14 PM EST us Raymond Shafer MD URINE ORDERABLES Edited Result - Final [address] [address] documented in this encounter 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 Care Teams Data Processing Equipment Repairer Relationship Specialty Start Date End Date Rosalind Cornejo MD [address] [place] [address] [email or web address] PCP - General 02/03/14 08/08/23 Sp Gusman DO [address] [place] [address] PCP - General Family Medicine 08/09/23 02/18/24 Andrei Haeys MD [address] [place] [address] PCP - General Family Medicine 02/19/24 09/15/24 Derrek Abdullahi MD [address] [place] [address] [place] [address] PCP - General Internal Medicine 09/16/24 Janak Hassan MD [address] [place] [address] [email or web address] Historical LMR Provider 05/27/17 08/13/21 Tex Lin MD [email or web address] Historical LMR Provider 05/27/17 08/13/21 Juwan Su MD [address] [address] Historical LMR Provider 05/27/17 Rosalind Cornejo MD [address] [place] [address] Historical LMR Provider 05/27/17 08/08/23 John Santoyo CNP [address] [place] [address] Historical LMR Provider 05/27/17 08/13/21 Rosalind Cornejo MD [address] [place] [address] Insurance Assigned Provider 12/07/18 08/08/23 Chanda Fernando NP [address] [place] [address] Nurse Practitioner 08/09/23 09/15/24 Rosalind Cornejo MD [address] [place] [email or web address] Insurance Assigned Provider 12/07/18 10/13/23 documented as of this encounter Additional Source Comments The information contained in this document represents components of the legal health record. It is not the complete legal health record.[facility]
--- OUTSIDE RECORDS SUMMARY | 2025-04-02 16:16 | XMS_ITS | Encounter Summary ---
Author Organization [facility], Address [address] [place] [address] Phone Care Team Providers Care Leak Operator Paraffin Plant Name Role Phone Rosalind Cornejo MD Primary Care Provider [phone] Encounter Details Date Type Department Care Team (Late st Contact Info) Description 08/19/2021 Documentation Only [facility], [address] [place] [address] Yocasta Whittington [address] [place] [phone] Social History Tobacco Use Types Packs/Day Years [...] on filedocumented in this encounter Care Teams Leak Operator Paraffin Plant Relationship Specialty Start Date End Date Rosalind Cornejo MD [address] [place] [address] PCP - General 06/10/19 documented as of this encounter
--- OUTSIDE RECORDS SUMMARY | 2025-04-02 16:16 | XMS_ITS | Encounter Summary ---
Author Organization [facility] Address [address] [place] [address] [place] [address] Phone Care Team Providers Care Software Asset Manager Name Role Phone Rosalind Cornejo MD Primary Care Provider [phone] Janak Hassan MD Unavailable [phone] Tex Lin MD Unavailable [email or web address] Juwan Su MD Unavailable [phone] Rosalind Cornejo MD Unavailable [phone] John Santoyo MICROBIOLOGY TECHNICIAN Unavailable [phone] Rosalind Cornejo MD Unavailable [phone] Sp Gusman DO Primary Care Provider Chanda Fernando OTR REFRIGERATED CDL TRUCK DRIVER Unavailable [phone] Rosalind Cornejo MD Unavailable [phone] Andrei Hayes MD Primary Care Provider Derrek Abdullahi MD Primary Care Provider Encounter Details Date Type Department Care Team (Latest Contact Info) Description 09/07/2017 Transcribe Orders [facility] Specimen Processing [address] [place] [address] Rosalind Cornejo MD [address] [place], [place] [phone] [email or web address] Positive serum cytomegalovirus (CMV) IgM antibody (Primary Dx); Elevated LFTs Social History Tobacco Use Types Packs/Day Years [...] [facility] Family Medicine [address] [place] [address] Katelyn Santa [address] [facility] [place] [address] [email or web address] 07/16/2025 11:20 AM EST Office Visit [facility] [address] [place] [address] Matilda Hannah, BAILEY [address] [facility], 1st [place] [address] documented as of this encounter Procedures Procedure Name Priority Date/Time Associated Diagnosis Comments MISCELLANEOUS LAB TEST Routine 09/04/2017 9:49 AM EST LAB ADD ON Routine 09/04/2017 9:49 AM EST Positive serum cytomegalovirus (CMV) IgM antibody Elevated LFTs documented in this encounter Results * Miscellaneous lab test (09/04/2017 9:49 AM EST) TESTS REQUESTED CYTOMEGALOVIRUS AB, IGM AND IGG [facility] SPECIMEN/TUBE TYPE SERUM [facility] REQUEST RECEIVED Request received. A separate order for the requested test will be generated by the laboratory. [facility] 09/04/2017 9:49 AM EST 09/07/2017 12:39 PM EST Rosalind Cornejo MD LAB BLOOD ORDERABLES Final Result [address] [address] * Lab Add On: CMV IGG/IGM (09/04/2017 9:49 AM EST) CONTACT INFORMATION [id number] [facility] TEST REQUESTED CMV IGG IGM REVIEW ENGINEER [facility] Comments (Chemistry) ADD ON COMPLETE. [facility] 09/04/2017 9:49 AM EST 09/07/2017 12:39 PM EST us Rosalind Cornejo MD LAB BLOOD ORDERABLES Edited Result - Final Performing Organization Address [facility]/ZIP Co de Phone Number [address] [address] documented in this encounter Visit Diagnoses Diagnosis Positive serum cytomegalovirus (CMV) IgM antibody- Primary Elevated LFTs Other abnormal blood chemistry documented in this encounter Care Teams Software Asset Manager Relationship Specialty Start Date End Date Rosalind Cornejo MD [address] [place] [address] PCP - General 02/03/14 08/08/23 Sp Gusman DO [address] [place] [address] PCP - General Family Medicine 08/09/23 02/18/24 Andrei Hayes MD [address] [place] [address] PCP - General Family Medicine 02/19/24 09/15/24 Derrek Abdullahi MD [address] [place] [address] [place] [address] PCP - General Internal Medicine 09/16/24 Janak Hassan MD [address] [place] [address] [email or web address] Historical LMR Provider 05/27/17 08/13/21 Tex Lin MD [email or web address] Historical LMR Provider 05/27/17 08/13/21 Juwan Su MD [address] [place] [address] [email or web address] Historical LMR Provider 05/27/17 Rosalind Cornejo MD [address] [place] [address] [email or web address] Historical LMR Provider 05/27/17 08/08/23 John Santoyo CNP [address] [place] [address] Historical LMR Provider 05/27/17 08/13/21 Rosalind Cornejo MD [address] [place] [email or web address] Insurance Assigned Provider 12/07/18 08/08/23 Chanda Fernando NP [address] [place] [address] Nurse Practitioner 08/09/23 09/15/24 Rosalind Cornejo MD [address] [place] [address] [email or web address] Insurance Assigned Provider 12/07/18 10/13/23 documented as of this encounter Additional Source Comments The information contained in this document represents components of the legal health record. It is not the complete legal health record.[facility]
--- OUTSIDE RECORDS SUMMARY | 2025-04-02 16:16 | XMS_ITS | Encounter Summary ---
Author Organization [facility] Address [address] [place] [address] [place] [address] Phone Care Team Providers Care Typewriter Ribbon Winder Name Role Phone Rosalind Cornejo MD Primary Care Provider [phone] Janak Hassan MD Unavailable [phone] Tex Lin MD Unavailable [email or web address] Juwan Su MD Unavailable [phone] Rosalind Cornejo MD Unavailable John Santoyo CLINICAL ATHLETIC INSTRUCTOR Unavailable [phone] Rosalind Cornejo MD Unavailable Sp Gusman DO Primary Care Provider Chanda Fernando APARTMENT HOUSE MANAGER Unavailable [phone] Rosalind Cornejo MD Unavailable [phone] Andrei Hayes MD Primary Care Provider Derrek Abdullahi MD Primary Care Provider Encounter Details Date Type Department Care Team (Late st Contact Info) Description 07/05/2017 Transcribe Orders [facility] Laboratory [address] [place], [place] [phone] Rosalind Cornejo MD [address] [place], [place] [id number] [email or web address] Fever, unspecified fever cause (Primary Dx) Social History Tobacco Use Types [...] Description 06/23/2025 9:00 AM EST Office Visit [facility] [address] [place] [address] [place] [address] Katelyn Santa 22 [facility], [address] [place] [address] [email or web address] 07/16/2025 11:20 AM EST Office Visit [facility] [address] [place] [address] Matilda Hannah CNP [address] [place] [address], 1[address] [place] [address] documented as of this encounter Results * Rapid influenza A and B (07/05/2017 2:02 PM EST) Influenza A Ag Negative Negative [facility] Influenza B Ag Negative Negative [facility] Other (Nasal) 07/05/2017 2:0 2 PM EST 07/05/2017 2:06 PM EST us Rosalind Cornejo MD MICROBIOLOGY - GENERAL FINA DEXTER Final Result [facility] [address] [place] [address] documented in this encounter Visit Diagnoses Diagnosis Fever, unspecified fever cause- Primary documented in this encounter Care Teams Typewriter Ribbon Winder Relationship Specialty Start Date End Date Rosalind Cornejo MD [address] [place] [address] PCP - General 02/03/14 08/08/23 Sp Gusman DO [address] [place] [address] PCP - General Family Medicine 08/09/23 02/18/24 Andrei Hayes MD [address] [place] [address] PCP - General Family Medicine 02/19/24 09/15/24 Derrek Abdullahi MD [address] [place] [address] [facility] [place] [address] PCP - General Internal Medicine 09/16/24 Janak Hassan MD [address] [place] [address] Historical LMR Provider 05/27/17 08/13/21 Tex Lin MD [email or web address] Historical LMR Provider 05/27/17 08/13/21 Juwan Su MD [address] [place] [address] Historical LMR Provider 05/27/17 Rosalind Cornejo MD [address] [place] [address] Historical LMR Provider 05/27/17 08/08/23 John Santoyo CNP [address] [place] [address] [email or web address] Historical LMR Provider 05/27/17 08/13/21 Rosalind Cornejo MD [address] [place] [address] [email or web address] Insurance Assigned Provider 12/07/18 08/08/23 Chanda Fernando NP [address] [place] [address] Nurse Practitioner 08/09/23 09/15/24 Rosalind Cornejo MD [address] [place] [address] [email or web address] Insurance Assigned Provider 12/07/18 10/13/23 documented as of this encounter Additional Source Comments The information contained in this document represents components of the legal health record. It is not the complete legal health record.[facility]
--- OUTSIDE RECORDS SUMMARY | 2025-04-02 16:16 | XMS_ITS | Patient Health Record ---
Author Organization [facility] [place] Address [address] [place] [address] Care Team Providers Care Environmental Remediation Engineer Name Role Phone Chantal CHANG, Rosalind Primary Care Provider Andres Westbrook Unavailable [phone] Allergies Allergen (clinical drug ingredient) Drug/Non Drug [...] a day Active Fish Oil + D3 2003-4821 MG-UNIT 1 capsule Orally Three times a [...] Test Name Order Date Hemoglobin A1c 02/09/2015 [id number] NAIL, 6 OR MORE 05/11/2015 [id number] NAIL, 6 OR MORE 08/13/2015 [id number] NAIL, 6 OR MORE 02/17/2014 [id number] NAIL, 6 OR MORE 02/09/2015 10648-Gzyv Destruction, 1-14 02/09/2015 48873-Pdxw Destruction, 1-14 02/17/2014 92284-Qanf Destruction, 1-14 08/13/2015 81256-SHRH SKIN LESIONS, OVER 4 02/18/20 14 97381-[id number] SKIN LESIONS, OVER 4 02/10/20 15 39632-AXUA SKIN LESIONS, OVER 4 08/13/19 16 08568-EFAZ SKIN LESIONS, OVER 4 05/11/20 15 Insurance Providers Payer Name Payer Address Payer Phone Subscriber Number Group Number Insured Name Patient Relationship to Insured Coverage Start Date Coverage End Date [facility] [address] [place] [address] [phone] [id number] Crystal Oliver Spouse - patient is the spouse of the insured Medical (General) History Medical History History ICD Code Anxiety Arthritis Back,Hip,and Knee pain Fibromyalgia Headaches High blood pressure Reflux Sinus conditions Diabetic Surgical History Surgery Date(Month/Year) UPPP 2003 Sinus cleaning 2003
--- OUTSIDE RECORDS SUMMARY | 2025-04-02 16:16 | XMS_ITS | Encounter Summary ---
Author Organization [facility] Address [address] [place] [address] [place] [address] Phone Care Team Providers Care Laborer Gold Leaf Name Role Phone Rosalind Cornejo MD Primary Care Provider [phone] Janak Hassan MD Unavailable [phone] Tex Lin MD Unavailable [email or web address] Juwan Su MD Unavailable [phone] Rosalind Cornejo MD Unavailable [phone] John Santoyo FOOD ORDER DELIVERY RUNNER Unavailable [phone] Rosalind Cornejo MD Unavailable [phone] Sp Gusman DO Primary Care Provider [phone] Chanda Fernando MOLDER BENCH Unavailable [phone] Rosalind Cornejo MD Unavailable [phone] Andrei Hayes MD Primary Care Provider Derrek Abdullahi MD Primary Care Provider Encounter Details Date Type Department Care Team (Late st Contact Info) Description 07/14/2017 Transcribe Orders [facility] Laboratory 30 [place] [address] Rosalind Cornejo MD 15 [place], [place] [phone] Elevated LFTs (Primary Dx) Social History Tobacco Use Types [...] Description 06/23/2025 9:00 AM EST Office Visit [address] [place] [address] Katelyn Santa 22 [facility], [address] [place] [address] [email or web address] 07/16/2025 11:20 AM EST Office Visit [facility] [address] [place] [address] Matilda Hannah CNP [address] [place] [address], [address] [place] [address] documented as of this encounter Visit Diagnoses Diagnosis Elevated LFTs- Primary Other abnormal blood chemistry documented in this encounter Care Teams Laborer Gold Leaf Relationship Specialty Start Date End Date Rosalind Cornejo MD [address] [place] [address] [email or web address] PCP - General 02/03/14 08/08/23 Sp Gusman DO [address] [address] PCP - General Family Medicine 08/09/23 02/18/24 Andrei Hayes MD [address] [place] [address] PCP - General Family Medicine 02/19/24 09/15/24 Derrek Abdullahi MD [address] [place] [address] [place] [address] PCP - General Internal Medicine 09/16/24 Janak Hassan MD [address] [place] [address] [email or web address] Historical LMR Provider 05/27/17 08/13/21 Tex Lin MD [email or web address] Historical LMR Provider 05/27/17 08/13/21 Juwan Su MD [address] [place] [address] [email or web address] Historical LMR Provider 05/27/17 Rosalind Cornejo MD [address] [place] [address] [email or web address] Historical LMR Provider 05/27/17 08/08/23 John Santoyo CNP [address] [place] [address] [email or web address] Historical LMR Provider 05/27/17 08/13/21 Rosalind Cornejo MD [address] [place] [address] [email or web address] Insurance Assigned Provider 12/07/18 08/08/23 Chanda Fernando MOLDER BENCH [address] [place] [address] Nurse Practitioner 08/09/23 09/15/24 Rosalind Corenjo MD [address] [place] [address] [email or web address] Insurance Assigned Provider 12/07/18 10/13/23 documented as of this encounter Additional Source Comments The information contained in this document represents components of the legal health record. It is not the complete legal health record.[facility]
--- OUTSIDE RECORDS SUMMARY | 2025-04-02 16:16 | XMS_ITS | Encounter Summary ---
Author Organization [facility] Address [address] [place] [address] [place] [address] Phone Care Team Providers Care Registered Nurse Obstetrics Name Role Phone Rosalind Cornejo MD Primary Care Provider [phone] Janak Hassan MD Unavailable [phone] Tex Lin MD Unavailable [email or web address] Juwan Su MD Unavailable [phone] Rosalind Cornejo MD Unavailable [phone] John Santoyo CERTIFIED MEDICAL RECORDS CODER Unavailable [phone] Rosalind Cornejo MD Unavailable [phone] Sp Gusman DO Primary Care Provider [phone] Chanda Fernando ELECTRIC METER TESTER HELPER Unavailable [phone] Rosalind Cornejo MD Unavailable [phone] Andrei Hayes MD Primary Care Provider Derrek Abdullahi MD Primary Care Provider [phone] Encounter Details Date Type Department Care Team (Late st Contact Info) Description 01/08/2018 Procedure Pass [facility] Endoscopy Admitting Dept Virtual Department [address] [place] [address] Social History Tobacco Use Types Packs/Day Years Used Date Smoking Tobacco: Former Smokeless Tobacco: Never Alcohol Use Standard Drinks/Week Comments Yes 0 (1 standard drink = 0.6 oz pur e alcohol) rare Sex and Gender Information Value Date Recorded Sex Assigned at Male 08/10/2020 12:39 AM EST Legal Sex Male 7:59 PM EST Gender Identity Male 08/10/2020 12:39 AM EST Sexual Orientation Not on file documented as of this encounter Plan of Treatment Upcoming Encounters Date Type Department Care Team (Late st Contact Info) Description 06/23/2025 9:00 AM EST Office Visit [facility] [address] [place] [address] [place] [address] Katelyn Santa 22 [facility], [address] [place] [address] [email or web address] 07/16/2025 11:20 AM EST Office Visit [facility] [address] [place] [address] [place] [address] Matilda Hannah CNP [address] [place] [address], [address] [place] [address] documented as of this encounter Visit Diagnoses Not on filedocumented in this encounter Care Teams Registered Nurse Obstetrics Relationship Specialty Start Date End Date Rosalind Cornejo MD [address] [place] [address] PCP - General 02/03/14 08/08/23 Sp Gusman DO [address] [address] PCP - General Family Medicine 08/09/23 02/18/24 Andrei Hayes MD [address] [place] [address] PCP - General Family Medicine 02/19/24 09/15/24 Derrek Abdullahi MD [address] [place] [address] [place] [address] PCP - General Internal Medicine 09/16/24 Janak Hassan MD [address] [place] [address] [email or web address] Historical LMR Provider 05/27/17 08/13/21 Tex Lin MD [email or web address] Historical LMR Provider 05/27/17 08/13/21 Juwan Su MD [address] [place] [address] [email or web address] Historical LMR Provider 05/27/17 Rosalind Cornejo MD [address] [place] [address] [email or web address] Historical LMR Provider 05/27/17 08/08/23 John Santoyo CERTIFIED MEDICAL RECORDS CODER [address] [place] [address] [email or web address] Historical LMR Provider 05/27/17 08/13/21 Rosalind Cornejo MD [address] [place] [address] [email or web address] Insurance Assigned Provider 12/07/18 08/08/23 Chanda Fernando, ELECTRIC METER TESTER HELPER [address] [place] [address] Nurse Practitioner 08/09/23 09/15/24 Rosalind Cornejo MD [address] [place] [address] [email or web address] Insurance Assigned Provider 12/07/18 10/13/23 documented as of this encounter Additional Source Comments The information contained in this document represents components of the legal health record. It is not the complete legal health record.[facility]
--- OUTSIDE RECORDS SUMMARY | 2025-04-02 16:16 | XMS_ITS | Continuity of Care Document ---
Author Organization [facility] [address] [place] [address] Phone [phone] Problems Active Problems Provider Date Type 2 [...] 300units E11Chidi Laughlin M.D. 12/04/2023 Freestyle Capri 2/Cimarron/Flash Glucose Monitoring Fygnfx3Xnbfrx Device use as directed with sensors dx: e11.9 1units E11Chidi Laughlin M.D. 12/04/2023 Freestyle Capri 2/Sensor/Flash Glucose Monitoring Dgjymr5Vlpkyv Misc 1 sensor to skin every fourteen days as directed dx: e11.9 6units E11.9 Iva Laughlin M.D. 12/04/2023 Mounjaro7.5mg/0.5ML Solution Pen-Inject inject 7.5 mg subcutaneously once a week as directed Dx: E11.9 2ml E11.9 Iva Laughlin M.D. 12/04/2023 Probiotic BlendCapsules once each morning Unknown 0 Puwlwcqger91ea Tablets one with dinner Unknown Alpha-Lipoic Iioz423bp Capsules a total of 600 mg each morning Unknown Tylenol Extra Ljvfkqsk823yo Tablets a few times a week, as needed for pain Unknown Vitamin B-ComplexTablets Daily - B6/Folic Acid/B12 tablet Unknown Wwavydgmure095di Chewtabs as needed, once or twice a month Unknown Loperamide HCL2mg Capsules as needed, every couple of weeks Unknown Metformin QRQ8557vo Tablets Twice a day [facility] Vhrmcqowzf37qn Tablets Once a day with dinner Rosalind Cornejo M.D. Ybgxzmuer06ii Tablets Once a day in the morning Rosalind Cornejo M.D. Folic Gmmp9ud Tablets Once a day with dinner Pillo Cid MD Phbdegg9xb Tablets Twice a day Mango Tinoco MD Nknrekbiudu392zg Tablets Once a day in the morning [facility] Vital Signs Date Vital Result Comment [...] Fine 33G Plus 33G * Freestyle Capri 2/Cimarron/Flash Glucose Monitoring System 2 Cimarron * Freestyle Capri 2/Sensor/Flash Glucose Monitoring System 2 Sensor * New Labs:* CMP W/Egfr, Ordered: 12/04/23 * Lipid Panel, Ordered: 12/04/23 * Urine Microalb+Creat+Ratio RDM, Ordered: 12/04/23 Functional Status Description No Information Available Mental Status Description No Information Available Referrals Description No Information Available
--- OUTSIDE RECORDS SUMMARY | 2025-04-02 16:16 | XMS_ITS | Encounter Summary ---
Author Organization [facility] Address [address] [place] [address] [place] [address] Phone Care Team Providers Care Actuarial Associate Name Role Phone Rosalind Cornejo MD Primary Care Provider [phone] Janak Hassan MD Unavailable [phone] Tex Lin MD Unavailable [email or web address] Juwan Su MD Unavailable [phone] Rosalind Cornejo MD Unavailable John Santoyo MONORAIL CAR OPERATOR Unavailable [phone] Rosalind Cornejo MD Unavailable [phone] Sp Gusman DO Primary Care Provider Chanda Fernando LOG TRUCK DRIVER Unavailable [phone] Rosalind Cornejo MD Unavailable [phone] Andrei Hayes MD Primary Care Provider Derrek Abdullahi MD Primary Care Provider Encounter Details Date Type Department Care Team (Late st Contact Info) Description 07/23/2017 Transcribe Orders [facility] Laboratory [address] [place] [address] Rosalind Cornejo MD 15 [place], [place] [phone] [email or web address] Elevated liver function tests (Primary Dx) Social History Tobacco Use Types [...] Description 06/23/2025 9:00 AM EST Office Visit [facility] [address] [place] [address] [place] [address] Katelyn Santa 22 [facility], [address] [place] [address] [email or web address] 07/16/2025 11:20 AM EST Office Visit [facility] [address] [place] [address] Matilda Hannah, BAILEY 22 [facility], 1st [place] [address] documented as of this encounter Results * (ABNORMAL) LFTs (hepatic panel) (07/23/2017 10:12 AM EST) ALKALINE PHOSPHATASE 57 39 - 117 U/L [facility] TOTAL BILIRUBIN 0.4 0 - 1.2 mg/dL [facility] DIRECT BILIRUBIN <0.2 0 - 0.3 mg/dL [facility] Bilirubin (Indirect) NOT CALCULATED 0 - 1.5 mg/dL [facility] AST 61(H) 0 - 37 U/L [facility] ALT 104(H) 0 - 40 U/L [facility] TOTAL PROTEIN 6.4(L) 6.5 - 8.0 g/dL [facility] ALBUMIN 3.8(L) 3.9 - 4.8 g/dL [facility] GLOBULIN 2.6 1 - 4.8 g/dL [facility] A/G Ratio 1.46 1.00 - 4.80 RATIO [facility] Blood 07/23/2017 10:1 2 AM EST 07/23/2017 10:13 AM EST Rosalind Cornejo MD LAB BLOOD ORDERABLES Final Result [address] [address] documented in this encounter Visit Diagnoses Diagnosis Elevated liver function tests- Primary Other abnormal blood chemistry documented in this encounter Care Teams Actuarial Associate Relationship Specialty Start Date End Date Rosalind Cornejo MD [address] [place] [address] [email or web address] PCP - General 02/03/14 08/08/23 Sp Gusman DO [address] [place] [address] PCP - General Family Medicine 08/09/23 02/18/24 Andrei Hayes MD [address] [place] [address] PCP - General Family Medicine 02/19/24 09/15/24 Derrek Abdullahi MD [address] [place] [address] [place] [address] PCP - General Internal Medicine 09/16/24 Janak Hassan MD [address] [place] [address] [email or web address] Historical LMR Provider 05/27/17 08/13/21 Tex Lin MD [email or web address] Historical LMR Provider 05/27/17 08/13/21 Juwan Su MD [address] [address] Historical LMR Provider 05/27/17 Rosalind Cornejo MD [address] [place] [address] Historical LMR Provider 05/27/17 08/08/23 John Santoyo MONORAIL CAR OPERATOR [address] [place] [address] Historical LMR Provider 05/27/17 08/13/21 Rosalind Cornejo MD [address] [place] [address] [email or web address] Insurance Assigned Provider 12/07/18 08/08/23 Chanda Fernando NP [address] [place] [address] Nurse Practitioner 08/09/23 09/15/24 Rosalind Cornejo MD [address] [place] [address] [email or web address] Insurance Assigned Provider 12/07/18 10/13/23 documented as of this encounter Additional Source Comments The information contained in this document represents components of the legal health record. It is not the complete legal health record.[facility]
--- OUTSIDE RECORDS SUMMARY | 2025-04-02 16:16 | XMS_ITS | Encounter Summary ---
Author Organization [facility] Address [address] [place] [address] [place] [address] Phone Care Team Providers Care Go Cart Mechanic Name Role Phone Rosalind Cornejo MD Primary Care Provider [phone] Janak Hassan MD Unavailable [phone] Tex Lin MD Unavailable [email or web address] Juwan Su MD Unavailable [phone] Rosalind Cornejo MD Unavailable [phone] John Santoyo TESTER [employer] Unavailable [phone] Rosalind Cornejo MD Unavailable [phone] Sp Gusman DO Primary Care Provider [phone] Chanda Fernando ROVING INSPECTOR Unavailable [phone] Rosalind Cornejo MD Unavailable [phone] Andrei Hayes MD Primary Care Provider Derrek Abdullahi MD Primary Care Provider Encounter Details Date Type Department Care Team (Late st Contact Info) Description 09/04/2017 Transcribe Orders [facility] Laboratory [address] [place] [address] Rosalind Cornejo MD [address] [place], [place] [phone] [email or web address] Elevated LFTs (Primary Dx) Social History Tobacco [...] Description 06/23/2025 9:00 AM EST Office Visit [facility] Medicine [address] [place] [address] [place] [address] Katelyn Santa [address] [facility], [address] [place] [address] [email or web address] 07/16/2025 11:20 AM EST Office Visit [facility] [address] [place] [address] Matilda Hannah CNP [address] [facility], 1st [place] [address] documented as of this encounter Results * (ABNORMAL) Hemoglobin A1c (09/04/2017 9:49 AM EST) Pathologist [facility] HEMOGLOBIN A1C 7.4(H) 4.3 - 5.8 % [facility] Blood 09/04/2017 9:49 AM EST 09/04/2017 9:53 AM EST us Rosalind Cornejo MD LAB BLOOD ORDERABLES Final Result [facility] [address] [place] [address] * Cytomegalovirus (CMV) PCR, blood (09/04/2017 9:49 AM EST) CMV DNA DETECT/QUANT <137 Undetected IU/mL [facility] Comment: (NOTE) Result in log IU/mL is <2.14. CMV DNA level detected is <137 IU/mL (2.14 log IU/mL). This assay cannot accurately quantify CMV DNA below this level. ADDITIONAL INFORMATION The quantification range of this assay is 137 to 9,100,000 IU/mL (2.14 log to 6.96 log IU/mL) with a limit of detection at 91 IU/mL (1.96 log IU/mL). Testing was performed by the HUE AmpliPrep/HUE TaqMan CMV Test ([employer] Mutations within the CMV UL54 genomic sequence targeted by this assay may result in under-quantification of or failure to detect this virus in plasma. Testing by an alternative molecular assay should be requested in patients suspected to have clinically significant CMV viremia despite negative or low CMV viral loads with this assay. Blood (Blood) 09/04/2017 9:4 9 AM EST 09/04/2017 9:55 AM EST Rosalind Cornejo MD NON CULTURE MICROBIOLOGY Fi nal Result [facility] [address] [place] [address] documented in this encounter Visit Diagnoses Diagnosis Elevated LFTs- Primary Other abnormal blood chemistry documented in this encounter Care Teams Go Cart Mechanic Relationship Specialty Start Date End Date Rosalind Cornejo MD [address] [place] [email or web address] PCP - General 02/03/14 08/08/23 Sp Gusman DO [address] [place] [address], [address] [place] [address] PCP - General Family Medicine 08/09/23 02/18/24 Andrei Hayes MD [address] [place] [address] PCP - General Family Medicine 02/19/24 09/15/24 Derrek Abdullahi MD [address] [place] [address] [place] [address] PCP - General Internal Medicine 09/16/24 Janak Hassan MD [address] [place] [address] [email or web address] Historical LMR Provider 05/27/17 08/13/21 Tex Lin MD [email or web address] Historical LMR Provider 05/27/17 08/13/21 Juwan Su MD [address] [place] [address] [email or web address] Historical LMR Provider 05/27/17 Rosalind Cornejo MD [address] [place] [address] [email or web address] Historical LMR Provider 05/27/17 08/08/23 John Santoyo CNP [address] [place] [address] Historical LMR Provider 05/27/17 08/13/21 Rosalind Cornejo MD [address] [place] [address] [email or web address] Insurance Assigned Provider 12/07/18 08/08/23 Chanda Fernando, ROVING INSPECTOR [address] [place] [address] Nurse Practitioner 08/09/23 09/15/24 Rosalind Cornejo MD [address] [place] [address] [email or web address] Insurance Assigned Provider 12/07/18 10/13/23 documented as of this encounter Additional Source Comments The information contained in this document represents components of the legal health record. It is not the complete legal health record.[facility]
--- OUTSIDE RECORDS SUMMARY | 2025-04-02 16:16 | XMS_ITS | Encounter Summary ---
Author Organization [facility] Address [address] [place] [address] [place] [phone] Phone Care Team Providers Care Data Entry Assistant Name Role Phone Rosalind Cornejo MD Primary Care Provider [phone] Janak Hassan MD Unavailable [phone] Tex Lin MD Unavailable [email or web address] Juwan Su MD Unavailable [phone] Rosalind Cornejo MD Unavailable [phone] John Santoyo TICK INSPECTOR Unavailable [phone] Rosalind Cornejo MD Unavailable Sp Gusman DO Primary Care Provider Chanda Fernando EMBROIDERY MACHINE OPERATOR Unavailable [phone] Rosalind Cornejo MD Unavailable [phone] Andrei Hayes MD Primary Care Provider Derrek Abdullahi MD Primary Care Provider Encounter Details Date Type Department Care Team (Late st Contact Info) Description 07/05/[address] [facility] Laboratory [address] [place] [address] Rosalind Cornejo MD 15 [place], [place] [phone] [email or web address] Tick bite, subsequent encounter (Primary Dx) Social History Tobacco Use Types [...] Description 06/23/2025 9:00 AM EST Office Visit [facility] Family Medicine [address] [place] [address] Katelyn Santa [address] [facility] [place] [address] [email or web address] 07/16/2025 11:20 AM EST Office Visit [facility] [address] [place] [address] Matilda Hannah, BAILEY [address] [facility], 1st [place] [address] documented as of this encounter Procedures Procedure Name Priority Date/Time Associated Diagnosis Comments CMV ANTIBODY, IGG (BELSANO SENDOUT) Routine 07/05/2017 1:20 PM EST Tick bite, subsequent encounter BABESIA SPECIES PCR Routine 07/05/2017 1 :20 PM EST Tick bite, subsequent encounter BLOOD CULTURE, ROUTINE Routine 7 1:20 PM EST Tick bite, subsequent encounter BLOOD CULTURE, ROUTINE Routine 7 1:20 PM EST Tick bite, subsequent encounter Ehrlichia/anaplasma PCR Routine 07/05/20 17 1:20 PM EST Tick bite, subsequent encounter LYME SCREEN WITH REFLEX TO WESTERN BLOT, BLOOD Routine 07/05/2017 1:20 PM EST Tick bite, subsequent encounter COMPREHENSIVE METABOLIC PANEL Routine 07/05/2017 1:20 PM EST Tick bite, subsequent encounter BABESIA SEROLOGY Routine 07/05/2017 1:20 PM EST Tick bite, subsequent encounter NICK-BOUDREAUX VIRUS (EBV) ANTIBODY PANEL Routine 07/05/2017 1:20 PM EST Tick bite, subsequent encounter CYTOMEGALOVIRUS (CMV) ANTIBODY, IGM Routine 07/05/2017 1:20 PM EST Tick bite, subsequent encounter SEDIMENTATION RATE (ESR) Routine 07/05/2017 1:20 PM EST Tick bite, subsequent encounter CBC AND DIFFERENTIAL Routine 07/05/2017 1:20 PM EST Tick bite, subsequent encounter C-REACTIVE PROTEIN Routine 07/05/2017 1: 20 PM EST Tick bite, subsequent encounter documented in this encounter Results * Blood culture, routine (07/05/2017 1:20 PM EST) Specimen Source/ Description BLOOD Blood BLOOD [facility] Special Requests None [facility] Culture/Test NO GROWTH 5 DAYS [facility] Report Status 07/10/2017 FINAL [facility] Blood (Blood) 07/05/2017 1:2 0 PM EST 07/05/2017 1:35 PM EST Rosalind Cornejo MD MICROBIOLOGY - GENERAL FINA DEXTER Final Result [facility] [address] [place] [address] * Blood culture, routine (07/05/2017 1:20 PM EST) Specimen Source/ Description BLOOD Blood BLOOD [facility] Special Requests None [facility] Culture/Test NO GROWTH 5 DAYS [facility] Report Status 07/10/2017 FINAL [facility] Blood (Blood) 07/05/2017 1:2 0 PM EST 07/05/2017 1:36 PM EST Rosalind Cornejo MD MICROBIOLOGY - GENERAL FINA DEXTER Final Result [facility] [address] [place] [address] * Babesia species PCR (07/05/2017 1:20 PM EST) Pathologist [facility] B.Microti PCR Negative Negative [facility] LAB MED AND PAT+ B.Duncani PCR Negative Negative [facility] DPT OF LAB MED AND PAT+ B.Divergens/MO-1 PCR Negative Negative [facility] DPT OF LAB MED AND PAT+ Comment: (NOTE) ADDITIONAL INFORMATION This test was developed and its performance characteristics determined by [facility] in a manner consistent with CLIA requirements. This test has not been cleared or approved by the U.S. Food and Drug Administration. Blood 07/05/2017 1:20 PM EST 07/05/2017 1:37 PM EST Rosalind Cornejo MD LAB BLOOD ORDERABLES Final Result Performing Organization Address City/[facility] Co de Phone Number [facility] DPT OF LAB MED AND PAT+ [address] [place] [address] * Babesia serology (07/05/2017 1:20 PM EST) BABESIA MICROTI IGG <1:64 [facility] BABESIA MICROTI IGM <1:20 [facility] Interpretation (B. microti) SEE NOTE [facility] Comment: (NOTE) ANTIBODY NOT DETECTED REFERENCE RANGES: IgG <1:64 IgM <1:20 Elevated antibody levels to B. microti indicate exposure to the organism. Human babesiosis infection is transmitted by the bite of an infected Ixodes tick or less frequently from transfusion with blood from an infected donor. Definitive diagnosis is made by identifying intraerythrocytic organisms in peripheral blood. In patients with low parasitemia, antibody detection by IFA is recommended. IgG levels greater than or equal to 1:1024 can be detected in acute phase patients with parasites in blood smears. The IFA assay can be used as a seroepidemiologic tool to study the frequency and distribution of B. microti in endemic areas especially in persons with mixed infections also involving Borrelia burgdorferi. This test was developed and its analytical performance characteristics have been determined by [facility]. It has not been cleared or approved by FDA. This assay has been validated pursuant to the CLIA regulations and is used for clinical purposes. Test Performed by: [facility] [address] [place] [address] Blood (Blood) 07/05/2017 1:2 0 PM EST 07/05/2017 1:37 PM EST us Rosalind Cornejo MD [facility]OLOGY [facility] Final Result Performing Organization Address [facility] Co de Phone Number [facility] * Ehrlichia/anaplasma PCR (07/05/2017 1:20 PM EST) ANAPLASMA PHAGOCYTO Negative Negative [facility] DPT OF LAB MED AND PAT+ EHRLICHIA CHAFFEENS Negative Negative [facility] DPT OF LAB MED AND PAT+ EHRL EWINGII/CANIS Negative Negative [facility] DPT OF LAB MED AND PAT+ EHRL MURIS-LIKE Negative Negative [facility] DPT OF LAB MED AND PAT+ Comment: (NOTE) ADDITIONAL INFORMATION This test was developed and its performance characteristics determined by [facility] in a manner consistent with CLIA requirements. This test has not been cleared or approved by the U.S. Food and Drug Administration. Blood 07/05/2017 1:20 PM EST 07/05/2017 1:37 PM EST us Rosalind Cornejo MD LAB BLOOD ORDERABLES Final Result Performing Organization Address City/[facility]/ZIP Co de Phone Number [facility] DPT OF LAB MED AND PAT+ [address] [place] [address] * Cytomegalovirus (CMV) antibody, IgM (07/05/2017 1:20 PM EST) CMV IGM ANTIBODY Positive Negative [facility] Comment: (NOTE) Results suggest recent infection. Blood (Blood) 07/05/2017 1:2 0 PM EST 07/05/2017 1:37 PM EST us Rosalind Cornejo MD NON CULTURE MICROBIOLOGY Fi nal Result Performing Organization Address [facility] Co de Phone Number [facility]/[address] [place] [address] * CMV antibody, IgG ([place] sendout) (07/05/2017 1:20 PM EST) CYTOMEGALOVIRUS IGG Negative Negative [facility] Blood 07/05/2017 1:20 PM EST 07/05/2017 1:37 PM EST Rosalind Cornejo MD LAB BLOOD ORDERABLES Final Result Performing Organization Address [facility] Phone Number [facility]/[address] [place] [address] * Nick-Boudreaux Virus (EBV) serology (07/05/2017 1:20 PM EST) Pathologist [facility] EBV VCA, IGG Positive Negative [facility] PT LAB [facility] EBV VCA, IGM Negative Negative [facility] EB NUCLEAR AG ABS Positive Negative [facility] EBV AB PANEL INTERP SEE NOTE [facility] Comment: (NOTE) Results suggest past infection. ADDITIONAL INFORMATION In most populations, at least 90% of the adult population will have been infected with EBV sometime in the past and therefore, will be positive for anti-VCA/IgG and anti- EBNA. Antibodies to EBNA develop 6-8 weeks after primary infection and remain present for life. Presence of VCA/ IgM antibodies indicates recent primary infection with EBV. Blood (Blood) 07/05/2017 1:2 0 PM EST 07/05/2017 1:37 PM EST us Rosalind Cornejo MD MICROBIOLOGY - [facility]AL [facility] Final Result [facility] [address] [place] [address] * Sedimentation rate (ESR) (07/05/2017 1:20 PM EST) ESR 8 0 - 20 mm/h [facility] Blood 07/05/2017 1:20 PM EST 07/05/2017 1:36 PM EST us Rosalind Cornejo MD LAB BLOOD ORDERABLES Final Result Performing Organization Address [facility] Co de Phone Number [address] [address] * Lyme screen with reflex to Western blot, blood (07/05/2017 1:20 PM EST) Pathologist [facility] Lyme AB IgG Negative Negative [facility] Lyme AB IgM Negative Negative [facility] Blood 07/05/2017 1:20 PM EST 07/05/2017 1:36 PM EST us Rosalind Cornejo MD LAB BLOOD ORDERABLES Final Result Performing Organization Address [facility] Co de Phone Number [address] [address] * (ABNORMAL) C-Reactive Protein (07/05/2017 1:20 PM EST) Pathologist [facility] C REACTIVE PROTEIN 1.6(H) 0 - 0.5 mg/L [facility] Blood 07/05/2017 1:20 PM EST 07/05/2017 1:36 PM EST us Rosalind Cornejo MD LAB BLOOD ORDERABLES Final Result Performing Organization Address [facility]/ZIP Co de Phone Number [address] [address] * (ABNORMAL) CBC and differential (07/05/2017 1:20 PM EST) WBC 5.18 3.40 - 11.20 K/uL [facility] RBC 4.81 4.50 - 5.50 M/uL [facility] HGB 13.9 13.0 - 17.0 g/dL [facility] HCT 39.7(L) 40.0 - 51.0 % [facility] PLT 187 130 - 400 K/uL [facility] MCV 82.5 79.0 - 98.0 fL [facility] MCH 28.9 27.0 - 34.8 pg [facility] MCHC 35.0 31.5 - 36.0 g/dL [facility] RDW 12.7 10.8 - 14.6 % [facility] MPV 9.0(L) 9.4 - 12.4 fl [facility] NRBC 0.00 /100 WBCs [facility] ABSOLUTE NRBC 0.00 K/uL [facility] DIFF METHOD Auto [facility] NEUTS 43.1(L) 45.30 - 77.70 % [facility] LYMPHS 37.1 12.30 - 39.70 % [facility] MONOS 14.1(H) 4.10 - 12.80 % [facility] EOS 4.1 0 - 7.2 % [facility] BASOS 0.8 0 - 2.80 % [facility] Granulocytes, immature (%) 0.8 0.0 - 0.9 % [facility] ABSOLUTE NEUTS 2.24 1.40 - 7.70 K/uL [facility] ABSOLUTE LYMPHS 1.92 0.60 - 3.20 K/uL [facility] ABSOLUTE MONOS 0.73(H) 0.11 - 0.59 K/uL [facility] ABSOLUTE EOS 0.21 0.01 - 0.50 K/uL [facility] ABSOLUTE BASOS 0.04 0.00 - 0.08 K/uL [facility] Granulocytes, immature 0.04 0.00 - 0.05 K/uL [facility] Blood 07/05/2017 1:20 PM EST 07/05/2017 1:36 PM EST Rosalind Cornejo MD LAB BLOOD ORDERABLES Final Result Performing Organization Address City/[facility]/ZIP Co de Phone Number [address] [address] * (ABNORMAL) Comprehensive metabolic panel (07/05/2017 1:20 PM EST) SODIUM 139 133 - 146 mmol/L [facility] POTASSIUM 4.1 3.3 - 5.1 mmol/L [facility] CHLORIDE 102 96 - 108 mmol/L [facility] CO2 22 21 - 35 mmol/L [facility] BUN 17 6 - 19 mg/dL [facility] CREATININE 1.10 0.5 - 1.5 mg/dL [facility] GLUCOSE 197(H) 70 - 99 mg/dL [facility] ALBUMIN 4.1 3.9 - 4.8 g/dL [facility] TOTAL PROTEIN 6.8 6.5 - 8.0 g/dL [facility] CALCIUM 9.2 8.4 - 10.3 mg/dL [facility] ALKALINE PHOSPHATASE 70 39 - 117 U/L [facility] TOTAL BILIRUBIN 0.4 0 - 1.2 mg/dL [facility] AST 58(H) 0 - 37 U/L [facility] ALT 111(H) 0 - 40 U/L [facility] GLOBULIN 2.7 1 - 4.8 g/dL [facility] EGFR >60 >60 mL/min/1.7 3m2 [facility] Comment:Abnormal if <60. If patient is -[place], multiply the result by 1.21. ANION GAP 19 10 - 20 mmol/L [facility] Blood 07/05/2017 1:20 PM EST 07/05/2017 1:36 PM EST Rosalind Cornejo MD LAB BLOOD ORDERABLES Final Result Performing Organization Address [facility]/ZIP Co de Phone Number [address] [address] documented in this encounter Visit Diagnoses Diagnosis Tick bite, subsequent encounter- Primary documented in this encounter Care Teams Data Entry Assistant Relationship Specialty Start Date End Date Rosalind Cornejo MD [address] [place] [address] [email or web address] PCP - General 02/03/14 08/08/23 Sp Gusman DO [address] [place] [address] PCP - General Family Medicine 08/09/23 02/18/24 Andrei Hayes MD [address] [place] [address] PCP - General Family Medicine 02/19/24 09/15/24 Derrek Abdullahi MD [address] [place] [address] [place] [address] PCP - General Internal Medicine 09/16/24 Janak Hassan MD [address] [place] [address] [email or web address] Historical LMR Provider 05/27/17 08/13/21 Tex Lin MD [email or web address] Historical LMR Provider 05/27/17 08/13/21 Juwan Su MD [address] [place] [address] Historical LMR Provider 05/27/17 Rosalind Cornejo MD [address] [place] [address] Historical LMR Provider 05/27/17 08/08/23 John Santoyo, TICK INSPECTOR [address] [address] [email or web address] Historical LMR Provider 05/27/17 08/13/21 Rosalind Cornejo MD [address] [place] [email or web address] Insurance Assigned Provider 12/07/18 08/08/23 Chanda Fernando NP [address] [place] [address] Nurse Practitioner 08/09/23 09/15/24 Rosalind Cornejo MD [address] [place] [address] [email or web address] Insurance Assigned Provider 12/07/18 10/13/23 documented as of this encounter Additional Source Comments The information contained in this document represents components of the legal health record. It is not the complete legal health record.[facility]
--- OUTSIDE RECORDS SUMMARY | 2025-04-02 16:16 | XMS_ITS | Clinical Summary ---
Author Organization [facility] Address [address] [place] [address] [place] [address] Phone Care Team Providers Care Candy Catcher Name Role Phone Juwan Su MD Unavailable [phone] Derrek Abdullahi MD Primary Care Provider [phone] Allergies Active Allergy Reactions Criticality Noted Date [...] trial. Procedures: Glucose Monitoring: Type of Sensor: [employer] G6 Pro Instruction: Patient Instructed on:, Calibrations, [...] in 2 weeks to drop off at desk maker or follow up appointment. Assessment & Plan [...] normal today. Labs >2 years old in [facility], has had recent labs at [facility] which we can request [...] Description 01/15/2025 11:20 AM EDT Office Visit [facility] [address] [place] [address] Matilda Hannah CNP Type 2 diabetes mellitus without complication, without long-term current use of insulin (Primary Dx) 01/06/2025 10:30 AM EDT Nurse Only [facility] [address] [place] [address] Matilda Hannah CNP Type 2 diabetes mellitus without complication, without long-term current use of insulin (Primary Dx) from Last 3 Months Immunizations Immunization Administration [...] Description 06/23/2025 9:00 AM EST Office Visit [facility] [address] [place] [address] [place] [address] Katelyn Santa 22 [facility], [address] [place] [address] [email or web address] 07/16/2025 11:20 AM EST Office Visit [facility] [address] [place] [address] [place] [address] Matilda Hannah CNP 22 [facility], 1st [place] [address] Health Maintenance Due Date Last Done Comments [...] Hemoglobin A1c 6.0(A) 4.2 - 5.6 % [facility] Other 01/15/2025 11:4 8 AM EDT us Matilda Hannah CNP POINT OF CARE TEST ORDERABLES Final Result Performing Organization Address [facility] Co de Phone Number [address] [address], [facility] * (ABNORMAL) Basic metabolic panel (08/10/2020 1:05 AM EST) SODIUM 139 133 - 146 mmol/L [facility] CHLORIDE 103 96 - 108 mmol/L [facility] POTASSIUM 4.5 3.3 - 5.1 mmol/L [facility] CO2 28 21 - 35 mmol/L [facility] BUN 19 6 - 19 mg/dL [facility] CREATININE 1.10 0.5 - 1.5 mg/dL [facility] GLUCOSE 156(H) 70 - 99 mg/dL [facility] CALCIUM 9.4 8.4 - 10.3 mg/dL [facility] EGFR 71 >59 mL/min/1.7 3m2 [facility] Comment:Estimated glomerular filtration rate calculated using the CKD-EPI equation. ANION GAP 13 10 - 20 mmol/L [facility] Blood 08/10/2020 1:05 AM EST 08/10/2020 1:29 AM EST us Jeromy Klein MD LAB BLOOD ORDERABLES Fin al Result Performing Organization Address [facility] Co de Phone Number [address] [address] * ENDOSCOPY, COLON (01/08/2018 5:39 PM EDT) Narrative Transcriptions Ray Hernandez MD - 01/08/2018 5:39 PM EDT Patient Name: John Roa Attending MD:: RAY HERNANDEZ MD Procedure Date: 01/08/2018 5:39 PM Date of : 1955 Age: 62 Admit Type: Outpatient Gender: Male Room: 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 All rights reserved. The codes documented in this report are preliminary and upon health and safety technician reviewmay be revised to meet current compliance requirements. [address] [place] [address] [phone] us Rosalind Hutchins MD GI PROCEDURE ORDERABLES Fin al Result * Lipid panel (09/04/2017 9:49 AM EST) HDL 47 mg/dL [facility] Comment: Interpretation: Risk Level Males Decreased >45 mg/dL Average 40-45 mg/dL Increased <40 mg/dL CHOLESTEROL 195 0 - 240 mg/dL [facility] TRIGLYCERIDES 113 30 - 160 mg/dL [facility] LDL 125 50 - 129 mg/dL [facility] Comment: LDL levels in terms of risk for coronary heart disease: <100 mg/dL: Optimal 100-129 mg/dL: Near or above optimal 130-159 mg/dL: Borderline high 160-189 mg/dL: High >190 mg/dL: Very High CARDIAC RISK RATIO 4.1 3.4 - 5.0 [facility] Blood 09/04/2017 9:49 AM EST 09/04/2017 9:53 AM EST us Raymond Shafer MD LAB BLOOD ORDERABLES Final Resul t [address] [address] from Last 3 Months or Most Recently Relevant to Health Maintenance [place] [address] [address] [place] [address] [place] [address] [place] [address] [place] [address] [facility] Care Teams Candy Catcher Relationship Specialty Start Date End Date Derrek Abdullahi MD [address] [place] [address] PCP - General Internal Medicine 09/16/24 Juwan Su MD [address] [place] [address] [email or web address] Historical LMR Provider 05/27/17 Additional Source Comments The information contained in this document represents components of the legal health record. It is not the complete legal health record.[facility]
--- OUTSIDE RECORDS SUMMARY | 2025-04-02 16:16 | XMS_ITS | Encounter Summary ---
Author Organization [facility] Address [address] [place] [address] [place] [address] Phone Care Team Providers Care Basket Hand Weaver Name Role Phone Rosalind Cornejo MD Primary Care Provider [phone] Janak Hassan MD Unavailable [phone] Tex Lin MD Unavailable [email or web address] Juwan Su MD Unavailable [phone] Rosalind Cornejo MD Unavailable [phone] John Santoyo MARKET DEVELOPMENT ANALYST Unavailable [phone] Rosalind Cornejo MD Unavailable [phone] Sp Gusman DO Primary Care Provider Chanda Fernando PARTS COUNTER SPECIALIST Unavailable [phone] Rosalind Cornejo MD Unavailable [phone] Andrei Hayes MD Primary Care Provider Derrek Abdullahi MD Primary Care Provider Encounter Details Date Type Department Care Team (Late st Contact Info) Description 04/02/2018 Ancillary Orders Virtual Department [address] [place] [address] Bernadette Tinsley, BARBARA [address] [place] [address] [email or web address] Kidney stone Social History Tobacco Use Types Packs/Day Years [...] Description 06/23/2025 9:00 AM EST Office Visit [facility] [address] [place] [address] Katelyn Santa 22 [facility], [address] [place] [address] [email or web address] 07/16/2025 11:20 AM EST Office Visit [facility] [address] [place] [address] Matilda Hannah, BAILEY 22 [facility], 1st [place] [address] [email or web address] documented as of this encounter Visit Diagnoses Diagnosis Kidney stone Calculus of kidney documented in this encounter Care Teams Basket Hand Weaver Relationship Specialty Start Date End Date Rosalind Cornejo MD [address] [place] [address] PCP - General 02/03/14 08/08/23 Sp Gusman DO 15 [facility], [address] [place] [address] PCP - General Family Medicine 08/09/23 02/18/24 Andrei Hayes MD [address] [place] [address] PCP - General Family Medicine 02/19/24 09/15/24 Derrek Abdullahi MD [address] [place] [address] [place] [address] PCP - General Internal Medicine 09/16/24 Janak Hassan MD [address] [place] [address] [email or web address] Historical LMR Provider 05/27/17 08/13/21 Tex Lin MD [email or web address] Historical LMR Provider 05/27/17 08/13/21 Juwan Su MD [address] [place] [address] [email or web address] Historical LMR Provider 05/27/17 Rosalind Cornejo MD [address] [place] [address] [email or web address] Historical LMR Provider 05/27/17 08/08/23 John Santoyo MARKET DEVELOPMENT ANALYST [address] [place] [address] Historical LMR Provider 05/27/17 08/13/21 Rosalind Cornejo MD [address] [place] [address] [email or web address] Insurance Assigned Provider 12/07/18 08/08/23 Chanda Fernando PARTS COUNTER SPECIALIST [address] [place] [address] Nurse Practitioner 08/09/23 09/15/24 Rosalind Cornejo MD [address] [place] [address] [email or web address] Insurance Assigned Provider 12/07/18 10/13/23 documented as of this encounter Additional Source Comments The information contained in this document represents components of the legal health record. It is not the complete legal health record.[facility]
--- OUTSIDE RECORDS SUMMARY | 2025-04-02 16:16 | XMS_ITS | Encounter Summary ---
Author Organization [facility] Address [address] [place] [address] Phone Care Team Providers Care Housekeeper Head Name Role Phone Rosalind Cornejo MD Primary Care Provider [phone] Janak Hassan MD Unavailable [phone] Tex Lin MD Unavailable [email or web address] Juwan Su MD Unavailable [phone] Rosalind Cornejo MD Unavailable John Santoyo BULL DRIVER Unavailable [phone] Rosalind Cornejo MD Unavailable [phone] Sp Gusman DO Primary Care Provider Chanda Fernando ASSISTANT PRODUCT MANAGER Unavailable [phone] Rosalind Cornejo MD Unavailable [phone] Andrei Hayes MD Primary Care Provider Derrek Abdullahi MD Primary Care Provider Encounter Details Date Type Department Care Team (Latest Contact Info) Description 06/08/2017 Transcribe Orders [facility] Laboratory [address] [place] [address] Gm Torres MD Replaced by [facility], [address] [place] [address] [email or web address] 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) Social History Tobacco Use Types [...] Description 06/23/2025 9:00 AM EST Office Visit [facility] [address] [place] [address] Katelyn Santa 22 [facility] [place] [facility], [address] [place] [address] [email or web address] 07/16/2025 11:20 AM EST Office Visit [facility] [address] [place] [address] Matilda Hannah, BAILEY 22 [facility] [place] [facility], 1st [place] [address] documented as of this encounter Procedures Procedure Name Priority Date/Time Associated Diagnosis Comments PSA (SCREENING) Routine 06/08/2017 9:12 AM EDT Benign localized hyperplasia of prostate with urinary retention documented in this encounter Results * PSA (screening) (06/08/2017 9:12 AM EDT) PSA 0.34 0 - 4.00 ng/mL [facility] Blood 06/08/2017 9:12 AM EDT 06/08/2017 9:20 AM EDT us Gm Torres MD LAB BLOOD ORDERABLES Final Res ult [facility] [address] [place] [address] documented in this encounter Visit Diagnoses Diagnosis Benign localized hyperplasia of prostate with urinary retention- Primary Benign localized hyperplasia of prostate with urinary obstruction and other lower urinary tract symptoms (LUTS) documented in this encounter Care Teams Housekeeper Head Relationship Specialty Start Date End Date Rosalind Cornejo MD [address] [place] [address] [email or web address] PCP - General 02/03/14 08/08/23 Sp Gusman DO [address] [place] [address] PCP - General Family Medicine 08/09/23 02/18/24 Andrei Hayes MD [address] [place] [address] PCP - General Family Medicine 02/19/24 09/15/24 Derrek Abdullahi MD [address] [place] [address] [email or web address] [place] [address] PCP - General Internal Medicine 09/16/24 Janak Hassan MD [address] [place] [address] [email or web address] Historical LMR Provider 05/27/17 08/13/21 Tex Lin MD [email or web address] Historical LMR Provider 05/27/17 08/13/21 Juwan Su MD [address] [place] [address] [email or web address] Historical LMR Provider 05/27/17 Rosalind Cornejo MD [address] [place] [address] Historical LMR Provider 05/27/17 08/08/23 John Santoyo CNP 15 [facility] [place] [facility], [address] [place] [address] Historical LMR Provider 05/27/17 08/13/21 Rosalind Cornejo MD [address] [place] [address] [email or web address] Insurance Assigned Provider 12/07/18 08/08/23 Chanda Fernando NP [address] [place] [address] Nurse Practitioner 08/09/23 09/15/24 Rosalind Cornejo MD [address] [place] [address] [email or web address] Insurance Assigned Provider 12/07/18 10/13/23 documented as of this encounter Additional Source Comments The information contained in this document represents components of the legal health record. It is not the complete legal health record.[facility]
--- OUTSIDE RECORDS SUMMARY | 2025-04-02 16:16 | XMS_ITS | Encounter Summary ---
Author Organization [facility] Address [address] [place] [address] [place] [address] Phone Care Team Providers Care Mushroom Sorter Grader Name Role Phone Rosalind Cornejo MD Primary Care Provider [phone] Janak Hassan MD Unavailable [phone] Tex Lin MD Unavailable [email or web address] Juwan Su MD Unavailable [phone] Rosalind Cornejo MD Unavailable [phone] John Santoyo PILE DRIVING TECHNICIAN Unavailable [phone] Rosalind Cornejo MD Unavailable [phone] Sp Gusman DO Primary Care Provider Chanda Fernando POLE SANDER OPERATOR Unavailable [phone] Rosalind Cornejo MD Unavailable [phone] Andrei Hayes MD Primary Care Provider Derrek Abdullahi MD Primary Care Provider Encounter Details Date Type Department Care Team (Late st Contact Info) Description 07/16/2017 Ancillary Orders [facility] Department [address] [place] [address] [phone] Rosalind Cornejo MD [address] [place] [address] [phone] [email or web address] Abdominal pain, unspecified abdominal location; Elevated LFTs Social History Tobacco Use Types [...] Description 06/23/2025 9:00 AM EST Office Visit [address] [place] [address] Katelyn Santa 22 [facility], [address] [place] [address] [email or web address] 07/16/2025 11:20 AM EST Office Visit [facility] [address] [place] [address] Matilda Hannah, BAILEY [address] [place] [address], [address] [place] [address] documented as of this encounter Visit Diagnoses Diagnosis Abdominal pain, unspecified abdominal location Elevated LFTs Other abnormal blood chemistry documented in this encounter Care Teams Mushroom Sorter Grader Relationship Specialty Start Date End Date Rosalind Cornejo MD [address] [place] [phone] [email or web address] PCP - General 02/03/14 08/08/23 Sp Gusman DO [address] [address] PCP - General Family Medicine 08/09/23 02/18/24 Andrei Hayes MD [address] [place] [address] PCP - General Family Medicine 02/19/24 09/15/24 Derrek Abdullahi MD [address] [place] [address] [place] [address] PCP - General Internal Medicine 09/16/24 Janak Hassan MD [address] [place] [address] [email or web address] Historical LMR Provider 05/27/17 08/13/21 Tex Lin MD [email or web address] Historical LMR Provider 05/27/17 08/13/21 Juwan Su MD [address] [place] [address] [email or web address] Historical LMR Provider 05/27/17 Rosalind Cornejo MD [address] [place] [address] [email or web address] Historical LMR Provider 05/27/17 08/08/23 John Santoyo CNP [address] [place] [address] [email or web address] Historical LMR Provider 05/27/17 08/13/21 Rosalind Cornejo MD [address] [place] [address] [email or web address] Insurance Assigned Provider 12/07/18 08/08/23 Chanda Fernando, POLE SANDER OPERATOR [address] [place] [address] Nurse Practitioner 08/09/23 09/15/24 Rosalind Cornejo MD [address] [place] [address] [email or web address] Insurance Assigned Provider 12/07/18 10/13/23 documented as of this encounter Additional Source Comments The information contained in this document represents components of the legal health record. It is not the complete legal health record.[facility]
--- OUTSIDE RECORDS SUMMARY | 2025-04-02 16:16 | XMS_ITS | Encounter Summary ---
Author Organization [facility] Address [address] [place] [address] [place] [address] Phone Care Team Providers Care Bracelet Maker Novelty Name Role Phone Rosalind Cornejo MD Primary Care Provider [phone] Janak Hassan MD Unavailable [phone] Tex Lin MD Unavailable [email or web address] Juwan Su MD Unavailable [phone] Rosalind Cornejo MD Unavailable [phone] John Santoyo UTILIZATION MANAGEMENT NURSE Unavailable [phone] Rosalind Cornejo MD Unavailable [phone] Sp Gusman DO Primary Care Provider [phone] Chanda Fernando DIRECTOR OF STRATEGY & MOBILE Unavailable [phone] Rosalind Cornejo MD Unavailable [phone] Andrei Hayes MD Primary Care Provider Derrek Abdullahi MD Primary Care Provider [phone] Encounter Details Date Type Department Care Team (Late st Contact Info) Description 09/04/2017 Transcribe Orders [facility] Laboratory [address] [place], [place] [phone] Enma Cornejo, PhD Social History Tobacco Use Types Packs/Day Years [...] Description 06/23/2025 9:00 AM EST Office Visit [facility] [address] [place] [address] Katelyn Santa 22 [facility], [address] [place] [address] [email or web address] 07/16/2025 11:20 AM EST Office Visit [facility] [address] [place] [address] Matilda Hannah CNP 22 [facility], [address] [place] [address] documented as of this encounter Visit Diagnoses Not on filedocumented in this encounter Care Teams Bracelet Maker Novelty Relationship Specialty Start Date End Date Rosalind Cornejo MD [address] [place] [address] PCP - General 02/03/14 08/08/23 Sp Gusman DO [address] [address] PCP - General Family Medicine 08/09/23 02/18/24 Andrei Hayes MD [address] [place] [address] PCP - General Family Medicine 02/19/24 09/15/24 Derrek Abdullahi MD [address] [place] [address] [place] [address] PCP - General Internal Medicine 09/16/24 Janak Hassan MD [address] [place] [address] [email or web address] Historical LMR Provider 05/27/17 08/13/21 Tex Lin MD [email or web address] Historical LMR Provider 05/27/17 08/13/21 Juwan Su MD [address] [place] [address] [email or web address] Historical LMR Provider 05/27/17 Rosalind Cornejo MD [address] [place] [address] [email or web address] Historical LMR Provider 05/27/17 08/08/23 John Santoyo UTILIZATION MANAGEMENT NURSE [address] [place] [address] [email or web address] Historical LMR Provider 05/27/17 08/13/21 Rosalind Cornejo MD [address] [place] [address] [email or web address] Insurance Assigned Provider 12/07/18 08/08/23 Chanda Fernando, DIRECTOR OF STRATEGY & MOBILE [address] [place] [address] Nurse Practitioner 08/09/23 09/15/24 Rosalind Cornejo MD [address] [place] [address] [email or web address] Insurance Assigned Provider 12/07/18 10/13/23 documented as of this encounter Additional Source Comments The information contained in this document represents components of the legal health record. It is not the complete legal health record.[facility]
--- OUTSIDE RECORDS SUMMARY | 2025-04-02 16:16 | XMS_ITS | Encounter Summary ---
Author Organization [facility] Address [address] [place] [address] [place] [address] Phone Care Team Providers Care Script Developer Name Role Phone Rosalind Cornejo MD Primary Care Provider [phone] Janak Hassan MD Unavailable [phone] Tex Lin MD Unavailable [email or web address] Juwan Su MD Unavailable [phone] Rosalind Cornejo MD Unavailable [phone] John Santoyo AWNING CRAFTSMAN Unavailable [phone] Rosalind Cornejo MD Unavailable [phone] Sp Gusman DO Primary Care Provider Chanda Fernando CEMENTER MACHINE JOINER Unavailable [phone] Rosalind Cornejo MD Unavailable [phone] Andrei Hayes MD Primary Care Provider Derrek Abdullahi MD Primary Care Provider Encounter Details Date Type Department Care Team (Late st Contact Info) Description 07/23/2017 Ancillary Orders [facility] Department [address] [place] [address] [phone] Rosalind Cornejo MD [address] [place] [address] [phone] [email or web address] Abdominal pain, unspecified abdominal location; Elevated LFTs [...] Description 06/23/2025 9:00 AM EST Office Visit [facility] [address] [place] [address] [place] [address] Katelyn Santa 22 [facility] [address] [place] [address] [email or web address] 07/16/2025 11:20 AM EST Office Visit [facility] [address] [place] [address] Matilda Hannah CNP 22 [facility], 1st [place] [address] documented as of this encounter Results * US ABDOMEN LIMITED RIGHT UPPER QUADRANT (07/23/2017 9:49 AM EST) Anatomical Region Laterality Modality Abdomen Ultrasound 07/23/2017 1:22 PM EST Impressions 07/23/2017 1:25 PM EST Findings consistent with fatty infiltration of the liver. No definite signs of hepatic cirrhosis or evidence of portal venous hypertension. POS - [id number] Narrative 07/23/2017 1:25 PM EST HISTORY: Pain and elevated LFTs. COMPARISON: Ultrasound kidneys 06/08/2017, CT abdomen 11/06/2016. FINDINGS: A right upper quadrant study is performed. Biliary: The gallbladder appears normal. Proximal common duct normal measuring 5 mm in diameter. Liver: The liver is mildly hyperechoic diffusely, and the liver is somewhat difficult to penetrate with sound. Small geographic area of more normal liver echogenicity adjacent to the gallbladder. No visible hepatic masses. The liver is not grossly enlarged. Pancreas: No abnormalities demonstrated. Right Kidney: Kidney is not entirely imaged but no abnormalities are demonstrated. Procedure Note Julito Mercado MD - 07/23/2017 HISTORY: Pain and elevated LFTs. COMPARISON: Ultrasound kidneys 06/08/2017, CT abdomen 11/06/2016. FINDINGS: A right upper quadrant study is performed. Biliary: The gallbladder appears normal. Proximal common duct normalmeasuring 5 mm in diameter. Liver: The liver is mildly hyperechoic diffusely, and the liver issomewhat difficult to penetrate with sound. Small geographic area of morenormal liver echogenicity adjacent to the gallbladder. No visible hepaticmasses. The liver is not grossly enlarged. Pancreas: No abnormalities demonstrated. Right Kidney: Kidney is not entirely imaged but no abnormalities aredemonstrated. IMPRESSION: Findings consistent with fatty infiltration of the liver. No definitesigns of hepatic cirrhosis or evidence of portal venous hypertension. POS - [id number] us Rosalind Cornejo MD IMG US ABDOMEN Final Resul t documented in this encounter Visit Diagnoses Diagnosis Abdominal pain, unspecified abdominal location Elevated LFTs Other abnormal blood chemistry Abdominal pain, unspecified abdominal location Elevated LFTs Other abnormal blood chemistry documented in this encounter Care Teams Script Developer Relationship Specialty Start Date End Date Rosalind Cornejo MD [address] [place] [address] PCP - General 02/03/14 08/08/23 Sp Gusman DO [address] [place] [address], [address] [place] [address] PCP - General Family Medicine 08/09/23 02/18/24 Andrei Hayes MD [address] [place] [address] PCP - General Family Medicine 02/19/24 09/15/24 Derrek Abdullahi MD [address] [place] [address] [place] [address] PCP - General Internal Medicine 09/16/24 Janak Hassan MD [address] [place] [address] [email or web address] Historical LMR Provider 05/27/17 08/13/21 Tex Lin MD [email or web address] Historical LMR Provider 05/27/17 08/13/21 Juwan Su MD [address] [place] [address] [email or web address] Historical LMR Provider 05/27/17 Rosalind Cornejo MD [address] [place] [address] [email or web address] Historical LMR Provider 05/27/17 08/08/23 John Santoyo CNP [address] [place] [address] Historical LMR Provider 05/27/17 08/13/21 Rosalind Cornejo MD [address] [place] [address] [email or web address] Insurance Assigned Provider 12/07/18 08/08/23 Chanda Fenrando, RUPINDER [address] [place] [address] Nurse Practitioner 08/09/23 09/15/24 Rosalind Cornejo MD [address] [place] [address] [email or web address] Insurance Assigned Provider 12/07/18 10/13/23 documented as of this encounter Additional Source Comments The information contained in this document represents components of the legal health record. It is not the complete legal health record.[facility]
--- OUTSIDE RECORDS SUMMARY | 2025-04-02 16:16 | XMS_ITS | Encounter Summary ---
Author Organization [facility] Address [address] [place] [address] [place] [address] Phone Care Team Providers Care Polyethylene Bag Machine Operator Name Role Phone Rosalind Cornejo MD Primary Care Provider [phone] Janak Hassan MD Unavailable [phone] Tex Lin MD Unavailable [email or web address] Juwan Su MD Unavailable [phone] Rosalind Cornejo MD Unavailable [phone] John Santoyo GARAGE SUPERVISOR Unavailable [phone] Rosalind Cornejo MD Unavailable [phone] Sp Gusman DO Primary Care Provider Chanda Fernando CADD OPERATOR Unavailable [phone] Rosalind Cornejo MD Unavailable [phone] Andrei Hayes MD Primary Care Provider Derrek Abdullahi MD Primary Care Provider Encounter Details Date Type Department Care Team (Late st Contact Info) Description 09/07/2017 Transcribe Orders [facility] Specimen Processing 30 [place], [place] [phone] Rosalind Cornejo MD 15 [place], [place] [phone] Social History Tobacco Use Types Packs/Day Years [...] Description 06/23/2025 9:00 AM EST Office Visit [address] [place] [address] Katelyn Santa 22 [facility] [address] [place] [address] [email or web address] 07/16/2025 11:20 AM EST Office Visit [facility] [address] [place] [address] Matilda Hannah CNP [address] [place] [address], [address] [place] [address] documented as of this encounter Visit Diagnoses Not on filedocumented in this encounter Care Teams Polyethylene Bag Machine Operator Relationship Specialty Start Date End Date Rosalind Cornejo MD [address] [place] [address] PCP - General 02/03/14 08/08/23 Sp Gusman DO [address] [address] PCP - General Family Medicine 08/09/23 02/18/24 Andrei Hayes MD [address] [place] [address] PCP - General Family Medicine 02/19/24 09/15/24 Derrek Abdullahi MD [address] [place] [address] [address] PCP - General Internal Medicine 09/16/24 Janak Hassan MD [address] [place] [address] [email or web address] Historical LMR Provider 05/27/17 08/13/21 Tex Lin MD [email or web address] Historical LMR Provider 05/27/17 08/13/21 Juwan Su MD [address] [place] [address] [email or web address] Historical LMR Provider 05/27/17 Rosalind Cornejo MD [address] [place] [address] [email or web address] Historical LMR Provider 05/27/17 08/08/23 John Santyoo CNP [address] [place] [address] [email or web address] Historical LMR Provider 05/27/17 08/13/21 Rosalind Cornejo MD [address] [place] [address] [email or web address] Insurance Assigned Provider 12/07/18 08/08/23 Chanda Fernando, CADD OPERATOR [address] [place] [address] Nurse Practitioner 08/09/23 09/15/24 Rosalind Cornejo MD [address] [place] [address] [email or web address] Insurance Assigned Provider 12/07/18 10/13/23 documented as of this encounter Additional Source Comments The information contained in this document represents components of the legal health record. It is not the complete legal health record.[facility]
--- OUTSIDE RECORDS SUMMARY | 2025-04-02 16:16 | XMS_ITS | Encounter Summary ---
Author Organization [facility] Address [address] [facility] [place] [address] Phone Care Team Providers Care Machine Operations Supervisor Name Role Phone Rosalind Cornejo MD Primary Care Provider Janak Hassan MD Unavailable [phone] Tex Lin MD Unavailable [email or web address] Juwan Su MD Unavailable [phone] Rosalind Cornejo MD Unavailable John Santoyo MERINGUER Unavailable [phone] Rosalind Cornejo MD Unavailable [phone] Sp Gusman DO Primary Care Provider Chanda Fernando NIGHT TIME BABYSITTER Unavailable [phone] Rosalind Cornejo MD Unavailable [phone] Andrei Hayes MD Primary Care Provider Derrek Abdullahi MD Primary Care Provider Encounter Details Date Type Department Care Team (Latest Contact Info) Description 09/04/2017 Transcribe Orders [facility] Laboratory 30 [place], [place] [phone] Raymond Shafer MD [address] [facility] [address] [place], [place] [phone] [email or web address] Uric acid nephrolithiasis (Primary Dx) Social History [...] Description 06/23/2025 9:00 AM EST Office Visit [facility] [address] [place] [address] Katelyn Santa 22 [facility] [address] [place] [address] [email or web address] 07/16/2025 11:20 AM EST Office Visit [facility] [address] [place] [address] Matilda Hannah CNP [address] [facility], 1st [place] [address] documented as of this encounter Results * (ABNORMAL) Urinalysis w/reflex Urine Culture (09/04/2017 9:49 AM EST) COLOR STRAW(A) Yellow [facility] CLARITY Clear [facility] GLUCOSE 3+(A) Negative [facility] BILI Negative Negative [facility] KETONES Negative Negative [facility] SPECIFIC GRAVITY 1.015 1.005 - 1.030 [facility] BLOOD Negative Negative [facility] PH 5.5 5.0 - 8.0 [facility] Protein-UA Negative Negative [facility] NITRITE Negative Negative [facility] Leukocyte esterase, ur Negative Negative [facility] Urine (Urine) 09/04/2017 9:4 9 AM EST 09/04/2017 9:56 AM EST us Raymond Shafer MD URINE ORDERABLES Final Result [address] [address] * (ABNORMAL) Uric acid (09/04/2017 9:49 AM EST) URIC ACID 7.7(H) 2.4 - 7.0 mg/dL [facility] Blood 09/04/2017 9:49 AM EST 09/04/2017 9:53 AM EST us Raymond Shafer MD LAB BLOOD ORDERABLES Final Resul t Performing Organization Address City/[facility]/ZIP Co de Phone Number [address] [address] * Parathyroid hormone (PTH) (09/04/2017 9:49 AM EST) PARATHYROID HORMONE 31 15 - 65 pg/mL [facility] Blood 09/04/2017 9:49 AM EST 09/04/2017 9:57 AM EST us Raymond Shfaer MD LAB BLOOD ORDERABLES Final Resul t Performing Organization Address [facility] Co de Phone Number [address] [address] * Lipid panel (09/04/2017 9:49 AM EST) HDL 47 mg/dL [facility] Comment: Interpretation: Risk Level Males Decreased >45 mg/dL Average 40-45 mg/dL Increased <40 mg/dL CHOLESTEROL 195 0 - 240 mg/dL [facility] TRIGLYCERIDES 113 30 - 160 mg/dL [facility] LDL 125 50 - 129 mg/dL [facility] Comment: LDL levels in terms of risk for coronary heart disease: <100 mg/dL: Optimal 100-129 mg/dL: Near or above optimal 130-159 mg/dL: Borderline high 160-189 mg/dL: High >190 mg/dL: Very High CARDIAC RISK RATIO 4.1 3.4 - 5.0 C [facility] Blood 09/04/2017 9:49 AM EST 09/04/2017 9:53 AM EST us Raymond Shafer MD LAB BLOOD ORDERABLES Final Resul t [address] [address] * 25-OH vitamin D (09/04/2017 9:49 AM EST) 25 OH VIT D (TOTAL) 46 30 - 1,000 ng/mL [facility] Blood 09/04/2017 9:49 AM EST 09/04/2017 9:53 AM EST us Raymond Shafer MD LAB BLOOD ORDERABLES Final Resul t Performing Organization Address [facility] Co de Phone Number [address] [address] * (ABNORMAL) Renal panel (09/04/2017 9:49 AM EST) SODIUM 141 133 - 146 mmol/L [facility] POTASSIUM 4.5 3.3 - 5.1 mmol/L [facility] CHLORIDE 102 96 - 108 mmol/L [facility] CO2 28 21 - 35 mmol/L [facility] GLUCOSE 135(H) 70 - 99 mg/dL [facility] BUN 23(H) 6 - 19 mg/dL [facility] CREATININE 1.20 0.5 - 1.5 mg/dL [facility] CALCIUM 9.8 8.4 - 10.3 mg/dL [facility] PHOSPHORUS 3.3 2.7 - 4.5 mg/dL [facility] ALBUMIN 4.6 3.9 - 4.8 g/dL [facility] EGFR >60 >60 mL/min/1.7 3m2 [facility] Comment:Abnormal if <60. If patient is -Palestinian, multiply the result by 1.21. ANION GAP 16 10 - 20 mmol/L [facility] Blood 09/04/2017 9:49 AM EST 09/04/2017 9:53 AM EST us Raymond Shafer MD LAB BLOOD ORDERABLES Final Resul t [address] [address] documented in this encounter 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 Care Teams Machine Operations Supervisor Relationship Specialty Start Date End Date Rosalind Cornejo MD [address] [place] [address] [email or web address] PCP - General 02/03/14 08/08/23 Sp Gusman DO [address] [place] [address] PCP - General Family Medicine 08/09/23 02/18/24 Andrei Hayes MD [address] [place] [address] PCP - General Family Medicine 02/19/24 09/15/24 Derrek Abdullahi MD [address] [place] [address] [place] [address] PCP - General Internal Medicine 09/16/24 Janak Hassan MD [address] [place] [address] [email or web address] Historical LMR Provider 05/27/17 08/13/21 Tex Lin MD [email or web address] Historical LMR Provider 05/27/17 08/13/21 Juwan Su MD [address] [place] [address] [email or web address] Historical LMR Provider 05/27/17 Rosalind Cornejo MD [address] [place] [address] Historical LMR Provider 05/27/17 08/08/23 John Santoyo CNP [address] [place] [address], 2nd [place] [address] Historical LMR Provider 05/27/17 08/13/21 Rosalind Cornejo MD [address] [place] [address] [email or web address] Insurance Assigned Provider 12/07/18 08/08/23 Chanda Fernando NIGHT TIME BABYSITTER [address] [place] [address] Nurse Practitioner 08/09/23 09/15/24 Rosalind Cornejo MD [address] [place] [address] [email or web address] Insurance Assigned Provider 12/07/18 10/13/23 documented as of this encounter Additional Source Comments The information contained in this document represents components of the legal health record. It is not the complete legal health record.[facility]
== END 2025-04-02 17:01 | disposition home or self-care (01) ==
LOC: HO.HMCH 15:56
PROVIDERS: PCP Nurse Practitioner Family; Visit Provider Internal Medicine
DX: I63.40 Cerebral infarction due to embolism of unspecified cerebral artery (principal); E11.8 Type 2 diabetes mellitus with unspecified complications; E66.01 Morbid (severe) obesity due to excess calories; Z68.29 Body mass index [BMI] 29.0-29.9, adult; I10 Essential (primary) hypertension; E78.00 Pure hypercholesterolemia, unspecified; G47.33 Obstructive sleep apnea (adult) (pediatric); K21.9 Gastro-esophageal reflux disease without esophagitis; M51.360 Other intervertebral disc degeneration, lumbar region with discogenic back pain only

== ENCOUNTER → 2025-04-02 15:55 | Outpatient (BNVA) | payer BC, SELFPAY | PROVIDERS: PCP Nurse Practitioner Family; Visit Provider Internal Medicine | DX: I10 Essential (primary) hypertension (principal); E11.8 Type 2 diabetes mellitus with unspecified complications; E78.00 Pure hypercholesterolemia, unspecified; G47.33 Obstructive sleep apnea (adult) (pediatric); K21.9 Gastro-esophageal reflux disease without esophagitis; M51.360 Other intervertebral disc degeneration, lumbar region with discogenic back pain only; E66.01 Morbid (severe) obesity due to excess calories; R30.0 Dysuria; Z86.73 Personal history of transient ischemic attack (TIA), and cerebral infarction without residual deficits; Z68.29 Body mass index [BMI] 29.0-29.9, adult | CPT/HCPCS: 96127 ==

== ENCOUNTER 2025-06-02 08:46 | Outpatient (REF) | payer BC, SELFPAY ==
--- OUTSIDE RECORDS SUMMARY | 2025-06-03 09:29 | XMS_ITS | Clinical Summary ---
Author Organization [facility] Address [address] [place] [address] [place] [address] Phone Care Team Providers Care Director Of Cath Lab Name Role Phone Juwan Su MD Unavailable [phone] Derrek Abdullahi MD Primary Care Provider [phone] Allergies Active Allergy Reactions Criticality Noted Date [...] trial. Procedures: Glucose Monitoring: Type of Sensor: [employer] G6 Pro Instruction: Patient Instructed on:, Calibrations, [...] in 2 weeks to drop off at electrician front or follow up appointment. Assessment & Plan [...] normal today. Labs >2 years old in [facility], has had recent labs at [facility] which we can request Encouraged efforts at [...] Chronic pain 03/03/2013 Overview (09/26/2014): Chronic pain Immunizations Immunization Administration Dates Next Due COVID-19 [...] Care Team (Late st Contact Info) Description 07/16/2025 11:20 AM EST Office Visit [facility] [address] [place] [address] Matilda Hannah, CARE TRANSITION COORDINATOR [address] [facility], 1st [place] [address] [email or web address] Due Date Last Done Comments Adult Td,Tdap Booster 1955 DEPRESSION SCREENING 1968 SMOKING Hx and SMOKELESS TOBACCO SCREENING 1969 COLOGUARD 2001 FIT TEST 2001 FOBT 2001 SIGMOIDOSCOPY 2001 VIRTUAL COLONOSCOPY 2001 DIABETIC EYE EXAM 09/26/2014 CREATININE LEVEL 08/10/2021 08/10/2020, 01/2018, 09/04/2017, Additional history exists POTASSIUM LEVEL 08/10/2021 08/10/2020, 08/08, 07/05/2017 ABDOMINAL AORTIC ANEURYSM (AAA) SCREENING 2021 LIPID PANEL 01/27/2024 01/26/2023, 09/04/2017 INFLUENZA VACCINE (#1) 2025 , 05/09/2022, 06/16/2020, Additional history exists COVID-19 VACCINE ( season) 2025 05/17/2023, 05/09/2022, 11/17/2021, Additional history exists BLOOD [...] Hemoglobin A1c 6.0(A) 4.2 - 5.6 % [facility] Other 01/15/2025 11:4 8 AM EDT Matilda Hannah CNP POINT OF CARE TEST ORDERABLES Final Result Performing Organization Address City/State/[facility] Co de Phone Number [facility] [address] [place] [address], [facility] * (ABNORMAL) Basic metabolic panel (08/10/2020 1:05 AM EST) SODIUM 139 133 - 146 mmol/L [facility] CHLORIDE 103 96 - 108 mmol/L [facility] POTASSIUM 4.5 3.3 - 5.1 mmol/L [facility] CO2 28 21 - 35 mmol/L [facility] BUN 19 6 - 19 mg/dL [facility] CREATININE 1.10 0.5 - 1.5 mg/dL [facility] GLUCOSE 156(H) 70 - 99 mg/dL [facility] CALCIUM 9.4 8.4 - 10.3 mg/dL [facility] EGFR 71 >59 mL/min/1.7 3m2 [facility] Comment:Estimated glomerular filtration rate calculated using the CKD-EPI equation. ANION GAP 13 10 - 20 mmol/L [facility] Blood 08/10/2020 1:05 AM EST 08/10/2020 1:29 AM EST us Jeromy Klein MD LAB BLOOD ORDERABLES Fin al Result [address] [id number] * ENDOSCOPY, COLON (01/08/2018 5:39 PM EDT) Narrative Transcriptions Ray Hernandez MD - 01/08/2018 5:39 PM EDT Patient Name: John Roa Attending MD:: RAY HERNANDEZ MD Procedure Date: 01/08/2018 5:39 PM Date of : 1955 Age: 62 Admit Type: Outpatient Gender: Male Room: [facility] Referring MD: ROSALIND CORNEJO MD Exam Type: Colonoscopy Indications: Change in [...] 5:39 PM Procedure Code(s): --- Professional --- 26153, Colonoscopy, flexible; with biopsy, single or multiple --- Technical --- 77443, Colonoscopy, flexible; with biopsy, single or multiple Diagnosis Code(s): --- Professional --- D12.3, 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 copyright 2016 [employer]. All rights reserved. The codes documented in this report are preliminary and upon medical biller coder reviewmay be revised to meet current compliance requirements. [address] [place] [address] us Rosalind Cornejo MD GI PROCEDURE ORDERABLES Fin al Result * Lipid panel (09/04/2017 9:49 AM EST) HDL 47 mg/dL [facility] Comment: Interpretation: Risk Level Males Decreased >45 mg/dL Average 40-45 mg/dL Increased <40 mg/dL CHOLESTEROL 195 0 - 240 mg/dL [facility] TRIGLYCERIDES 113 30 - 160 mg/dL [facility] LDL 125 50 - 129 mg/dL [facility] Comment: LDL levels in terms of risk for coronary heart disease: <100 mg/dL: Optimal 100-129 mg/dL: Near or above optimal 130-159 mg/dL: Borderline high 160-189 mg/dL: High >190 mg/dL: Very High CARDIAC RISK RATIO 4.1 3.4 - 5.0 C [facility] Blood 09/04/2017 9:49 AM EST 09/04/2017 9:53 AM EST us Raymond Shafer MD LAB BLOOD ORDERABLES Final Resul t [facility] [address] [place] [address] from Last 3 Months or Most Recently Relevant to Health Maintenance Insurance [facility] [address] [address] [facility] [place] [address] Member Subscriber Plan / Payer ( fective 2021-Present) Name:John Roa Relation to Subscriber:Spouse Name:DUNIA ROA Date of :1961 Address: [address] [place] [address] Payer ID:[id number] (NAIC) Type:HMO Address: [address] [address] Care Teams Director Of Cath Lab Relationship Specialty Start Date End Date Derrek Abdullahi MD [address] [place] [address] [place] [address] PCP - General Internal Medicine 09/16/24 Juwan Su MD [address] [place] [address], [address] [place] [address] [email or web address] Historical LMR Provider 05/27/17 Additional Source Comments The information contained in this document represents components of the legal health record. It is not the complete legal health record.[facility]
--- OUTSIDE RECORDS SUMMARY | 2025-06-03 09:29 | XMS_ITS | Patient Health Record ---
[facility] Organization [facility] david Jasper Address [address] [place] [address] Care Team Providers Care Progressive Die Maker Name Role Phone Chantal CHANG, Rosalind Primary Care Provider Andres Westbrook Unavailable [phone] Allergies Allergen (clinical drug ingredient) Drug/Non Drug [...] a day Active Fish Oil + D3 2207-4328 MG-UNIT 1 capsule Orally Three times a [...] Test Name Order Date Hemoglobin A1c 02/09/2015 [id number] NAIL, 6 OR MORE 05/11/2015 10020-XRBTVIA NAIL, 6 OR MORE 08/13/2015 [id number] NAIL, 6 OR MORE 02/17/2014 [id number] NAIL, 6 OR MORE 02/09/2015 69169-Cofe Destruction, 1-14 02/09/2015 52273-Bmgb Destruction, 1-14 02/17/2014 52780-Tfer Destruction, 1-14 08/13/2015 53564-CIMN SKIN LESIONS, OVER 4 02/18/20 14 88850-FTJE SKIN LESIONS, OVER 4 02/10/20 15 46814-OMXA SKIN LESIONS, OVER 4 08/13/19 16 90195-LAXT SKIN LESIONS, OVER 4 05/11/20 15 Insurance Providers Payer Name Payer Address Payer Phone Subscriber Number Group Number Insured Name Patient Relationship to Insured Coverage Start Date Coverage End Date [facility] [address] [place] [address] [id number] Crystal Oliver Spouse - patient is the spouse of the insured Medical (General) History Medical History History ICD Code Anxiety Arthritis Back,Hip,and Knee pain Fibromyalgia Headaches High blood pressure Reflux Sinus conditions Diabetic Surgical History Surgery Date(Month/Year) UPPP 2003 Sinus cleaning 2003
--- OUTSIDE RECORDS SUMMARY | 2025-06-03 09:30 | XMS_ITS | Encounter Summary ---
Author Organization [facility] Address [address] [place] [address] [place] [address] Phone Care Team Providers Care Repack Room Worker Name Role Phone Rosalind Cornejo MD Primary Care Provider [phone] Janak Hassan MD Unavailable [phone] Tex Lin MD Unavailable [email or web address] Juwan Su MD Unavailable [phone] Rosalind Cornejo MD Unavailable John Santoyo OPERATING ROOM COORDINATOR Unavailable [phone] Rosalind Cornejo MD Unavailable Sp Gusman DO Primary Care Provider Chanda Fernando SKI TOPPER Unavailable [phone] Rosalind Cornejo MD Unavailable [phone] Andrei Hayes MD Primary Care Provider Derrek Abdullahi MD Primary Care Provider Encounter Details Date Type Department Care Team (Late st Contact Info) Description 07/05/2017 Transcribe Orders [facility] [address] [place], [place] [phone] Rosalind Cornejo MD [address] [place], [place] [phone] [email or web address] Fever, unspecified fever cause (Primary Dx) Social [...] Description 07/16/2025 11:20 AM EST Office Visit [facility] [address] [place] [address] Matilda Hannah CNP 22 [facility], [address] [place] [address] documented as of this encounter Results * Rapid influenza A and B (07/05/2017 2:02 PM EST) Influenza A Ag Negative Negative [facility] Influenza B Ag Negative Negative [facility] Other (Nasal) 07/05/2017 2:0 2 PM EST 07/05/2017 2:06 PM EST Rosalind Cornejo MD MICROBIOLOGY - [facility] Final Result Performing Organization Address [facility]/State/[facility] Co de Phone Number [facility] [address] [place] [address] documented in this encounter Visit Diagnoses Diagnosis Fever, unspecified fever cause- Primary documented in this encounter Care Teams Repack Room Worker Relationship Specialty Start Date End Date Rosalind Cornejo MD [address] [place] [address] PCP - General 02/03/14 08/08/23 Sp Gusman DO [address] [address] PCP - General Family Medicine 08/09/23 02/18/24 Andrei Hayes MD [address] [place] [address] PCP - General Family Medicine 02/19/24 09/15/24 Derrek Abdullahi MD [address] [place] [address] [place] [address] PCP - General Internal Medicine 09/16/24 Janak Hassan MD [address] [place] [address] [email or web address] Historical LMR Provider 05/27/17 08/13/21 Tex Lin MD [email or web address] Historical LMR Provider 05/27/17 08/13/21 Juwan Su MD [address] [place] [address] [email or web address] Historical LMR Provider 05/27/17 Rosalind Cornejo MD [address] [place] [address] [email or web address] Historical LMR Provider 05/27/17 08/08/23 John Santoyo CNP [address] [place] [address] [email or web address] Historical LMR Provider 05/27/17 08/13/21 Rosalind Cornejo MD [address] [place] [address] [email or web address] Insurance Assigned Provider 12/07/18 08/08/23 Chanda Fernando NP [address] [place] [address] Nurse Practitioner 08/09/23 09/15/24 Rosalind Cornejo MD [address] [place] [address] [email or web address] Insurance Assigned Provider 12/07/18 10/13/23 documented as of this encounter Additional Source Comments The information contained in this document represents components of the legal health record. It is not the complete legal health record.[facility]
--- OUTSIDE RECORDS SUMMARY | 2025-06-03 09:30 | XMS_ITS | Encounter Summary ---
Author Organization [facility] Address [address] [place] [address] [place] [address] Phone Care Team Providers Care Family And Marriage Counsellor Name Role Phone Rosalind Cornejo MD Primary Care Provider [phone] Janak Hassan MD Unavailable [phone] Tex Lin MD Unavailable [email or web address] Juwan Su MD Unavailable [phone] Rosalind Cornejo MD Unavailable [phone] John Santoyo READING COACH Unavailable [phone] Rosalind Cornejo MD Unavailable Sp Gusman DO Primary Care Provider [phone] Chanda Fernando AIRCRAFT STRUCTURAL REPAIRER Unavailable [phone] Rosalind Cornejo MD Unavailable [phone] Andrei Hayes MD Primary Care Provider Derrek Abdullahi MD Primary Care Provider Encounter Details Date Type Department Care Team (Late st Contact Info) Description 07/14/2017 Transcribe Orders [facility] [address] [place] [address] Rosalind Cornejo MD [address] [place], [place] [phone] [email or web address] Elevated LFTs (Primary Dx) Social History Tobacco [...] Description 07/16/2025 11:20 AM EST [facility] [address] [place] [address] Matilda Hannah, BAILEY [address] [address] [email or web address] documented as of this encounter Visit Diagnoses Diagnosis Elevated LFTs- Primary Other abnormal blood chemistry documented in this encounter Care Teams Family And Marriage Counsellor Relationship Specialty Start Date End Date Rosalind Cornejo MD [address] [place] [address] [email or web address] PCP - General 02/03/14 08/08/23 Sp Gusman DO [address] [place] [address] PCP - General Family Medicine 08/09/23 02/18/24 Andrei Hayes MD [address] [place] [address] PCP - General Family Medicine 02/19/24 09/15/24 Derrek Abdullahi MD [address] [place] [address] [place] [address] PCP - General Internal Medicine 09/16/24 Janak Hassan MD [address] [place] [address] Historical LMR Provider 05/27/17 08/13/21 Tex Lin MD [email or web address] Historical LMR Provider 05/27/17 08/13/21 Juwan Su MD [address] [place] [address] [email or web address] Historical LMR Provider 05/27/17 Rosalind Cornejo MD [address] [place] [address] [email or web address] Historical LMR Provider 05/27/17 08/08/23 John Santoyo CNP [address] [place] [address] [email or web address] Historical LMR Provider 05/27/17 08/13/21 Rosalind Cornejo MD [address] [place] [address] [email or web address] Insurance Assigned Provider 12/07/18 08/08/23 Chanda Feranndo NP [address] [place] [address] Nurse Practitioner 08/09/23 09/15/24 Rosalind Cornejo MD [address] [place] [address] [email or web address] Insurance Assigned Provider 12/07/18 10/13/23 documented as of this encounter Additional Source Comments The information contained in this document represents components of the legal health record. It is not the complete legal health record.[facility]
--- OUTSIDE RECORDS SUMMARY | 2025-06-03 09:30 | XMS_ITS | Encounter Summary ---
Author Organization [facility] Address [address] [place] [address] [place] [address] Phone Care Team Providers Care Diesel Power Mechanic Name Role Phone Rosalind Cornejo MD Primary Care Provider [phone] Janak Hassan MD Unavailable [phone] Tex Lin MD Unavailable [email or web address] Juwan Su MD Unavailable [phone] Rosalind Cornejo MD Unavailable [phone] John Santoyo KILN PULLER Unavailable [phone] Rosalind Cornejo MD Unavailable [phone] Sp Gusman DO Primary Care Provider [phone] Chanda Fernando TANBARK PEELER Unavailable [phone] Rosalind Cornejo MD Unavailable [phone] Andrei Hayes MD Primary Care Provider Derrek Abdullahi MD Primary Care Provider [phone] Encounter Details Date Type Department Care Team (Late st Contact Info) Description 09/04/2017 Transcribe Orders [facility] [address] [place], [place] [phone] Enma Cornejo, PhD Social History Tobacco Use [...] Description 07/16/2025 11:20 AM EST Office Visit [facility] [address] [place] [address] Matilda Hannah CNP [address] [address] [email or web address] documented as of this encounter Visit Diagnoses Not on filedocumented in this encounter Care Teams Diesel Power Mechanic Relationship Specialty Start Date End Date Rosalind Cornejo MD [address] [place] [address] PCP - General 02/03/14 08/08/23 Sp Gusman DO [address] [place] [address] PCP - General Family Medicine 08/09/23 02/18/24 Andrei Hayes MD [address] [place] [address] PCP - General Family Medicine 02/19/24 09/15/24 Derrek Abdullahi MD [address] [place] [address] [address] PCP - General Internal Medicine 09/16/24 Janak Hassan MD [address] [place] [address] Historical LMR Provider 05/27/17 08/13/21 Tex Lin MD [email or web address] Historical LMR Provider 05/27/17 08/13/21 Juwan Su MD [address] [place] [address] Historical LMR Provider 05/27/17 Rosalind Cornejo MD [address] [place] [address] Historical LMR Provider 05/27/17 08/08/23 John Santoyo CNP [address] [place] [address] Historical LMR Provider 05/27/17 08/13/21 Rosalind Cornejo MD [address] [place] [address] Insurance Assigned Provider 12/07/18 08/08/23 Chanda Fernando NP [address] [place] [address] Nurse Practitioner 08/09/23 09/15/24 Rosalind Cornejo MD [address] [place] [address] [email or web address] Insurance Assigned Provider 12/07/18 10/13/23 documented as of this encounter Additional Source Comments The information contained in this document represents components of the legal health record. It is not the complete legal health record.[facility]
--- OUTSIDE RECORDS SUMMARY | 2025-06-03 09:30 | XMS_ITS | Encounter Summary ---
Author Organization [facility] Address [address] [place] [address] [place] [address] Phone Care Team Providers Care Pitching Coach Name Role Phone Rosalind Cornejo MD Primary Care Provider [phone] Janak Hassan MD Unavailable [phone] Tex Lin MD Unavailable [email or web address] Juwan Su MD Unavailable [phone] Rosalind Cornejo MD Unavailable John Santoyo GENERAL INSPECTOR Unavailable [phone] Rosalind Cornejo MD Unavailable [phone] Sp Gusman DO Primary Care Provider Chanda Fernando YOUTH WORKER Unavailable [phone] Rosalind Cornejo MD Unavailable [phone] Andrei Hayes MD Primary Care Provider Derrek Abdullahi MD Primary Care Provider Encounter Details Date Type Department Care Team (Late st Contact Info) Description 07/05/2017 Transcribe Orders [facility] Laboratory [address] [place], [place] [phone] Rosalind Cornejo MD [address] [place], [place] [id number] Tick bite, subsequent encounter (Primary Dx) Social [...] Description 07/16/2025 11:20 AM EST Office Visit [facility] [address] [place] [address] Matilda Hannah, BAILEY [address] [facility], 1st [place] [address] [email or web address] documented as of this encounter Procedures Procedure Name Priority Date/Time Associated Diagnosis Comments CMV ANTIBODY, IGG ([place] SENDOUT) Routine 07/05/2017 1:20 PM EST Tick [...] EST) Specimen Source/ Description BLOOD Blood BLOOD [facility] Special Requests None [facility] Culture/Test NO GROWTH 5 DAYS [facility] Report Status 07/10/2017 FINAL [facility] Blood (Blood) 07/05/2017 1:2 0 PM EST 07/05/2017 1:35 PM EST Rosalind Cornejo MD MICROBIOLOGY - GENERAL FINA DEXTER Final Result [address] [address] * Blood culture, routine (07/05/2017 1:20 PM EST) Specimen Source/ Description BLOOD Blood BLOOD [facility] Special Requests None [facility] Culture/Test NO GROWTH 5 DAYS [facility] Report Status 07/10/2017 FINAL [facility] Blood (Blood) 07/05/2017 1:2 0 PM EST 07/05/2017 1:36 PM EST Rosalind Cornejo MD MICROBIOLOGY - GENERAL FINA DEXTER Final Result Performing Organization Address City/[facility]/ZIP Co de Phone Number [address] [address] * Babesia species PCR (07/05/2017 1:20 PM EST) B.Microti PCR Negative Negative [facility] DPT OF LAB MED AND PAT+ B.Duncani PCR Negative Negative [facility] DPT OF LAB MED AND PAT+ B.Divergens/MO-1 PCR Negative Negative [facility] DPT OF LAB MED AND PAT+ Comment: (NOTE) ADDITIONAL INFORMATION This test was developed and its performance characteristics determined by [facility] in a manner consistent with CLIA requirements. This test has not been cleared or approved by the U.S. Food and Drug Administration. Blood 07/05/2017 1:20 PM EST 07/05/2017 1:37 PM EST us Rosalind Cornejo MD LAB BLOOD ORDERABLES Final Result [facility] DPT OF LAB MED AND PAT+ [address] [place] [address] * Babesia serology (07/05/2017 1:20 PM EST) BABESIA MICROTI IGG <1:64 [facility] REFERRAL BABESIA MICROTI IGM <1:20 [place] REFERRAL Interpretation (B. microti) SEE NOTE JENSEN [...] analytical performance characteristics have been determined by [facility]. It has not been cleared or approved by FDA. This assay has been validated pursuant to the CLIA regulations and is used for clinical purposes. Test Performed by: [email or web address] [id number] [place] [address] Blood (Blood) 07/05/2017 1:2 0 PM EST 07/05/2017 1:37 PM EST us Rosalind Cornejo MD MICROBIOLOGY - GENERAL ORDE [facility] Final Result Performing Organization Address [facility]/ZIP Co de Phone Number [facility] * Ehrlichia/anaplasma PCR (07/05/2017 1:20 PM EST) ANAPLASMA PHAGOCYTO Negative Negative [facility] DPT OF LAB MED AND PAT+ EHRLICHIA CHAFFEENS Negative Negative [facility] DPT OF LAB MED AND PAT+ EHRL EWINGII/CANIS Negative Negative [facility] DPT OF LAB MED AND PAT+ EHRL MURIS-LIKE Negative Negative [facility] DPT OF LAB MED AND PAT+ Comment: (NOTE) ADDITIONAL INFORMATION This test was developed and its performance characteristics determined by [facility] in a manner consistent with CLIA requirements. This test has not been cleared or approved by the U.S. Food and Drug Administration. Blood 07/05/2017 1:20 PM EST 07/05/2017 1:37 PM EST us Rosalind Cornejo MD LAB BLOOD ORDERABLES Final Result Performing Organization Address City/[facility] Co de Phone Number [facility] DPT OF LAB MED AND PAT+ [address] [place] [address] * Cytomegalovirus (CMV) antibody, IgM (07/05/2017 1:20 PM EST) CMV IGM ANTIBODY Positive Negative [facility] [address] Comment: (NOTE) Results suggest recent infection. Blood (Blood) 07/05/2017 1:2 0 PM EST 07/05/2017 1:37 PM EST us Rosalind Cornejo MD NON CULTURE MICROBIOLOGY Fi nal Result Performing Organization Address [facility] Co de Phone Number [facility] MED/[address] [place] [address] [place] [address] * CMV antibody, IgG ([place] sendout) (07/05/2017 1:20 PM EST) CYTOMEGALOVIRUS IGG Negative Negative [facility] Blood 07/05/2017 1:20 PM EST 07/05/2017 1:37 PM EST Rosalind Cornejo MD LAB BLOOD ORDERABLES Final Result Performing Organization Address [facility] de Phone Number [facility] MED/[place] [address] * Nick-Boudreaux Virus (EBV) serology (07/05/2017 1:20 PM EST) Pathologist [facility] EBV VCA, IGG Positive Negative [facility] LAB [facility] EBV VCA, IGM Negative Negative [facility] LAB MED/[place] EB NUCLEAR AG ABS Positive Negative [facility] [place] EBV AB PANEL INTERP SEE NOTE [facility] [place] Comment: (NOTE) Results suggest past infection. ADDITIONAL [...] 0 PM EST 07/05/2017 1:37 PM EST Rosalind Cornejo MD MICROBIOLOGY - GENERAL ORDE RABLES Final Result Performing Organization Address [facility] Co de Phone Number [facility] MED/[place] [address] * Sedimentation rate (ESR) (07/05/2017 1:20 PM EST) Pathologist [facility] ESR 8 0 - 20 mm/h [facility] Blood 07/05/2017 1:20 PM EST 07/05/2017 1:36 PM EST us Rosalind Cornejo MD LAB BLOOD ORDERABLES Final Result Performing Organization Address [facility] de Phone Number [address] [address] * Lyme screen with reflex to Western blot, blood (07/05/2017 1:20 PM EST) Pathologist [facility] Lyme AB IgG Negative Negative [facility] Lyme AB IgM Negative Negative [facility] Blood 07/05/2017 1:20 PM EST 07/05/2017 1:36 PM EST us Rosalind Cornejo MD LAB BLOOD ORDERABLES Final Result Performing Organization Address [facility] de Phone Number [address] [address] * (ABNORMAL) C-Reactive Protein (07/05/2017 1:20 PM EST) Pathologist [facility] C REACTIVE PROTEIN 1.6(H) 0 - 0.5 mg/L [facility] Blood 07/05/2017 1:20 PM EST 07/05/2017 1:36 PM EST us Rosalind Cornejo MD LAB BLOOD ORDERABLES Final Result Performing Organization Address [facility] Co de Phone Number [address] [address] * (ABNORMAL) CBC and differential (07/05/2017 1:20 PM EST) Pathologist [facility] WBC 5.18 3.40 - 11.20 K/uL [facility] RBC 4.81 4.50 - 5.50 M/uL [facility] HGB 13.9 13.0 - 17.0 g/dL [facility] HCT 39.7(L) 40.0 - 51.0 % [facility] PLT 187 130 - 400 K/uL [facility] MCV 82.5 79.0 - 98.0 fL [facility] MCH 28.9 27.0 - 34.8 pg [facility] MCHC 35.0 31.5 - 36.0 g/dL [facility] RDW 12.7 10.8 - 14.6 % [facility] MPV 9.0(L) 9.4 - 12.4 fl [facility] NRBC 0.00 /100 WBCs [facility] ABSOLUTE NRBC 0.00 K/uL [facility] DIFF METHOD Auto [facility] NEUTS 43.1(L) 45.30 - 77.70 % [facility] LYMPHS 37.1 12.30 - 39.70 % [facility] MONOS 14.1(H) 4.10 - 12.80 % [facility] EOS 4.1 0 - 7.2 % [facility] BASOS 0.8 0 - 2.80 % [facility] Granulocytes, immature (%) 0.8 0.0 - 0.9 % [facility] ABSOLUTE NEUTS 2.24 1.40 - 7.70 K/uL [facility] ABSOLUTE LYMPHS 1.92 0.60 - 3.20 K/uL [facility] ABSOLUTE MONOS 0.73(H) 0.11 - 0.59 K/uL [facility] ABSOLUTE EOS 0.21 0.01 - 0.50 K/uL [facility] ABSOLUTE BASOS 0.04 0.00 - 0.08 K/uL [facility] Granulocytes, immature 0.04 0.00 - 0.05 K/uL [facility] Blood 07/05/2017 1:20 PM EST 07/05/2017 1:36 PM EST us Rosalind Cornejo MD LAB BLOOD ORDERABLES Final Result [facility] [address] [place] [address] * (ABNORMAL) Comprehensive metabolic panel (07/05/2017 1:20 PM EST) SODIUM 139 133 - 146 mmol/L [facility] POTASSIUM 4.1 3.3 - 5.1 mmol/L [facility] CHLORIDE 102 96 - 108 mmol/L [facility] CO2 22 21 - 35 mmol/L [facility] BUN 17 6 - 19 mg/dL [facility] CREATININE 1.10 0.5 - 1.5 mg/dL [facility] GLUCOSE 197(H) 70 - 99 mg/dL [facility] ALBUMIN 4.1 3.9 - 4.8 g/dL [facility] TOTAL PROTEIN 6.8 6.5 - 8.0 g/dL [facility] CALCIUM 9.2 8.4 - 10.3 mg/dL [facility] ALKALINE PHOSPHATASE 70 39 - 117 U/L [facility] TOTAL BILIRUBIN 0.4 0 - 1.2 mg/dL [facility] AST 58(H) 0 - 37 U/L [facility] ALT 111(H) 0 - 40 U/L [facility] GLOBULIN 2.7 1 - 4.8 g/dL [facility] EGFR >60 >60 mL/min/1.7 3m2 [facility] Comment:Abnormal if <60. If patient is -Salvadorean, multiply the result by 1.21. ANION GAP 19 10 - 20 mmol/L [facility] Blood 07/05/2017 1:20 PM EST 07/05/2017 1:36 PM EST Rosalind Cornejo MD LAB BLOOD ORDERABLES Final Result Performing Organization Address City/State/[facility] Co de Phone Number [address] [address] documented in this encounter Visit Diagnoses Diagnosis Tick bite, subsequent encounter- Primary documented in this encounter Care Teams Pitching Coach Relationship Specialty Start Date End Date Rosalind Cornejo MD [address] [place] [address] [email or web address] PCP - General 02/03/14 08/08/23 Sp Gusman DO [address] [facility], [address] [place] [address] PCP - General Family Medicine 08/09/23 02/18/24 Andrei Hayes MD [address] [place] [address] PCP - General Family Medicine 02/19/24 09/15/24 Derrek Abdullahi MD [address] [place] [address] [place] [address] PCP - General Internal Medicine 09/16/24 Janak Hassan MD [address] [place] [address] [email or web address] Historical LMR Provider 05/27/17 08/13/21 Tex Lin MD [email or web address] Historical LMR Provider 05/27/17 08/13/21 Juwan Su MD [address] [place] [address] [email or web address] Historical LMR Provider 05/27/17 Rosalind Cornejo MD [address] [place] [address] [email or web address] Historical LMR Provider 05/27/17 08/08/23 John Santoyo CNP [address] [place] [address] [email or web address] Historical LMR Provider 05/27/17 08/13/21 Rosalind Cornejo MD [address] [place] [email or web address] Insurance Assigned Provider 12/07/18 08/08/23 Chanda Fernando NP [address] [place] [address] Nurse Practitioner 08/09/23 09/15/24 Rosalind Cornejo MD [address] [place] [address] [email or web address] Insurance Assigned Provider 12/07/18 10/13/23 documented as of this encounter Additional Source Comments The information contained in this document represents components of the legal health record. It is not the complete legal health record.[facility]
--- OUTSIDE RECORDS SUMMARY | 2025-06-03 09:30 | XMS_ITS | Encounter Summary ---
Author Organization [facility] Address [address] [place] [address] [place] [address] Phone Care Team Providers Care Real Estate Branch Manager Name Role Phone Rosalind Cornejo MD Primary Care Provider [phone] Janak Hassan MD Unavailable [phone] Tex Lin MD Unavailable [email or web address] Juwan Su MD Unavailable [phone] Rosalind Cornejo MD Unavailable [phone] John Santoyo TRAFFIC DIRECTOR Unavailable [phone] Rosalind Cornejo MD Unavailable [phone] Sp Gusman DO Primary Care Provider [phone] Chanda Fernando ESCORT VEHICLE DRIVER Unavailable [phone] Rosalind Cornejo MD Unavailable [phone] Andrei Hayes MD Primary Care Provider Derrek Abdullahi MD Primary Care Provider Encounter Details Date Type Department Care Team (Late st Contact Info) Description 07/16/2017 Ancillary Orders [facility] Department [address] [place] [address] [phone] Rosalind Cornejo MD [address] [place] [address] [email or web address] Abdominal pain, unspecified abdominal location; Elevated LFTs [...] Description 07/16/2025 11:20 AM EST Office Visit [facility] [address] [place] [phone] Matilda Hannah, BAILEY [address] [place] [address] [email or web address] documented as of this encounter Visit Diagnoses Diagnosis Abdominal pain, unspecified abdominal location Elevated LFTs Other abnormal blood chemistry documented in this encounter Care Teams Real Estate Branch Manager Relationship Specialty Start Date End Date Rosalind Cornejo MD [address] [place] [address] [email or web address] PCP - General 02/03/14 08/08/23 Sp Gusman DO [address] [place] [address] PCP - General Family Medicine 08/09/23 02/18/24 Andrei Hayes MD [address] [place] [address] PCP - General Family Medicine 02/19/24 09/15/24 Derrek Abdullahi MD [address] [place] [address] [place] [address] PCP - General Internal Medicine 09/16/24 Janak Hassan MD [address] [place] [address] [email or web address] Historical LMR Provider 05/27/17 08/13/21 Tex Lin MD [email or web address] Historical LMR Provider 05/27/17 08/13/21 Juwan Su MD [address] [place] [address] [email or web address] Historical LMR Provider 05/27/17 Rosalind Cornejo MD [address] [place] [address] [email or web address] Historical LMR Provider 05/27/17 08/08/23 John Santoyo CNP [address] [place] [address] Historical LMR Provider 05/27/17 08/13/21 Rosalind Cornejo MD [address] [place] [email or web address] Insurance Assigned Provider 12/07/18 08/08/23 Chanda Fernando NP [address] [place] [address] Nurse Practitioner 08/09/23 09/15/24 Rosalind Cornejo MD [address] [place] [address] [email or web address] Insurance Assigned Provider 12/07/18 10/13/23 documented as of this encounter Additional Source Comments The information contained in this document represents components of the legal health record. It is not the complete legal health record.[facility]
--- OUTSIDE RECORDS SUMMARY | 2025-06-03 09:31 | XMS_ITS | Encounter Summary ---
Author Organization [facility] Address [address] [place] [address] Phone Care Team Providers Care Rehabilitation Clerk Name Role Phone Rosalind Cornejo MD Primary Care Provider Janak Hassan MD Unavailable [phone] Tex Lin MD Unavailable [email or web address] Juwan Su MD Unavailable [phone] Rosalind Cornejo MD Unavailable John Santoyo PRODUCTION MACHINE TENDER Unavailable [phone] Rosalind Cornejo MD Unavailable [phone] Sp Gusman DO Primary Care Provider Chanda Fernando DATA SOFTWARE ENGINEER Unavailable [phone] Rosalind Cornejo MD Unavailable [phone] Andrei Hayes MD Primary Care Provider Derrek Abdullahi MD Primary Care Provider Encounter Details Date Type Department Care Team (Latest Contact Info) Description 09/04/2017 Transcribe Orders [facility] Laboratory [address] [place], [place] [id number] Raymond Shafer MD [address] [place], [place] [id number] [email or web address] Uric acid nephrolithiasis (Primary Dx) Social History [...] Description 07/16/2025 11:20 AM EST Office Visit [facility] [address] [place] [address] Matilda Hannah, PRODUCTION MACHINE TENDER [address], 1st [place] [address] [email or web address] documented as of this encounter Results * (ABNORMAL) Urinalysis w/reflex Urine Culture (09/04/2017 9:49 AM EST) COLOR STRAW(A) Yellow [facility] CLARITY Clear [facility] GLUCOSE 3+(A) Negative [facility] BILI Negative Negative [facility] KETONES Negative Negative [facility] SPECIFIC GRAVITY 1.015 1.005 - 1.030 [facility] BLOOD Negative Negative [facility] PH 5.5 5.0 - 8.0 [facility] Protein-UA Negative Negative [facility] NITRITE Negative Negative [facility] Leukocyte esterase, ur Negative Negative [facility] Urine (Urine) 09/04/2017 9:4 9 AM EST 09/04/2017 9:56 AM EST us Raymond Shafer MD URINE ORDERABLES Final Result [facility] [address] [place] [address] * (ABNORMAL) Uric acid (09/04/2017 9:49 AM EST) URIC ACID 7.7(H) 2.4 - 7.0 mg/dL [facility] Blood 09/04/2017 9:49 AM EST 09/04/2017 9:53 AM EST us Raymond Shafer MD LAB BLOOD ORDERABLES Final Resul t Performing Organization Address [facility] Co de Phone Number [address] [address] * Parathyroid hormone (PTH) (09/04/2017 9:49 AM EST) PARATHYROID HORMONE 31 15 - 65 pg/mL [facility] Blood 09/04/2017 9:49 AM EST 09/04/2017 9:57 AM EST us Raymond Shafer MD LAB BLOOD ORDERABLES Final Resul t Performing Organization Address [facility] Phone Number [address] [address] * Lipid panel (09/04/2017 9:49 AM EST) [facility] HDL 47 mg/dL [facility] Comment: Interpretation: Risk Level Males Decreased >45 mg/dL Average 40-45 mg/dL Increased <40 mg/dL CHOLESTEROL 195 0 - 240 mg/dL [facility] TRIGLYCERIDES 113 30 - 160 mg/dL [facility] LDL 125 50 - 129 mg/dL [facility] Comment: LDL levels in terms of risk for coronary heart disease: <100 mg/dL: Optimal 100-129 mg/dL: Near or above optimal 130-159 mg/dL: Borderline high 160-189 mg/dL: High >190 mg/dL: Very High CARDIAC RISK RATIO 4.1 3.4 - 5.0 [facility] Blood 09/04/2017 9:49 AM EST 09/04/2017 9:53 AM EST us Raymond Shafer MD LAB BLOOD ORDERABLES Final Resul t Performing Organization Address [facility] Co de Phone Number [address] [address] * 25-OH vitamin D (09/04/2017 9:49 AM EST) Pathologist [facility] 25 OH VIT D (TOTAL) 46 30 - 1,000 ng/mL [facility] Blood 09/04/2017 9:49 AM EST 09/04/2017 9:53 AM EST us Raymond Shafer MD LAB BLOOD ORDERABLES Final Resul t Performing Organization Address [facility] Co de Phone Number [address] [address] * (ABNORMAL) Renal panel (09/04/2017 9:49 AM EST) SODIUM 141 133 - 146 mmol/L [facility] POTASSIUM 4.5 3.3 - 5.1 mmol/L [facility] CHLORIDE 102 96 - 108 mmol/L [facility] CO2 28 21 - 35 mmol/L [facility] GLUCOSE 135(H) 70 - 99 mg/dL [facility] BUN 23(H) 6 - 19 mg/dL [facility] CREATININE 1.20 0.5 - 1.5 mg/dL [facility] CALCIUM 9.8 8.4 - 10.3 mg/dL [facility] PHOSPHORUS 3.3 2.7 - 4.5 mg/dL [facility] ALBUMIN 4.6 3.9 - 4.8 g/dL [facility] EGFR >60 >60 mL/min/1.7 3m2 [facility] Comment:Abnormal if <60. If patient is -[place], multiply the result by 1.21. ANION GAP 16 10 - 20 mmol/L [facility] Blood 09/04/2017 9:49 AM EST 09/04/2017 9:53 AM EST us Raymond Shafer MD LAB BLOOD ORDERABLES Final Resul t Performing Organization Address City/[facility]/ZIP Co de Phone Number [address] [address] documented in this encounter 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 Care Teams Rehabilitation Clerk Relationship Specialty Start Date End Date Rosalind Cornejo MD [address] [place] [address] [email or web address] PCP - General 02/03/14 08/08/23 Sp Gusman DO [address] [place] [address] PCP - General Family Medicine 08/09/23 02/18/24 Andrei Hayes MD [address] [place] [address] PCP - General Family Medicine 02/19/24 09/15/24 Derrek Abdullahi MD [address] [place] [address] [place] [address] PCP - General Internal Medicine 09/16/24 Janak Hassan MD [address] [place] [address] [email or web address] Historical LMR Provider 05/27/17 08/13/21 Tex Lin MD [email or web address] Historical LMR Provider 05/27/17 08/13/21 Juwan Su MD [address] [place] [address] [email or web address] Historical LMR Provider 05/27/17 Rosalind Cornejo MD [address] [place] [address] [email or web address] Historical LMR Provider 05/27/17 08/08/23 John Santoyo PRODUCTION MACHINE TENDER [address] [place] [address] [email or web address] Historical LMR Provider 05/27/17 08/13/21 Rosalind Cornejo MD [address] [place] [address] [email or web address] Insurance Assigned Provider 12/07/18 08/08/23 Chanda Fernando NP [address] [place] [address] Nurse Practitioner 08/09/23 09/15/24 Rosalind Cornejo MD [address] [place] [address] [email or web address] Insurance Assigned Provider 12/07/18 10/13/23 documented as of this encounter Additional Source Comments The information contained in this document represents components of the legal health record. It is not the complete legal health record.[facility]
--- OUTSIDE RECORDS SUMMARY | 2025-06-03 09:31 | XMS_ITS | Encounter Summary ---
Author Organization [facility] Address [address] [place] [address] [place] [address] Phone Care Team Providers Care Punch Press Feeder Name Role Phone Rosalind Cornejo MD Primary Care Provider [phone] Janak Hassan MD Unavailable [phone] Tex Lin MD Unavailable [email or web address] Juwan Su MD Unavailable [phone] Rosalind Cornejo MD Unavailable [phone] John Santoyo SANITATION WORKER HOSING MACHINERY Unavailable [phone] Rosalind Cornejo MD Unavailable [phone] Sp Gusman DO Primary Care Provider Chanda Fernando COMPUTER CONSOLE OPERATOR Unavailable [phone] Rosalind Cornejo MD Unavailable [phone] Andrei Hayes MD Primary Care Provider Derrek Abdullahi MD Primary Care Provider Encounter Details Date Type Department Care Team (Late st Contact Info) Description 09/07/2017 Transcribe Orders [facility] Specimen Processing 30 [place], [place] [phone] Rosalind Cornejo MD 15 [place], [place] [id number] [email or web address] Social History Tobacco Use Types Packs/Day Years [...] 07/16/2025 11:20 AM EST Office Visit [facility] 22 [place] [address] Matilda Hannah CNP [address] [address] documented as of this encounter Visit Diagnoses Not on filedocumented in this encounter Care Teams Punch Press Feeder Relationship Specialty Start Date End Date Rosalind Cornejo MD [address] [place] [address] PCP - General 02/03/14 08/08/23 Sp Gusman DO [address] [place] [address] PCP - General Family Medicine 08/09/23 02/18/24 Andrei Hayes MD [address] [place] [address] PCP - General Family Medicine 02/19/24 09/15/24 Derrek Abdullhai MD [address] [place] [address] [place] [address] PCP - General Internal Medicine 09/16/24 Janak Hassan MD [address] [place] [address] Historical LMR Provider 05/27/17 08/13/21 Tex Lin MD [email or web address] Historical LMR Provider 05/27/17 08/13/21 Juwan Su MD [address] [address] Historical LMR Provider 05/27/17 Rosalind Cornejo MD [address] [place] [address] [email or web address] Historical LMR Provider 05/27/17 08/08/23 John Santoyo CNP [address] [place] [address] Historical LMR Provider 05/27/17 08/13/21 Rosalind Cornejo MD [address] [place] [address] [email or web address] Insurance Assigned Provider 12/07/18 08/08/23 Chanda Fernando NP [address] [place] [address] Nurse Practitioner 08/09/23 09/15/24 Rosalind Cornejo MD [address] [place] [address] [email or web address] Insurance Assigned Provider 12/07/18 10/13/23 documented as of this encounter Additional Source Comments The information contained in this document represents components of the legal health record. It is not the complete legal health record.[facility]
--- OUTSIDE RECORDS SUMMARY | 2025-06-03 09:31 | XMS_ITS | Encounter Summary ---
Author Organization [facility] Address [address] [place] [address] [place] [address] Phone Care Team Providers Care Tool And Die Manager Name Role Phone Rosalind Cornejo MD Primary Care Provider [phone] Janak Hassan MD Unavailable [phone] Tex Lin MD Unavailable [email or web address] Juwan Su MD Unavailable [phone] Rosalind Cornejo MD Unavailable [phone] John Santoyo PATTERN TECHNICIAN Unavailable [phone] Rosalind Cornejo MD Unavailable [phone] Sp Gusman DO Primary Care Provider Chanda Fernando HUMAN RESOURCES ADVISOR Unavailable [phone] Rosalind Cornejo MD Unavailable [phone] Andrei Hayes MD Primary Care Provider Derrek Abdullahi MD Primary Care Provider Encounter Details Date Type Department Care Team (Latest Contact Info) Description 09/07/2017 Transcribe Orders [facility] Specimen Processing 30 [place], [place] [phone] Rosalind Cornejo MD 15 [place], [place] [id number] [email or web address] Positive serum cytomegalovirus (CMV) IgM antibody (Primary [...] Description 07/16/2025 11:20 AM EST Office Visit [facility] Center 22 [place] [address] Matilda Hannah, BAILEY [address] [facility], 1st [place] [address] [email or web address] documented as of this encounter Procedures Procedure Name Priority Date/Time Associated Diagnosis Comments MISCELLANEOUS LAB TEST Routine 09/04/2017 9:49 AM EST LAB ADD ON Routine 09/04/2017 9:49 AM EST Positive serum cytomegalovirus (CMV) IgM antibody Elevated LFTs documented in this encounter Results * Miscellaneous lab test (09/04/2017 9:49 AM EST) TESTS REQUESTED CYTOMEGALOVIRUS AB, IGM AND IGG [facility] SPECIMEN/TUBE TYPE SERUM [facility] REQUEST RECEIVED Request received. A separate order for the requested test will be generated by the laboratory. [facility] 09/04/2017 9:49 AM EST 09/07/2017 12:39 PM EST us Rosalind Cornejo MD LAB BLOOD ORDERABLES Final Result [facility] 30 [place] [address] * Lab Add On: CMV IGG/IGM (09/04/2017 9:49 AM EST) CONTACT INFORMATION [id number] [facility] TEST REQUESTED CMV IGG IGM [facility] Comments (Chemistry) ADD ON COMPLETE. [facility] 09/04/2017 9:49 AM EST 09/07/2017 12:39 PM EST us Rosalind Cornejo MD LAB BLOOD ORDERABLES Edited Result - Final [facility] [address] [place] [address] documented in this encounter Visit Diagnoses Diagnosis Positive serum cytomegalovirus (CMV) IgM antibody- Primary Elevated LFTs Other abnormal blood chemistry documented in this encounter Care Teams Tool And Die Manager Relationship Specialty Start Date End Date Rosalind Cornejo MD 15 [place] [address] [email or web address] PCP - General 02/03/14 08/08/23 Sp Gusman DO [address] [place] [address] PCP - General Family Medicine 08/09/23 02/18/24 Andrei Hayes MD [address] [place] [address] PCP - General Family Medicine 02/19/24 09/15/24 Derrek Abdullahi MD [address] [place] [address] [place] [address] PCP - General Internal Medicine 09/16/24 Janak Hassan MD [address] [place] [address] [email or web address] Historical LMR Provider 05/27/17 08/13/21 Tex Lin MD [email or web address] Historical LMR Provider 05/27/17 08/13/21 Juwan Su MD [address] [address] Historical LMR Provider 05/27/17 Rosalind Cornejo MD [address] [place] [address] Historical LMR Provider 05/27/17 08/08/23 John Santoyo, PATTERN TECHNICIAN [address] [place] [address] Historical LMR Provider 05/27/17 08/13/21 Rosalind Cornejo MD [address] [place] [address] Insurance Assigned Provider 12/07/18 08/08/23 Chanda Fernando NP [address] [place] [address] Nurse Practitioner 08/09/23 09/15/24 Rosalind Cornejo MD [address] [place] [address] Insurance Assigned Provider 12/07/18 10/13/23 documented as of this encounter Additional Source Comments The information contained in this document represents components of the legal health record. It is not the complete legal health record.[facility]
--- OUTSIDE RECORDS SUMMARY | 2025-06-03 09:32 | XMS_ITS | Encounter Summary ---
Author Organization [facility] Address [address] [place] [address] Phone Care Team Providers Care Personnel Assistant Name Role Phone Rosalind Cornejo MD Primary Care Provider [phone] Janak Hassan MD Unavailable [phone] Tex Lin MD Unavailable [email or web address] Juwan Su MD Unavailable [phone] Rosalind Cornejo MD Unavailable John Santoyo MACHINE HOOP MAKER Unavailable [phone] Rosalind Cornejo MD Unavailable [phone] Sp Gusman DO Primary Care Provider [phone] Chanda Fernando CARD MAKER Unavailable [phone] Rosalind Cornejo MD Unavailable [phone] Andrei Hayes MD Primary Care Provider Derrek Abdullahi MD Primary Care Provider Encounter Details Date Type Department Care Team (Latest Contact Info) Description 06/08/2017 Transcribe Orders [facility] Laboratory 30 [place] [address] Gm Torres MD [facility] [place] [place] [address] [email or web address] Benign localized hyperplasia of prostate with urinary [...] Description 07/16/2025 11:20 AM EST Office Visit [facility] 22 [place] [address] Matilda Hannah, MACHINE HOOP MAKER [address] [facility], 1st [place] [address] documented as of this encounter Procedures Procedure Name Priority Date/Time Associated Diagnosis Comments PSA (SCREENING) Routine 06/08/2017 9:12 AM EDT Benign localized hyperplasia of prostate with urinary retention documented in this encounter Results * PSA (screening) (06/08/2017 9:12 AM EDT) PSA 0.34 0 - 4.00 ng/mL [facility] Blood 06/08/2017 9:12 AM EDT 06/08/2017 9:20 AM EDT us Gm Torres MD LAB BLOOD ORDERABLES Final Res ult [facility] [address] [place] [address] documented in this encounter Visit Diagnoses Diagnosis Benign localized hyperplasia of prostate with urinary retention- Primary Benign localized hyperplasia of prostate with urinary obstruction and other lower urinary tract symptoms (LUTS) documented in this encounter Care Teams Personnel Assistant Relationship Specialty Start Date End Date Rosalind Cornejo MD [address] [place] [address] PCP - General 02/03/14 08/08/23 Sp Gusman DO [address] [place] [address] PCP - General Family Medicine 08/09/23 02/18/24 Andrei Hayes MD [address] [place] [address] PCP - General Family Medicine 02/19/24 09/15/24 Derrek Abdullahi MD [address] [place] [address] [facility] [place] [address] PCP - General Internal Medicine 09/16/24 Janak Hassan MD [address] [place] [address] [email or web address] Historical LMR Provider 05/27/17 08/13/21 Tex Lin MD [email or web address] Historical LMR Provider 05/27/17 08/13/21 Juwan Su MD [address] [place] [address] Historical LMR Provider 05/27/17 Rosalind Cornejo MD [address] [place] [address] Historical LMR Provider 05/27/17 08/08/23 John Santoyo, MACHINE HOOP MAKER [address] [place] [address] Historical LMR Provider 05/27/17 08/13/21 Rosalind Cornejo MD [address] [place] [address] [email or web address] Insurance Assigned Provider 12/07/18 08/08/23 Chanda Fernando NP [address] [place] [address] Nurse Practitioner 08/09/23 09/15/24 Rosalind Cornejo MD 15 [place] [address] [email or web address] Insurance Assigned Provider 12/07/18 10/13/23 documented as of this encounter Additional Source Comments The information contained in this document represents components of the legal health record. It is not the complete legal health record.[facility]
--- OUTSIDE RECORDS SUMMARY | 2025-06-03 09:32 | XMS_ITS | Encounter Summary ---
Author Organization [facility] Address [address] [place] [address] [place] [address] Phone Care Team Providers Care Licensed Pesticide Applicator Name Role Phone Rosalind Cornejo MD Primary Care Provider [phone] Janak Hassan MD Unavailable [phone] Tex Lin MD Unavailable [email or web address] Juwan Su MD Unavailable [phone] Rosalind Cornejo MD Unavailable [phone] John Santoyo SAFETY ATTENDANT Unavailable [phone] Rosalind Cornejo MD Unavailable [phone] Sp Gusman DO Primary Care Provider Chanda Fernando MANAGEMENT CONSULTANT Unavailable [phone] Rosalind Cornejo MD Unavailable [phone] Andrei Hayes MD Primary Care Provider Derrek Abdullahi MD Primary Care Provider Encounter Details Date Type Department Care Team (Late st Contact Info) Description 04/02/2018 Ancillary Orders [facility] Department 30 [place] [address] Bernadette Tinsley, BARBARA [address] [place] [address] [email or web address] Kidney stone Social History Tobacco Use [...] Description 07/16/2025 11:20 AM EST Office Visit [facility] [address] [place] [address] Matilda Hannah, BAILEY [address] [place] [address] [email or web address] documented as of this encounter Visit Diagnoses Diagnosis Kidney stone Calculus of kidney documented in this encounter Care Teams Licensed Pesticide Applicator Relationship Specialty Start Date End Date Rosalind Cornejo MD [address] [place] [address] [email or web address] PCP - General 02/03/14 08/08/23 Sp Gusman DO [address] [place] [address] PCP - General Family Medicine 08/09/23 02/18/24 Andrei Hayes MD [address] [place] [address] PCP - General Family Medicine 02/19/24 09/15/24 Derrek Abdullahi MD [address] [place] [address] [place] [address] PCP - General Internal Medicine 09/16/24 Janak Hassan MD [address] [place] [address] [email or web address] Historical LMR Provider 05/27/17 08/13/21 Tex Lin MD [email or web address] Historical LMR Provider 05/27/17 08/13/21 Juwan Su MD [address] [place] [address] Historical LMR Provider 05/27/17 Rosalind Cornejo MD [address] [place] [address] [email or web address] Historical LMR Provider 05/27/17 08/08/23 John Santoyo CNP [address] [place] [address] Historical LMR Provider 05/27/17 08/13/21 Rosalind Cornejo MD [address] [place] [address] [email or web address] Insurance Assigned Provider 12/07/18 08/08/23 Chanda Fernando NP [address] [place] [address] Nurse Practitioner 08/09/23 09/15/24 Rosalind Cornejo MD [address] [place] [address] [email or web address] Insurance Assigned Provider 12/07/18 10/13/23 documented as of this encounter Additional Source Comments The information contained in this document represents components of the legal health record. It is not the complete legal health record.[facility]
--- OUTSIDE RECORDS SUMMARY | 2025-06-03 09:32 | XMS_ITS | Encounter Summary ---
Author Organization [facility] Address [address] [place] [address] [place] [address] Phone Care Team Providers Care Ornamental Iron Worker Name Role Phone Rosalind Cornejo MD Primary Care Provider [phone] Janak Hassan MD Unavailable [phone] Tex Lin MD Unavailable [email or web address] Juwan Su MD Unavailable [phone] Rosalind Cornejo MD Unavailable [phone] John Santoyo SHEET METAL WORKER MAINTENANCE Unavailable [phone] Rosalind Cornejo MD Unavailable [phone] Sp Gusman DO Primary Care Provider [phone] Chanda Fernando FIRE CHIEF'S AIDE Unavailable [phone] Rosalind Cornejo MD Unavailable [phone] Andrei Hayes MD Primary Care Provider Derrek Abdullahi MD Primary Care Provider + [phone] Encounter Details Date Type Department Care Team (Late st Contact Info) Description 01/08/2018 Procedure Pass [facility] Endoscopy Admitting Dept Virtual Department [address] [place] [address] Social History Tobacco Use Types Packs/Day [...] Description 07/16/2025 11:20 AM EST Office Visit [facility] [address] [place] [address] [place] [address] Matilda Hannah, BAILEY [address] [place] [address] documented as of this encounter Visit Diagnoses Not on filedocumented in this encounter Care Teams Ornamental Iron Worker Relationship Specialty Start Date End Date Rosalind Cornejo MD [address] [place] [address] PCP - General 02/03/14 08/08/23 Sp Gusman DO [address] [place] [address] PCP - General Family Medicine 08/09/23 02/18/24 Andrei Hayes MD [address] [place] [address] PCP - General Family Medicine 02/19/24 09/15/24 Derrek Abdullahi MD [address] [place] [address] [place] [address] PCP - General Internal Medicine 09/16/24 Janak Hassan MD [address] [place] [address] Historical LMR Provider 05/27/17 08/13/21 Tex Lin MD [email or web address] Historical LMR Provider 05/27/17 08/13/21 Juwan Su MD [address] [place] [address] Historical LMR Provider 05/27/17 Rosalind Cornejo MD [address] [place] [address] Historical LMR Provider 05/27/17 08/08/23 John Santoyo CNP [address] [place] [address] Historical LMR Provider 05/27/17 08/13/21 Rosalnid Cornejo MD [address] [place] [address] Insurance Assigned Provider 12/07/18 08/08/23 Chanda Fernando NP [address] [place] [address] Nurse Practitioner 08/09/23 09/15/24 Rosalind Cornejo MD [address] [place] [address] Insurance Assigned Provider 12/07/18 10/13/23 documented as of this encounter Additional Source Comments The information contained in this document represents components of the legal health record. It is not the complete legal health record.[facility]
--- OUTSIDE RECORDS SUMMARY | 2025-06-03 09:32 | XMS_ITS | Encounter Summary ---
Author Organization [facility] Address [address] [facility] [address] [place] [address] Phone Care Team Providers Care Manager Engine Name Role Phone Rosalind Cornejo MD Primary Care Provider [phone] Janak Hassan MD Unavailable [phone] Tex Lin MD Unavailable [email or web address] Juwan Su MD Unavailable [phone] Rosalind Cornejo MD Unavailable John Santoyo HANDLE AND VENT MACHINE OPERATOR Unavailable [phone] Rosalind Cornejo MD Unavailable [phone] Sp Gusman DO Primary Care Provider Chanda Fernando SOCIAL SERVICES SPECIALIST Unavailable [phone] Rosalind Cornejo MD Unavailable [phone] Andrei Hayes MD Primary Care Provider Derrek Abdullahi MD Primary Care Provider Encounter Details Date Type Department Care Team (Latest Contact Info) Description 09/11/2017 Transcribe Orders [facility] Laboratory [address] [place], [place] [phone] Raymond Shafer MD [address] [facility] [address] [place], [place] [phone] [email or web address] Uric acid nephrolithiasis (Primary Dx) Social History [...] Description 07/16/2025 11:20 AM EST Office Visit [facility] [address] [place] [address] Matilda Hannah, HANDLE AND VENT MACHINE OPERATOR [address] [facility], 1st [place] [address] [email or web address] documented as of this encounter Results * Creatinine clearance (09/11/2017 4:11 PM EST) URINE CREATININE Cancelled due to incomplete collection. mg/dL [facility] Comment:Corrected on 09/12 A T 1004: previously reported as 51 Blood 09/11/2017 4:11 PM EST 09/11/2017 4:14 PM EST us Raymond Shafer MD LAB BLOOD ORDERABLES Edited Resu lt - Final Performing Organization Address City/[facility]/ZIP Co de Phone Number [facility] [address] [place] [address] * Sodium, 24 hr urine (09/11/2017 4:11 PM EST) URINE SODIUM Cancelled due to incomplete collection. mmol/L [facility] Comment:Corrected on 09/12 A T 1004: previously reported as 91 SODIUM OUTPUT NOT CALCULATED 40 - 220 mmol/total output [facility] Comment:Corrected on 09/12 A T 1004: previously reported as 288 Urine (Urine) 09/11/2017 4:1 1 PM EST 09/11/2017 4:14 PM EST us Raymond Shafer MD URINE ORDERABLES Edited Result - Final Performing Organization Address City/State/[facility] Co de Phone Number [address] [address] * Potassium, 24 hr urine (09/11/2017 4:11 PM EST) URINE POTASSIUM Cancelled due to incomplete collection. mmol/L [facility] Comment:Corrected on 09/12 A T 1004: previously reported as 21.9 POTASSIUM OUTPUT NOT CALCULATED mmol/total output [facility] Comment:Corrected on 09/12 A T 1004: previously reported as 69.2 Urine (Urine) 09/11/2017 4:1 1 PM EST 09/11/2017 4:14 PM EST Raymond Shafer MD URINE ORDERABLES Edited Result - Final Performing Organization Address [facility] de Phone Number [address] [address] * Uric acid, 24 hr urine (09/11/2017 4:11 PM EST) URINE URIC ACID Cancelled due to incomplete clooection. mg/dL [facility] Comment:Corrected on 09/12 A T 1004: previously reported as 20.8 Uric Acid, Timed Urine NOT CALCULATED 250 - 750 mg/total output [facility] Comment:Corrected on 09/12 A T 1004: previously reported as 657.3 Urine (Urine) 09/11/2017 4:1 1 PM EST 09/11/2017 4:14 PM EST us Raymond Shafer MD URINE ORDERABLES Edited Result - Final Performing Organization Address [facility] Co de Phone Number [address] [address] * Phosphorus, 24 hr urine (09/11/2017 4:11 PM EST) URINE PHOSPHORUS Cancelled due to incomplete collection. mg/dL [facility] Comment:Corrected on 09/12 A T 1004: previously reported as 29.7 PHOSPHORUS OUTPUT NOT CALCULATED 400 - 1300 mg/total output [facility] Comment:Corrected on 09/12 A T 1004: previously reported as 938.5 Urine (Urine) 09/11/2017 4:1 1 PM EST 09/11/2017 4:14 PM EST us Raymond Shafer MD URINE ORDERABLES Edited Result - Final Performing Organization Address [facility] Co de Phone Number [address] [address] * Calcium, 24 hour urine (09/11/2017 4:11 PM EST) URINE CALCIUM Cancelled due to incomplete collection. mg/dL [facility] Comment:Corrected on 09/12 A T 1004: previously reported as 2.8 CALCIUM OUTPUT NOT CALCULATED 100 - 300 mg/total output [facility] Comment:Corrected on 09/12 A T 1004: previously reported as 88 Urine (Urine) 09/11/2017 4:1 1 PM EST 09/11/2017 4:14 PM EST us Raymond Shafer MD URINE ORDERABLES Edited Result - Final Performing Organization Address [facility] de Phone Number [address] [address] * Total protein, 24 hr urine (09/11/2017 4:11 PM EST) URINE TOTAL PROTEIN Cancelled due to incomplete collection. mg/dL [facility] Comment:Corrected on 09/12 A T 1004: previously reported as 7.6 Protein, time varied urine (mg/TV) NOT CALCULATED 0 - 165 mg/total output [facility] Comment:Corrected on 09/12 A T 1004: previously reported as 240 Urine (Urine) 09/11/2017 4:1 1 PM EST 09/11/2017 4:14 PM EST us Raymond Shafer MD URINE ORDERABLES Edited Result - Final Performing Organization Address [facility] Co de Phone Number [address] [address] documented in this encounter 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 Care Teams Manager Engine Relationship Specialty Start Date End Date Rosalind Cornejo MD [address] [place] [address] [email or web address] PCP - General 02/03/14 08/08/23 Sp Gusman DO [address] [place] [address] PCP - General Family Medicine 08/09/23 02/18/24 Andrei Hayes MD [address] [place] [address] PCP - General Family Medicine 02/19/24 09/15/24 Derrek Abdullahi MD [address] [place] [address] [place] [address] PCP - General Internal Medicine 09/16/24 Janak Hassan MD [address] [place] [address] [email or web address] Historical LMR Provider 05/27/17 08/13/21 Tex Lin MD [email or web address] Historical LMR Provider 05/27/17 08/13/21 Juwan Su MD [address] [place] [address] [email or web address] Historical LMR Provider 05/27/17 Rosalind Cornejo MD [address] [place] [address] Historical LMR Provider 05/27/17 08/08/23 John Santoyo CNP [address] [place] [address], [address] [place] [address] Historical LMR Provider 05/27/17 08/13/21 Rosalind Cornejo MD [address] [place] [address] Insurance Assigned Provider 12/07/18 08/08/23 Chanda Fernando SOCIAL SERVICES SPECIALIST [address] [place] [address] Nurse Practitioner 08/09/23 09/15/24 Rosalind Cornejo MD [address] [place] [address] [email or web address] Insurance Assigned Provider 12/07/18 10/13/23 documented as of this encounter Additional Source Comments The information contained in this document represents components of the legal health record. It is not the complete legal health record.[facility]
--- OUTSIDE RECORDS SUMMARY | 2025-06-03 09:32 | XMS_ITS | Encounter Summary ---
Author Organization [facility], Address [address] [place] [address] Phone Care Team Providers Care Level Vial Inspector And Tester Name Role Phone Rosalind Cornejo MD Primary Care Provider [phone] Encounter Details Date Type Department Care Team (Late st Contact Info) Description 08/19/2021 Documentation Only [facility], [address] [place] [address] Yocasta Whitting[address] [place] [phone] Social History Tobacco Use Types Packs/Day Years [...] on filedocumented in this encounter Care Teams Level Vial Inspector And Tester Relationship Specialty Start Date End Date Rosalind Cornejo MD [address] [place] [address] PCP - General 06/10/19 documented as of this encounter
--- OUTSIDE RECORDS SUMMARY | 2025-06-03 09:32 | XMS_ITS | Encounter Summary ---
Author Organization [facility] Address [address] [place] [address] [place] [address] Phone Care Team Providers Care Supervisor Product Inspection Name Role Phone Rosalind Cornejo MD Primary Care Provider [phone] Benji Hassan MD Unavailable [phone] Tex Lin MD Unavailable [email or web address] Juwan Su MD Unavailable [phone] Rosalind Cornejo MD Unavailable [phone] John Santoyo LEAD INVESTIGATOR Unavailable [phone] Rosalind Cornejo MD Unavailable [phone] Sp Gusman DO Primary Care Provider [phone] Chanda Fernando GROUP ACCOUNT DIRECTOR Unavailable [phone] Rosalind Cornejo MD Unavailable [phone] Andrei Hayes MD Primary Care Provider Derrek Abdullahi MD Primary Care Provider Encounter Details Date Type Department Care Team (Late st Contact Info) Description 05/26/2017 Ancillary Orders [facility] Department [address] [place] [address] Gm Torres MD [facility], [address] [place] [address] Kidney stones Social History Tobacco Use Types [...] Description 07/16/2025 11:20 AM EST Office Visit [facility] [address] [place] [address] Matilda Hannah CNP [address] [facility], 1st [place] [address] [email or web address] documented as of this encounter Results * [...] within normal limits overall size with right [id number] x 6.5 cm and left 13.1 x [...] post void residual bladder volume. POS [id number] us Gm Torres MD IMG US RENAL Final Result documented in this encounter Visit Diagnoses Diagnosis Kidney stones Calculus of kidney Kidney stones Calculus of kidney documented in this encounter Care Teams Supervisor Product Inspection Relationship Specialty Start Date End Date Rosalind Cornejo MD [address] [place] [address] [email or web address] PCP - General 02/03/14 08/08/23 Sp Gusman DO [address] [place] [address], 2nd [place] [address] PCP - General Family Medicine 08/09/23 02/18/24 Andrei Hayes MD [address] [place] [address] PCP - General Family Medicine 02/19/24 09/15/24 Derrek Abdullahi MD [address] [place] [address] [place] [address] PCP - General Internal Medicine 09/16/24 Benji Hassan MD [address] [place] [address] [email or web address] Historical LMR Provider 05/27/17 08/13/21 Tex Lin MD [email or web address] Historical LMR Provider 05/27/17 08/13/21 Juwan Su MD [address] [place] [address] [email or web address] Historical LMR Provider 05/27/17 Rosalind Cornejo MD [address] [place] [address] [email or web address] Historical LMR Provider 05/27/17 08/08/23 John Santoyo CNP [address] [place] [address] [email or web address] Historical LMR Provider 05/27/17 08/13/21 Rosalind Cornejo MD [address] [place] [address] [email or web address] Insurance Assigned Provider 12/07/18 08/08/23 Chanda Fernando GROUP ACCOUNT DIRECTOR [address] [place] [address] Nurse Practitioner 08/09/23 09/15/24 Rosalind Cornejo MD [address] [place] [address] [email or web address] Insurance Assigned Provider 12/07/18 10/13/23 documented as of this encounter Additional Source Comments The information contained in this document represents components of the legal health record. It is not the complete legal health record.[facility]
--- OUTSIDE RECORDS SUMMARY | 2025-06-03 09:32 | XMS_ITS | Clinical Summary ---
Author Organization [facility], Address [address] [facility] [address] [place] [address] Phone Care Team Providers Care Facilities Administrator Name Role Phone Rosalind Cornejo MD Primary [...] by mouth twice a day Active B NNPLIOI-[id number]-IN PO Take 3 tablets by mouth 1 [...] patient's age to complete this topic Insurance [facility] Care Teams Facilities Administrator Relationship Specialty Start Date End Date Rosalind Cornejo MD [address] [place] [address] PCP - General 06/10/19
== END 2025-06-02 08:47 | disposition home or self-care (01) ==
LOC: HO.HOSX 08:46
PROVIDERS: Visit Provider Physician Assistant
DX: Z13.89 Encounter for screening for other disorder (principal)

== ENCOUNTER 2025-07-04 09:01 | Outpatient (REF) | payer BC, SELFPAY ==
--- NOTE | ~2025-07-04 | XR_ITS ---
CLINICAL HISTORY: M25.571 - Pain in right ankle and joints of right foot --- Additional Notes or Special Instructions: Rt ankle pain 3 view right ankle Comparison: None provided Findings: No acute fractures. Ankle mortise intact. Ikxh-tj-opuciftd degenerative changes in the midfoot. No ankle effusion. No radiopaque foreign body. Prominent arterial calcifications. IMPRESSION: 1. Diffuse soft tissue swelling. 2. No acute fracture or dislocation. This document has been electronically signed by: Whitney Shafer DO on 07/04/2025 09:40:25
[2025-07-04 11:15] LABS: MANUAL DIFF FLAG NO
[2025-07-04 11:20] LABS: Hematocrit 44.6 % (42.0-52.0); Hemoglobin 14.9 g/dl (14.0-18.0); Imm Gran Abs Auto 0.01 X10*3/uL (0.00-0.03); Imm Gran Pct Auto 0.2 % (0.0-0.4); Lymphocytes Absolute Auto 1.7 X10*3/uL (1.2-4.9); Mean Corpuscular HGB Conc 33.4 g/dl (31.0-36.0); Mean Corpuscular Hemoglobin 28.5 pg (27.0-33.0); Mean Corpuscular Volume 85.4 fL (80.0-98.0); NRBC Abs Auto 0.000 X10*3/uL (0.0-0.012); NRBC Pct Auto 0.0 /100WBC (0.0-0.2); Platelet Count 251 X10*3/uL (160-400); Red Blood Count 5.22 X10*6/uL (4.60-5.80); White Blood Count 4.8 X10*3/uL (4.8-10.8)
[2025-07-04 11:37] LABS: Appearance Urine Clear; Glucose Urine UA >=1000 mg/dL (Negative); PH 6.0 (5.0-9.0); Specific Gravity - Urine >= 1.030 (1.005-1.025); UMIC TRIGGER UACC YES
[2025-07-04 11:53] LABS: Alanine Aminotransferase 27 U/L (0-40); Albumin Level 4.7 g/dL (3.5-5.0); Alkaline Phosphatase 67 U/L (39-117); Anion Gap 13 (12-20); Aspartate Amino Transferase 29 U/L (5-37); Blood Urea Nitrogen 22 mg/dL (9-16); Calcium 9.4 mg/dL (8.4-10.2); Carbon Dioxide 25 mmol/L (22-29); Chloride 109 mmol/L (96-108); Cholesterol 97 mg/dL (<200); Estimated Glomerular Filt Rate > 60; HDL Cholesterol 47 mg/dL (>40); Potassium 4.2 mmol/L (3.3-5.1); Sodium 143 mmol/L (135-145); Total Protein 6.9 g/dL (6.5-8.0); Triglycerides 68 mg/dL (<150)
[2025-07-04 12:12] LABS: Folate 11.8 ng/mL (> or = 4.0); Vitamin B12 310 pg/mL (200-900)
[2025-07-04 12:14] LABS: Microalbum/Creatinine Ratio Ur 321.8 ug/mg cr (<30)
== END 2025-07-04 09:02 | disposition home or self-care (01) ==
LOC: HO.HMGCX 09:01
PROVIDERS: PCP Internal Medicine; Visit Provider Physician Assistant
DX: S96.911A Strain of unspecified muscle and tendon at ankle and foot level, right foot, initial encounter (principal); D64.9 Anemia, unspecified; E78.00 Pure hypercholesterolemia, unspecified; E11.9 Type 2 diabetes mellitus without complications; E53.8 Deficiency of other specified B group vitamins; E55.9 Vitamin D deficiency, unspecified; L03.90 Cellulitis, unspecified
CPT/HCPCS: 36415; 73610; 80053; 80061; 81001; 82043; 82306; 82570; 82607; 82746; 83036; 84443; 85025

== ENCOUNTER 2025-07-04 09:01 | Outpatient (AMB) | payer BC, SELFPAY ==
[2025-07-04 09:03] VITALS: BP 128/62; PULSE 68; TEMP 36.8; O2SAT 98; BMI 30.1
--- OUTSIDE RECORDS SUMMARY | 2025-07-04 09:04 | XMS_ITS | Encounter Summary ---
Author Organization [facility] Address [address] [place] [address] [place] [address] Phone Care Team Providers Care Rouge Mixer Name Role Phone Rosalind Cornejo MD Primary Care Provider [phone] Janak Hassan MD Unavailable [phone] Tex Lin MD Unavailable [email or web address] Juwan Su MD Unavailable [phone] Rosalind Cornejo MD Unavailable [phone] John Santoyo PAPER CARRIER Unavailable [phone] Rosalind Cornejo MD Unavailable [phone] Sp Gusman DO Primary Care Provider Chanda Fernando RAG GRADER Unavailable [phone] Rosalind Cornejo MD Unavailable [phone] Andrei Hayes MD Primary Care Provider Derrek Abdullahi MD Primary Care Provider [phone] Encounter Details Date Type Department Care Team (Late st Contact Info) Description 07/16/2017 Ancillary Orders [facility] Department [address] [place] [phone] Rosalind Cornejo MD [address] [place] [phone] [email or web address] Abdominal pain, unspecified abdominal location; Elevated LFTs [...] Description 07/16/2025 11:20 AM EST Office Visit [facility] [address] [place] [address] Matilda Hannah, BAILEY [address] [place] [address] [email or web address] documented as of this encounter Visit Diagnoses Diagnosis Abdominal pain, unspecified abdominal location Elevated LFTs Other abnormal blood chemistry documented in this encounter Care Teams Rouge Mixer Relationship Specialty Start Date End Date Rosalind Cornejo MD [address] [place] [address] [email or web address] PCP - General 02/03/14 08/08/23 Sp Gusman DO [address] [place] [address] PCP - General Family Medicine 08/09/23 02/18/24 Andrei Hayes MD [address] [place] [address] PCP - General Family Medicine 02/19/24 09/15/24 Derrek Abdullahi MD [address] [place] [address] [place] [address] PCP - General Internal Medicine 09/16/24 Janak Hassan MD [address] [place] [address] [email or web address] Historical LMR Provider 05/27/17 08/13/21 Tex Lin MD [email or web address] Historical LMR Provider 05/27/17 08/13/21 Juwan Su MD [address] [place] [address] [email or web address] Historical LMR Provider 05/27/17 Rosalind Cornejo MD [address] [place] [address] [email or web address] Historical LMR Provider 05/27/17 08/08/23 John Santoyo CNP [address] [place] [address] [email or web address] Historical LMR Provider 05/27/17 08/13/21 Rosalind Cornejo MD [address] [place] [address] [email or web address] Insurance Assigned Provider 12/07/18 08/08/23 Chanda Fernando NP [address] [place] [address] Nurse Practitioner 08/09/23 09/15/24 Rosalind Cornejo MD [address] [place] [address] [email or web address] Insurance Assigned Provider 12/07/18 10/13/23 documented as of this encounter Additional Source Comments The information contained in this document represents components of the legal health record. It is not the complete legal health record.[facility]
--- OUTSIDE RECORDS SUMMARY | 2025-07-04 09:04 | XMS_ITS | Encounter Summary ---
Author Organization [facility] Address [address] [place] [address] [place] [address] Phone Care Team Providers Care Facilities Flight Check Pilot Name Role Phone Rosalind Cornejo MD Primary Care Provider [phone] Janak Hassan MD Unavailable [phone] Tex Lin MD Unavailable [email or web address] Juwan Su MD Unavailable [phone] Rosalind Cornejo MD Unavailable John Santoyo ANALYSIS INTERN Unavailable [phone] Rosalind Cornejo MD Unavailable Sp Gusman DO Primary Care Provider [phone] Chanda Fernando GROUP FITNESS ASSISTANT DEPARTMENT HEAD Unavailable [phone] Rosalind Cornejo MD Unavailable [phone] Andrei Hayes MD Primary Care Provider Derrek Abdullahi MD Primary Care Provider [phone] Encounter Details Date Type Department Care Team (Late st Contact Info) Description 07/23/2017 Transcribe Orders [facility] Phleb Main [address] [place], [place] [phone] Rosalind Cornejo MD [address] [place] [address] [phone] [email or web address] Elevated liver function tests (Primary Dx) Social [...] Description 07/16/2025 11:20 AM EST Office Visit [facility] 22 [place] [address] Matilda Hannah, BAILEY [address] [facility], 1st [place] [address] [email or web address] documented as of this encounter Results * (ABNORMAL) LFTs (hepatic panel) (07/23/2017 10:12 AM EST) ALKALINE PHOSPHATASE 57 39 - 117 U/L [facility] TOTAL BILIRUBIN 0.4 0 - 1.2 mg/dL [facility] DIRECT BILIRUBIN <0.2 0 - 0.3 mg/dL [facility] Bilirubin (Indirect) NOT CALCULATED 0 - 1.5 mg/dL [facility] AST 61(H) 0 - 37 U/L [facility] ALT 104(H) 0 - 40 U/L [facility] TOTAL PROTEIN 6.4(L) 6.5 - 8.0 g/dL [facility] ALBUMIN 3.8(L) 3.9 - 4.8 g/dL [facility] GLOBULIN 2.6 1 - 4.8 g/dL [facility] A/G Ratio 1.46 1.00 - 4.80 RATIO [facility] Blood 07/23/2017 10:1 2 AM EST 07/23/2017 10:13 AM EST us Rosalind Cornejo MD LAB BLOOD BKR ORDERABLES Fi nal Result [facility] 30 [place] [address] documented in this encounter Visit Diagnoses Diagnosis Elevated liver function tests- Primary Other abnormal blood chemistry documented in this encounter Care Teams Facilities Flight Check Pilot Relationship Specialty Start Date End Date Rosalind Cornejo MD [address] [place] [address] [email or web address] PCP - General 02/03/14 08/08/23 pS Gusman DO [address] [place] [address] PCP - General Family Medicine 08/09/23 02/18/24 Andrei Hayes MD [address] [place] [address] PCP - General Family Medicine 02/19/24 09/15/24 Derrek Abdullahi MD [address] [place] [address] [place] [address] PCP - General Internal Medicine 09/16/24 Janak Hassan MD [address] [place] [address] [email or web address] Historical LMR Provider 05/27/17 08/13/21 Tex Lin MD [email or web address] Historical LMR Provider 05/27/17 08/13/21 Juwan Su MD [address] [place] [address] [email or web address] Historical LMR Provider 05/27/17 Rosalind Cornejo MD [address] [place] [address] Historical LMR Provider 05/27/17 08/08/23 John Santoyo CNP [facility], [address] [place] [address] Historical LMR Provider 05/27/17 08/13/21 Rosalind Cornejo MD [address] [place] [address] Insurance Assigned Provider 12/07/18 08/08/23 Chanda Fernando NP [address] [place] [address] Nurse Practitioner 08/09/23 09/15/24 Rosalind Cornejo MD [address] [place] [address] [email or web address] Insurance Assigned Provider 12/07/18 10/13/23 documented as of this encounter Additional Source Comments The information contained in this document represents components of the legal health record. It is not the complete legal health record.[facility]
--- OUTSIDE RECORDS SUMMARY | 2025-07-04 09:04 | XMS_ITS | Encounter Summary ---
Author Organization [facility] Address [address] [place] [address] Phone Care Team Providers Care [place] Machine Operator Name Role Phone Rosalind Cornejo MD Primary Care Provider [phone] Janak Hassan MD Unavailable [phone] Tex Lin MD Unavailable [email or web address] Juwan Su MD Unavailable [phone] Rosalind Cornejo MD Unavailable [phone] John Santoyo PROFESSOR OF MATHEMATICS Unavailable [phone] Rosalind Cornejo MD Unavailable Sp Gusman DO Primary Care Provider [phone] Chanda Fernando ENGINEER AND GEOLOGIST Unavailable [phone] Rosalind Cornejo MD Unavailable [phone] Andrei Hayes MD Primary Care Provider Derrek Abdullahi MD Primary Care Provider [phone] Encounter Details Date Type Department Care Team (Latest Contact Info) Description 06/08/2017 Transcribe Orders [address] [address] Gm Torres MD Replaced by [facility], [address] [place], [place] [phone] [email or web address] Benign localized hyperplasia of prostate with urinary [...] Description 07/16/2025 11:20 AM EST Office Visit [facility] 22 [place] [address] Matilda Hannah, PROFESSOR OF MATHEMATICS [address] [facility], 1st [place] [address] documented as of this encounter Procedures Procedure Name Priority Date/Time Associated Diagnosis Comments PSA (SCREENING) Routine 06/08/2017 9:12 AM EDT Benign localized hyperplasia of prostate with urinary retention documented in this encounter Results * PSA (screening) (06/08/2017 9:12 AM EDT) PSA 0.34 0 - 4.00 ng/mL [facility] Blood 06/08/2017 9:12 AM EDT 06/08/2017 9:20 AM EDT us Gm Torres MD LAB BLOOD BKR ORDERABLES Final Result [facility] 30 [place] [address] documented in this encounter Visit Diagnoses Diagnosis Benign localized hyperplasia of prostate with urinary retention- Primary Benign localized hyperplasia of prostate with urinary obstruction and other lower urinary tract symptoms (LUTS) documented in this encounter Care Teams Kings[place] Machine Operator Relationship Specialty Start Date End Date Rosalind Cornejo MD [address] [place] [address] [email or web address] PCP - General 02/03/14 08/08/23 Sp Gusman DO [address] [place] [address] PCP - General Family Medicine 08/09/23 02/18/24 Andrei Hayes MD [address] [place] [address] PCP - General Family Medicine 02/19/24 09/15/24 Derrek Abdullahi MD [address] [place] [address] [facility] [place] [address] PCP - General Internal Medicine 09/16/24 Janak Hassan MD [address] [place] [address] [email or web address] Historical LMR Provider 05/27/17 08/13/21 Tex Lin MD [email or web address] Historical LMR Provider 05/27/17 08/13/21 Juwan Su MD [address] [place] [address] Historical LMR Provider 05/27/17 Rosalind Cornejo MD [address] [place] [address] Historical LMR Provider 05/27/17 08/08/23 John Santoyo, PROFESSOR OF MATHEMATICS [address] [place] [address] Historical LMR Provider 05/27/17 08/13/21 Rosalind Cornejo MD [address] [place] [address] [email or web address] Insurance Assigned Provider 12/07/18 08/08/23 Chanda Fernando NP [address] [place] [address] Nurse Practitioner 08/09/23 09/15/24 Rosalind Cornejo MD [address] [place] [address] [email or web address] Insurance Assigned Provider 12/07/18 10/13/23 documented as of this encounter Additional Source Comments The information contained in this document represents components of the legal health record. It is not the complete legal health record.[facility]
--- OUTSIDE RECORDS SUMMARY | 2025-07-04 09:04 | XMS_ITS | Encounter Summary ---
Author Organization [facility] Address [address] [facility] [address] [place] [address] Phone Care Team Providers Care Teaching Pastor Name Role Phone Rosalind Cornejo MD Primary Care Provider Janak Hassan MD Unavailable [phone] Tex Lin MD Unavailable [email or web address] Juwan Su MD Unavailable Rosalind Cornejo MD Unavailable John Santoyo SENIOR ORACLE ADF DEVELOPER Unavailable [phone] Rosalind Cornejo MD Unavailable [phone] Sp Gusman DO Primary Care Provider Chanda Fernando CELLOPHANE BATH MIXER Unavailable [phone] Rosalind Cornejo MD Unavailable [phone] Andrei Hayes MD Primary Care Provider Derrek Abdullahi MD Primary Care Provider [phone] Encounter Details Date Type Department Care Team (Latest Contact Info) Description 09/11/2017 Transcribe Orders [facility] Phleb Main 30 [place], [place] [phone] Raymond Shafer MD [address] [facility] [address] [place], [place] [phone] [email or web address] Uric acid nephrolithiasis (Primary Dx) Social History [...] Description 07/16/2025 11:20 AM EST Office Visit [facility] 22 [place] [address] Matilda Hannah, SENIOR ORACLE ADF DEVELOPER [address] [facility], 1st [place] [address] [email or web address] documented as of this encounter Results * Creatinine clearance (09/11/2017 4:11 PM EST) URINE CREATININE Cancelled due to incomplete collection. mg/dL [facility] Comment:Corrected on 09/12 A T 1004: previously reported as 51 Blood 09/11/2017 4:11 PM EST 09/11/2017 4:14 PM EST us Raymond Shafer MD LAB BLOOD BKR ORDERABLES Edited Result - Final [facility] 30 [place] [address] * Sodium, 24 hr urine (09/11/2017 4:11 PM EST) URINE SODIUM Cancelled due to incomplete collection. mmol/L [facility] Comment:Corrected on 09/12 A T 1004: previously reported as 91 SODIUM OUTPUT NOT CALCULATED 40 - 220 mmol/total output [facility] Comment:Corrected on 09/12 A T 1004: previously reported as 288 Urine (Urine) 09/11/2017 4:1 1 PM EST 09/11/2017 4:14 PM EST us Raymond Shafer MD URINE ORDERABLES Edited Result - Final Performing Organization Address City/State/[facility] Co de Phone Number [address] [address] * Potassium, 24 hr urine (09/11/2017 4:11 PM EST) URINE POTASSIUM Cancelled due to incomplete collection. mmol/L [facility] Comment:Corrected on 09/12 A T 1004: previously reported as 21.9 POTASSIUM OUTPUT NOT CALCULATED mmol/total output [facility] Comment:Corrected on 09/12 A T 1004: previously reported as 69.2 Urine (Urine) 09/11/2017 4:1 1 PM EST 09/11/2017 4:14 PM EST Raymond Shafer MD URINE ORDERABLES Edited Result - Final Performing Organization Address [facility] de Phone Number [address] [address] * Uric acid, 24 hr urine (09/11/2017 4:11 PM EST) URINE URIC ACID Cancelled due to incomplete clooection. mg/dL [facility] Comment:Corrected on 09/12 A T 1004: previously reported as 20.8 Uric Acid, Timed Urine NOT CALCULATED 250 - 750 mg/total output [facility] Comment:Corrected on 09/12 A T 1004: previously reported as 657.3 Urine (Urine) 09/11/2017 4:1 1 PM EST 09/11/2017 4:14 PM EST us Raymond Shafer MD URINE ORDERABLES Edited Result - Final Performing Organization Address [facility] Co de Phone Number [address] [address] * Phosphorus, 24 hr urine (09/11/2017 4:11 PM EST) URINE PHOSPHORUS Cancelled due to incomplete collection. mg/dL [facility] Comment:Corrected on 09/12 A T 1004: previously reported as 29.7 PHOSPHORUS OUTPUT NOT CALCULATED 400 - 1300 mg/total output [facility] Comment:Corrected on 09/12 A T 1004: previously reported as 938.5 Urine (Urine) 09/11/2017 4:1 1 PM EST 09/11/2017 4:14 PM EST us Raymond Shafer MD URINE ORDERABLES Edited Result - Final Performing Organization Address [facility] Co de Phone Number [address] [address] * Calcium, 24 hour urine (09/11/2017 4:11 PM EST) URINE CALCIUM Cancelled due to incomplete collection. mg/dL [facility] Comment:Corrected on 09/12 A T 1004: previously reported as 2.8 CALCIUM OUTPUT NOT CALCULATED 100 - 300 mg/total output [facility] Comment:Corrected on 09/12 A T 1004: previously reported as 88 Urine (Urine) 09/11/2017 4:1 1 PM EST 09/11/2017 4:14 PM EST us Raymond Shafer MD URINE ORDERABLES Edited Result - Final Performing Organization Address [facility] de Phone Number [address] [address] * Total protein, 24 hr urine (09/11/2017 4:11 PM EST) URINE TOTAL PROTEIN Cancelled due to incomplete collection. mg/dL [facility] Comment:Corrected on 09/12 A T 1004: previously reported as 7.6 Protein, time varied urine (mg/TV) NOT CALCULATED 0 - 165 mg/total output [facility] Comment:Corrected on 09/12 A T 1004: previously reported as 240 Urine (Urine) 09/11/2017 4:1 1 PM EST 09/11/2017 4:14 PM EST us Raymond Shafer MD LAB URINE ORDERABLES Edited Resu lt - Final Performing Organization Address [facility] Co de Phone Number [address] [address] documented in this encounter 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 Care Teams Teaching Pastor Relationship Specialty Start Date End Date Rosalind Cornejo MD [address] [place] [address] [email or web address] PCP - General 02/03/14 08/08/23 Sp Gusman DO [address] [place] [address] PCP - General Family Medicine 08/09/23 02/18/24 Andrei Hayes MD [address] [place] [address] PCP - General Family Medicine 02/19/24 09/15/24 Derrek Abdullahi MD [address] [place] [address] [place] [address] PCP - General Internal Medicine 09/16/24 Janak Hassan MD [address] [place] [address] [email or web address] Historical LMR Provider 05/27/17 08/13/21 Tex Lin MD [email or web address] Historical LMR Provider 05/27/17 08/13/21 Juwan Su MD [address] [place] [address] [email or web address] Historical LMR Provider 05/27/17 Rosalind Cornejo MD [address] [place] [address] [email or web address] Historical LMR Provider 05/27/17 08/08/23 John Santoyo CNP [address] [place] [address] Historical LMR Provider 05/27/17 08/13/21 Rosalind Cornejo MD [address] [place] [address] Insurance Assigned Provider 12/07/18 08/08/23 Chanda Fernando NP [address] [place] [address] Nurse Practitioner 08/09/23 09/15/24 Rosalind Cornejo MD [address] [place] [address] [email or web address] Insurance Assigned Provider 12/07/18 10/13/23 documented as of this encounter Additional Source Comments The information contained in this document represents components of the legal health record. It is not the complete legal health record.[facility]
--- OUTSIDE RECORDS SUMMARY | 2025-07-04 09:04 | XMS_ITS | Encounter Summary ---
Author Organization [facility] Address [address] [place] [address] [place] [address] Phone Care Team Providers Care Family Court Registrar Name Role Phone Rosalind Cornejo MD Primary Care Provider [phone] Janak Hassan MD Unavailable [phone] Tex Lin MD Unavailable [email or web address] Juwan Su MD Unavailable [phone] Rosalind Cornejo MD Unavailable [phone] John Santoyo PROJECT CONTROL ANALYST Unavailable [phone] Rosalind Cornejo MD Unavailable [phone] Sp Gusman DO Primary Care Provider Chanda Fernando MORTGAGE SALES MANAGER Unavailable [phone] Rosalind Cornejo MD Unavailable [phone] Andrei Hayes MD Primary Care Provider Derrek Abdullahi MD Primary Care Provider [phone] Encounter Details Date Type Department Care Team (Late st Contact Info) Description 01/08/2018 Procedure Pass [facility] Endoscopy Admitting Dept Virtual Department [address] [place] [address] Social History Tobacco Use Types Packs/Day [...] Description 07/16/2025 11:20 AM EST Office Visit [facility] [address] [place] [address] [place] [address] Matilda Hannah CNP [address] [place] [address] documented as of this encounter Visit Diagnoses Not on filedocumented in this encounter Care Teams Family Court Registrar Relationship Specialty Start Date End Date Rosalind Cornejo MD [address] [place] [address] [email or web address] PCP - General 02/03/14 08/08/23 Sp Gusman DO [address] [place] [address] PCP - General Family Medicine 08/09/23 02/18/24 Andrei Hayes MD [address] [place] [address] PCP - General Family Medicine 02/19/24 09/15/24 Derrek Abdullahi MD [address] [place] [address] [place] [address] PCP - General Internal Medicine 09/16/24 Janak Hassan MD [address] [place] [address] Historical LMR Provider 05/27/17 08/13/21 Tex Lin MD [email or web address] Historical LMR Provider 05/27/17 08/13/21 Juwan Su MD [address] [place] [address] Historical LMR Provider 05/27/17 Rosalind Cornejo MD [address] [place] [address] Historical LMR Provider 05/27/17 08/08/23 John Santoyo CNP [address] [place] [address] Historical LMR Provider 05/27/17 08/13/21 Rosalind Cornejo MD [address] [place] [address] Insurance Assigned Provider 12/07/18 08/08/23 Chanda Fernando NP [address] [place] [address] Nurse Practitioner 08/09/23 09/15/24 Rosalind Cornejo MD [address] [place] [address] Insurance Assigned Provider 12/07/18 10/13/23 documented as of this encounter Additional Source Comments The information contained in this document represents components of the legal health record. It is not the complete legal health record.[facility]
--- OUTSIDE RECORDS SUMMARY | 2025-07-04 09:04 | XMS_ITS | Encounter Summary ---
Author Organization [facility] Address [address] [place] [address] [place] [address] Phone Care Team Providers Care Last Dipper Name Role Phone Rosalind Cornejo MD Primary Care Provider [phone] Janak Hassan MD Unavailable [phone] Tex Lin MD Unavailable [email or web address] Juwan Su MD Unavailable [phone] Rosalind Cornejo MD Unavailable [phone] John Santoyo CHIEF CONTROLLER CENTER Unavailable [phone] Rosalind Cornejo MD Unavailable [phone] Sp Gusman DO Primary Care Provider [phone] Chanda Fernando WEIGHT INSPECTOR Unavailable [phone] Rosalind Cornejo MD Unavailable [phone] Andrei Hayes MD Primary Care Provider Derrek Abdullahi MD Primary Care Provider [phone] Encounter Details Date Type Department Care Team (Late st Contact Info) Description 04/02/2018 Ancillary Orders [facility] Department [address] [place] [address] Bernadette Tinsley, BARBARA [address] [place] [address] [email or web address] Kidney stone Social History Tobacco Use Types [...] Description 07/16/2025 11:20 AM EST Office Visit [facility] [address] [place] [address] Matilda Hannah CNP [address] [place] [address] [email or web address] documented as of this encounter Visit Diagnoses Diagnosis Kidney stone Calculus of kidney documented in this encounter Care Teams Last Dipper Relationship Specialty Start Date End Date Rosalind Cornejo MD [address] [place] [address] [email or web address] PCP - General 02/03/14 08/08/23 Sp Gusman DO [address] [place] [address] PCP - General Family Medicine 08/09/23 02/18/24 Andrei Hayes MD [address] [place] [address] PCP - General Family Medicine 02/19/24 09/15/24 Derrek Abdullahi MD [address] [place] [address] [place] [address] PCP - General Internal Medicine 09/16/24 Janak Hassan MD [address] [place] [address] [email or web address] Historical LMR Provider 05/27/17 08/13/21 Tex Lin MD [email or web address] Historical LMR Provider 05/27/17 08/13/21 Juwan Su MD [address] [place] [address] [email or web address] Historical LMR Provider 05/27/17 Rosalind Cornejo MD [address] [place] [address] [email or web address] Historical LMR Provider 05/27/17 08/08/23 John Santoyo CNP [address] [place] [address] Historical LMR Provider 05/27/17 08/13/21 Rosalind Cornejo MD [address] [place] [address] [email or web address] Insurance Assigned Provider 12/07/18 08/08/23 Chanda Fernando NP [address] [place] [address] Nurse Practitioner 08/09/23 09/15/24 Rosalind Cornejo MD [address] [place] [address] [email or web address] Insurance Assigned Provider 5/4/19 3/9/24 documented as of this encounter Additional Source Comments The information contained in this document represents components of the legal health record. It is not the complete legal health record.[facility]
--- OUTSIDE RECORDS SUMMARY | 2025-07-04 09:04 | XMS_ITS | Encounter Summary ---
Author Organization [facility] Address [address] [facility] [address] [place] [address] Phone Care Team Providers Care Brick And Blocker Aid Labor Name Role Phone Rosalind Cornejo MD Primary Care Provider Janak Hassan MD Unavailable [phone] Tex Lin MD Unavailable [email or web address] Juwan Su MD Unavailable [phone] Rosalind Cornejo MD Unavailable [phone] John Santoyo AUTO TOP MECHANIC Unavailable [phone] Rosalind Cornejo MD Unavailable Sp Gusman DO Primary Care Provider [phone] Chanda Fernando CONCRETE PRECAST MOULDER Unavailable [phone] Rosalind Cornejo MD Unavailable [phone] Andrei Hayes MD Primary Care Provider Derrek Abdullahi MD Primary Care Provider [phone] Encounter Details Date Type Department Care Team (Latest Contact Info) Description 09/04/2017 Transcribe Orders [facility]le[facility] Main [address] [place], [place] [id number] Raymond Shafer MD [address] [facility] [address] [place], [place] [id number] [email or web address] Uric acid [...] Description 07/16/2025 11:20 AM EST Office Visit [facility] [address] [place] [address] Matilda Hannah, AUTO TOP MECHANIC [address] [facility], 1st [place] [address] [email or web address] documented as of this encounter Results * (ABNORMAL) Urinalysis w/reflex Urine Culture (09/04/2017 9:49 AM EST) COLOR STRAW(A) Yellow [facility] CLARITY Clear [facility] GLUCOSE 3+(A) Negative [facility] BILI Negative Negative [facility] KETONES Negative Negative [facility] SPECIFIC GRAVITY 1.015 1.005 - 1.030 [facility] BLOOD Negative Negative [facility] PH 5.5 5.0 - 8.0 [facility] Protein-UA Negative Negative [facility] NITRITE Negative Negative [facility] Leukocyte esterase, ur Negative Negative [facility] Urine (Urine) 09/04/2017 9:4 9 AM EST 09/04/2017 9:56 AM EST us Raymond Shafer MD LAB URINE ORDERABLES Final Resul t [facility] [address] [place] [address] * (ABNORMAL) Uric acid (09/04/2017 9:49 AM EST) URIC ACID 7.7(H) 2.4 - 7.0 mg/dL [facility] Blood 09/04/2017 9:49 AM EST 09/04/2017 9:53 AM EST us Raymond Shafer MD LAB BLOOD BKR ORDERABLES Final R esult Performing Organization Address [facility] Co de Phone Number [address] [address] * Parathyroid hormone (PTH) (09/04/2017 9:49 AM EST) PARATHYROID HORMONE 31 15 - 65 pg/mL [facility] Blood 09/04/2017 9:49 AM EST 09/04/2017 9:57 AM EST us Raymond Shafer MD LAB BLOOD BKR ORDERABLES Final R [facility] Performing Organization Address [facility] de Phone Number [address] [address] * Lipid panel (09/04/2017 9:49 AM EST) HDL 47 mg/dL [facility] Comment: Interpretation: Risk Level Males Decreased >45 mg/dL Average 40-45 mg/dL Increased <40 mg/dL CHOLESTEROL 195 0 - 240 mg/dL [facility] TRIGLYCERIDES 113 30 - 160 mg/dL [facility] LDL 125 50 - 129 mg/dL [facility] Comment: LDL levels in terms of risk for coronary heart disease: <100 mg/dL: Optimal 100-129 mg/dL: Near or above optimal 130-159 mg/dL: Borderline high 160-189 mg/dL: High >190 mg/dL: Very High CARDIAC RISK RATIO 4.1 3.4 - 5.0 [facility] Blood 09/04/2017 9:49 AM EST 09/04/2017 9:53 AM EST us Raymond Shafer MD LAB BLOOD BKR ORDERABLES Final R esult Performing Organization Address [facility] Co de Phone Number [address] [address] * 25-OH vitamin D (09/04/2017 9:49 AM EST) 25 OH VIT D (TOTAL) 46 30 - 1,000 ng/mL [facility] Blood 09/04/2017 9:49 AM EST 09/04/2017 9:53 AM EST Raymond Shafer MD LAB BLOOD BKR ORDERABLES Final R esult Performing Organization Address City/[facility] Co de Phone Number [address] [address] * (ABNORMAL) Renal panel (09/04/2017 9:49 AM EST) SODIUM 141 133 - 146 mmol/L [facility] POTASSIUM 4.5 3.3 - 5.1 mmol/L [facility] CHLORIDE 102 96 - 108 mmol/L [facility] CO2 28 21 - 35 mmol/L [facility] GLUCOSE 135(H) 70 - 99 mg/dL [facility] BUN 23(H) 6 - 19 mg/dL [facility] CREATININE 1.20 0.5 - 1.5 mg/dL [facility] CALCIUM 9.8 8.4 - 10.3 mg/dL [facility] PHOSPHORUS 3.3 2.7 - 4.5 mg/dL [facility] ALBUMIN 4.6 3.9 - 4.8 g/dL [facility] EGFR >60 >60 mL/min/1.7 3m2 [facility] Comment:Abnormal if <60. If patient is -Cymraes, multiply the result by 1.21. 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 Care Teams Brick And Blocker Aid Labor Relationship Specialty Start Date End Date Rosalind Cornejo MD [address] [place] [email or web address] PCP - General 02/03/14 08/08/23 Sp Gusman DO [address] [place] [address] PCP - General Family Medicine 08/09/23 02/18/24 Andrei Hayes MD [address] [place] [address] PCP - General Family Medicine 02/19/24 09/15/24 Derrek Abdullahi MD [address] [place] [address] [place] [address] PCP - General Internal Medicine 09/16/24 Janak Hassan MD [address] [place] [address] [email or web address] Historical LMR Provider 05/27/17 08/13/21 Tex Lin MD [email or web address] Historical LMR Provider 05/27/17 08/13/21 Juwan Su MD [address] [place] [address] [email or web address] Historical LMR Provider 05/27/17 Rosalind Cornejo MD [address] [place] [address] [email or web address] Historical LMR Provider 05/27/17 08/08/23 John Santoyo, AUTO TOP MECHANIC [address] [address] [email or web address] Historical LMR Provider 05/27/17 08/13/21 Rosalind Cornejo MD [address] [place] [address] [email or web address] Insurance Assigned Provider 12/07/18 08/08/23 Chanda Fernando NP [address] [place] [address] Nurse Practitioner 08/09/23 09/15/24 Rosalind Cornejo MD [address] [place] [address] [email or web address] Insurance Assigned Provider 12/07/18 10/13/23 documented as of this encounter Additional Source Comments The information contained in this document represents components of the legal health record. It is not the complete legal health record.[facility]
--- OUTSIDE RECORDS SUMMARY | 2025-07-04 09:04 | XMS_ITS | Encounter Summary ---
Author Organization [facility] Address [address] [place] [address] [place] [address] Phone Care Team Providers Care Manager Creative Services Name Role Phone Rosalind Cornejo MD Primary Care Provider [phone] Janak Hassan MD Unavailable [phone] Tex Lin MD Unavailable [email or web address] Juwan Su MD Unavailable [phone] Rosalind Cornejo MD Unavailable John Santoyo MEAT SPECIALIST Unavailable [phone] Rosalind Cornejo MD Unavailable Sp Gusman DO Primary Care Provider [phone] Chanda Fernando FRONT DESK OFFICER Unavailable [phone] Rosalind Cornejo MD Unavailable [phone] Andrei Hayes MD Primary Care Provider Derrek Abdullahi MD Primary Care Provider [phone] Encounter Details Date Type Department Care Team (Late st Contact Info) Description 07/14/2017 Transcribe Orders [facility] Lab Main [address] [place] [address] Rosalind Cornejo MD [address] [place], [place] [phone] [email or web address] Elevated LFTs (Primary Dx) Social History Tobacco [...] Description 07/16/2025 11:20 AM EST Office Visit [facility] [address] [place] [address] Matilda Hannah, BAILEY [address] [address] [email or web address] documented as of this encounter Visit Diagnoses Diagnosis Elevated LFTs- Primary Other abnormal blood chemistry documented in this encounter Care Teams Manager Creative Services Relationship Specialty Start Date End Date Rosalind Cornejo MD [address] [place] [address] [email or web address] PCP - General 02/03/14 08/08/23 Sp Gusman DO [address] [place] [address] PCP - General Family Medicine 08/09/23 02/18/24 Andrei Hayes MD [address] [place] [address] PCP - General Family Medicine 02/19/24 09/15/24 Derrek Abdullahi MD [address] [place] [address] [place] [address] PCP - General Internal Medicine 09/16/24 Janak Hassan MD [address] [place] [address] Historical LMR Provider 05/27/17 08/13/21 Tex Lin MD [email or web address] Historical LMR Provider 05/27/17 08/13/21 Juwan Su MD [address] [place] [address] [email or web address] Historical LMR Provider 05/27/17 Rosalind Cornejo MD [address] [place] [address] [email or web address] Historical LMR Provider 05/27/17 08/08/23 John Santoyo CNP [address] [place] [address] Historical LMR Provider 05/27/17 08/13/21 Rosalind Cornejo MD [address] [place] [address] [email or web address] Insurance Assigned Provider 12/07/18 08/08/23 Chanda Fernando NP [address] [place] [address] Nurse Practitioner 08/09/23 09/15/24 Rosalind Cornejo MD [address] [place] [address] [email or web address] Insurance Assigned Provider 12/07/18 10/13/23 documented as of this encounter Additional Source Comments The information contained in this document represents components of the legal health record. It is not the complete legal health record.[facility]
--- OUTSIDE RECORDS SUMMARY | 2025-07-04 09:04 | XMS_ITS | Encounter Summary ---
Author Organization [facility] Address [address] [place] [address] [place] [address] Phone Care Team Providers Care Substitute Teacher Name Role Phone Rosalind Cornejo MD Primary Care Provider [phone] Janak Hassan MD Unavailable [phone] Tex Lin MD Unavailable [email or web address] Juwan Su MD Unavailable [phone] Rosalind Cornejo MD Unavailable [phone] John Santoyo FRUIT ROOM HAND Unavailable [phone] Rosalind Cornejo MD Unavailable [phone] Sp Gusman DO Primary Care Provider Chanda Fernando EARTH BURNER Unavailable [phone] Rosalind Cornejo MD Unavailable [phone] Andrei Hayes MD Primary Care Provider Derrek Abdullahi MD Primary Care Provider [phone] Encounter Details Date Type Department Care Team (Late st Contact Info) Description 07/23/2017 Ancillary Orders [facility] Department [address] [place], [place] [phone] Rosalind Cornejo MD [address] [place] [phone] [email or web address] Abdominal pain, unspecified abdominal location; Elevated LFTs [...] Description 07/16/2025 11:20 AM EST Office Visit [facility] [address] [place] [address] Matilda Hannah CNP [address] [facility], 1st [place] [address] [email or web address] documented as of this encounter Results * US ABDOMEN LIMITED RIGHT UPPER QUADRANT (07/23/2017 9:49 AM EST) Anatomical Region Laterality Modality Abdomen Ultrasound 07/23/2017 1:22 PM EST Impressions 07/23/2017 1:25 PM EST Findings consistent with fatty infiltration of the liver. No definite signs of hepatic cirrhosis or evidence of portal venous hypertension. POS - [id number] Narrative 07/23/2017 1:25 PM EST HISTORY: Pain [...] evidence of portal venous hypertension. POS - [id number] us Rosalind Cornejo MD IMG US ABDOMEN Final Resul t documented in this encounter Visit Diagnoses Diagnosis Abdominal pain, unspecified abdominal location Elevated LFTs Other abnormal blood chemistry Abdominal pain, unspecified abdominal location Elevated LFTs Other abnormal blood chemistry documented in this encounter Care Teams Substitute Teacher Relationship Specialty Start Date End Date Rosalind Cornejo MD [address] [place] [address] PCP - General 02/03/14 08/08/23 Sp Gusman DO [address] [place] [address] PCP - General Family Medicine 08/09/23 02/18/24 Andrei Hayes MD [address] [place] [address] PCP - General Family Medicine 02/19/24 09/15/24 Derrek Abdullahi MD [address] [place] [address] [place] [address] PCP - General Internal Medicine 09/16/24 Janak Hassan MD [address] [place] [address] [email or web address] Historical LMR Provider 05/27/17 08/13/21 Tex Lin MD [email or web address] Historical LMR Provider 05/27/17 08/13/21 Juwan Su MD [address] [place] [address] [email or web address] Historical LMR Provider 05/27/17 Rosalind Cornejo MD [address] [place] [address] [email or web address] Historical LMR Provider 05/27/17 08/08/23 John Santoyo CNP [address] [place] [address] Historical LMR Provider 05/27/17 08/13/21 Rosalind Cornejo MD [address] [place] [address] [email or web address] Insurance Assigned Provider 12/07/18 08/08/23 Chanda Fernando NP [address] [place] [address] Nurse Practitioner 08/09/23 09/15/24 Rosalind Cornejo MD [address] [place] [address] [email or web address] Insurance Assigned Provider 12/07/18 10/13/23 documented as of this encounter Additional Source Comments The information contained in this document represents components of the legal health record. It is not the complete legal health record.[facility]
--- OUTSIDE RECORDS SUMMARY | 2025-07-04 09:04 | XMS_ITS | Encounter Summary ---
Author Organization [facility] Address [address] [place] [address] [place] [address] Phone Care Team Providers Care Fleecer Name Role Phone Rosalind Cornejo MD Primary Care Provider Janak Hassan MD Unavailable [phone] Tex Lin MD Unavailable [email or web address] Juwan Su MD Unavailable [phone] Rosalind Cornejo MD Unavailable [phone] John Santoyo [employer] [employer] Unavailable [phone] Rosalind Cornejo MD Unavailable [phone] Sp Gusman DO Primary Care Provider [phone] Chanda Fernando MANUFACTURING SYSTEMS ENGINEER Unavailable [phone] Rosalind Cornejo MD Unavailable [phone] Andrei Hayes MD Primary Care Provider Derrek Abdullahi MD Primary Care Provider [phone] Encounter Details Date Type Department Care Team (Late st Contact Info) Description 07/05/2017 Transcribe Orders [facility] Phleb Main [address] [place] [address] [phone] Rosalind Cornejo MD [address] [place] [address] [phone] [email or web address] Tick bite, subsequent encounter (Primary Dx) Social [...] Description 07/16/2025 11:20 AM EST Office Visit [facility] [address] [place] [address] Matilda Hannah, BAILEY 22 [facility], 1st [place] [address] [email or web address] documented as of this encounter Procedures Procedure Name Priority Date/Time Associated Diagnosis Comments CMV ANTIBODY, IGG ([place] SENDOUT) Routine 07/05/2017 1:20 PM EST Tick [...] Tick bite, subsequent encounter COMPREHENSIVE METABOLIC PANEL (CMP) Routine 07/05/2017 1:20 PM EST Tick bite, [...] EST Tick bite, subsequent encounter C-REACTIVE PROTEIN (CRP) Routine 07/05/2017 1:20 PM EST Tick bite, subsequent encounter documented in this encounter Results * Blood culture, routine (07/05/2017 1:20 PM EST) Specimen Source/ Description BLOOD Blood BLOOD [facility] Special Requests None [facility] Culture/Test NO GROWTH 5 DAYS [facility] Report Status 07/10/2017 FINAL [facility] Blood (Blood) 07/05/2017 1:2 0 PM EST 07/05/2017 1:35 PM EST Rosalind Cornejo MD LAB MICROBIOLOGY CULTURE OR DERABLES Final Result [address] [address] * Blood culture, routine (07/05/2017 1:20 PM EST) Specimen Source/ Description BLOOD Blood BLOOD [facility] Special Requests None [facility] Culture/Test NO GROWTH 5 DAYS [facility] Report Status 07/10/2017 FINAL [facility] Blood (Blood) 07/05/2017 1:2 0 PM EST 07/05/2017 1:36 PM EST us Rosalind Cornejo MD LAB MICROBIOLOGY CULTURE OR DERABLES Final Result Performing Organization Address City/[facility]/ZIP Co de Phone Number [address] [address] * Babesia species PCR (07/05/2017 1:20 PM EST) B.Microti PCR Negative Negative [facility] DPT OF LAB MED AND PAT+ B.Duncani PCR [facility] Negative [facility] B.Divergens/MO-1 PCR Negative Negative [facility] DPT OF LAB MED AND PAT+ Comment: (NOTE) ADDITIONAL INFORMATION This test was developed and its performance characteristics determined by [facility] in a manner consistent with CLIA requirements. This test has not been cleared or approved by the U.S. Food and Drug Administration. Blood 07/05/2017 1:20 PM EST 07/05/2017 1:37 PM EST us Rosalind Cornejo MD LAB BLOOD ORDERABLES Final Result [facility] DPT OF LAB MED AND PAT+ [address] [place] [address] * Babesia serology (07/05/2017 1:20 PM EST) BABESIA MICROTI IGG <1:64 [facility] RE[facility] BABESIA MICROTI IGM <1:20 [facility] Interpretation (B. microti) SEE NOTE JENSEN [...] analytical performance characteristics have been determined by [facility]. It has not been cleared or approved by FDA. This assay has been validated pursuant to the CLIA regulations and is used for clinical purposes. Test Performed by: [facility] [address] [place] [address] Blood (Blood) 07/05/2017 1:2 0 PM EST 07/05/2017 1:37 PM EST us Rosalind Cornejo MD MICROBIOLOGY - GENERAL ORDE [facility] Final Result Performing Organization Address City/[facility]/ZIP Co de Phone Number [facility] * Ehrlichia/anaplasma PCR (07/05/2017 1:20 PM EST) ANAPLASMA PHAGOCYTO Negative Negative [facility] DPT OF LAB MED AND PAT+ EHRLICHIA CHAFFEENS Negative Negative [facility] DPT OF LAB MED AND PAT+ EHRL EWINGII/CANIS Negative Negative [facility] DPT OF LAB MED AND PAT+ EHRL MURIS-LIKE Negative Negative [facility] DPT OF LAB MED AND PAT+ Comment: (NOTE) ADDITIONAL INFORMATION This test was developed and its performance characteristics determined by [facility] in a manner consistent with CLIA requirements. This test has not been cleared or approved by the U.S. Food and Drug Administration. Blood 07/05/2017 1:20 PM EST 07/05/2017 1:37 PM EST us Rosalind Cornejo MD LAB BLOOD ORDERABLES Final Result Performing Organization Address City/[facility]/ZIP Co de Phone Number [facility] DPT OF LAB MED AND PAT+ [address] [place] [address] * Cytomegalovirus (CMV) antibody, IgM (07/05/2017 1:20 PM EST) CMV IGM ANTIBODY Positive Negative [facility]/PATH SUPERIOR Comment: (NOTE) Results suggest recent infection. Blood (Blood) 07/05/2017 1:2 0 PM EST 07/05/2017 1:37 PM EST us Rosalind Cornejo MD LAB BLOOD BKR ORDERABLES Fi nal Result Performing Organization Address [facility] Co de Phone Number [facility] [place] [address] [place] [address] * CMV antibody, IgG ([place] sendout) (07/05/2017 1:20 PM EST) CYTOMEGALOVIRUS IGG Negative Negative [facility] Blood 07/05/2017 1:20 PM EST 07/05/2017 1:37 PM EST Rosalind Cornejo MD LAB BLOOD ORDERABLES Final Result Performing Organization Address [facility] de Phone Number [facility] [address] [place] [address] * Nick-Boudreaux Virus (EBV) serology (07/05/2017 1:20 PM EST) EBV VCA, IGG Positive Negative [facility] EBV VCA, IGM Negative Negative [facility] LAB [facility] EB NUCLEAR AG ABS Positive Negative [facility] EBV AB PANEL INTERP SEE NOTE [facility] [place] Comment: (NOTE) Results suggest past infection. ADDITIONAL [...] PM EST Rosalind Cornejo MD LAB BLOOD BKR ORDERABLES Fi nal Result Performing Organization Address [facility] Co de Phone Number [facility]/[address] [place] [address] * Sedimentation rate (ESR) (07/05/2017 1:20 PM EST) ESR 8 0 - 20 mm/h [facility] Blood 07/05/2017 1:20 PM EST 07/05/2017 1:36 PM EST us Rosalind Cornejo MD LAB BLOOD BKR ORDERABLES Fi nal Result Performing Organization Address City/[facility]/ZIP Co de Phone Number [address] [address] * Lyme screen with reflex to Western blot, blood (07/05/2017 1:20 PM EST) Pathologist [facility] Lyme AB IgG Negative Negative [facility] Lyme AB IgM Negative Negative [facility] Blood 07/05/2017 1:20 PM EST 07/05/2017 1:36 PM EST Rosalind Cornejo MD LAB BLOOD BKR ORDERABLES Fi nal Result Performing Organization Address [facility] Co de Phone Number [address] [address] * (ABNORMAL) C-Reactive Protein (07/05/2017 1:20 PM EST) C REACTIVE PROTEIN 1.6(H) 0 - 0.5 mg/L [facility] Blood 07/05/2017 1:20 PM EST 07/05/2017 1:36 PM EST us Rosalind Cornejo MD LAB BLOOD BKR ORDERABLES Fi nal Result Performing Organization Address [facility] Co de Phone Number [address] [address] * (ABNORMAL) CBC and differential (07/05/2017 1:20 PM EST) WBC 5.18 3.40 - 11.20 K/uL [facility] RBC 4.81 4.50 - 5.50 M/uL [facility] HGB 13.9 13.0 - 17.0 g/dL [facility] HCT 39.7(L) 40.0 - 51.0 % [facility] PLT 187 130 - 400 K/uL [facility] MCV 82.5 79.0 - 98.0 fL [facility] MCH 28.9 27.0 - 34.8 pg [facility] MCHC 35.0 31.5 - 36.0 g/dL [facility] RDW 12.7 10.8 - 14.6 % [facility] MPV 9.0(L) 9.4 - 12.4 fl [facility] NRBC 0.00 /100 WBCs [facility] ABSOLUTE NRBC 0.00 K/uL [facility] DIFF METHOD Auto [facility] NEUTS 43.1(L) 45.30 - 77.70 % [facility] LYMPHS 37.1 12.30 - 39.70 % [facility] MONOS 14.1(H) 4.10 - 12.80 % [facility] EOS 4.1 0 - 7.2 % [facility] BASOS 0.8 0 - 2.80 % [facility] Granulocytes, immature (%) 0.8 0.0 - 0.9 % [facility] ABSOLUTE NEUTS 2.24 1.40 - 7.70 K/uL [facility] ABSOLUTE LYMPHS 1.92 0.60 - 3.20 K/uL [facility] ABSOLUTE MONOS 0.73(H) 0.11 - 0.59 K/uL [facility] ABSOLUTE EOS 0.21 0.01 - 0.50 K/uL [facility] ABSOLUTE BASOS 0.04 0.00 - 0.08 K/uL [facility] Granulocytes, immature 0.04 0.00 - 0.05 K/uL [facility] Blood 07/05/2017 1:20 PM EST 07/05/2017 1:36 PM EST us Rosalind Cornejo MD LAB BLOOD BKR ORDERABLES Fi nal Result [facility] [address] [place] [address] * (ABNORMAL) Comprehensive metabolic panel (07/05/2017 1:20 PM EST) SODIUM 139 133 - 146 mmol/L [facility] POTASSIUM 4.1 3.3 - 5.1 mmol/L [facility] CHLORIDE 102 96 - 108 mmol/L [facility] CO2 22 21 - 35 mmol/L [facility] BUN 17 6 - 19 mg/dL [facility] CREATININE 1.10 0.5 - 1.5 mg/dL [facility] GLUCOSE 197(H) 70 - 99 mg/dL [facility] ALBUMIN 4.1 3.9 - 4.8 g/dL [facility] TOTAL PROTEIN 6.8 6.5 - 8.0 g/dL [facility] CALCIUM 9.2 8.4 - 10.3 mg/dL [facility] ALKALINE PHOSPHATASE 70 39 - 117 U/L [facility] TOTAL BILIRUBIN 0.4 0 - 1.2 mg/dL [facility] AST 58(H) 0 - 37 U/L [facility] ALT 111(H) 0 - 40 U/L [facility] GLOBULIN 2.7 1 - 4.8 g/dL [facility] EGFR >60 >60 mL/min/1.7 3m2 [facility] Comment:Abnormal if <60. If patient is -[place], multiply the result by 1.21. ANION GAP 19 10 - 20 mmol/L [facility] Blood 07/05/2017 1:20 PM EST 07/05/2017 1:36 PM EST us Rosalind Cornejo MD LAB BLOOD BKR ORDERABLES Fi nal Result Performing Organization Address City/State/[facility] Co de Phone Number [address] [address] documented in this encounter Visit Diagnoses Diagnosis Tick bite, subsequent encounter- Primary documented in this encounter Care Teams Fleecer Relationship Specialty Start Date End Date Rosalind Cornejo MD [address] [place] [address] [email or web address] PCP - General 02/03/14 08/08/23 Sp Gusman DO [address] [place] [address] PCP - General Family Medicine 08/09/23 02/18/24 Andrei Hayes MD [address] [place] [address] PCP - General Family Medicine 02/19/24 09/15/24 Derrek Abdullahi MD [address] [place] [address] [place] [address] PCP - General Internal Medicine 09/16/24 Janak Hassan MD [address] [place] [address] [email or web address] Historical LMR Provider 05/27/17 08/13/21 Tex Lin MD [email or web address] Historical LMR Provider 05/27/17 08/13/21 Juwan Su MD [address] [place] [address] Historical LMR Provider 05/27/17 Rosalind Cornejo MD [address] [place] [address] Historical LMR Provider 05/27/17 08/08/23 John Santoyo CNP [address] [place] [address] Historical LMR Provider 05/27/17 08/13/21 Rosalind Cornejo MD [address] [place] [address] [email or web address] Insurance Assigned Provider 12/07/18 08/08/23 Chanda Fernando NP [address] [place] [address] Nurse Practitioner 08/09/23 09/15/24 Rosalind Cornejo MD [address] [place] [address] [email or web address] Insurance Assigned Provider 12/07/18 10/13/23 documented as of this encounter Additional Source Comments The information contained in this document represents components of the legal health record. It is not the complete legal health record.[facility]
--- OUTSIDE RECORDS SUMMARY | 2025-07-04 09:04 | XMS_ITS | Patient Health Record ---
Author Organization [facility] Address [address] [place] [address] Care Team Providers Care Radiosonde Operator Name Role Phone Chantal CHANG, Rosalind Primary Care Provider Andres Westbrook Unavailable [phone] Allergies Allergen (clinical drug ingredient) Drug/Non Drug Allergy documented on EMR Reaction Allergy Type Onset Date Status Information temporarily unavailable Gentamicin Sulfate Unknown Drug Allergy Active Information temporarily unavailable Spinal Needle Unknown Drug Allergy Active Information temporarily unavailable sulfa Unknown Drug Allergy Active Information temporarily unavailable general Unknown Drug Allergy Active Reason For [...] a day Active Fish Oil + D3 3449-9134 MG-UNIT 1 capsule Orally Three times a [...] Test Name Order Date Hemoglobin A1c 02/09/2015 [id number] NAIL, 6 OR MORE 05/11/2015 [id number] NAIL, 6 OR MORE 08/13/2015 [id number] NAIL, 6 OR MORE 02/17/2014 [id number] NAIL, 6 OR MORE 02/09/2015 77446-Yuvw Destruction, 1-14 02/09/2015 14676-Jhhn Destruction, 1-14 02/17/2014 49525-Fhwo Destruction, 1-14 08/13/2015 53633-YBAI SKIN LESIONS, OVER 4 02/18/20 14 [id number]-CNOA SKIN LESIONS, OVER 4 02/10/20 15 07419-RZPQ SKIN LESIONS, OVER 4 08/13/19 16 [id number]-YZKL SKIN LESIONS, OVER 4 05/11/20 15 Insurance Providers Payer Name Payer Address Payer Phone Subscriber Number Group Number Insured Name Patient Relationship to Insured Coverage Start Date Coverage End Date [facility] [address] [place] [address] [id number] Crystal Oliver Spouse - patient is the spouse of the insured Medical (General) History Medical History History ICD Code Anxiety Arthritis Back,Hip,and Knee pain Fibromyalgia Headaches High blood pressure Reflux Sinus conditions Diabetic Surgical History Surgery Date(Month/Year) UPPP 2003 Sinus cleaning 2003
--- OUTSIDE RECORDS SUMMARY | 2025-07-04 09:04 | XMS_ITS | Encounter Summary ---
Author Organization [facility] Address [address] [place] [address] [place] [address] Phone Care Team Providers Care Endoscope Technician Name Role Phone Rosalind Cornejo MD Primary Care Provider [phone] Janak Hassan MD Unavailable [phone] Tex Lin MD Unavailable [email or web address] Juwan Su MD Unavailable [phone] Rosalind Cornejo MD Unavailable John Santoyo FILM SOUND COORDINATOR Unavailable [phone] Rosalind Cornejo MD Unavailable [phone] Sp Gusman DO Primary Care Provider Chanda Fernando EMERGENCY DEPT TECH Unavailable [phone] Rosalind Cornejo MD Unavailable [phone] Andrei Hayes MD Primary Care Provider Derrek Abdullahi MD Primary Care Provider [phone] Encounter Details Date Type Department Care Team (Latest Contact Info) Description 09/07/2017 Transcribe Orders [facility] Specimen Processing [address] [place], [place] [phone] Rosalind Cornejo MD [address] [place], [place] [id number] [email or web address] Positive serum [...] Description 07/16/2025 11:20 AM EST Office Visit [facility] [address] [place] [address] Matilda Hannah, FILM SOUND COORDINATOR 22 [facility], 1st [place] [address] [email or web address] documented as of this encounter Procedures Procedure Name Priority Date/Time Associated Diagnosis Comments MISCELLANEOUS LAB TEST Routine 09/04/2017 9:49 AM EST LAB ADD ON Routine 09/04/2017 9:49 AM EST Positive serum cytomegalovirus (CMV) IgM antibody Elevated LFTs documented in this encounter Results * Miscellaneous lab test (09/04/2017 9:49 AM EST) TESTS REQUESTED CYTOMEGALOVIRUS AB, IGM AND IGG [facility] SPECIMEN/TUBE TYPE SERUM [facility] REQUEST RECEIVED Request received. A separate order for the requested test will be generated by the laboratory. [facility] 09/04/2017 9:49 AM EST 09/07/2017 12:39 PM EST us Rosalind Cornejo MD LAB BLOOD ORDERABLES Final Result [facility] [address] [place] [address] * Lab Add On: CMV IGG/IGM (09/04/2017 9:49 AM EST) CONTACT INFORMATION [id number] [facility] TEST REQUESTED CMV IGG IGM [facility] Comments (Chemistry) ADD ON COMPLETE. [facility] 09/04/2017 9:49 AM EST 09/07/2017 12:39 PM EST us Rosalind Cornejo MD LAB BLOOD ORDERABLES Edited Result - Final [facility] [address] [place] [address] documented in this encounter Visit Diagnoses Diagnosis Positive serum cytomegalovirus (CMV) IgM antibody- Primary Elevated LFTs Other abnormal blood chemistry documented in this encounter Care Teams Endoscope Technician Relationship Specialty Start Date End Date Rosalind Cornejo MD [address] [place] [address] [email or web address] PCP - General 02/03/14 08/08/23 Sp Gusman DO [address] [place] [address] PCP - General Family Medicine 08/09/23 02/18/24 Andrei aHyes MD [address] [place] [address] PCP - General Family Medicine 02/19/24 09/15/24 Derrek Abdullahi MD [address] [place] [address] [place] [address] PCP - General Internal Medicine 09/16/24 Janak Hassan MD [address] [place] [address] [email or web address] Historical LMR Provider 05/27/17 08/13/21 Tex Lin MD [email or web address] Historical LMR Provider 05/27/17 08/13/21 Juwan Su MD [address] [address] Historical LMR Provider 05/27/17 Rosalind Cornejo MD [address] [place] [address] Historical LMR Provider 05/27/17 08/08/23 John Santoyo CNP [address] [place] [address] Historical LMR Provider 05/27/17 08/13/21 Rosalind Cornejo MD [address] [place] [address] Insurance Assigned Provider 12/07/18 08/08/23 Chanda Fernando NP [address] [place] [address] Nurse Practitioner 08/09/23 09/15/24 Rosalind Cornejo MD [address] [place] [address] Insurance Assigned Provider 12/07/18 10/13/23 documented as of this encounter Additional Source Comments The information contained in this document represents components of the legal health record. It is not the complete legal health record.[facility]
--- OUTSIDE RECORDS SUMMARY | 2025-07-04 09:04 | XMS_ITS | Encounter Summary ---
Author Organization [facility] Address [address] [place] [address] [place] [address] Phone Care Team Providers Care Youth Agent Name Role Phone Rosalind Cornejo MD Primary Care Provider [phone] Benji Hassan MD Unavailable [phone] Tex Lin MD Unavailable [email or web address] Juwan Su MD Unavailable [phone] Rosalind Cornejo MD Unavailable [phone] John Santoyo DIESEL ENGINE ENGINEER Unavailable [phone] Rosalind Cornejo MD Unavailable [phone] Sp Gusman DO Primary Care Provider [phone] Chanda Fernando LOSS PREVENTION OPERATIONS MANAGER Unavailable [phone] Rosalind Cornejo MD Unavailable [phone] Andrei Hayes MD Primary Care Provider Derrek Abdullahi MD Primary Care Provider [phone] Encounter Details Date Type Department Care Team (Late st Contact Info) Description 05/26/2017 Ancillary Orders [facility] Department [address] [place] [address] Gm Torres MD [facility], [address] [place], [place] [phone] [email or web address] Kidney stones Social History Tobacco Use Types [...] Description 07/16/2025 11:20 AM EST Office Visit [facility] [address] [place] [address] Matilda Hannah CNP [address] [facility], 1st [place] [address] [email or web address] documented as of this encounter Results * [...] within normal limits overall size with right leahauuxa67.2 x 6.5 cm and left 13.1 x [...] bladder volume. POS [id number] Gm Torres MD IMG US RENAL Final Result documented in this encounter Visit Diagnoses Diagnosis Kidney stones Calculus of kidney Kidney stones Calculus of kidney documented in this encounter Care Teams Youth Agent Relationship Specialty Start Date End Date Rosalind Cornejo MD [address] [place] [address] [email or web address] PCP - General 02/03/14 08/08/23 Sp Gusman DO [address] [place] [address], 2nd [place] [address] PCP - General Family Medicine 08/09/23 02/18/24 Andrei Hayes MD [address] [place] [address] PCP - General Family Medicine 02/19/24 09/15/24 Derrek Abdullahi MD [address] [place] [address] [place] [address] PCP - General Internal Medicine 09/16/24 Benji Hassan MD [address] [place] [address] [email or web address] Historical LMR Provider 05/27/17 08/13/21 Tex Lin MD [email or web address] Historical LMR Provider 05/27/17 08/13/21 Juwan Su MD [address] [place] [address] [email or web address] Historical LMR Provider 05/27/17 Rosalind Cornejo MD [address] [place] [email or web address] Historical LMR Provider 05/27/17 08/08/23 John Santoyo DIESEL ENGINE ENGINEER [address] [place] [address] [email or web address] Historical LMR Provider 05/27/17 08/13/21 Rosalind Cornejo MD [address] [place] [address] [email or web address] Insurance Assigned Provider 12/07/18 08/08/23 Chanda Fernando, LOSS PREVENTION OPERATIONS MANAGER [address] [place] [address] Nurse Practitioner 08/09/23 09/15/24 Rosalind Cornejo MD [address] [place] [address] [email or web address] Insurance Assigned Provider 12/07/18 10/13/23 documented as of this encounter Additional Source Comments The information contained in this document represents components of the legal health record. It is not the complete legal health record.[facility]
--- OUTSIDE RECORDS SUMMARY | 2025-07-04 09:04 | XMS_ITS | Clinical Summary ---
Author Organization [facility], Address [address] [facility] [address] [place] [address] Phone Care Team Providers Care Music Therapy Specialist Name Role Phone Rosalind Cornejo MD [...] by mouth twice a day Active B FNRIVFA-MNGVQB-TN PO Take 3 tablets by mouth 1 [...] Years Used Date Smoking Tobacco: Former Cigarettes 0 Q uit: 05/06/1993 Comments:Smoking History Inf o:Every [...] patient's age to complete this topic Insurance [facility] Care Teams Music Therapy Specialist Relationship Specialty Start Date End Date Rosalind Cornejo MD [address] [place] [address] PCP - General 06/10/19
--- OUTSIDE RECORDS SUMMARY | 2025-07-04 09:04 | XMS_ITS | Encounter Summary ---
Author Organization [facility], Address [address] [place] [address] Phone Care Team Providers Care Reference Data Expert Name Role Phone Rosalind Cornejo MD Primary Care Provider [phone] Encounter Details Date Type Department Care Team (Late st Contact Info) Description 08/19/2021 Documentation Only [facility], [address] [place] [address] Yocasta Whittington [address] [place] [phone] Social History Tobacco Use Types Packs/Day Years [...] on filedocumented in this encounter Care Teams Reference Data Expert Relationship Specialty Start Date End Date Rosalind Cornejo MD [address] [place] [address] PCP - General 06/10/19 documented as of this encounter
--- OUTSIDE RECORDS SUMMARY | 2025-07-04 09:04 | XMS_ITS | Encounter Summary ---
Author Organization [facility] Address [address] [place] [address] [place] [address] Phone Care Team Providers Care Construction Supervisor/Carpenter Name Role Phone Rosalind Cornejo MD Primary Care Provider [phone] Janak Hassan MD Unavailable [phone] Tex Lin MD Unavailable [email or web address] Juwan Su MD Unavailable [phone] Rosalind Cornejo MD Unavailable John Santoyo DATA SOLUTIONS ARCHITECT Unavailable [phone] Rosalind Cornejo MD Unavailable Sp Gusman DO Primary Care Provider Chanda Fernando AUDIOMETRIC TECHNICIAN Unavailable [phone] Rosalind Cornejo MD Unavailable [phone] Andrei Hayes MD Primary Care Provider Derrek Abdullahi MD Primary Care Provider [phone] Encounter Details Date Type Department Care Team (Late st Contact Info) Description 09/07/2017 Transcribe Orders [facility] Specimen Processing 30 [place], [place] [phone] Rosalind Cornejo MD [address] [place], [place] [phone] [email or web address] Social History Tobacco Use Types Packs/Day Years [...] Description 07/16/2025 11:20 AM EST Office Visit [facility] [address] [place] [address] Matilda Hannah CNP [address] [address] documented as of this encounter Visit Diagnoses Not on filedocumented in this encounter Care Teams Construction Supervisor/Carpenter Relationship Specialty Start Date End Date Rosalind Cornejo MD [address] [place] [address] PCP - General 02/03/14 08/08/23 Sp Gusman DO [address] [place] [address] PCP - General Family Medicine 08/09/23 02/18/24 Andrei Hayes MD [address] [place] [address] PCP - General Family Medicine 02/19/24 09/15/24 Derrek Abdullahi MD [address] [place] [address] [place] [address] PCP - General Internal Medicine 09/16/24 Janak Hassan MD [address] [place] [address] Historical LMR Provider 05/27/17 08/13/21 Tex Lin MD [email or web address] Historical LMR Provider 05/27/17 08/13/21 Juwan Su MD [address] [address] Historical LMR Provider 05/27/17 Rosalind Cornejo MD [address] [place] [address] [email or web address] Historical LMR Provider 05/27/17 08/08/23 John Santoyo CNP [address] [place] [address] Historical LMR Provider 05/27/17 08/13/21 Rosalind Cornejo MD [address] [place] [address] Insurance Assigned Provider 12/07/18 08/08/23 Chanda Fernando NP [address] [place] [address] Nurse Practitioner 08/09/23 09/15/24 Rosalind Cornejo MD [address] [place] [address] [email or web address] Insurance Assigned Provider 12/07/18 10/13/23 documented as of this encounter Additional Source Comments The information contained in this document represents components of the legal health record. It is not the complete legal health record.[facility]
--- OUTSIDE RECORDS SUMMARY | 2025-07-04 09:04 | XMS_ITS | Encounter Summary ---
Author Organization [facility] Address [address] [place] [address] [place] [address] Phone Care Team Providers Care Bakery Decorator Name Role Phone Rosalind Cornejo MD Primary Care Provider [phone] Janak Hassan MD Unavailable [phone] Tex Lin MD Unavailable [email or web address] Juwan Su MD Unavailable [phone] Rosalind Cornejo MD Unavailable [phone] John Santoyo SENIOR MASTER SCHEDULER Unavailable [phone] Rosalind Cornejo MD Unavailable [phone] Sp Gusman DO Primary Care Provider Chanda Fernando ISSUE CLERK Unavailable [phone] Rosalind Cornejo MD Unavailable [phone] Andrei Hayes MD Primary Care Provider Derrek Abdullahi MD Primary Care Provider [phone] Encounter Details Date Type Department Care Team (Late st Contact Info) Description 09/04/2017 Transcribe Orders [facility] Phleb Main 30 [place] [address] Enma Cornejo, PhD Social History Tobacco Use [...] 07/16/2025 11:20 AM EST Office Visit [facility] [address] [place] [address] Matilda Hannah CNP [address] [address] [email or web address] documented as of this encounter Visit Diagnoses Not on filedocumented in this encounter Care Teams Bakery Decorator Relationship Specialty Start Date End Date Rosalind Cornejo MD [address] [place] [address] PCP - General 02/03/14 08/08/23 Sp Gusman DO [address] [place] [address] PCP - General Family Medicine 08/09/23 02/18/24 Andrei Hayes MD [address] [place] [address] PCP - General Family Medicine 02/19/24 09/15/24 Derrek Abdullahi MD [address] [place] [address] [address] PCP - General Internal Medicine 09/16/24 Janak Hassan MD [address] [place] [address] [email or web address] Historical LMR Provider 05/27/17 08/13/21 Tex Lin MD [email or web address] Historical LMR Provider 05/27/17 08/13/21 Juwan Su MD [address] [place] [address] Historical LMR Provider 05/27/17 Rosalind Cornejo MD [address] [place] [address] Historical LMR Provider 05/27/17 08/08/23 John Santoyo CNP [address] [place] [address] Historical LMR Provider 05/27/17 08/13/21 Rosalind Cornejo MD [address] [place] [address] Insurance Assigned Provider 12/07/18 08/08/23 Chanda Fernando NP [address] [place] [address] Nurse Practitioner 08/09/23 09/15/24 Rosalind Cornejo MD [address] [place] [address] Insurance Assigned Provider 12/07/18 10/13/23 documented as of this encounter Additional Source Comments The information contained in this document represents components of the legal health record. It is not the complete legal health record.[facility]
--- OUTSIDE RECORDS SUMMARY | 2025-07-04 09:04 | XMS_ITS | Encounter Summary ---
Author Organization [facility] Address [address] [place] [address] [place] [address] Phone Care Team Providers Care Commercial Field Inspector Name Role Phone Rosalind Cornejo MD Primary Care Provider [phone] Janak Hassan MD Unavailable [phone] Tex Lin MD Unavailable [email or web address] Juwan Su MD Unavailable [phone] Rosalind Cornejo MD Unavailable John Santoyo CRANE ASSEMBLER Unavailable [phone] Rosalind Cornejo MD Unavailable [phone] Sp Gusman DO Primary Care Provider Chanda Fernando ROCKET SCIENTIST Unavailable [phone] Rosalind Cornejo MD Unavailable [phone] Andrei Hayes MD Primary Care Provider Derrek Abdullahi MD Primary Care Provider [phone] Encounter Details Date Type Department Care Team (Late st Contact Info) Description 09/04/2017 Transcribe Orders [facility] Phleb Main 30 [place], [place] [phone] Rosalind Cornejo MD [address] [place] [phone] [email or web address] Elevated LFTs (Primary Dx) Social History Tobacco [...] Description 07/16/2025 11:20 AM EST Office Visit [facility] 22 [place] [address] Matilda Hannah, BAILEY [address] [facility], 1st [place] [address] [email or web address] documented as of this encounter Results * (ABNORMAL) Hemoglobin A1c (09/04/2017 9:49 AM EST) HEMOGLOBIN A1C 7.4(H) 4.3 - 5.8 % [facility] Blood 09/04/2017 9:49 AM EST 09/04/2017 9:53 AM EST us Rosalind Cornejo MD LAB BLOOD BKR ORDERABLES Fi nal Result [facility] [address] [place] [address] * Cytomegalovirus (CMV) PCR, blood (09/04/2017 9:49 AM EST) CMV DNA DETECT/QUANT <137 Undetected IU/mL [facility] Comment: (NOTE) Result [...] the HUE AmpliPrep/HUE TaqMan CMV Test ([employer] Mutations within the CMV UL54 [...] 9 AM EST 09/04/2017 9:55 AM EST us Rosalind Cornejo MD LAB BLOOD BKR ORDERABLES Fi nal Result [facility] [address] [place] [address] documented in this encounter Visit Diagnoses Diagnosis Elevated LFTs- Primary Other abnormal blood chemistry documented in this encounter Care Teams Commercial Field Inspector Relationship Specialty Start Date End Date Rosalind Cornejo MD [address] [place] [address] [email or web address] PCP - General 02/03/14 08/08/23 Sp Gusman DO [address] [place] [address] PCP - General Family Medicine 08/09/23 02/18/24 Andrei Hayes MD [address] [place] [address] PCP - General Family Medicine 02/19/24 09/15/24 Derrek Abdullahi MD [address] [place] [address] [place] [address] PCP - General Internal Medicine 09/16/24 Janak Hassan MD [address] [place] [address] [email or web address] Historical LMR Provider 05/27/17 08/13/21 Tex Lin MD [email or web address] Historical LMR Provider 05/27/17 08/13/21 Juwan Su MD [address] [place] [address] [email or web address] Historical LMR Provider 05/27/17 Rosalind Cornejo MD [address] [place] [address] [email or web address] Historical LMR Provider 05/27/17 08/08/23 John Santoyo CNP [address] [place] [address] Historical LMR Provider 05/27/17 08/13/21 Rosalind Cornejo MD [address] [place] [address] [email or web address] Insurance Assigned Provider 12/07/18 08/08/23 Chanda Fernando NP [address] [place] [address] Nurse Practitioner 08/09/23 09/15/24 Rosalind Cornejo MD [address] [place] [address] [email or web address] Insurance Assigned Provider 12/07/18 10/13/23 documented as of this encounter Additional Source Comments The information contained in this document represents components of the legal health record. It is not the complete legal health record.[facility]
--- OUTSIDE RECORDS SUMMARY | 2025-07-04 09:04 | XMS_ITS | Continuity of Care Document ---
Author Organization [facility] [address] [facility] [facility] [address] [place] [address] Phone [phone] Problems Active Problems Provider Date Type 2 [...] 300units E11Chidi Laughlin M.D. 12/04/2023 Freestyle Capri 2/[place]/Flash Glucose Monitoring Gjlfkb8Kybgvl Device use as directed with sensors dx: e11.9 1units E11Chidi Laughlin M.D. 12/04/2023 Freestyle Capri 2/Sensor/Flash Glucose Monitoring Pqtpuw8Umdkpn Misc 1 sensor to skin every fourteen days as directed dx: e11.9 6units E11.9 Iva Laughlin M.D. 12/04/2023 Mounjaro7.5mg/0.5ML Solution Pen-Inject inject 7.5 mg subcutaneously once a week as directed Dx: E11.9 2ml E11.9 Iva Laughlin M.D. 12/04/2023 Probiotic BlendCapsules once each morning Unknown 0 Mgqvcrmkml71yb Tablets one with dinner Unknown Alpha-Lipoic Rdyl027fm Capsules a total of 600 mg each morning Unknown Tylenol Extra Zptbwxmh334ce Tablets a few times a week, as needed for pain Unknown Vitamin B-ComplexTablets Daily - B6/Folic Acid/B12 tablet Unknown Ozsjgtxuxns709tr Chewtabs as needed, once or twice a month Unknown Loperamide HCL2mg Capsules as needed, every couple of weeks Unknown Metformin GPF0223vi Tablets Twice a day [facility] Ehjlpamrkv49ro Tablets Once a day with dinner Rosalind Cornejo M.D. Kqenvdpbh21fj Tablets Once a day in the morning Rosalind Cornejo M.D. Folic Ueuc7au Tablets Once a day with dinner Pillo Cid MD Uqqluvc4rp Tablets Twice a day Mango Tinoco MD Fqarsxusmuj188yj Tablets Once a day in the morning [facility] Vital Signs Date Vital Result Comment 12/04/2023 [...] Fine 33G Plus 33G * Freestyle Capri 2/[place]/Flash Glucose Monitoring System 2 [place] * Freestyle Capri 2/Sensor/Flash Glucose Monitoring System 2 Sensor * New Labs:* CMP W/Egfr, Ordered: 12/04/23 * Lipid Panel, Ordered: 12/04/23 * Urine Microalb+Creat+Ratio RDM, Ordered: 12/04/23 Functional Status Description No Information Available Mental Status Description No Information Available Referrals Description No Information Available
--- OUTSIDE RECORDS SUMMARY | 2025-07-04 09:04 | XMS_ITS | Encounter Summary ---
Author Organization [facility] Address [address] [place] [address] [place] [address] Phone Care Team Providers Care Solid Waste Division Supervisor Name Role Phone Rosalind Cornejo MD Primary Care Provider [phone] Janak Hassan MD Unavailable [phone] Tex Lin MD Unavailable [email or web address] Juwan Su MD Unavailable [phone] Rosalind Cornejo MD Unavailable John Santoyo MECHANICAL DESIGN ENGINEER PRODUCTS Unavailable [phone] Rosalind Cornejo MD Unavailable Sp Gusman DO Primary Care Provider Chanda Fernando MANAGER OUTPATIENT Unavailable [phone] Rosalind Cornejo MD Unavailable [phone] Andrei Hayes MD Primary Care Provider Derrek Abdullahi MD Primary Care Provider [phone] Encounter Details Date Type Department Care Team (Late st Contact Info) Description 07/05/2017 Transcribe Orders [facility] Lab Main 30 [place] [address] Rosalind Cornejo MD 15 [place], [place] [id number] [email or web address] Fever, unspecified fever cause (Primary Dx) Social [...] Description 07/16/2025 11:20 AM EST Office Visit [facility] 22 [place] [address] Matilda Hannah CNP 22 [facility], [address] [place] [address] documented as of this encounter Results * Rapid influenza A and B (07/05/2017 2:02 PM EST) Influenza A Ag Negative Negative [facility] Influenza B Ag Negative Negative [facility] Other (Nasal) 07/05/2017 2:0 2 PM EST 07/05/2017 2:06 PM EST Rosalind Cornejo MD MICROBIOLOGY - [facility] Final Result Performing Organization Address [facility]/State/[facility] Co de Phone Number [facility] [address] [place] [address] documented in this encounter Visit Diagnoses Diagnosis Fever, unspecified fever cause- Primary documented in this encounter Care Teams Solid Waste Division Supervisor Relationship Specialty Start Date End Date Rosalind Cornejo MD [address] [place] [address] [email or web address] PCP - General 02/03/14 08/08/23 Sp Gusman DO [address] [address] PCP - General Family Medicine 08/09/23 02/18/24 Andrei Hayes MD [address] [place] [address] PCP - General Family Medicine 02/19/24 09/15/24 Derrek Abdullahi MD [address] [place] [address] [place] [address] PCP - General Internal Medicine 09/16/24 Janak Hassan MD [address] [place] [address] [email or web address] Historical LMR Provider 05/27/17 08/13/21 Tex Lin MD [email or web address] Historical LMR Provider 05/27/17 08/13/21 Juwan Su MD [address] [place] [address] [email or web address] Historical LMR Provider 05/27/17 Rosalind Cornejo MD [address] [place] [address] [email or web address] Historical LMR Provider 05/27/17 08/08/23 John Santoyo CNP [address] [place] [address] [email or web address] Historical LMR Provider 05/27/17 08/13/21 Rosalind Cornejo MD [address] [place] [address] [email or web address] Insurance Assigned Provider 12/07/18 08/08/23 Chanda Fernando NP [address] [place] [address] Nurse Practitioner 08/09/23 09/15/24 Rosalind Cornejo MD [address] [place] [address] [email or web address] Insurance Assigned Provider 12/07/18 10/13/23 documented as of this encounter Additional Source Comments The information contained in this document represents components of the legal health record. It is not the complete legal health record.[facility]
--- OUTSIDE RECORDS SUMMARY | 2025-07-04 09:04 | XMS_ITS | Clinical Summary ---
Author Organization [facility] Address [address] [place] [address] [place] [phone] Phone Care Team Providers Care Livestock Inspector Name Role Phone Juwan Su MD Unavailable [phone] Derrek Abdullahi MD Primary Care Provider [phone] Allergies Active Allergy Reactions Criticality Noted Date [...] Take 40 mg by mouth daily. Active magnesium 250 mg Tab Take 300 [...] mg/mL PnIj subcutaneous pen injector 5 Active MOUNJARO 10 mg/0.5 mL PnIj subcutaneous penIndications:Ty pe 2 diabetes mellitus without complication, without long-term current use of insulin INJECT 0.5 MLS (10 MG TOTAL) UNDER THE SKIN ONCE A WEEK 2 mL 11 5 Active Active Problems Problem Noted Date [...] trial. Procedures: Glucose Monitoring: Type of Sensor: Cafe Press G6 Pro Instruction: Patient Instructed on:, Calibrations, [...] 2 weeks to drop off at front end engineer or follow up appointment. Assessment & Plan [...] to blood sugar improvement, then will try Mounjaro John is agreeable to this, we discussed that [...] protection against CV events Demonstrated administration with demo pen and John appropriately demonstrated this back appropriately [...] [facility], has had recent labs at [facility] which we can request Encouraged efforts [...] Encounters Date Type Department Care Team Description 06/03/2025 Refill [facility] [address], [place] [address] Matilda Hannah CNP Medication Refill from Last 3 Months Immunizations [...] Description 07/16/2025 11:20 AM EST Office Visit [facility] [address] [place] [address] Matilda Hannah, BAILEY [address] [facility], [address] [place] [address] [email or web address] Health Maintenance Due Date Last Done Comments [...] current use of insulin BASIC METABOLIC PANEL (BMP) STAT 08/10/2020 1:05 AM EST ENDOSCOPY, COLON 01/08/2018 5:39 PM EDT LIPID PANEL Routine 09/04/2017 9:49 AM EST Uric acid nephrolithiasis from Last 3 Months or Most Recently Relevant to Health Maintenance Results * (ABNORMAL) POCT Hemoglobin A1c (01/15/2025 11:48 AM EDT) Hemoglobin A1c 6.0(A) 4.2 - 5.6 % [facility] Other 01/15/2025 11:4 8 AM EDT us Matilda Hannah TEASELER LAB POCT ENTER/EDIT ORDERABLE S Final Result [facility] [address] [place] [address], [place] * (ABNORMAL) Basic metabolic panel (08/10/2020 1:05 AM EST) SODIUM 139 133 - 146 mmol/L [facility] CHLORIDE 103 96 - 108 mmol/L [facility] POTASSIUM 4.5 3.3 - 5.1 mmol/L [facility] CO2 28 21 - 35 mmol/L [facility] BUN 19 6 - 19 mg/dL [facility] CREATININE 1.10 0.5 - 1.5 mg/dL [facility] GLUCOSE 156(H) 70 - 99 mg/dL [facility] CALCIUM 9.4 8.4 - 10.3 mg/dL [facility] EGFR 71 >59 mL/min/1.7 3m2 [facility] Comment:Estimated glomerular filtration rate calculated using the CKD-EPI equation. ANION GAP 13 10 - 20 mmol/L [facility] Blood 08/10/2020 1:05 AM EST 08/10/2020 1:29 AM EST us Jeromy Klein MD LAB BLOOD BKR ORDERABLES Final Result [address] [address] * ENDOSCOPY, COLON (01/08/2018 5:39 PM EDT) Narrative Transcriptions Ray Hernandez MD - 01/08/2018 5:39 PM EDT Patient Name: John Roa Attending MD:: RAY HERNANDEZ MD Procedure Date: 01/08/2018 5:39 PM Date of : 1955 Age: 62 Admit Type: Outpatient Gender: Male Room: [facility] Referring MD: ROSALIND CORNEJO MD Exam Type: [...] 5:39 PM Procedure Code(s): --- Professional --- 19392, Colonoscopy, flexible; with biopsy, single or multiple --- Technical --- 30937, Colonoscopy, flexible; with biopsy, single or multiple Diagnosis Code(s): --- Professional --- D12.3, Benign neoplasm of transverse colon (hepatic flexure orsplenic flexure) K64.8, Other hemorrhoids R19.4, Change in bowel habit --- Technical --- D12.3, Benign neoplasm of transverse colon (hepatic flexure orsplenic flexure) K64.8, Other hemorrhoids R19.4, Change in bowel habit CPT copyright 2016 [employer]. All rights reserved. The codes documented in this report are preliminary and upon outpatient coder reviewmay be revised to meet current compliance requirements. [address] [place] [address] [id number] us Rosalind Cornejo MD GI PROCEDURE ORDERABLES Fin al Result * Lipid panel (09/04/2017 9:49 AM EST) HDL 47 mg/dL [facility] Comment: Interpretation: Risk Level Males Decreased >45 mg/dL Average 40-45 mg/dL Increased <40 mg/dL CHOLESTEROL 195 0 - 240 mg/dL [facility] TRIGLYCERIDES 113 30 - 160 mg/dL [facility] LDL 125 50 - 129 mg/dL [facility] Comment: LDL levels in terms of risk for coronary heart disease: <100 mg/dL: Optimal 100-129 mg/dL: Near or above optimal 130-159 mg/dL: Borderline high 160-189 mg/dL: High >190 mg/dL: Very High CARDIAC RISK RATIO 4.1 3.4 - 5.0 C [facility] Blood 09/04/2017 9:49 AM EST 09/04/2017 9:53 AM EST Raymond Shafer MD LAB BLOOD BKR ORDERABLES Final R esult [address] [address] from Last 3 Months or Most Recently Relevant to Health Maintenance Insurance [facility] [place] [address] [place] [address] [place] [address] Care Teams Livestock Inspector Relationship Specialty Start Date End Date Derrek Abdullahi MD [address] [place] [address] [place] [address] PCP - General Internal Medicine 09/16/24 Juwan Su MD [address] [place] [address], [address] [place] [phone] [email or web address] Historical LMR Provider 05/27/17 Additional Source Comments The information contained in this document represents components of the legal health record. It is not the complete legal health record.[facility]
--- NOTE | 2025-07-04 09:06 | AM.OFFWIN_ITS ---
Intake Vital Signs 07/04/25 09:03 Height 6 ft 1 in Weight 103.419 kg BMI 30.1 BP 128/62 Blood Pressure Location Rt brachial Position Sitting Pulse 68 Pulse Source Pulse Oximeter Temp 98.2 F Temp Source Oral Pulse Oximetry (%) 98 Oxygen Delivery Method Room Air Intake Visit Reasons: EP Right ankle pain Patient Tobacco Use Status: Former Tobacco user Allergies Sulfa (Sulfonamide Antibiotics) (SULFA (SULFONAMIDE ANTIBIOTICS)) Allergy (Intermediate, Verified 04/02/25 16:27) HIVES pravastatin Adverse Reaction (Intermediate, Verified 04/02/25 16:27) increased muscle pains rosuvastatin Adverse Reaction (Intermediate, Verified 04/02/25 16:27) increased muscle pains pioglitazone (From Actos) Adverse Reaction (Unknown, Verified 04/02/25 16:27) ankle swelling HPI HPI Comments History of Present Illness Details Chief Complaint: ?Right ankle pain.? History of Present Illness: 69-year-old male with a history of hyper tension, hyperlipidemia, diabetes mellitus, non-alcoholic fatty liver disease, obstructive sleep apnea, and prior strokes who is anticoagulated on apixaban (Eliquis). Patient reports falling down stairs on 05/12/2025, striking or twisting the right ankle. Initial small bruise enlarged to a golf-ball?sized hematoma on the medial/top aspect of the right ankle which subsequently drained for ~1 week. Drainage stopped but left a persistent 1 cm ?hole/defect.? Over the past week the area became erythematous, intermittently warm, and 4 days ago new pain with weight-bearing developed (worse with standing than walking). No fevers or chills. Patient self-started a leftover azithromycin ?Z-Ricky? four days ago after messaging PCP; completed course today. Presented today for persistent pain and redness. 69-year-old diabetic male on anticoagula tion presenting with traumatic right medial ankle ulcer now complicated by cellulitis and new pain. No systemic symptoms. X-ray negative for fracture on preliminary read. Problem #1: Right medial ankle traumatic ulcer with cellulitis / pain Assessment: Traumatic diabetic ulcer with surrounding cellulitis; no evidence of osteomyelitis or fracture on exam/X-ray. No signs of septic joint. Ankle pain, likely sprain or strain from fall. Plan: * Doxycycline 100 mg PO BID x 7 days. * Cephalexin (Keflex) 500 mg PO QID. * Wound care: leave ulcer open to air as tolerated to promote scabbing. May apply [id number]-uvzjrfl triple antibiotic ointment or bacitracin during the day; wipe off at night and keep open to air. * Return precautions: advised to seek care for increasing redness, swelling, discharge, new/worsening pain, fever, or other systemic symptoms. * Radiology over-read: clinician will call patient if final read shows unexpected findings. Differential dx * Cellulitis secondary to traumatic ulcer (most likely): Supported by history of trauma, ulceration, surrounding erythema, warmth, and purulence. Diabetic status increases risk. No systemic symptoms. * Osteomyelitis (less likely): Considered due to diabetes and chronicity of ulcer, but excluded by negative X-ray and lack of exam findings suggestive of deep infection. * Septic arthritis: Considered due to pain and location, but no clinical evidenc e (no joint effusion, no loss of range of motion, no systemic symptoms). * Deep vein thrombosis (DVT): Considered due to swelling and pain, but less likely given absence of calf tenderness, lack of systemic symptoms, and normal ambulation. * Gout or crystalline arthropathy: Considered due to pain, but no classic findings (no acute onset, no tophus, no joint involvement). * Hematoma/soft tissue injury: Supported by initial history of trauma, bruise, and hematoma formation; less likely as primary cause of current symptoms given evolution to ulcer and cellulitis. * Non-infectious causes (e.g., venous stasis ulcer): Considered due to chronicity and ulceration, but less likely given acute traumatic onset and absence of stigmata of venous disease. [facility] Medical History Carpal tunnel syndrome Carpal tunnel syndrome, bilateral upper limbs Pure hypercholesterolemia Lumbar degenerative disc disease Imbalance Memory loss Fatty liver Irritable bowel syndrome Arthritis Diabetes High cholesterol High blood pressure Sinusitis History of torn meniscus of knee Kidney stone Nasal sinus polyp Morbid obesity GERD (gastroesophageal reflux disease) GERMAN (obstructive sleep apnea) Other and unspecified hyperlipidemia Essential hypertension Type 2 diabetes mellitus with unspecified complications Embolic stroke Stroke Surgical History Hx of colonoscopy History of esophagogastroduodenoscopy (EGD) Status post uvulopalatopharyngoplasty History of transesophageal echocardiography (AMINA) (~02/19/20) History of loop recorder (~02/13/20) Family History Father High blood pressure Mother High blood pressure Diabetes Cardiovascular disease Maternal Grandmother High blood pressure Alcohol abuse FH: mental illness Paternal Grandmother Cardiovascular disease Family/Other Cardiovascular disease Social History Household Members: Spouse Household Members Other:: 1 son Housing: House Alcohol intake: current Patient Tobacco Use Status: Former Tobacco user e-Cigarette/Vaping Use: Never Used service: No Current occupational status: unemployed Current occupational exposures/hazards: No Cognitive needs: No Hearing needs: No Vision needs: No Review of Systems Narrative Review of Systems: ? Musculoskeletal: Positive for right ankle pain, worse with standing. ? Skin: Reports redness, warmth, prior drainage from right ankle lesion. ? Constitutional: Denies fever, chills. No other systems reviewed. Const All systems reviewed & are unremarkable except as noted in HPI and below Physical Exam Exam Exam: * General: Ambulates into department without difficulty, in no acute distress. * Cardiovascular:No distress * Respiratory: No distress * Abdomen: Soft, tender, not distended. * Skin/Right Ankle: above the medial right ankle ulcerated lesion ~1 cm ? 1 cm with slight central purulence; surrounding erythema and warmth; no fluctuance. 2+ dp, at,pt pulses. Normal distal sensation Vital Signs: Last Vital Signs Temp 98.2 F 07/04/25 09:03 Pulse 68 07/04/25 09:03 BP 128/62 07/04/25 09:03 Pulse Ox 98 07/04/25 09:03 Oxygen Delivery Method Room Air 07/04/25 09:03 BMI result Body Mass Index 30.1 vss Assessment & Plan Assessment & Plan (1) Right ankle strain: Code(s): S96.911A - Strain of unspecified muscle and tendon at ankle and foot level, right foot, initial encounter (2) Cellulitis: Code(s): L03.90 - Cellulitis, unspecified Plan Take your medications as prescribed. If you were prescribed antibiotics today, it is important that you take your medication to their entirety, do not skip any doses, do not finish them early. Follow-up with your primary care provider this week. Return to the emergency department with new or worsening symptoms. In case of emergency call 911 Orders: Orders XR ankle RT min 3V Today M25.571 - Pain in right ankle and joints of right foot Medications: New cephalexin 500 mg PO QID 28 caps 0RF 7 days doxycycline hyclate 100 mg PO BID 14 caps 0RF 7 days Coding Level of Care Code Est Pt Level 3 (53241) Diagnoses Right ankle strain S96.911A Cellulitis L03.90
== END 2025-07-04 12:23 | disposition home or self-care (01) ==
PROVIDERS: Visit Provider Physician Assistant
DX: S96.911A Strain of unspecified muscle and tendon at ankle and foot level, right foot, initial encounter (principal); L03.90 Cellulitis, unspecified

== ENCOUNTER → 2025-07-04 09:14 | Outpatient (BNV) | payer BC, SELFPAY | PROVIDERS: PCP Internal Medicine; Visit Provider Radiology Diagnostic Radiology | DX: M79.89 Other specified soft tissue disorders (principal) | CPT/HCPCS: 73610 ==

== ENCOUNTER 2025-07-14 15:59 | Outpatient (AMB) | payer BC, SELFPAY ==
--- NOTE | 2025-07-14 16:07 | MHC.PC.OV ---
Vital Signs 07/14/25 16:08 Height 6 ft 1 in Weight 231 lb 4 oz BMI 30.5 BP 120/64 Blood Pressure Location Lt brachial Position Sitting Pulse 72 Pulse Source Pulse Oximeter Temp 97.1 F Temp Source Temporal Artery Scan Pulse Oximetry (%) 97 Oxygen Delivery Method Room Air Intake Visit Reasons: 4 Months Head Of Digital Required: No News Producer: Not Required per policy Accompanied by: Self / Same As Patient Allergies Sulfa (Sulfonamide Antibiotics) (SULFA (SULFONAMIDE ANTIBIOTICS)) Allergy (Intermediate, Verified 07/14/25 23:56) HIVES pravastatin Adverse Reaction (Intermediate, Verified 07/14/25 23:56) increased muscle pains rosuvastatin Adverse Reaction (Intermediate, Verified 07/14/25 23:56) increased muscle pains pioglitazone (From Actos) Adverse Reaction (Unknown, Verified 07/14/25 23:56) ankle swelling Medication List - Last Reconciled 07/14/25 by Derrek Abdullahi MD allopurinol 100 mg PO DAILY 90 days alpha lipoic acid 600 mg PO BID apixaban 5 mg PO BID 90 days empagliflozin 25 mg PO DAILY fluticasone propionate 50 mcg/actuation sprays intranasal lisinopril 20 mg PO DAILY loperamide 2 mg PO Q6H PRN loratadine (Allergy Relief (loratadine)) 10 mg PO DAILY magnesium carb,citrate,oxide (Magnesium Complex) 300 mg PO BID omeprazole 40 mg PO DAILY 90 days potassium citrate ER 20 mEq (2 x 10 mEq (1,080 mg)) PO BID 90 days Repatha SureClick (evolocumab) 140 mg subcut Q2W 4 weeks NS simethicone (Gas Relief (simethicone)) 125 mg PO BID-QID PRN tirzepatide (Mounjaro) 10 mg subcut QWEEK Tobacco use date assessed: 07/14/25 Fall risk assessment: No Falls in past year Last assessed Fall Risk: 07/14/25 Dental Screening Dental Screen Date: 04/02/25 HPI 4 Months HPI Details Patient comes in today for his follow up visit He presents with a non-healing wound on the medial aspect of his left lower leg, which he states started after he fell back on 05/12/25 States that he has a history of balance problems, causing him to walk downstairs backward, and he missed the last step, causing the fall a couple of months ago Following the fall, a bruise developed, which progressed to a hematoma that eventually drained, leaving the current open wound. Patient reportedly had increased pain there on his leg after his fall, prompting a visit to urgent care where an X-ray ruled out a fracture He was then treated with antibiotics, which provided some improvement, but the wound did not fully heal Patient has also been having difficulty scheduling a follow-up appointment with Dr. Cid, who he has seen in the past for follow up of his neurologic issues following his CVA a few years ago He was supposedly seen by a nurse practitioner in the same practice as Dr. Cid and when he requested to have his future follow up appointments scheduled with Dr. Cid instead, was reportedly advised that they cannot do so as it would constitute a conflict of interest Patient has expressed that he did not feel comfortable seeing the nurse practitioner and wishes to see a doctor instead and if he cannot get back in to see Dr. Cid, then he would like to transfer instead to a different neurology group even if he has to go outside of [place] to do so Patient complains of his fingers locking in painful contortions, which he states was initially diagnosed as carpal tunnel by Dr. Cid, but later thought to be cramping of the muscles instead He was reportedly advised to take some OTC Magnesium 300 mg twice daily, which has provided some relief, but the finger and leg cramps persist a few times a week He has a history of 2 to 4 sinus infections annually and was previously managed by Dr. Manuel, who recently retired from active practice, and he is wondering how he is going to be able to manage these going forward Patient also noted some benign 'bumps' on his arm for about a year, which he states have not changed recently; these lesions do not itch or hurt He denies any headaches or dizziness Denies any chest pains, no shortness of breath No nausea/vomiting, no abdominal pain No change in bowel habits noted He had his follow-up labs done a couple of weeks ago - to discuss his results Adds that he recently had something about lipoprotein a and coronary CTs being more accurate markers to check for possible cardiovascular disease and is wondering if these are something he needs to have done at some point soon Relates that his 's nephew recently had a heart attack and his rrt did order a Lp a test on him He also states that his has a history of breast cancer and is undergoing genetic testing and he is wondering if he needs to undergo genetic testing as well, more for his future generations rather than for himself [facility] Medical History (Updated 07/15/25 @ 00:33 by Derrek Abdullahi MD) Type 2 diabetes mellitus with microalbuminuria Dysphagia High cholesterol Other and unspecified hyperlipidemia Normal physical examination, routine Laboratory tests ordered as part of a complete physical exam (CPE) Tinea cruris Stroke History of stroke Right ankle strain Right ankle sprain Right ankle pain Osteoarthritis Vaccine for tetanus toxoid Eye exam, routine Carpal tunnel syndrome Carpal tunnel syndrome, bilateral upper limbs Pure hypercholesterolemia Lumbar degenerative disc disease Imbalance Memory loss Fatty liver Irritable bowel syndrome Arthritis Diabetes High blood pressure Sinusitis History of torn meniscus of knee Kidney stone Nasal sinus polyp Morbid obesity GERD (gastroesophageal reflux disease) GERMAN (obstructive sleep apnea) Essential hypertension Type 2 diabetes mellitus with unspecified complications Embolic stroke Surgical History Hx of colonoscopy History of esophagogastroduodenoscopy (EGD) Status post uvulopalatopharyngoplasty History of transesophageal echocardiography (AMINA) (~02/19/20) History of loop recorder (~02/13/20) Family History Father High blood pressure Mother High blood pressure Diabetes Cardiovascular disease Maternal Grandmother High blood pressure Alcohol abuse FH: mental illness Paternal Grandmother Cardiovascular disease Family/Other Cardiovascular disease Social History Household Members: Spouse Household Members Other:: 1 son Housing: House Alcohol intake: current Patient Tobacco Use Status: Former Tobacco user e-Cigarette/Vaping Use: Never Used Second Hand Smoke Exposure: Yes service: No Current occupational status: unemployed Current occupational exposures/hazards: No Cognitive needs: No Hearing needs: No Vision needs: No Questionnaire PHQ-9 Over the last 2 weeks, how often have you been bothered by any of the following problems? Depression Screening Interpretation: Negative Depression Screening Done: Yes Source: Developed by Drs. Jeromy Varghese, Radha Truong, Michael Shell and colleagues, with an educational emily from [employer]. Thrive Questionnaire Date Thrive assessed: 03/30/25 I am a: Patient What is your living situation today?: I have a steady place to live Within the past 12 months, did the food you bought not last and you didn't have the money to get more?: Never true Within the past 12 months, did you worry whether your food would run out before you got money to buy more?: Never true Do you have trouble paying for medicines?: No Do you have trouble getting transportation to medical appointments?: No Do you have trouble paying your heating and electricity bill?: No Do you have trouble taking care of your child, family member or friend?: No Do you have trouble with day-to-day activities such as bathing, preparing meals, shopping, managing finances, etc.?: No Are you currently unemployed and looking for a job?: No Are you interested in more education?: No Please select the resources that you would like help with: None Currently or been in a relationship where the following occur: No concerns reported THRIVE Score: 0 KVNG-7 AMB Questionnaire KVNG-7 Date KVNG - 7 assessed: 11/11/24 Source: Developed by Drs. Jeromy Varghese, Radha Truong, Michael Shell and colleagues, with an educational emily from [employer]. Review of Systems Const Denies chills, Denies fatigue, Denies fever(s) and Denies headache(s) ENT Denies dysphagia, Denies dizziness, Denies otalgia, Denies headache(s), Denies neck pain, Denies odynophagia and Denies sore throat Card Denies chest pain, Denies palpitations and Denies dyspnea Resp Denies chest congestion, Denies cough and Denies dyspnea GI Denies abdominal pain, Denies constipation, Denies dysphagia, Reports heartburn (on and off), Denies diarrhea, Denies nausea, Denies odynophagia and Denies vomiting Denies difficulty urinating, Denies dysuria, Denies nocturia and Denies urinary frequency Musc Reports back pain (over the lower back - chronic), Reports muscle cramps (on and off in the hands) and Denies neck pain Skin/Breast Details: (+) open wound on the medial aspect of his right lower leg; (+) couple of small nodular lesions on the upper extremities (left upper arm and right forearm) Denies rash Neuro Denies dizziness and Denies headache(s) Endo Denies fatigue and Denies palpitations Physical exam (Primary Care) Vital Signs: Last Vital Signs Temp 97.1 F 07/14/25 16:08 Pulse 72 07/14/25 16:08 BP 120/64 07/14/25 16:08 Pulse Ox 97 07/14/25 16:08 Oxygen Delivery Method Room Air 07/14/25 16:08 BMI result Body Mass Index 30.5 Tobacco/Smoking Status: Tobacco use Status Tobacco use date assessed 07/14/25 07/14/25 16:08 Patient Tobacco Use Status Former Tobacco user 07/14/25 16:08 e-Cigarette/Vaping Use Never Used 07/14/25 16:08 Depression Screening Interpretation: Negative Thrive Assessment: Date of Thrive Assessment Date Thrive assessed 03/30/25 07/14/25 16:08 Currently or been in a relationship where the following occur: No concerns reported Const General: no acute distress and alert HENMT Ears: TM's normal bilaterally and EAC's normal Throat: Yes posterior oropharynx normal and Yes tonsils normal (no TP congestion) Neck Neck: Yes supple and No lymphadenopathy Thyroid: Thyroid normal Resp Auscultation: clear to auscultation bilaterally, no rales and no wheezes Cardio Rate: regular rate Rhythm: regular rhythm Heart sounds: no murmurs GI Palpation (GI): Soft to palpation and nontender Auscultation: normal bowel sounds General: Yes no CVA tenderness Back/Spine/Pelvis Back: no CVA tenderness Thoracic/Lumbar Spine: lumbar spinal tenderness Skin Other: (+) open, non-draining wound on the medial aspect of patient's distal right lower leg; (+) small, non-tender nodule on his left upper arm and right forearm Rashes: no rashes Extrem General: Yes no clubbing, cyanosis or edema Results Reviewed Results Reviewed: Laboratory Tests 03/03/25 07/04/25 09:32 09:29 WBC 4.8 Hgb 14.9 Hct 44.6 Plt Count 251 Sodium 143 Potassium 4.2 Creatinine 1.12 Estimated GFR > 60 Fasting Glucose 129 H Hemoglobin A1c % 6.3 H Calcium 9.4 AST 29 ALT 27 Triglycerides 68 Cholesterol 97 LDL Cholesterol, Calc 37 HDL Cholesterol 47 Vitamin B12 310 25-OH Vitamin D Total 39.9 TSH 1.70 Ur Specific [place] >= 1.030 H Urine Protein 30 (1+) H Urine Glucose (UA) >=1000 H Urine Blood Negative Urine Nitrite Negative Urine Bilirubin (Auto) 0 Microalb/Creat Ratio 321.8 H Coding Level of Care Code Est Pt Level 4 (64257) Diagnoses Cerebrovascular accident (CVA) due to embolism of cerebral artery I63.40 Precerebral and cerebral artery: unspecified cerebral artery Type 2 diabetes mellitus with microalbuminuria E11.29; R80.8 Essential hypertension I10 Pure hypercholesterolemia E78.00 GERMAN (obstructive sleep apnea) G47.33 Open wound of right lower leg, sequela S81.801S Encounter type: sequela Gastroesophageal reflux disease without esophagitis K21.9 Esophagitis presence: without esophagitis Degeneration of intervertebral disc of lumbar region with discogenic back pain M51.360 Disc-related pain type: discogenic back pain only Dermoid cyst of upper extremity, unspecified laterality D36.7 Laterality: unspecified laterality Morbid obesity E66.01 Assessment & Plan Assessment & Plan (1) Embolic stroke: Code(s): I63.9 - Cerebral infarction, unspecified Category: Medical Qualifiers: Precerebral and cerebral artery: unspecified cerebral artery Qualified Code(s): I63.40 - Cerebral infarction due to embolism of unspecified cerebral artery Plan: Transthoracic echocardiogram with LVEF of 55-60%; is otherwise unremarkable. His transesophageal echocardiogram showed (+) evidence of atrial septal aneurysm, patent foramen ovale; [id number] shunt noted by color Doppler but bubble study was negative for [id number] shunt. Implantable loop monitor showed 1 episode of possible atrial fibrillation but the episode was only for about 40 seconds and the rate was only in the 60s. Nothing recurrent after this episode. Myocardial perfusion imaging study from [facility] done in 2019 showed no evidence of any ischemia or infarction. He exercised for 8 minutes and 54 minutes on Kang protocol reaching 9 Mets Brain MRI showed (+) small infarct in the cerebellum Brain CT also showed (+) old infarcts CTA of the neck did not show any significant disease Continue Eliquis 5 mg BID for thromboembolism prophylaxis Follow-up with cardiology as scheduled He was seeing Dr. Cid for neurology follow up in the past but was recently transferred to his practice's nurse practitioner, who patient has expressed that he was not comfortable seeing, and he requested for a referral to another neurology practice if he cannot get back in to see Dr. Cid - per request, will try referring him to Dr. Hector Owusu instead at [facility] for continuing neurology follow up (2) Type 2 diabetes mellitus with microalbuminuria: Code(s): E11.29 - Type 2 diabetes mellitus with other diabetic kidney complication; R80.8 - Other proteinuria Category: Medical Plan: Patient's HgbA1c was again at 6.3% on his labs done a couple of weeks ago - goal is at least less than 7.0% or ideally less than 6.5% He is also advised that his microalbuminuria appears to be stable on his recent labs Reinforced diabetic diet Continue Jardiance 25 mg QD and Mounjaro 10 mg SQ once a week (3) Essential hypertension: Code(s): I10 - Essential (primary) hypertension Category: Medical Plan: Reinforced low-sodium diet - goal is systolic BP of 120 mm or less Continue Lisinopril 20 mg QD (4) Pure hypercholesterolemia: Code(s): E78.00 - Pure hypercholesterolemia, unspecified Category: Medical Plan: Results of his labs done a couple of weeks ago reviewed and discussed with patient Reinforced low cholesterol diet Patient used to take Rosuvastatin 40 mg QD but states that he quit taking it due to increased myalgia while on the medication He recalls experiencing similar symptoms with Pravastatin in the past He has been advised that his Homocysteine level was also elevated on his recent labs, suggesting an increased risk He has inquired about being checked for Lipoprotein a level and have advised him that there is a chance his insurance may not cover the test and he would have a much better chance of having it covered if he can get his rrt to order it for him IF it is necessary or appropriate Continue Repatha 140 mg SQ every 2 weeks Will recheck his fasting lipids and labs in 4 months for follow-up (5) GERMAN (obstructive sleep apnea): Comment: s/p [id number] about 15 years ago Code(s): G47.33 - Obstructive sleep apnea (adult) (pediatric) Category: Medical Plan: Follow-up with Sleep Medicine as scheduled (6) Open wound of right lower leg: Code(s): S81.801A - Unspecified open wound, right lower leg, initial encounter Category: Medical Qualifiers: Encounter type: sequela Qualified Code(s): S81.801S - Unspecified open wound, right lower leg, sequela Plan: See HPI above for details about this wound Will refer him to the wound clinic for further management of his right leg wound, especially since he is a diabetic (7) GERD (gastroesophageal reflux disease): Code(s): K21.9 - Gastro-esophageal reflux disease without esophagitis Category: Medical Qualifiers: Esophagitis presence: without esophagitis Qualified Code(s): K21.9 - Gastro-esophageal reflux disease without esophagitis Plan: Dietary restrictions reinforced Continue Omeprazole 40 mg QD Due to his increasing heartburn previously despite his current Rx, he was referred to GI for further evaluation - he is now scheduled to see GI next week He is also now due for repeat colonoscopy and GI will help him get this addressed as well (8) Lumbar degenerative disc disease: Code(s): M51.369 - Other intervertebral disc degeneration, lumbar region without mention of lumbar back pain or lower extremity pain Category: Medical Qualifiers: Disc-related pain type: discogenic back pain only Qualified Code(s): M51.360 - Other intervertebral disc degeneration, lumbar region with discogenic back pain only Plan: Reinforced activity and weight lifting restrictions Repeat x-rays of the lumbar spine done back in August 2024 revealed (+) multilevel degenerative disc changes but no acute findings (9) Dermoid cyst of arm: Code(s): D36.7 - Benign neoplasm of other specified sites Category: Medical Qualifiers: Laterality: unspecified laterality Qualified Code(s): D36.7 - Benign neoplasm of other specified sites Plan: Patient is advised/reassured that these are benign lesions in as they do not seem to be too symptomatic, we can continue to observe these for now Patient is advised to call if these change or get bigger or become symptomatic and we can then consider referring him for excision of these lesions (10) Morbid obesity: Code(s): E66.01 - Morbid (severe) obesity due to excess calories Category: Medical Plan: Reinforced diet/exercise as tolerated/lose weight Plan Follow up in 4 months Orders: Orders Hemoglobin A1c 4 Months E11.9 - Type 2 diabetes mellitus without complications TSH reflex Free T4 4 Months E78.00 - Pure hypercholesterolemia, unspecified Complete Blood Count Auto Diff 4 Months D64.9 - Anemia, unspecified Comprehensive [place]. Panel Fast 4 Months E78.00 - Pure hypercholesterolemia, unspecified Lipid Panel 4 Months E78.00 - Pure hypercholesterolemia, unspecified UA CC w/rflx Micro + Cult 4 Months R30.0 - Dysuria Vitamin B12 and Folate 4 Months E53.8 - Deficiency of other specified B group vitamins Vitamin D 25-OH Total 4 Months E55.9 - Vitamin D deficiency, unspecified Microalbumin, Random (w Creat) 4 Months E11.9 - Type 2 diabetes mellitus without complications Referrals Wound Care Referral E11.8 - Type 2 diabetes mellitus with unspecified complications, S81.801A - Unspecified open wound, right lower leg, initial encounter Neurology Referral I63.9 - Cerebral infarction, unspecified
[2025-07-14 16:08] VITALS: BP 120/64; PULSE 72; TEMP 36.2; O2SAT 97; BMI 30.5
--- OUTSIDE RECORDS SUMMARY | 2025-07-14 22:43 | XMS_ITS | Encounter Summary ---
Author Organization [facility] Address [address] [place] [address] Phone Care Team Providers Care Client Care Manager Name Role Phone Rosalind Cornejo MD Primary Care Provider Janak Hassan MD Unavailable [phone] Tex Lin MD Unavailable [email or web address] Juwan Su MD Unavailable Rosalind Cornejo MD Unavailable John Santoyo GRIEVANCE COORDINATOR Unavailable [phone] Rosalind Cornejo MD Unavailable Sp Gusman DO Primary Care Provider [phone] Chanda Fernando CAT AND DOG BATHER Unavailable [phone] Rosalind Cornejo MD Unavailable [phone] Andrei Hayes MD Primary Care Provider Derrek Abdullahi MD Primary Care Provider [phone] Encounter Details Date Type Department Care Team (Latest Contact Info) Description 09/04/2017 Transcribe Orders [facility] Phleb Main [address] [place], [place] [id number] [place] Shafer MD [address] [facility] [address] [place], [place] [phone] [email or web address] Uric acid nephrolithiasis (Primary Dx) Social History [...] Description 07/16/2025 11:20 AM EST Office Visit [facility] [address] [place] [address] Matilda Hannah, GRIEVANCE COORDINATOR [address] [facility], 1st [place] [address] [email or web address] documented as of this encounter Results * (ABNORMAL) Urinalysis w/reflex Urine Culture (09/04/2017 9:49 AM EST) COLOR STRAW(A) Yellow [facility] CLARITY Clear [facility] GLUCOSE 3+(A) Negative [facility] BILI Negative Negative [facility] KETONES Negative Negative [facility] SPECIFIC GRAVITY 1.015 1.005 - 1.030 [facility] BLOOD Negative Negative [facility] PH 5.5 5.0 - 8.0 [facility] Protein-UA Negative Negative [facility] NITRITE Negative Negative [facility] Leukocyte esterase, ur Negative Negative [facility] Urine (Urine) 09/04/2017 9:4 9 AM EST 09/04/2017 9:56 AM EST us [place] Shafer MD LAB URINE ORDERABLES Final Resul t [facility] [address] [place] [address] * (ABNORMAL) Uric acid (09/04/2017 9:49 AM EST) URIC ACID 7.7(H) 2.4 - 7.0 mg/dL [facility] Blood 09/04/2017 9:49 AM EST 09/04/2017 9:53 AM EST us [place] Shafer MD LAB BLOOD BKR ORDERABLES Final R esult Performing Organization Address [facility] Co de Phone Number [address] [address] * Parathyroid hormone (PTH) (09/04/2017 9:49 AM EST) PARATHYROID HORMONE 31 15 - 65 pg/mL [facility] Blood 09/04/2017 9:49 AM EST 09/04/2017 9:57 AM EST us [place] Shafer MD LAB BLOOD BKR ORDERABLES Final R [facility] Performing Organization Address [facility] de Phone Number [address] [address] * Lipid panel (09/04/2017 9:49 AM EST) HDL 47 mg/dL [facility] Comment: Interpretation: Risk Level Males Decreased >45 mg/dL Average 40-45 mg/dL Increased <40 mg/dL CHOLESTEROL 195 0 - 240 mg/dL [facility] TRIGLYCERIDES 113 30 - 160 mg/dL [facility] LDL 125 50 - 129 mg/dL [facility] Comment: LDL levels in terms of risk for coronary heart disease: <100 mg/dL: Optimal 100-129 mg/dL: Near or above optimal 130-159 mg/dL: Borderline high 160-189 mg/dL: High >190 mg/dL: Very High CARDIAC RISK RATIO 4.1 3.4 - 5.0 C [facility] Blood 09/04/2017 9:49 AM EST 09/04/2017 9:53 AM EST us [place] Shafer MD LAB BLOOD BKR ORDERABLES Final R esult Performing Organization Address [facility] Co de Phone Number [address] [address] * 25-OH vitamin D (09/04/2017 9:49 AM EST) 25 OH VIT D (TOTAL) 46 30 - 1,000 ng/mL [facility] Blood 09/04/2017 9:49 AM EST 09/04/2017 9:53 AM EST [place] Shafer MD LAB BLOOD BKR ORDERABLES Final R esult Performing Organization Address City/[facility] Co de Phone Number [address] [address] * (ABNORMAL) Renal panel (09/04/2017 9:49 AM EST) SODIUM 141 133 - 146 mmol/L [facility] POTASSIUM 4.5 3.3 - 5.1 mmol/L [facility] CHLORIDE 102 96 - 108 mmol/L [facility] CO2 28 21 - 35 mmol/L [facility] GLUCOSE 135(H) 70 - 99 mg/dL [facility] BUN 23(H) 6 - 19 mg/dL [facility] CREATININE 1.20 0.5 - 1.5 mg/dL [facility] CALCIUM 9.8 8.4 - 10.3 mg/dL [facility] PHOSPHORUS 3.3 2.7 - 4.5 mg/dL [facility] ALBUMIN 4.6 3.9 - 4.8 g/dL [facility] EGFR >60 >60 mL/min/1.7 3m2 [facility] Comment:Abnormal if <60. If patient is -Tristanian, multiply the result by 1.21. ANION GAP 16 10 - 20 mmol/L [facility] Blood 09/04/2017 9:49 AM EST 09/04/2017 9:53 AM EST [place] Shafer MD LAB BLOOD BKR ORDERABLES Final R esult Performing Organization Address City/[facility] Co de Phone Number [address] [address] documented in this encounter 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 Care Teams Client Care Manager Relationship Specialty Start Date End Date Rosalind Cornejo MD [address] [place] [address] [email or web address] PCP - General 02/03/14 08/08/23 Sp Gusman DO [address] [place] [address] PCP - General Family Medicine 08/09/23 02/18/24 Andrei Hayes MD [address] [place] [address] PCP - General Family Medicine 02/19/24 09/15/24 Derrek Abdullahi MD [address] [place] [address] [place] [address] PCP - General Internal Medicine 09/16/24 Janak Hassan MD [address] [place] [address] [email or web address] Historical LMR Provider 05/27/17 08/13/21 Tex Lin MD [email or web address] Historical LMR Provider 05/27/17 08/13/21 Juwan Su MD [address] [place] [address] [email or web address] Historical LMR Provider 05/27/17 Rosalind Cornejo MD [address] [place] [address] [email or web address] Historical LMR Provider 05/27/17 08/08/23 John Santoyo, GRIEVANCE COORDINATOR [address] [address] [email or web address] Historical LMR Provider 05/27/17 08/13/21 Rosalind Cornejo MD [address] [place] [address] [email or web address] Insurance Assigned Provider 12/07/18 08/08/23 Chanda Fernando NP [address] [place] [address] Nurse Practitioner 08/09/23 09/15/24 Rosalind Cornejo MD [address] [place] [address] [email or web address] Insurance Assigned Provider 12/07/18 10/13/23 documented as of this encounter Additional Source Comments The information contained in this document represents components of the legal health record. It is not the complete legal health record.[facility]
--- OUTSIDE RECORDS SUMMARY | 2025-07-14 22:43 | XMS_ITS | Clinical Summary ---
Author Organization [facility] Address [address] [place] [address] [place] [address] Phone Care Team Providers Care Test Borer Helper Name Role Phone Juwan Su MD Unavailable [phone] Derrek Abdullahi MD Primary Care Provider [phone] Allergies Active Allergy Reactions Criticality Noted Date [...] trial. Procedures: Glucose Monitoring: Type of Sensor: [employer] G6 Pro Instruction: Patient Instructed on:, Calibrations, [...] weeks to drop off at front end ui developer or follow up appointment. Assessment & Plan [...] normal today. Labs >2 years old in [facility], has had recent labs at [facility] which we can request Encouraged efforts at [...] Department Care Team Description 06/03/2025 Refill [facility] [address] [place], [place] [address] Matilda Hannah CNP Medication Refill from Last [...] 07/16/2025 11:20 AM EST Office Visit [facility] [address] [place] [address] Matilda Hannah, BAILEY [address] [facility], 1st [place] [address] [email or web address] Maintenance Due Date Last Done Comments [...] Hemoglobin A1c 6.0(A) 4.2 - 5.6 % [facility] Other 01/15/2025 11:4 8 AM EDT us Matilda Hannah NURSING PROGRAM DIRECTOR LAB POCT ENTER/EDIT ORDERABLE S Final Result [facility] [address] [place] [address], [place] * (ABNORMAL) Basic metabolic panel (08/10/2020 1:05 AM EST) SODIUM 139 133 - 146 mmol/L [facility] CHLORIDE 103 96 - 108 mmol/L [facility] POTASSIUM 4.5 3.3 - 5.1 mmol/L [facility] CO2 28 21 - 35 mmol/L [facility] BUN 19 6 - 19 mg/dL [facility] CREATININE 1.10 0.5 - 1.5 mg/dL [facility] GLUCOSE 156(H) 70 - 99 mg/dL [facility] CALCIUM 9.4 8.4 - 10.3 mg/dL [facility] EGFR 71 >59 mL/min/1.7 3m2 [facility] Comment:Estimated glomerular filtration rate calculated using the CKD-EPI equation. ANION GAP 13 10 - 20 mmol/L [facility] Blood 08/10/2020 1:05 AM EST 08/10/2020 1:29 AM EST us Jeromy Klein MD LAB BLOOD BKR ORDERABLES Final Result [address] [address] * ENDOSCOPY, COLON (01/08/2018 5:39 PM EDT) Narrative Transcriptions Ray Hernandez MD - 01/08/2018 5:39 PM EDT Patient Name: John Roa Attending MD:: RAY HERNANDEZ MD Procedure Date: 01/08/2018 5:39 PM Date of : 1955 Age: 62 Admit Type: Outpatient Gender: Male Room: [facility] Referring MD: ROSALIND CORNEJO MD Exam Type: [...] 5:39 PM Procedure Code(s): --- Professional --- 33484, Colonoscopy, flexible; with biopsy, single or multiple --- Technical --- 00578, Colonoscopy, flexible; with biopsy, single or multiple Diagnosis Code(s): --- Professional --- D12.3, Benign neoplasm of transverse colon (hepatic flexure orsplenic flexure) K64.8, Other hemorrhoids R19.4, Change in bowel habit --- Technical --- D12.3, Benign neoplasm of transverse colon (hepatic flexure orsplenic flexure) K64.8, Other hemorrhoids R19.4, Change in bowel habit CPT copyright 2016 [employer]. All rights reserved. The codes documented in this report are preliminary and upon instrumentation controls engineer reviewmay be revised to meet current compliance requirements. [address] [place] [address] [id number] us Rosalind Cornejo MD GI PROCEDURE ORDERABLES Fin al Result * Lipid panel (09/04/2017 9:49 AM EST) HDL 47 mg/dL [facility] Comment: Interpretation: Risk Level Males Decreased >45 mg/dL Average 40-45 mg/dL Increased <40 mg/dL CHOLESTEROL 195 0 - 240 mg/dL [facility] TRIGLYCERIDES 113 30 - 160 mg/dL [facility] LDL 125 50 - 129 mg/dL [facility] Comment: LDL levels in terms of risk for coronary heart disease: <100 mg/dL: Optimal 100-129 mg/dL: Near or above optimal 130-159 mg/dL: Borderline high 160-189 mg/dL: High >190 mg/dL: Very High CARDIAC RISK RATIO 4.1 3.4 - 5.0 C [facility] Blood 09/04/2017 9:49 AM EST 09/04/2017 9:53 AM EST [place] Shafer MD LAB BLOOD BKR ORDERABLES Final R esult [address] [address] from Last 3 Months or Most Recently Relevant to Health Maintenance Insurance [facility] [address] [place] [address] [place] [address] [place] [address] Care Teams Test Borer Helper Relationship Specialty Start Date End Date Derrek Abdullahi MD [address] [place] [address] [place] [address] PCP - General Internal Medicine 09/16/24 Juwan Su MD [address] [place] [address], [address] [place] [address] [email or web address] Historical LMR Provider 05/27/17 Additional Source Comments The information contained in this document represents components of the legal health record. It is not the complete legal health record.[facility]
--- OUTSIDE RECORDS SUMMARY | 2025-07-14 22:43 | XMS_ITS | Encounter Summary ---
Author Organization [facility] Address [address] [place] [address] [place] [address] Phone Care Team Providers Care Certified Scrub Tech Name Role Phone Rosalind Cornejo MD Primary Care Provider [phone] Janak Hassan MD Unavailable [phone] Tex Lin MD Unavailable [email or web address] Juwan Su MD Unavailable [phone] Rosalind Cornejo MD Unavailable John Santoyo TECHNICAL SERVICES SPECIALIST Unavailable [phone] Rosalind Cornejo MD Unavailable [phone] Sp Gusman DO Primary Care Provider Chanda Fernando TRAFFIC LIEUTENANT Unavailable [phone] Rosalind Cornejo MD Unavailable [phone] Andrei Hayes MD Primary Care Provider Derrek Abdullahi MD Primary Care Provider [phone] Encounter Details Date Type Department Care Team (Late st Contact Info) Description 09/04/2017 Transcribe Orders [facility] Phleb Main 30 [place], [place] [phone] Rosalind Cornejo MD [address] [place] [address] [phone] Elevated LFTs (Primary Dx) Social History Tobacco [...] Description 07/16/2025 11:20 AM EST Office Visit [facility] [address] [place] [address] Matilda Hannah, BAILEY [address] [facility], 1st [place] [address] [email or web address] documented as of this encounter Results * (ABNORMAL) Hemoglobin A1c (09/04/2017 9:49 AM EST) HEMOGLOBIN A1C 7.4(H) 4.3 - 5.8 % [facility] Blood 09/04/2017 9:49 AM EST 09/04/2017 9:53 AM EST us Rosalind Cornejo MD LAB BLOOD BKR ORDERABLES Fi nal Result [facility] 30 [place] [address] * Cytomegalovirus (CMV) PCR, blood (09/04/2017 9:49 AM EST) CMV DNA DETECT/QUANT <137 Undetected IU/mL [facility] Comment: (NOTE) Result [...] LAB BLOOD BKR ORDERABLES Fi nal Result [facility] [address] [place] [address] documented in this encounter Visit Diagnoses Diagnosis Elevated LFTs- Primary Other abnormal blood chemistry documented in this encounter Care Teams Certified Scrub Tech Relationship Specialty Start Date End Date Rosalind Cornejo MD [address] [place] [address] [email or web address] PCP - General 02/03/14 08/08/23 Sp Gusman DO [address] [place] [address] PCP - General Family Medicine 08/09/23 02/18/24 Andrei Hayes MD [address] [place] [address] PCP - General Family Medicine 02/19/24 09/15/24 Derrek Abdullahi MD [address] [place] [address] [place] [address] PCP - General Internal Medicine 09/16/24 Janak [place] MD [address] [place] [address] [email or web address] Historical LMR Provider 05/27/17 08/13/21 Tex Lin MD [email or web address] Historical LMR Provider 05/27/17 08/13/21 Juwan Su MD [address] [place] [address] [email or web address] Historical LMR Provider 05/27/17 Rosalind Cornejo MD [address] [place] [address] [email or web address] Historical LMR Provider 05/27/17 08/08/23 John Santoyo CNP [address] [place] [address] Historical LMR Provider 05/27/17 08/13/21 Rosalind Cornejo MD [address] [place] [address] [email or web address] Insurance Assigned Provider 12/07/18 08/08/23 Chanda Fernando NP [address] [place] [address] Nurse Practitioner 08/09/23 09/15/24 Rosalind Cornejo MD [address] [place] [address] [email or web address] Insurance Assigned Provider 12/07/18 10/13/23 documented as of this encounter Additional Source Comments The information contained in this document represents components of the legal health record. It is not the complete legal health record.[facility]
--- OUTSIDE RECORDS SUMMARY | 2025-07-14 22:43 | XMS_ITS | Patient Health Record ---
Author Organization [facility] [place] Address [address] [place] [address] Care Team Providers Care Transitional Living Specialist Name Role Phone Chantal CHANG, Rosalind Primary Care Provider Andres Westbrook Unavailable [phone] Allergies Allergen (clinical drug ingredient) Drug/Non Drug [...] a day Active Fish Oil + D3 8166-2235 MG-UNIT 1 capsule Orally Three times a [...] Test Name Order Date Hemoglobin A1c 02/09/2015 88219-[id number] NAIL, 6 OR MORE 05/11/2015 [id number] NAIL, 6 OR MORE 08/13/2015 23455-[id number] NAIL, 6 OR MORE 02/17/2014 [id number] NAIL, 6 OR MORE 02/09/2015 71532-Hyqj Destruction, 1-14 02/09/2015 01318-Iiiu Destruction, 1-14 02/17/2014 55175-Uxjf Destruction, 1-14 08/13/2015 43442-RXNJ SKIN LESIONS, OVER 4 02/18/20 14 35273-ECIC SKIN LESIONS, OVER 4 02/10/20 15 75486-XQTI SKIN LESIONS, OVER 4 08/13/19 16 72852-TDOW SKIN LESIONS, OVER 4 05/11/20 15 Insurance Providers Payer Name Payer Address Payer Phone Subscriber Number Group Number Insured Name Patient Relationship to Insured Coverage Start Date Coverage End Date [facility] [address] [place] [address] [phone] [id number] Oliver Spouse - patient is the spouse of the insured Medical (General) History Medical History History ICD Code Anxiety Arthritis Back,Hip,and Knee pain Fibromyalgia Headaches High blood pressure Reflux Sinus conditions Diabetic Surgical History Surgery Date(Month/Year) UPPP 2003 Sinus cleaning 2003
--- OUTSIDE RECORDS SUMMARY | 2025-07-14 22:43 | XMS_ITS | Encounter Summary ---
Author Organization [facility] Address [address] [place] [address] [place] [address] Phone Care Team Providers Care Stone Layout Marker Name Role Phone Rosalind Cornejo MD Primary Care Provider [phone] Janak Hassan MD Unavailable [phone] Tex Lin MD Unavailable [email or web address] Juwan Su MD Unavailable [phone] Rosalind Cornejo MD Unavailable John Santoyo JAVASCRIPT FRONT END DEVELOPER Unavailable [phone] Rosalind Cornejo MD Unavailable Sp Gusman DO Primary Care Provider Chanda Fernando OPERATIONAL RISK CONSULTANT Unavailable [phone] Rosalind Cornejo MD Unavailable [phone] Andrei Hayes MD Primary Care Provider Derrek Abdullahi MD Primary Care Provider [phone] Encounter Details Date Type Department Care Team (Late st Contact Info) Description 09/07/2017 Transcribe Orders [facility] Specimen Processing [address] [place], [place] [phone] Rosalind Cornejo MD [address] [place], [place] [phone] [email or web address] Social History Tobacco Use Types Packs/Day Years [...] 07/16/2025 11:20 AM EST Office Visit [facility] [address] [place] [address] Matilda Hannah CNP [address] [address] documented as of this encounter Visit Diagnoses Not on filedocumented in this encounter Care Teams Stone Layout Marker Relationship Specialty Start Date End Date Rosalind Cornejo MD [address] [place] [address] PCP - General 02/03/14 08/08/23 Sp Gusman DO [address] [place] [address] PCP - General Family Medicine 08/09/23 02/18/24 Andrei Hayes MD [address] [place] [address] PCP - General Family Medicine 02/19/24 09/15/24 Derrek Abdullahi MD [address] [place] [address] [place] [address] PCP - General Internal Medicine 09/16/24 Janak Hassan MD [address] [place] [address] Historical LMR Provider 05/27/17 08/13/21 Tex Lin MD [email or web address] Historical LMR Provider 05/27/17 08/13/21 Juwan Su MD [address] [address] Historical LMR Provider 05/27/17 Rosalind Cornejo MD [address] [place] [address] [email or web address] Historical LMR Provider 05/27/17 08/08/23 John Santoyo CNP [address] [place] [address] Historical LMR Provider 05/27/17 08/13/21 Rosalind Cornejo MD [address] [place] [address] [email or web address] Insurance Assigned Provider 12/07/18 08/08/23 Chanda Fernando NP [address] [place] [address] Nurse Practitioner 08/09/23 09/15/24 Rosalind Cornejo MD [address] [place] [address] [email or web address] Insurance Assigned Provider 12/07/18 10/13/23 documented as of this encounter Additional Source Comments The information contained in this document represents components of the legal health record. It is not the complete legal health record.[facility]
--- OUTSIDE RECORDS SUMMARY | 2025-07-14 22:43 | XMS_ITS | Encounter Summary ---
Author Organization [facility] Address [address] [place] [address] [place] [address] Phone Care Team Providers Care Medical Stenographer Name Role Phone Rosalind Cornejo MD Primary Care Provider [phone] Janak Hassan MD Unavailable [phone] Tex Lin MD Unavailable [email or web address] Juwan Su MD Unavailable [phone] Rosalind Cornejo MD Unavailable [phone] John Santoyo LAMPS TESTER AND INSPECTOR Unavailable [phone] Rosalind Cornejo MD Unavailable [phone] Sp Gusman DO Primary Care Provider Chanda Fernando OPERATING ROOM TECH Unavailable [phone] Rosalind Cornejo MD Unavailable [phone] Andrei Hayes MD Primary Care Provider Derrek Abdullahi MD Primary Care Provider [phone] Encounter Details Date Type Department Care Team (Late st Contact Info) Description 09/04/2017 Transcribe Orders [facility] Phleb Main 30 [place] [address] Enma Cornejo, PhD Social History [...] [facility] 22 [place] [address] Matilda Hannah CNP [address] [address] [email or web address] documented as of this encounter Visit Diagnoses Not on filedocumented in this encounter Care Teams Medical Stenographer Relationship Specialty Start Date End Date Rosalind Cornejo MD [address] [place] [place] [address] PCP - General 02/03/14 08/08/23 Sp Gusman DO [address] [place] [address] PCP - General Family Medicine 08/09/23 02/18/24 Andrei Hayes MD [address] [place] [place] [address] PCP - General Family Medicine 02/19/24 09/15/24 Derrek Abdullahi MD [address] [place] [address] [address] PCP - General Internal Medicine 09/16/24 Janak Hassan MD [address] [place] [address] [email or web address] Historical LMR Provider 05/27/17 08/13/21 Tex Lin MD [email or web address] Historical LMR Provider 05/27/17 08/13/21 Juwan Su MD [address] [place] [address] Historical LMR Provider 05/27/17 Rosalind Cornejo MD [address] [place] [address] Historical LMR Provider 05/27/17 08/08/23 John Santoyo CNP [address] [place] [address] Historical LMR Provider 05/27/17 08/13/21 Rosalind Cornejo MD [address] [place] [place] [address] Insurance Assigned Provider 12/07/18 08/08/23 Chanda Fernando NP [address] [place] [address] Nurse Practitioner 08/09/23 09/15/24 Rosalind Cornejo MD [address] [place] [place] [address] 17434 Insurance Assigned Provider 12/07/18 10/13/23 documented as of this encounter Additional Source Comments The information contained in this document represents components of the legal health record. It is not the complete legal health record.[facility]
--- OUTSIDE RECORDS SUMMARY | 2025-07-14 22:43 | XMS_ITS | Encounter Summary ---
Author Organization [facility] Address [address] [place] [address] [place] [address] Phone Care Team Providers Care Silverware Supervisor Name Role Phone Rosalind Cornejo MD Primary Care Provider [phone] Janak Hassan MD Unavailable [phone] Tex Lin MD Unavailable [email or web address] Juwan Su MD Unavailable [phone] Rosalind Cornejo MD Unavailable [phone] John Santoyo RECRUITMENT AND OUTREACH ASSISTANT Unavailable [phone] Rosalind Cornejo MD Unavailable Sp Gusman DO Primary Care Provider Chanda Fernando AWARD MACHINE OPERATOR Unavailable [phone] Rosalind Cornejo MD Unavailable [phone] Andrei Hayes MD Primary Care Provider Derrek Abdullahi MD Primary Care Provider [phone] Encounter Details Date Type Department Care Team (Latest Contact Info) Description 09/07/2017 Transcribe Orders [facility] Specimen Processing 30 [place], [place] 1988160 Rosalind Cornejo MD 15 [place], [place] [id number] [email or web address] Positive serum cytomegalovirus (CMV) IgM antibody (Primary [...] Description 07/16/2025 11:20 AM EST Office Visit [facility] Center 22 [place] [address] Matilda Hannah, RECRUITMENT AND OUTREACH ASSISTANT 22 [facility], 1st [place] [address] [email or web address] documented as of this encounter Procedures Procedure Name Priority Date/Time Associated Diagnosis Comments MISCELLANEOUS LAB TEST Routine 09/04/2017 9:49 AM EST LAB ADD ON Routine 09/04/2017 9:49 AM EST Positive serum cytomegalovirus (CMV) IgM antibody Elevated LFTs documented in this encounter Results * Miscellaneous lab test (09/04/2017 9:49 AM EST) TESTS REQUESTED CYTOMEGALOVIRUS AB, IGM AND IGG [facility] SPECIMEN/TUBE TYPE SERUM [facility] REQUEST RECEIVED Request received. A separate order for the requested test will be generated by the laboratory. [facility] 09/04/2017 9:49 AM EST 09/07/2017 12:39 PM EST us Rosalind Cornejo MD LAB BLOOD ORDERABLES Final Result [facility] 30 [place] [address] * Lab Add On: CMV IGG/IGM (09/04/2017 9:49 AM EST) CONTACT INFORMATION [id number] [facility] TEST REQUESTED CMV IGG IGM ROLL MACHINE OPERATOR [facility] Comments (Chemistry) ADD ON COMPLETE. [facility] 09/04/2017 9:49 AM EST 09/07/2017 12:39 PM EST us Rosalind Cornejo MD LAB BLOOD ORDERABLES Edited Result - Final [facility] 30 [place] [address] documented in this encounter Visit Diagnoses Diagnosis Positive serum cytomegalovirus (CMV) IgM antibody- Primary Elevated LFTs Other abnormal blood chemistry documented in this encounter Care Teams Silverware Supervisor Relationship Specialty Start Date End Date Rosalind Cornejo MD 15 [place] [address] [email or web address] PCP - General 02/03/14 08/08/23 Sp Gusman DO [address] [place] [address] PCP - General Family Medicine 08/09/23 02/18/24 Andrei Hayes MD [address] [place] [address] PCP - General Family Medicine 02/19/24 09/15/24 Derrek Abdullahi MD [address] [place] [address] [place] [address] PCP - General Internal Medicine 09/16/24 Janak Hassan MD [address] [place] [address] [email or web address] Historical LMR Provider 05/27/17 08/13/21 Tex Lin MD [email or web address] Historical LMR Provider 05/27/17 08/13/21 Juwan Su MD [address] [address] Historical LMR Provider 05/27/17 Rosalind Cornejo MD [address] [place] [address] Historical LMR Provider 05/27/17 08/08/23 John Santoyo CNP [address] [place] [address] Historical LMR Provider 05/27/17 08/13/21 Rosalind Cornejo MD [address] [place] [address] 13596 Insurance Assigned Provider 12/07/18 08/08/23 Chanda Fernando NP [address] [place] [address] Nurse Practitioner 08/09/23 09/15/24 Rosalind Cornejo MD [address] [place] [address] 78148 Insurance Assigned Provider 12/07/18 10/13/23 documented as of this encounter Additional Source Comments The information contained in this document represents components of the legal health record. It is not the complete legal health record.[facility]
--- OUTSIDE RECORDS SUMMARY | 2025-07-14 22:43 | XMS_ITS | Encounter Summary ---
Author Organization [facility] Address [address] [place] [address] [place] [address] Phone Care Team Providers Care Diamond Setter Apprentice Name Role Phone Rosalind Cornejo MD Primary Care Provider [phone] Janak Hassan MD Unavailable [phone] Tex Lin MD Unavailable [email or web address] Juwan Su MD Unavailable [phone] Rosalind Cornejo MD Unavailable [phone] John Santoyo FABRICATION LEAD Unavailable [phone] Rosalind Cornejo MD Unavailable [phone] Sp Gusman DO Primary Care Provider Chanda Fernando GRADES 7 AND 8 VISITING TEACHER Unavailable [phone] Rosalind Cornejo MD Unavailable [phone] Andrei Hayes MD Primary Care Provider Derrek Abdullahi MD Primary Care Provider [phone] Encounter Details Date Type Department Care Team (Late st Contact Info) Description 07/23/2017 Transcribe Orders [facility] Phleb Main 30 [place], [place] [phone] Rosalind Cornejo MD [address] [place] [address] [phone] [email or web address] Elevated liver function tests (Primary Dx) Social [...] Description 07/16/2025 11:20 AM EST Office Visit [facility] Center 22 [place] [address] Matilda Hannah, BAILEY 22 [facility], 1st [place] [address] [email or web address] documented as of this encounter Results * (ABNORMAL) LFTs (hepatic panel) (07/23/2017 10:12 AM EST) ALKALINE PHOSPHATASE 57 39 - 117 U/L [facility] TOTAL BILIRUBIN 0.4 0 - 1.2 mg/dL [facility] DIRECT BILIRUBIN <0.2 0 - 0.3 mg/dL [facility] Bilirubin (Indirect) NOT CALCULATED 0 - 1.5 mg/dL [facility] AST 61(H) 0 - 37 U/L [facility] ALT 104(H) 0 - 40 U/L [facility] TOTAL PROTEIN 6.4(L) 6.5 - 8.0 g/dL [facility] ALBUMIN 3.8(L) 3.9 - 4.8 g/dL [facility] GLOBULIN 2.6 1 - 4.8 g/dL [facility] A/G Ratio 1.46 1.00 - 4.80 RATIO [facility] Blood 07/23/2017 10:1 2 AM EST 07/23/2017 10:13 AM EST us Rosalind Cornejo MD LAB BLOOD BKR ORDERABLES Fi nal Result [facility] 30 [place] [address] documented in this encounter Visit Diagnoses Diagnosis Elevated liver function tests- Primary Other abnormal blood chemistry documented in this encounter Care Teams Diamond Setter Apprentice Relationship Specialty Start Date End Date Rosalind Cornejo MD [address] [place] [address] [email or web address] PCP - General 02/03/14 08/08/23 Sp Gusman DO [address] [place] [address] PCP - General Family Medicine 08/09/23 02/18/24 Andrei Hayes MD [address] [place] [address] PCP - General Family Medicine 02/19/24 09/15/24 Derrek Abdullahi MD [address] [place] [address] [place] [address] PCP - General Internal Medicine 09/16/24 Janak Hassan MD [address] [place] [address] [email or web address] Historical LMR Provider 05/27/17 08/13/21 Tex Lin MD [email or web address] Historical LMR Provider 05/27/17 08/13/21 Juwan Su MD [address] [place] [address] [email or web address] Historical LMR Provider 05/27/17 Rosalind Cornejo MD [address] [place] [address] Historical LMR Provider 05/27/17 08/08/23 John Santoyo CNP 15 [facility], [address] [place] [address] Historical LMR Provider 05/27/17 08/13/21 Rosalind Cornejo MD [address] [place] [address] 32977 Insurance Assigned Provider 12/07/18 08/08/23 Chanda Fernando NP [address] [place] [address] Nurse Practitioner 08/09/23 09/15/24 Rosalind Cornejo MD [address] [place] [address] [email or web address] Insurance Assigned Provider 12/07/18 10/13/23 documented as of this encounter Additional Source Comments The information contained in this document represents components of the legal health record. It is not the complete legal health record.[facility]
--- OUTSIDE RECORDS SUMMARY | 2025-07-14 22:44 | XMS_ITS | Encounter Summary ---
Author Organization [facility] Address [address] [place] [address] [place] [address] Phone Care Team Providers Care Fitness Center Attendant Name Role Phone Rosalind Cornejo MD Primary Care Provider [phone] Janak Hassan MD Unavailable [phone] Tex Lin MD Unavailable [email or web address] Juwan Su MD Unavailable [phone] Rosalind Cornejo MD Unavailable [phone] John Santoyo SAND CONTROL WORKER Unavailable [phone] Rosalind Cornejo MD Unavailable [phone] Sp Gusman DO Primary Care Provider [phone] Chanda Fernando FINANCIAL SERVICE REPRESENTATIVE Unavailable [phone] Rosalind Cornejo MD Unavailable [phone] Andrei Hayes MD Primary Care Provider Derrek Abdullahi MD Primary Care Provider [phone] Encounter Details Date Type Department Care Team (Late st Contact Info) Description 07/23/2017 Ancillary Orders [facility] Department 30 [place], [place] [phone] Rosalind Cornejo MD [address] [place] [address] [phone] [email or web address] Abdominal pain, unspecified abdominal location; Elevated LFTs [...] Description 07/16/2025 11:20 AM EST Office Visit [facility] [address] [place] [address] Matilda Hannah CNP 22 [facility], 1st [place] [address] @[email or web address] documented as of this encounter Results * US ABDOMEN LIMITED RIGHT UPPER QUADRANT (07/23/2017 9:49 AM EST) Anatomical Region Laterality Modality Abdomen Ultrasound 07/23/2017 1:22 PM EST Impressions 07/23/2017 1:25 PM EST Findings consistent with fatty infiltration of the liver. No definite signs of hepatic cirrhosis or evidence of portal venous hypertension. POS - [id number] Narrative 07/23/2017 1:25 PM EST HISTORY: Pain [...] evidence of portal venous hypertension. POS - [id number] us Rosalind Cornejo MD IMG US ABDOMEN Final Resul t documented in this encounter Visit Diagnoses Diagnosis Abdominal pain, unspecified abdominal location Elevated LFTs Other abnormal blood chemistry Abdominal pain, unspecified abdominal location Elevated LFTs Other abnormal blood chemistry documented in this encounter Care Teams Fitness Center Attendant Relationship Specialty Start Date End Date Rosalind Cornejo MD [address] [place] [address] PCP - General 02/03/14 08/08/23 Sp Gusman DO [address] [place] [address]07 PCP - General Family Medicine 08/09/23 02/18/24 Andrei Hayes MD [address] [place] [address] PCP - General Family Medicine 02/19/24 09/15/24 Derrek Abdullahi MD [address] [place] [address] [place] [address] PCP - General Internal Medicine 09/16/24 Janak Hassan MD [address] [place] [address] [email or web address] Historical LMR Provider 05/27/17 08/13/21 Tex Lin MD [email or web address] Historical LMR Provider 05/27/17 08/13/21 Juwan Su MD [address] [place] [address] [email or web address] Historical LMR Provider 05/27/17 Rosalind Cornejo MD [address] [place] [address] [email or web address] Historical LMR Provider 05/27/17 08/08/23 John Santoyo CNP [address] [place] [address] Historical LMR Provider 05/27/17 08/13/21 Rosalind Cornejo MD [address] [place] [email or web address] Insurance Assigned Provider 12/07/18 08/08/23 Chanda Fernando NP [address] [place] [address] 98792 Nurse Practitioner 08/09/23 09/15/24 Rosalind Cornejo MD [address] [place] [address] [email or web address] Insurance Assigned Provider 12/07/18 10/13/23 documented as of this encounter Additional Source Comments The information contained in this document represents components of the legal health record. It is not the complete legal health record.[facility]
--- OUTSIDE RECORDS SUMMARY | 2025-07-14 22:44 | XMS_ITS | Encounter Summary ---
Author Organization [facility] Address [address] [place] [address] [place] [address] Phone Care Team Providers Care Drive Away Driver Name Role Phone Rosalind Cornejo MD Primary Care Provider [phone] Janak Hassan MD Unavailable [phone] Tex Lin MD Unavailable [email or web address] Juwan Su MD Unavailable [phone] Rosalind Cornejo MD Unavailable John Santoyo BULL FLOAT FINISHER Unavailable [phone] Rosalind Cornejo MD Unavailable Sp Gusman DO Primary Care Provider [phone] Chanda Fernando REGISTERED PHLEBOTOMIST PART TIME Unavailable [phone] Rosalind Cornejo MD Unavailable [phone] Andrei Hayes MD Primary Care Provider Derrek Abdullahi MD Primary Care Provider [phone] Encounter Details Date Type Department Care Team (Late st Contact Info) Description 07/05/2017 Transcribe Orders [facility] Lab Main 30 [place] [address] Rosalind Cornejo MD [address] [place] [address] [phone] [email or web address] Fever, unspecified fever cause (Primary Dx) Social [...] Description 07/16/2025 11:20 AM EST Office Visit [facility] 22 [place] [address] Matilda Hannah CNP 22 [facility], [address] [place] [address] documented as of this encounter Results * Rapid influenza A and B (07/05/2017 2:02 PM EST) Influenza A Ag Negative Negative [facility] Influenza B Ag Negative Negative [facility] Other (Nasal) 07/05/2017 2:0 2 PM EST 07/05/2017 2:06 PM EST Rosalind Cornejo MD MICROBIOLOGY - [facility] Final Result Performing Organization Address [facility]/State/[facility] Co de Phone Number [facility] 30 [place] [address] documented in this encounter Visit Diagnoses Diagnosis Fever, unspecified fever cause- Primary documented in this encounter Care Teams Drive Away Driver Relationship Specialty Start Date End Date Rosalind Cornejo MD [address] [place] [address] PCP - General 02/03/14 08/08/23 Sp Gusman DO [address] [address] PCP - General Family Medicine 08/09/23 02/18/24 Andrei Hayes MD [address] [place] [address] PCP - General Family Medicine 02/19/24 09/15/24 Derrek Abdullahi MD [address] [place] [address] [place] [address] PCP - General Internal Medicine 09/16/24 Janak Hassan MD [address] [place] [address] [email or web address] Historical LMR Provider 05/27/17 08/13/21 Tex Lin MD [email or web address] Historical LMR Provider 05/27/17 08/13/21 Juwan Su MD [address] [place] [address] [email or web address] Historical LMR Provider 05/27/17 Rosalind Cornejo MD [address] [place] [address] [email or web address] Historical LMR Provider 05/27/17 08/08/23 John Santoyo CNP [address] [place] [address] [email or web address] Historical LMR Provider 05/27/17 08/13/21 Rosalind Cornejo MD [address] [place] [address] [email or web address] Insurance Assigned Provider 12/07/18 08/08/23 Chanda Fernando NP [address] [place] [address]14 Nurse Practitioner 08/09/23 09/15/24 Rosalind Cornejo MD [address] [place] [address] [email or web address] Insurance Assigned Provider 12/07/18 10/13/23 documented as of this encounter Additional Source Comments The information contained in this document represents components of the legal health record. It is not the complete legal health record.[facility]
--- OUTSIDE RECORDS SUMMARY | 2025-07-14 22:44 | XMS_ITS | Encounter Summary ---
Author Organization [facility] Address [address] [place] [address] [place] [address] Phone Care Team Providers Care Government Relations Analyst Name Role Phone Rosalind Cornejo MD Primary Care Provider [phone] Janak Hassan MD Unavailable [phone] Tex Lin MD Unavailable [email or web address] Juwan Su MD Unavailable [phone] Rosalind Cornejo MD Unavailable John Santoyo OPERATOR SPECIALIST COMMUNICATIONS Unavailable [phone] Rosalind Cornejo MD Unavailable Sp Gusman DO Primary Care Provider Chanda Fernando OXYGEN THERAPIST Unavailable [phone] Rosalind Cornejo MD Unavailable [phone] Andrei Hayes MD Primary Care Provider Derrek Abdullahi MD Primary Care Provider [phone] Encounter Details Date Type Department Care Team (Late st Contact Info) Description 07/14/[address] [facility] Lab Main 30 [place] [address] Rosalind Cornejo MD 15 [place], [place] [phone] Elevated LFTs (Primary Dx) Social History Tobacco [...] Description 07/16/2025 11:20 AM EST [facility] [address] [place] [address] Matilda Hannah, BAILEY [address] [address] [email or web address] documented as of this encounter Visit Diagnoses Diagnosis Elevated LFTs- Primary Other abnormal blood chemistry documented in this encounter Care Teams Government Relations Analyst Relationship Specialty Start Date End Date Rosalind Cornejo MD [address] [place] [address] [email or web address] PCP - General 02/03/14 08/08/23 Sp Gusman DO [address] [place] [address] PCP - General Family Medicine 08/09/23 02/18/24 Andrei Hayes MD [address] [place] [address] PCP - General Family Medicine 02/19/24 09/15/24 Derrek Abdullahi MD [address] [place] [address] [place] [address] PCP - General Internal Medicine 09/16/24 Janak Hassan MD [address] [place] [address] Historical LMR Provider 05/27/17 08/13/21 Tex Lin MD [email or web address] Historical LMR Provider 05/27/17 08/13/21 Juwan Su MD [address] [place] [address] [email or web address] Historical LMR Provider 05/27/17 Rosalind Cornejo MD [address] [place] [address] [email or web address] Historical LMR Provider 05/27/17 08/08/23 John Santoyo CNP [address] [place] [address] Historical LMR Provider 05/27/17 08/13/21 Rosalind Cornejo MD [address] [place] [email or web address] Insurance Assigned Provider 12/07/18 08/08/23 Chanda Fernando NP [address] [place] [address] Nurse Practitioner 08/09/23 09/15/24 Rosalind Cornejo MD [address] [place] [email or web address] Insurance Assigned Provider 12/07/18 10/13/23 documented as of this encounter Additional Source Comments The information contained in this document represents components of the legal health record. It is not the complete legal health record.[facility]
--- OUTSIDE RECORDS SUMMARY | 2025-07-14 22:44 | XMS_ITS | Encounter Summary ---
Author Organization [facility] Address [address] [place] [address] [place] [address] Phone Care Team Providers Care Accounts Receivable Clerk Name Role Phone Rosalind Cornejo MD Primary Care Provider [phone] Benji Hassan MD Unavailable [phone] Tex Lin MD Unavailable [email or web address] Juwan Su MD Unavailable [phone] Rosalind Cornejo MD Unavailable [phone] John Santoyo THEATRE MANAGER Unavailable [phone] Rosalind Cornejo MD Unavailable [phone] Sp Gusman DO Primary Care Provider Chanda Fernando CHIEF LIBRARIAN EXTENSION DEPARTMENT Unavailable [phone] Rosalind Cornejo MD Unavailable [phone] Andrei Hayes MD Primary Care Provider Derrek Abdullahi MD Primary Care Provider [phone] Encounter Details Date Type Department Care Team (Late st Contact Info) Description 05/26/2017 Ancillary Orders [facility] Department [address] [place] [address] Gm Torres MD [facility], [address] [place], [place] [id number] [email or web address] Kidney stones Social History Tobacco Use Types [...] Office Visit [facility] [address] [place] [address] Matilda Hannah CNP [address] [facility], 1st [place] [address] [email or web address] documented as of this encounter Results * [...] within normal limits overall size with right kpppeboml71.2 x 6.5 cm and left 13.1 x [...] kidney documented in this encounter Care Teams Accounts Receivable Clerk Relationship Specialty Start Date End Date Rosalind Cornejo MD [address] [place] [address] [email or web address] PCP - General 02/03/14 08/08/23 Sp Gusman DO [address] [place] [address], 2nd [place] [address] PCP - General Family Medicine 08/09/23 02/18/24 Andrei Hayes MD [address] [place] [address] PCP - General Family Medicine 02/19/24 09/15/24 Derrek Abdullahi MD [address] [place] [address] [place] [address] PCP - General Internal Medicine 09/16/24 Benji Hassan MD [address] [place] [address] [email or web address] Historical LMR Provider 05/27/17 08/13/21 Tex Lin MD [email or web address] Historical LMR Provider 05/27/17 08/13/21 Juwan Su MD [address] [place] [address] [email or web address] Historical LMR Provider 05/27/17 Rosalind Cornejo MD [address] [place] [address] [email or web address] Historical LMR Provider 05/27/17 08/08/23 John Santoyo THEATRE MANAGER [address] [place] [address] [email or web address] Historical LMR Provider 05/27/17 08/13/21 Rosalind Cornejo MD [address] [place] [address] [email or web address] Insurance Assigned Provider 12/07/18 08/08/23 Chanda Fernando, CHIEF LIBRARIAN EXTENSION DEPARTMENT [address] [place] [address] Nurse Practitioner 08/09/23 09/15/24 Rosalind Cornejo MD [address] [place] [address] [email or web address] Insurance Assigned Provider 12/07/18 10/13/23 documented as of this encounter Additional Source Comments The information contained in this document represents components of the legal health record. It is not the complete legal health record.[facility]
--- OUTSIDE RECORDS SUMMARY | 2025-07-14 22:44 | XMS_ITS | Encounter Summary ---
Author Organization [facility] Address [address] [place] [address] [place] [address] Phone Care Team Providers Care Milk Receiver Tank Truck Name Role Phone Rosalind Cornejo MD Primary Care Provider Janak Hassan MD Unavailable [phone] Tex Lin MD Unavailable [email or web address] Juwan Su MD Unavailable [phone] Rosalind Cornejo MD Unavailable [phone] John Santoyo DATABASES COMPUTER CONSULTANT Unavailable [phone] Rosalind Cornejo MD Unavailable Sp Gusman DO Primary Care Provider Chanda Fernando PHARMACEUTICAL PHYSICIAN Unavailable [phone] Rosalind Cornejo MD Unavailable [phone] Andrei aHyes MD Primary Care Provider Derrek Abdullahi MD Primary Care Provider [phone] Encounter Details Date Type Department Care Team (Late st Contact Info) Description 07/05/2017 Transcribe Orders [facility] [address] [phone] Rosalind Cornejo MD [address] [place] [address] [phone] Tick bite, subsequent encounter (Primary Dx) Social [...] Description 07/16/2025 11:20 AM EST Office Visit [facility] [address] [place] [address] Matilda Hannah, BAILEY 22 [facility], 1st [place] [address] [email or web address] documented as of this encounter Procedures Procedure Name Priority Date/Time Associated Diagnosis Comments CMV ANTIBODY, IGG (WISHON SENDOUT) Routine 07/05/2017 1:20 PM EST Tick [...] EST) Specimen Source/ Description BLOOD Blood BLOOD [facility] Special Requests None [facility] Culture/Test NO GROWTH 5 DAYS [facility] Report Status 07/10/2017 FINAL [facility] Blood (Blood) 07/05/2017 1:2 0 PM EST 07/05/2017 1:35 PM EST Rosalind Cornejo MD LAB MICROBIOLOGY CULTURE OR DERABLES Final Result [address] [address] * Blood culture, routine (07/05/2017 1:20 PM EST) Specimen Source/ Description BLOOD Blood BLOOD [facility] Special Requests None [facility] Culture/Test NO GROWTH 5 DAYS [facility] Report Status 07/10/2017 FINAL [facility] Blood (Blood) 07/05/2017 1:2 0 PM EST 07/05/2017 1:36 PM EST us Rosalind Cornejo MD LAB MICROBIOLOGY CULTURE OR DERABLES Final Result Performing Organization Address City/[facility]/ZIP Co de Phone Number [address] [address] * Babesia species PCR (07/05/2017 1:20 PM EST) B.Microti PCR Negative Negative [facility] DPT OF LAB MED AND PAT+ B.Duncani PCR Negative Negative [facility]+ B.Divergens/MO-1 PCR Negative Negative [facility] DPT OF LAB MED AND PAT+ Comment: (NOTE) ADDITIONAL INFORMATION This test was developed and its performance characteristics determined by [facility] in a manner consistent with CLIA requirements. This test has not been cleared or approved by the U.S. Food and Drug Administration. Blood 07/05/2017 1:20 PM EST 07/05/2017 1:37 PM EST us Rosalind Cornejo MD LAB BLOOD ORDERABLES Final Result [facility] DPT OF LAB MED AND PAT+ [address] [place] [address] * Babesia serology (07/05/2017 1:20 PM EST) BABESIA MICROTI IGG <1:64 WISHON REFERRAL BABESIA MICROTI IGM <1:20 WISHON REFERRAL Interpretation (B. microti) SEE NOTE JENSEN [...] analytical performance characteristics have been determined by [facility]. It has not been cleared or approved by FDA. This assay has been validated pursuant to the CLIA regulations and is used for clinical purposes. Test Performed by: [facility] [id number] [place] [address] Blood (Blood) 07/05/2017 1:2 0 PM EST 07/05/2017 1:37 PM EST us Rosalind Cornejo MD MICROBIOLOGY - [facility] Final Result Performing Organization Address City/[facility]/ZIP Co de Phone Number [facility] * Ehrlichia/anaplasma PCR (07/05/2017 1:20 PM EST) ANAPLASMA PHAGOCYTO Negative Negative [facility] DPT OF LAB MED AND PAT+ EHRLICHIA CHAFFEENS Negative Negative [facility] DPT OF LAB MED AND PAT+ EHRL EWINGII/CANIS Negative Negative [facility] DPT OF LAB MED AND PAT+ EHRL MURIS-LIKE Negative Negative [facility] DPT OF LAB MED AND PAT+ Comment: (NOTE) ADDITIONAL INFORMATION This test was developed and its performance characteristics determined by [facility] in a manner consistent with CLIA requirements. This test has not been cleared or approved by the U.S. Food and Drug Administration. Blood 07/05/2017 1:20 PM EST 07/05/2017 1:37 PM EST us Rosalind Cornejo MD LAB BLOOD ORDERABLES Final Result Performing Organization Address City/[facility]/ZIP Co de Phone Number [facility] DPT OF LAB MED AND PAT+ [address] [place] [address] * Cytomegalovirus (CMV) antibody, IgM (07/05/2017 1:20 PM EST) CMV IGM ANTIBODY Positive Negative [facility]PATH [facility] Comment: (NOTE) Results suggest recent infection. Blood (Blood) 07/05/2017 1:2 0 PM EST 07/05/2017 1:37 PM EST us Rosalind Cornejo MD LAB BLOOD BKR ORDERABLES Fi nal Result Performing Organization Address [facility] Co de Phone Number [facility] [address] [place] [address] * CMV antibody, IgG (Creola sendout) (07/05/2017 1:20 PM EST) CYTOMEGALOVIRUS IGG Negative Negative [facility] Blood 07/05/2017 1:20 PM EST 07/05/2017 1:37 PM EST Rosalind Cornejo MD LAB BLOOD ORDERABLES Final Result Performing Organization Address [facility] de Phone Number [facility] [address] [address] * Nick-Boudreaux Virus (EBV) serology (07/05/2017 1:20 PM EST) EBV VCA, IGG Positive Negative [facility] EBV VCA, IGM Negative Negative [facility] EB NUCLEAR AG ABS Positive Negative [facility] EBV AB PANEL INTERP SEE NOTE [facility] Comment: (NOTE) Results suggest past infection. ADDITIONAL [...] ORDERABLES Fi nal Result Performing Organization Address [facility] Co de Phone Number [facility] [address] [address] * Sedimentation rate (ESR) (07/05/2017 1:20 PM EST) ESR 8 0 - 20 mm/h [facility] Blood 07/05/2017 1:20 PM EST 07/05/2017 1:36 PM EST us Rosalind Cornejo MD LAB BLOOD BKR ORDERABLES Fi nal Result Performing Organization Address City/[facility]/ZIP Co de Phone Number [address] [address] * Lyme screen with reflex to Western blot, blood (07/05/2017 1:20 PM EST) Pathologist [facility] Lyme AB IgG Negative Negative [facility] Lyme AB IgM Negative Negative [facility] Blood 07/05/2017 1:20 PM EST 07/05/2017 1:36 PM EST Rosalind Corneoj MD LAB BLOOD BKR ORDERABLES Fi nal Result Performing Organization Address [facility] Co de Phone Number [address] [address] * (ABNORMAL) C-Reactive Protein (07/05/2017 1:20 PM EST) C REACTIVE PROTEIN 1.6(H) 0 - 0.5 mg/L [facility] Blood 07/05/2017 1:20 PM EST 07/05/2017 1:36 PM EST us Rosalind Cornejo MD LAB BLOOD BKR ORDERABLES Fi nal Result Performing Organization Address [facility] Co de Phone Number [address] [address] * (ABNORMAL) CBC and differential (07/05/2017 1:20 PM EST) WBC 5.18 3.40 - 11.20 K/uL [facility] RBC 4.81 4.50 - 5.50 M/uL [facility] HGB 13.9 13.0 - 17.0 g/dL [facility] HCT 39.7(L) 40.0 - 51.0 % [facility] PLT 187 130 - 400 K/uL [facility] MCV 82.5 79.0 - 98.0 fL [facility] MCH 28.9 27.0 - 34.8 pg [facility] MCHC 35.0 31.5 - 36.0 g/dL [facility] RDW 12.7 10.8 - 14.6 % [facility] MPV 9.0(L) 9.4 - 12.4 fl [facility] NRBC 0.00 /100 WBCs [facility] ABSOLUTE NRBC 0.00 K/uL [facility] DIFF METHOD Auto [facility] NEUTS 43.1(L) 45.30 - 77.70 % [facility] LYMPHS 37.1 12.30 - 39.70 % [facility] MONOS 14.1(H) 4.10 - 12.80 % [facility] EOS 4.1 0 - 7.2 % [facility] BASOS 0.8 0 - 2.80 % [facility] Granulocytes, immature (%) 0.8 0.0 - 0.9 % [facility] ABSOLUTE NEUTS 2.24 1.40 - 7.70 K/uL [facility] ABSOLUTE LYMPHS 1.92 0.60 - 3.20 K/uL [facility] ABSOLUTE MONOS 0.73(H) 0.11 - 0.59 K/uL [facility] ABSOLUTE EOS 0.21 0.01 - 0.50 K/uL [facility] ABSOLUTE BASOS 0.04 0.00 - 0.08 K/uL [facility] Granulocytes, immature 0.04 0.00 - 0.05 K/uL [facility] Blood 07/05/2017 1:20 PM EST 07/05/2017 1:36 PM EST us Rosalind Cornejo MD LAB BLOOD BKR ORDERABLES Fi nal Result [facility] [address] [place] [address] * (ABNORMAL) Comprehensive metabolic panel (07/05/2017 1:20 PM EST) SODIUM 139 133 - 146 mmol/L [facility] POTASSIUM 4.1 3.3 - 5.1 mmol/L [facility] CHLORIDE 102 96 - 108 mmol/L [facility] CO2 22 21 - 35 mmol/L [facility] BUN 17 6 - 19 mg/dL [facility] CREATININE 1.10 0.5 - 1.5 mg/dL [facility] GLUCOSE 197(H) 70 - 99 mg/dL [facility] ALBUMIN 4.1 3.9 - 4.8 g/dL [facility] TOTAL PROTEIN 6.8 6.5 - 8.0 g/dL [facility] CALCIUM 9.2 8.4 - 10.3 mg/dL [facility] ALKALINE PHOSPHATASE 70 39 - 117 U/L [facility] TOTAL BILIRUBIN 0.4 0 - 1.2 mg/dL [facility] AST 58(H) 0 - 37 U/L [facility] ALT 111(H) 0 - 40 U/L [facility] GLOBULIN 2.7 1 - 4.8 g/dL [facility] EGFR >60 >60 mL/min/1.7 3m2 [facility] Comment:Abnormal if <60. If patient is -Albanian, multiply the result by 1.21. ANION GAP 19 10 - 20 mmol/L [facility] Blood 07/05/2017 1:20 PM EST 07/05/2017 1:36 PM EST us Rosalind Cornejo MD LAB BLOOD BKR ORDERABLES Fi nal Result Performing Organization Address City/State/[facility] Co de Phone Number [address] [address] documented in this encounter Visit Diagnoses Diagnosis Tick bite, subsequent encounter- Primary documented in this encounter Care Teams Milk Receiver Tank Truck Relationship Specialty Start Date End Date Rosalind Cornejo MD [address] [place] [address] PCP - General 02/03/14 08/08/23 Sp Gusman DO [address] [place] [address] PCP - General Family Medicine 08/09/23 02/18/24 Andrei Hayes MD [address] [place] [address] PCP - General Family Medicine 02/19/24 09/15/24 Derrek Abdullahi MD [address] [place] [address] [place] [address] PCP - General Internal Medicine 09/16/24 Janak Hassan MD [address] [place] [address] [email or web address] Historical LMR Provider 05/27/17 08/13/21 Tex Lin MD [email or web address] Historical LMR Provider 05/27/17 08/13/21 Juwan Su MD [address] [place] [address] Historical LMR Provider 05/27/17 Rsoalind Cornejo MD [address] [place] [address] Historical LMR Provider 05/27/17 08/08/23 John Santoyo CNP [address] [place] [address] Historical LMR Provider 05/27/17 08/13/21 Rosalind Cornejo MD [address] [place] [address] [email or web address] Insurance Assigned Provider 12/07/18 08/08/23 Chanda Fernando NP [address] [place] [address] Nurse Practitioner 08/09/23 09/15/24 Rosalind Cornejo MD [address] [place] [address] [email or web address] Insurance Assigned Provider 12/07/18 10/13/23 documented as of this encounter Additional Source Comments The information contained in this document represents components of the legal health record. It is not the complete legal health record.[facility]
--- OUTSIDE RECORDS SUMMARY | 2025-07-14 22:44 | XMS_ITS | Encounter Summary ---
Author Organization [facility] Address [address] [place] [address] [place] [address] Phone Care Team Providers Care Bailer Tenders Supervisor Name Role Phone Rosalind Cornejo MD Primary Care Provider [phone] Janak Hassan MD Unavailable [phone] Tex Lin MD Unavailable [email or web address] Juwan Su MD Unavailable [phone] Rosalind Cornejo MD Unavailable [phone] John Santoyo CRIBBER Unavailable [phone] Rosalind Cornejo MD Unavailable [phone] Sp Gusman DO Primary Care Provider [phone] Chanda Fernando TECHNICIAN ASSISTANT Unavailable [phone] Rosalind Cornejo MD Unavailable [phone] Andrei Hayes MD Primary Care Provider eDrrek Abdullahi MD Primary Care Provider [phone] Encounter Details Date Type Department Care Team (Late st Contact Info) Description 01/08/2018 Procedure Pass [facility] Endoscopy Admitting Dept Virtual Department [address] [place] [address] Social History Tobacco Use Types Packs/Day [...] 07/16/2025 11:20 AM EST Office Visit [facility] [address] [place] [address] [place] [address] Matilda Hannah CNP [address] [place] [address] documented as of this encounter Visit Diagnoses Not on filedocumented in this encounter Care Teams Bailer Tenders Supervisor Relationship Specialty Start Date End Date Rosalind Cornejo MD [address] [place] [address] [email or web address] PCP - General 02/03/14 08/08/23 Sp Gusman DO [address] [place] [address] PCP - General Family Medicine 08/09/23 02/18/24 Andrei Hayes MD [address] [place] [address] PCP - General Family Medicine 02/19/24 09/15/24 Derrek Abdullahi MD [address] [place] [address] [place] [address] PCP - General Internal Medicine 09/16/24 Janak Hassan MD [address] [place] [address] Historical LMR Provider 05/27/17 08/13/21 Tex Lin MD [email or web address] Historical LMR Provider 05/27/17 08/13/21 Juwan Su MD [address] [place] [address] Historical LMR Provider 05/27/17 Rosalind Cornejo MD [address] [place] [address] Historical LMR Provider 05/27/17 08/08/23 John Santoyo CNP [address] [place] [address] Historical LMR Provider 05/27/17 08/13/21 Rosalind Cornejo MD [address] [place] [address] Insurance Assigned Provider 12/07/18 08/08/23 Chanda Fernando NP [address] [place] [address] Nurse Practitioner 08/09/23 09/15/24 Rosalind Cornejo MD [address] [place] [address] Insurance Assigned Provider 12/07/18 10/13/23 documented as of this encounter Additional Source Comments The information contained in this document represents components of the legal health record. It is not the complete legal health record.[facility]
--- OUTSIDE RECORDS SUMMARY | 2025-07-14 22:44 | XMS_ITS | Encounter Summary ---
Author Organization [facility] Address [address] [address] [address] [place] [address] Phone Care Team Providers Care Addiction Counselor Name Role Phone Rosalind Cornejo MD Primary Care Provider Janak Hassan MD Unavailable [phone] Tex Lin MD Unavailable [email or web address] Juwan Su MD Unavailable Rosalind Cornejo MD Unavailable John Santoyo PROJECT PORTFOLIO ANALYST Unavailable [phone] Rosalind Cornejo MD Unavailable Sp Gusman DO Primary Care Provider Chanda Fernando MECHANIC SENIOR Unavailable [phone] Rosalind Cornejo MD Unavailable [phone] Andrei Hayes MD Primary Care Provider Derrek Abdullahi MD Primary Care Provider [phone] Encounter Details Date Type Department Care Team (Latest Contact Info) Description 09/11/2017 Transcribe Orders [facility] Main [address] [place], [place] [phone] Raymond Shafer MD [address] [facility] [address] [place], [place] [phone] [email or web address] Uric acid [...] Description 07/16/2025 11:20 AM EST Office Visit [facility] [address] [place] [address] Matilda Hannah, PROJECT PORTFOLIO ANALYST [address] [facility], 1st [place] [address] [email or web address] documented as of this encounter Results * Creatinine clearance (09/11/2017 4:11 PM EST) URINE CREATININE Cancelled due to incomplete collection. mg/dL [facility] Comment:Corrected on 09/12 A T 1004: previously reported as 51 Blood 09/11/2017 4:11 PM EST 09/11/2017 4:14 PM EST us Raymond Shafer MD LAB BLOOD BKR ORDERABLES Edited Result - Final [facility] [address] [place] [address] * Sodium, 24 hr urine (09/11/2017 4:11 PM EST) URINE SODIUM Cancelled due to incomplete collection. mmol/L [facility] Comment:Corrected on 09/12 A T 1004: previously reported as 91 SODIUM OUTPUT NOT CALCULATED 40 - 220 mmol/total output [facility] Comment:Corrected on 09/12 A T 1004: previously reported as 288 Urine (Urine) 09/11/2017 4:1 1 PM EST 09/11/2017 4:14 PM EST us Raymond Shafer MD URINE ORDERABLES Edited Result - Final Performing Organization Address City/State/[facility] Co de Phone Number [address] [address] * Potassium, 24 hr urine (09/11/2017 4:11 PM EST) URINE POTASSIUM Cancelled due to incomplete collection. mmol/L [facility] Comment:Corrected on 09/12 A T 1004: previously reported as 21.9 POTASSIUM OUTPUT NOT CALCULATED mmol/total output [facility] Comment:Corrected on 09/12 A T 1004: previously reported as 69.2 Urine (Urine) 09/11/2017 4:1 1 PM EST 09/11/2017 4:14 PM EST Raymond Shafer MD URINE ORDERABLES Edited Result - Final Performing Organization Address [facility] de Phone Number [address] [address] * Uric acid, 24 hr urine (09/11/2017 4:11 PM EST) URINE URIC ACID Cancelled due to incomplete clooection. mg/dL [facility] Comment:Corrected on 09/12 A T 1004: previously reported as 20.8 Uric Acid, Timed Urine NOT CALCULATED 250 - 750 mg/total output [facility] Comment:Corrected on 09/12 A T 1004: previously reported as 657.3 Urine (Urine) 09/11/2017 4:1 1 PM EST 09/11/2017 4:14 PM EST us Raymond Shafer MD URINE ORDERABLES Edited Result - Final Performing Organization Address [facility] Co de Phone Number [address] [address] * Phosphorus, 24 hr urine (09/11/2017 4:11 PM EST) URINE PHOSPHORUS Cancelled due to incomplete collection. mg/dL [facility] Comment:Corrected on 09/12 A T 1004: previously reported as 29.7 PHOSPHORUS OUTPUT NOT CALCULATED 400 - 1300 mg/total output [facility] Comment:Corrected on 09/12 A T 1004: previously reported as 938.5 Urine (Urine) 09/11/2017 4:1 1 PM EST 09/11/2017 4:14 PM EST us Raymond Shafer MD URINE ORDERABLES Edited Result - Final Performing Organization Address [facility] Co de Phone Number [address] [address] * Calcium, 24 hour urine (09/11/2017 4:11 PM EST) URINE CALCIUM Cancelled due to incomplete collection. mg/dL [facility] Comment:Corrected on 09/12 A T 1004: previously reported as 2.8 CALCIUM OUTPUT NOT CALCULATED 100 - 300 mg/total output [facility] Comment:Corrected on 09/12 A T 1004: previously reported as 88 Urine (Urine) 09/11/2017 4:1 1 PM EST 09/11/2017 4:14 PM EST us Raymond Shafer MD URINE ORDERABLES Edited Result - Final Performing Organization Address [facility] de Phone Number [address] [address] * Total protein, 24 hr urine (09/11/2017 4:11 PM EST) URINE TOTAL PROTEIN Cancelled due to incomplete collection. mg/dL [facility] Comment:Corrected on 09/12 A T 1004: previously reported as 7.6 Protein, time varied urine (mg/TV) NOT CALCULATED 0 - 165 mg/total output [facility] Comment:Corrected on 09/12 A T 1004: previously reported as 240 Urine (Urine) 09/11/2017 4:1 1 PM EST 09/11/2017 4:14 PM EST us Raymond Shafer MD LAB URINE ORDERABLES Edited Resu lt - Final Performing Organization Address [facility] Co de Phone Number [address] [address] documented in this encounter 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 Care Teams Addiction Counselor Relationship Specialty Start Date End Date Rosalind Cornejo MD [address] [place] [address] [email or web address] PCP - General 02/03/14 08/08/23 Sp Gusman DO [address] [place] [address] PCP - General Family Medicine 08/09/23 02/18/24 Andrei Hayes MD [address] [place] [address] PCP - General Family Medicine 02/19/24 09/15/24 Derrek Abdullahi MD [address] [place] [address] [place] [address] PCP - General Internal Medicine 09/16/24 Janak Hassan MD [address] [place] [address] [email or web address] Historical LMR Provider 05/27/17 08/13/21 Tex Lin MD [email or web address] Historical LMR Provider 05/27/17 08/13/21 Juwan Su MD [address] [place] [address] [email or web address] Historical LMR Provider 05/27/17 Rosalind Cornejo MD [address] [place] [address] [email or web address] Historical LMR Provider 05/27/17 08/08/23 John Santoyo CNP [address] [place] [address] Historical LMR Provider 05/27/17 08/13/21 Rosalind Cornejo MD [address] [place] [address] Insurance Assigned Provider 12/07/18 08/08/23 Chanda Fernando NP [address] [place] [address] Nurse Practitioner 08/09/23 09/15/24 Rosalind Cornejo MD [address] [place] [address] [email or web address] Insurance Assigned Provider 12/07/18 10/13/23 documented as of this encounter Additional Source Comments The information contained in this document represents components of the legal health record. It is not the complete legal health record.[facility]
--- OUTSIDE RECORDS SUMMARY | 2025-07-14 22:44 | XMS_ITS | Encounter Summary ---
Author Organization [facility] Address [address] [place] [address] [place] [address] Phone Care Team Providers Care Injection Maintenance Technician Name Role Phone Rosalind Cornejo MD Primary Care Provider [phone] Janak Hassan MD Unavailable [phone] Tex Lin MD Unavailable [email or web address] Juwan Su MD Unavailable [phone] Rosalind Cornejo MD Unavailable [phone] John Santoyo TOOL SALVAGE WORKER Unavailable [phone] Rosalind Cornejo MD Unavailable [phone] Sp Gusman DO Primary Care Provider Chanda Fernando AUTHORIZER Unavailable [phone] Rosalind Cornejo MD Unavailable [phone] Andrei Hayes MD Primary Care Provider Derrek Abdullahi MD Primary Care Provider [phone] Encounter Details Date Type Department Care Team (Late st Contact Info) Description 04/02/2018 [facility]illary Orders [facility] [address] [place] [address] Bernadette Tinsley, BARBARA [address] [place] [address] [email or web address] Kidney stone Social History Tobacco Use Types [...] Description 07/16/2025 11:20 AM EST Office Visit [facility] [address] [place] [address] Matilda Hannah CNP [address] [place] [address] [email or web address] documented as of this encounter Visit Diagnoses Diagnosis Kidney stone Calculus of kidney documented in this encounter Care Teams Injection Maintenance Technician Relationship Specialty Start Date End Date Rosalind Cornejo MD [address] [place] [address] [email or web address] PCP - General 02/03/14 08/08/23 Sp Gusman DO [address] [place] [address] PCP - General Family Medicine 08/09/23 02/18/24 Andrei Hayes MD [address] [place] [address] PCP - General Family Medicine 02/19/24 09/15/24 Derrek Abdullahi MD [address] [place] [address] [place] [address] PCP - General Internal Medicine 09/16/24 Janak Hassan MD [address] [place] [address] [email or web address] Historical LMR Provider 05/27/17 08/13/21 Tex Lin MD [email or web address] Historical LMR Provider 05/27/17 08/13/21 Juwan Su MD [address] [place] [address] [email or web address] Historical LMR Provider 05/27/17 Rosalind Cornejo MD [address] [place] [address] [email or web address] Historical LMR Provider 05/27/17 08/08/23 John Santoyo CNP [address] [place] [address] Historical LMR Provider 05/27/17 08/13/21 Rosalind Cornejo MD [address] [place] [address] [email or web address] Insurance Assigned Provider 12/07/18 08/08/23 Chanda Fernando NP [address] [place] [address] Nurse Practitioner 08/09/23 09/15/24 Rosalind Cornejo MD [address] [place] [address] [email or web address] Insurance Assigned Provider 5/4/19 3/9/24 documented as of this encounter Additional Source Comments The information contained in this document represents components of the legal health record. It is not the complete legal health record.[facility]
--- OUTSIDE RECORDS SUMMARY | 2025-07-14 22:44 | XMS_ITS | Encounter Summary ---
Author Organization [facility] Address [address] [place] [address] [place] [address] Phone Care Team Providers Care Swiss Type Screw Machine Operator Name Role Phone Rosalind Cornejo MD Primary Care Provider [phone] Janak Hassan MD Unavailable [phone] Tex Lin MD Unavailable [email or web address] Juwan Su MD Unavailable [phone] Rosalind Cornejo MD Unavailable [phone] John Santoyo MATERIAL COORDINATOR Unavailable [phone] Rosalind Cornejo MD Unavailable [phone] Sp Gusman DO Primary Care Provider Chanda Fernando INTERNATIONAL NURSE Unavailable [phone] Rosalind Cornejo MD Unavailable [phone] Andrei Hayes MD Primary Care Provider Derrek Abdullahi MD Primary Care Provider [phone] Encounter Details Date Type Department Care Team (Late st Contact Info) Description 07/16/2017 Ancillary Orders [facility] Department [address] [place] [phone] Rosalind Cornejo MD [address] [place] [place] [phone] [email or web address] [...] 07/16/2025 11:20 AM EST Office Visit [facility] [address] [place] [address] Matilda Hannah, BAILEY [address] [place] [address] [email or web address] documented as of this encounter Visit Diagnoses Diagnosis Abdominal pain, unspecified abdominal location Elevated LFTs Other abnormal blood chemistry documented in this encounter Care Teams Swiss Type Screw Machine Operator Relationship Specialty Start Date End Date Rosalind Cornejo MD [address] [place] [place] [address] [email or web address] PCP - General 02/03/14 08/08/23 Sp Gusman DO [address] [place] [address] PCP - General Family Medicine 08/09/23 02/18/24 Andrei Hayes MD [address] [place] [place] [address] PCP - General Family Medicine 02/19/24 09/15/24 Derrek Abdullahi MD [address] [place] [address] [place] [address] PCP - General Internal Medicine 09/16/24 Janak Hassan MD [address] [place] [address] [email or web address] Historical LMR Provider 05/27/17 08/13/21 Tex Lin MD [email or web address] Historical LMR Provider 05/27/17 08/13/21 Juwan Su MD [address] [place] [address] [email or web address] Historical LMR Provider 05/27/17 Rosalind Cornejo MD [address] [place] [place] [address] [email or web address] Historical LMR Provider 05/27/17 08/08/23 John Santoyo CNP [address] [place] [address] [email or web address] Historical LMR Provider 05/27/17 08/13/21 Rosalind Cornejo MD [address] [place] [place] [address] [email or web address] Insurance Assigned Provider 12/07/18 08/08/23 Chanda Fernando NP [address] [place] [address] Nurse Practitioner 08/09/23 09/15/24 Rosalind Cornejo MD [address] [place] [place] [address] [email or web address] Insurance Assigned Provider 12/07/18 10/13/23 documented as of this encounter Additional Source Comments The information contained in this document represents components of the legal health record. It is not the complete legal health record.[facility]
--- OUTSIDE RECORDS SUMMARY | 2025-07-14 22:44 | XMS_ITS | Encounter Summary ---
Author Organization [facility] Address [address] [place] [address] Phone Care Team Providers Care Director Learning Name Role Phone Rosalind Cornejo MD Primary Care Provider [phone] Janak Hassan MD Unavailable [phone] Tex Lin MD Unavailable [email or web address] Juwan Su MD Unavailable [phone] Rosalind Cornejo MD Unavailable John Santoyo VENEER TRIMMER Unavailable [phone] Rosalind Cornejo MD Unavailable Sp Gusman DO Primary Care Provider [phone] Chanda Fernando ASSISTANT COUNSEL Unavailable [phone] Rosalind Cornejo MD Unavailable [phone] Andrei Hayes MD Primary Care Provider Derrek Abdullahi MD Primary Care Provider [phone] Encounter Details Date Type Department Care Team (Latest Contact Info) Description 06/08/2017 Transcribe Orders [address] [address] Gm Torres MD [facility] [address] [place], [place] [phone] [email or web address] Benign localized hyperplasia of prostate with urinary [...] Description 07/16/2025 11:20 AM EST Office Visit [facility] [address] [place] [address] Matilda Hannah, VENEER TRIMMER [address] [facility], [address] [place] [address] [email or web address] documented as of this encounter Procedures Procedure Name Priority Date/Time Associated Diagnosis Comments PSA (SCREENING) Routine 06/08/2017 9:12 AM EDT Benign localized hyperplasia of prostate with urinary retention documented in this encounter Results * PSA (screening) (06/08/2017 9:12 AM EDT) PSA 0.34 0 - 4.00 ng/mL [facility] Blood 06/08/2017 9:12 AM EDT 06/08/2017 9:20 AM EDT us Gm Torres MD LAB BLOOD BKR ORDERABLES Final Result [facility] [address] [place] [address] documented in this encounter Visit Diagnoses Diagnosis Benign localized hyperplasia of prostate with urinary retention- Primary Benign localized hyperplasia of prostate with urinary obstruction and other lower urinary tract symptoms (LUTS) documented in this encounter Care Teams Director Learning Relationship Specialty Start Date End Date Rosalind Cornejo MD [address] [place] [address] [email or web address] PCP - General 02/03/14 08/08/23 Sp Gusman DO [address] [place] [address] PCP - General Family Medicine 08/09/23 02/18/24 Andrei Hayes MD [address] [place] [address] PCP - General Family Medicine 02/19/24 09/15/24 Derrek Abdullahi MD [address] [place] [address] [facility] [place] [address] PCP - General Internal Medicine 09/16/24 Janak Hassan MD [address] [place] [address] [email or web address] Historical LMR Provider 05/27/17 08/13/21 Tex Lin MD [email or web address] Historical LMR Provider 05/27/17 08/13/21 Juwan Su MD [address] [place] [address] Historical LMR Provider 05/27/17 Rosalind Cornejo MD [address] [place] [address] Historical LMR Provider 05/27/17 08/08/23 John Santoyo, VENEER TRIMMER [address] [place] [address] Historical LMR Provider 05/27/17 08/13/21 Rosalind Cornejo MD [address] [place] [address] [email or web address] Insurance Assigned Provider 12/07/18 08/08/23 Chanda Fernando NP [address] [place] [address] Nurse Practitioner 08/09/23 09/15/24 Rosalind Cornejo MD [address] [place] [address] [email or web address] Insurance Assigned Provider 12/07/18 10/13/23 documented as of this encounter Additional Source Comments The information contained in this document represents components of the legal health record. It is not the complete legal health record.[facility]
== END 2025-07-14 17:05 | disposition home or self-care (01) ==
LOC: HO.HMCH 16:00
PROVIDERS: PCP Nurse Practitioner Family; Visit Provider Internal Medicine
DX: I63.40 Cerebral infarction due to embolism of unspecified cerebral artery (principal); E66.01 Morbid (severe) obesity due to excess calories; E11.29 Type 2 diabetes mellitus with other diabetic kidney complication; Z68.30 Body mass index [BMI] 30.0-30.9, adult; R80.8 Other proteinuria; I10 Essential (primary) hypertension; E78.00 Pure hypercholesterolemia, unspecified; G47.33 Obstructive sleep apnea (adult) (pediatric); S81.801S Unspecified open wound, right lower leg, sequela; K21.9 Gastro-esophageal reflux disease without esophagitis; M51.360 Other intervertebral disc degeneration, lumbar region with discogenic back pain only; D36.7 Benign neoplasm of other specified sites

== ENCOUNTER 2025-07-22 13:27 | Outpatient (AMB) | payer BC, SELFPAY ==
--- NOTE | 2025-07-22 13:30 | A.OFFVIS_ITS ---
Vital Signs 07/22/25 13:31 Height 6 ft 1 in Weight 228 lb BMI 30.1 BP 126/62 Blood Pressure Location Rt brachial Position Sitting Pulse 67 Intake Visit Reasons: Gastric ulcer, GERD Intake Note: New patient in office for evaluation and management of gastric ulcer and GERD. CC: Patient reports that he's been treated for ulcers two times in the past and he is now having the same symptoms as before. Patient reports that often times after eating he gets really bad chest pain, fullness sensation, and abdominal pressure feeling. He also reports trouble swallowing. He states that his PCP sent him here to discuss repeat colonoscopy and EGD. Last colonoscopy and EGD was done at [facility] on 01/08/18. He reports that on his first colonoscopy he was found to have internal and external hemorrhoids. Gaming Surveillance Observer Required: No Accompanied by: Self / Same As Patient Allergies Sulfa (Sulfonamide Antibiotics) (SULFA (SULFONAMIDE ANTIBIOTICS)) Allergy (Intermediate, Verified 07/22/25 13:44) HIVES pravastatin Adverse Reaction (Intermediate, Verified 07/22/25 13:44) increased muscle pains rosuvastatin Adverse Reaction (Intermediate, Verified 07/22/25 13:44) increased muscle pains pioglitazone (From Actos) Adverse Reaction (Unknown, Verified 07/22/25 13:44) ankle swelling HPI HPI Gastric ulcer, GERD: Details: 69-year-old male here for initial evaluation of ?gastric ulcer? and GERD. He is referred by Derrek Abdullahi. PMX GERMAN Obesity Diabetes Hypertension High cholesterol History of embolic stroke Chronic anticoagulation-on Eliquis Cellulitis/open wound right lower leg Nephrolithiasis Lumbar spondylosis Cervical spondylosis Chronic pain syndrome Fibromyalgia syndrome BRANNON GERD She nocturnal muscle cramps * SURGICAL HISTORY Colonoscopy Esophagogastroduodenoscopy Uvulopalatal pharyngoplasty History of transesophageal echocardiogram History of loop recorder * ALLERGIES Sulfa Statins Actos * Doculogy LABS: Laboratory Tests 07/04/25 09:29 WBC 4.8 Hgb 14.9 Hct 44.6 Plt Count 251 Estimated GFR > 60 Total Bilirubin 0.4 AST 29 ALT 27 Alkaline Phosphatase 67 TSH 1.70 TODAY'S VISIT [facility] Medical History (Updated 07/22/25 @ 14:19 by INOCENCIA Vick) Type 2 diabetes mellitus with microalbuminuria Dysphagia High cholesterol Other and unspecified hyperlipidemia Normal physical examination, routine Laboratory tests ordered as part of a complete physical exam (CPE) Tinea cruris Stroke History of stroke Right ankle strain Right ankle sprain Right ankle pain Osteoarthritis Vaccine for tetanus toxoid Eye exam, routine Carpal tunnel syndrome Carpal tunnel syndrome, bilateral upper limbs Pure hypercholesterolemia Lumbar degenerative disc disease Imbalance Memory loss Fatty liver Irritable bowel syndrome Arthritis Diabetes High blood pressure Sinusitis History of torn meniscus of knee Kidney stone Nasal sinus polyp Morbid obesity GERD (gastroesophageal reflux disease) GERMAN (obstructive sleep apnea) Essential hypertension Type 2 diabetes mellitus with unspecified complications Embolic stroke Surgical History (Updated 07/22/25 @ 13:43 by Erin Goel [facility]) Hx of colonoscopy History of esophagogastroduodenoscopy (EGD) Status post uvulopalatopharyngoplasty History of transesophageal echocardiography (AMINA) (~02/19/20) History of loop recorder (~02/13/20) Family History Father High blood pressure Mother High blood pressure Diabetes Cardiovascular disease Maternal Grandmother High blood pressure Alcohol abuse FH: mental illness Paternal Grandmother Cardiovascular disease Family/Other Cardiovascular disease Social History Household Members: Spouse Household Members Other:: 1 son Housing: House Alcohol intake: current Patient Tobacco Use Status: Former Tobacco user e-Cigarette/Vaping Use: Never Used Second Hand Smoke Exposure: Yes service: No Current occupational status: unemployed Current occupational exposures/hazards: No Cognitive needs: No Hearing needs: No Vision needs: No Review of Systems Const Denies fatigue, Denies fever(s), Denies night sweats, Denies poor appetite and Denies weight loss ENT Reports Normal hearing present, Denies dental pain, Reports dysphagia, Denies hearing loss, Denies mouth pain, Denies odynophagia, Denies throat swelling, Denies tongue swelling and Reports other (Dentition adequate) Card Reports chest pain Resp Reports no additional complaints GI Details: Denies abdominal pain, Denies melena, Denies bloating, Denies hematochezia, Denies constipation, Denies GI cramping, Reports dysphagia, Denies excessive flatus, Denies early satiety, Reports heartburn, Denies diarrhea, Reports loose stools, Denies nausea, Denies odynophagia, Denies vomiting and Denies hematemesis Skin/Breast Denies pruritus, Denies lesions, Denies rash and Denies jaundice Neuro Reports Normal hearing present and Denies Abnormal speech present Endo Denies fatigue Aller/Immun Denies throat swelling and Denies tongue swelling Physical Exam Const General: cooperative, no acute distress, well developed and well groomed Nutritional Appearance: well nourished and obese Orientation/consciousness: oriented to person, oriented to place and oriented to time Limitations: No language barrier HEENT Head: Yes normocephalic and Yes atraumatic Eyes General: appearance normal, both eyes and all related structures Pupils: Equal, round and reactive pupils present Neck Neck: Yes normal visual inspection and Yes no lymphadenopathy Thyroid: Thyroid normal Resp Effort & Inspection: normal respiratory effort and able to speak in complete sentences Auscultation: clear to auscultation bilaterally Cardio Rate: regular rate Rhythm: regular rhythm Heart sounds: Normal, physiologic split S2 sound present Peripheral pulses: radial pulses present and posterior tibial pulses present GI Inspection: No distended, No Abdominal panniculus present and Yes obesity Palpation (GI): Soft to palpation, nontender, no guarding, not rigid and No hepatosplenomegaly present Percussion: Yes normal to percussion Auscultation: normal bowel sounds Rectal Exam - Male: Yes deferred Skin General skin exam: no rashes or lesions noted, turgor normal, skin not dry, no jaundice, No spider nevi and no striae Rashes: no rashes Nails: normal Neuro General: oriented to person, oriented to place and oriented to time Cranial nerves: Yes Equal, round and reactive pupils present and Yes Normal hearing present Speech: No Abnormal speech present Extrem General: Yes normal to inspection, No clubbing, No cyanosis and No edema Psych Appearance: grossly normal and well kempt Mental Status: mental status grossly normal Speech and movement: Normal speech and movement present Affect: normal affect Attitude: cooperative Thought process: Normal thought process present and not confabulating Thought content: Normal thought content present Insight: Good insight present (Psych) Judgement: Good judgement present (Psych) Assessment & Plan Assessment & Plan (1) Epigastric pain: Code(s): R10.13 - Epigastric pain Category: Medical (2) Tubular adenoma of colon: Code(s): D12.6 - Benign neoplasm of colon, unspecified Category: Medical Plan Subjective Patient presents for evaluation of recurrent upper gastrointestinal symptoms and is overdue for colonoscopy; also requests assessment given prior peptic ulcer disease. Over the past several months (worse since this spring, often January/February timeframe), he experiences intermittent chest/epigastric pressure that can occur immediately after eating but not exclusively post-prandially. Discomfort is typically left-sided chest pressure with a sense of fullness that can radiate to the upper back and shoulders, described as intense and pressing. Episodes are variable, sometimes lasting a couple of days before resolving, and then recurring. He reports a sensation of chest fullness ?like it?s going to blow up.? Baseline costochondritis can be aggravated by pressure and cold/damp weather. He sometimes notes lower abdominal/pelvic fullness with an urge to defecate or pass gas without output. He has intermittent dysphagia: sensation of food sticking just above the collarbone with the ?final push,? sometimes requiring extra gulps; occurs with solids and occasionally with liquids, and he has choked on liquids at times. Spicy foods markedly aggravate symptoms during flares but are tolerated when asymptomatic. He denies a consistent correlation with fatty or acidic foods and has not identified other clear triggers. History notable for peptic ulcer diagnosed around 2012, treated successfully with sucralfate (Carafate); similar symptoms recurred years later and improved again with sucralfate. He has been on omeprazole chronically without interruption, which generally controls symptoms, though current symptoms persi st. Prior gallbladder ultrasound reportedly normal. He previously carried a diagnosis of irritable bowel syndrome; about 1.5 years ago he discontinued metformin (long-term use) with prompt and marked improvement in loose stools and overall GI comfort. Bowel habits now generally regular; diarrhea occurs about once every two weeks, otherwise stools formed; occasional constipation. Fiber (Metamucil) helps. He uses simethicone and occasionally loperamide when markedly gassy/loose, which relieves lower GI symptoms. Trial of probiotics and yogurt offered no benefit. Recently tried bismuth subsalicylate without effect. Medication history relevant to GI: GLP-1 therapy for diabetes (started on Trulicity, now on tirzepatide [Mounjaro] for ~3 years) without dose changes; he and his diabetes provider feel timing and intermittent pattern make GLP-1 causation less likely. On a blood thinner. Magnesium was restarted ~1?1.5 years ago for hand cramps; aware it can cause diarrhea. Repatha started about a year ago. In fall 2023 he had perianal pruritic purple lesions, diagnosed and treated as yeast infection with single-dose fluconazole, with resolution. Relevant Past Medical, Social, and Family History - History of peptic ulcer disease; chronic GERD managed with omeprazole. - Costochondritis. - Diabetes mellitus on GLP-1 therapy; previously on long-term metformin (stopped with GI improvement). - Prior IBS label, now largely resolved after stopping metformin. - Hemorrhoids with intermittent flares. - Anticoagulation therapy (specific agent not discussed). - Prior gallbladder ultrasound reported negative. Objective - Lungs: Clear to auscultation with normal respiratory effort. - Abdomen: Inspection and brief palpation without elicited tenderness or acute findings. Assessment & Plan Upper GI symptoms with history of peptic ulcer disease; GERD with intermittent post-prandial chest/epigastric pressure and dysphagia: Recurrent, episodic chest/epigastric pressure/fullness with radiation to back/shoulders and intermittent dysphagia to solids and occasionally liquids. Longstanding GERD on uninterrupted omeprazole. Prior peptic ulcer responded to sucralfate; recurrence of similar symptom complex. Spicy foods exacerbate during flares. Differential includes recurrent peptic ulcer disease, esophagitis (including reflux-related; candidal less likely but will assess), gastritis, and structural/esophageal motility disorder. - Start sucralfate (Carafate) tablet once daily at noon to avoid interaction with other medications, particularly anticoagulant therapy; counseled that sucralfate can be constipating. - Continue omeprazole as currently prescribed. - Schedule EGD and colonoscopy (combined session). Biopsy any mucosal abnormalities as indicated (including to assess for jenaro if suspected). - Colonoscopy prep: Send GoLytely to pharmacy (insurance-covered). Discussed MiraLAX alternative if coverage permits; patient agreeable to standard prep. Clear liquids only and no solid food for 24 hours prior to procedure. Advised to cherry picker operator prep in advance due to intermittent supply issues. - Symptom management: Trial simethicone when chest/epigastric fullness/pressure occurs to evaluate for gas contribution. Avoid spicy foods during symptomatic periods. - Follow up in approximately 8 weeks to assess response and review scheduling/progress of procedures. Right upper quadrant/biliary-type pain consideration (biliary dyskinesia vs other gallbladder dysfunction): Prior ultrasound reportedly without gallstones. Symptoms can radiate to back/shoulders; no clear fatty-food correlation identified yet. - If symptoms persist or worsen despite sucralfate/PPI, or if a dietary pattern suggests biliary contribution (richer/fattier foods), order HIDA scan with ejection fraction to assess gallbladder function. - Patient to monitor and report any associations with fatty/rich meals or meal volume. Altered bowel habits, largely improved post-metformin; intermittent diarrhea/constipation; hemorrhoids: Currently mild and episodic; fiber helpful. Magnesium may contribute to looser stools. - Continue daily fiber (e.g., Metamucil) as tolerated; loperamide PRN for episodic diarrhea. - Reviewed that magnesium commonly causes diarrhea; consider dose reduction if diarrhea increases; monitor. - Manage hemorrhoid flares symptomatically as needed. History of perianal candidiasis (resolved): Treated with single-dose fluconazole in fall 2023 with complete resolution. - No active treatment needed. Any esophageal/gastric involvement will be assessed during EGD if present. Medication interactions/administration counseling - Separate sucralfate from other medications (especially anticoagulant) by dosing at midday to minimize absorption interference. Follow-up: Return in 8 weeks for re-evaluation of symptoms and to ensure EGD/colonoscopy scheduling; earlier if worsening or new concerning features arise. Orders: Referrals GI Procedure Notification D12.6 - Benign neoplasm of colon, unspecified, R10.13 - Epigastric pain Medications: New sucralfate (Carafate) 1 g PO QNOON 30 tabs 6RF peg 3350-electrolytes 236-22.74-6.74 -5.86 gram (Golytely) until fecal effluent is clear; do not exceed a total volume of 2,000 mL 240 mL PO Q10M 4,000 mL 0RF 1 day Z12.11 - Encounter for screening for malignant neoplasm of colon Coding Level of Care Code New Pt Level 3 (59656) Diagnoses Epigastric pain R10.13 Tubular adenoma of colon D12.6
[2025-07-22 13:31] VITALS: BP 126/62; PULSE 67; BMI 30.1
--- OUTSIDE RECORDS SUMMARY | 2025-07-22 17:35 | XMS_ITS | Encounter Summary ---
Author Organization [facility] Address [address] [place] [address] [place] [address] Phone Care Team Providers Care Mid Teacher Name Role Phone Rosalind Cornejo MD Primary Care Provider [phone] Janak Hassan MD Unavailable [phone] Tex Lin MD Unavailable [email or web address] Juwan Su MD Unavailable [phone] Rosalind Cornejo MD Unavailable John Santoyo HVAC JOURNEYMAN Unavailable [phone] Rosalind Cornejo MD Unavailable [phone] Sp Gusman DO Primary Care Provider Chanda Fernando LOAN REVIEW OFFICER Unavailable [phone] Rosalind Cornejo MD Unavailable [phone] Andrei Hayes MD Primary Care Provider Derrek Abdullahi MD Primary Care Provider [phone] Encounter Details Date Type Department Care Team (Late st Contact Info) Description 09/07/2017 Transcribe Orders [facility] Specimen Processing [address] [place], [place] [id number] Rosalind Cornejo MD [address] [place], [place] [id number] [email or web address] Social History Tobacco Use Types Packs/Day Years [...] Care Team (Late st Contact Info) Description 01/14/2026 10:20 AM EDT Office Visit [facility] [address] [place] [address] Matilda Hannah CNP [address] [address] documented as of this encounter Visit Diagnoses Not on filedocumented in this encounter Care Teams Mid Teacher Relationship Specialty Start Date End Date Rosalind Cornejo MD [address] [place] [address] PCP - General 02/03/14 08/08/23 Sp Gusman DO [address] [place] [address] PCP - General Family Medicine 08/09/23 02/18/24 Andrei Hayes MD [address] [place] [address] PCP - General Family Medicine 02/19/24 09/15/24 Derrek Abdullahi MD [address] [place] [address] [place] [address] PCP - General Internal Medicine 09/16/24 Janak Hassan MD [address] [place] [address] Historical LMR Provider 05/27/17 08/13/21 Tex Lin MD [email or web address] Historical LMR Provider 05/27/17 08/13/21 Juwan Su MD [address] [address] Historical LMR Provider 05/27/17 Rosalind Cornejo MD [address] [place] [address] [email or web address] Historical LMR Provider 05/27/17 08/08/23 John Santoyo CNP [address] [place] [address] Historical LMR Provider 05/27/17 08/13/21 Rosalind Cornejo MD [address] [place] [address] [email or web address] Insurance Assigned Provider 12/07/18 08/08/23 Chanda Fernando NP [address] [place] [address] Nurse Practitioner 08/09/23 09/15/24 Rosalind Cornejo MD [address] [place] [address] [email or web address] Insurance Assigned Provider 12/07/18 10/13/23 documented as of this encounter Additional Source Comments The information contained in this document represents components of the legal health record. It is not the complete legal health record.[facility]
--- OUTSIDE RECORDS SUMMARY | 2025-07-22 17:35 | XMS_ITS | Encounter Summary ---
Author Organization [facility] Address [address] [place] [address] [place] [address] Phone Care Team Providers Care Accountant Budget Name Role Phone Rosalind Cornejo MD Primary Care Provider [phone] Janak Hassan MD Unavailable [phone] Tex Lin MD Unavailable [email or web address] Juwan Su MD Unavailable [phone] Rosalind Cornejo MD Unavailable [phone] John Santoyo SEED CORN MANAGER PRODUCTION Unavailable [phone] Rosalind Cornejo MD Unavailable [phone] Sp Gusman DO Primary Care Provider Chanda Fernando OVEN OPERATOR Unavailable [phone] Rosalind Cornejo MD Unavailable [phone] Andrei Hayes MD Primary Care Provider Derrek Abdullahi MD Primary Care Provider [phone] Encounter Details Date Type Department Care Team (Late st Contact Info) Description 09/04/[address] [facility] Phleb Main [address] [place] [address] Enma Cornejo, PhD Social History [...] Description 01/14/2026 10:20 AM EDT Office Visit [facility] Diabetes [facility] [address] [place] [address] Matilda Hannah CNP [address] [phone] [email or web address] documented as of this encounter Visit Diagnoses Not on filedocumented in this encounter Care Teams Accountant Budget Relationship Specialty Start Date End Date Rosalind Cornejo MD [address] [place] [address] PCP - General 02/03/14 08/08/23 Sp Gusman DO [address] [place] [address] PCP - General Family Medicine 08/09/23 02/18/24 Andrei Hayes MD [address] [place] [address] PCP - General Family Medicine 02/19/24 09/15/24 Derrek Abdullahi MD [address] [place] [address] [address] PCP - General Internal Medicine 09/16/24 Janak Hassan MD [address] [place] [address] [email or web address] Historical LMR Provider 05/27/17 08/13/21 Tex Lin MD [email or web address] Historical LMR Provider 05/27/17 08/13/21 Juwan Su MD [address] [place] [address] Historical LMR Provider 05/27/17 Rosalind Cornejo MD [address] [place] [address] Historical LMR Provider 05/27/17 08/08/23 John Santoyo CNP [address] [place] [address] Historical LMR Provider 05/27/17 08/13/21 Rosalind Cornejo MD [address] [place] [phone] [email or web address] Insurance Assigned Provider 12/07/18 08/08/23 Chanda Fernando NP [address] [place] [address] Nurse Practitioner 08/09/23 09/15/24 Rosalind Cornejo MD [address] [place] [address] Insurance Assigned Provider 12/07/18 10/13/23 documented as of this encounter Additional Source Comments The information contained in this document represents components of the legal health record. It is not the complete legal health record.[facility]
--- OUTSIDE RECORDS SUMMARY | 2025-07-22 17:35 | XMS_ITS | Encounter Summary ---
Author Organization [facility] Address [address] [place] [address] Phone Care Team Providers Care Wheel And Axle Inspector Name Role Phone Rosalind Cornejo MD Primary Care Provider Janak Hassan MD Unavailable [phone] Tex Lin MD Unavailable [email or web address] Juwan Su MD Unavailable [phone] Rosalind Cornejo MD Unavailable [phone] John Santoyo SOCCER COACH Unavailable [phone] Rosalind Cornejo MD Unavailable Sp Gusman DO Primary Care Provider Chanda Fernando GAS SCRUBBER OPERATOR Unavailable [phone] Rosalind Cornejo MD Unavailable [phone] Andrei Hayes MD Primary Care Provider Derrek Abdullahi MD Primary Care Provider [phone] Encounter Details Date Type Department Care Team (Latest Contact Info) Description 09/04/2017 Transcribe Orders [facility] Phleb Main 30 [place], [place] [id number] Raymond Shafer MD [address] [place], [place] [id number] [email or web address] Uric acid nephrolithiasis (Primary Dx) Social History [...] Description 01/14/2026 10:20 AM EDT Office Visit [facility] [address] [place] [address] Matilda Hannah, SOCCER COACH [address], 1st [place] [address] [email or web address] documented as of this encounter Results * (ABNORMAL) Urinalysis w/reflex Urine Culture (09/04/2017 9:49 AM EST) COLOR STRAW(A) Yellow [facility] CLARITY Clear [facility] GLUCOSE 3+(A) Negative [facility] BILI Negative Negative [facility] KETONES Negative Negative [facility] SPECIFIC GRAVITY 1.015 1.005 - 1.030 [facility] BLOOD Negative Negative [facility] PH 5.5 5.0 - 8.0 [facility] Protein-UA Negative Negative [facility] NITRITE Negative Negative [facility] Leukocyte esterase, ur Negative Negative [facility] Urine (Urine) 09/04/2017 9:4 9 AM EST 09/04/2017 9:56 AM EST us Raymond Shafer MD LAB URINE ORDERABLES Final Resul t [facility] [address] [place] [address] * (ABNORMAL) Uric acid (09/04/2017 9:49 AM EST) URIC ACID 7.7(H) 2.4 - 7.0 mg/dL [facility] Blood 09/04/2017 9:49 AM EST 09/04/2017 9:53 AM EST us Raymond Shafer MD LAB BLOOD BKR ORDERABLES Final R esult Performing Organization Address [facility] Co de Phone Number [address] [address] * Parathyroid hormone (PTH) (09/04/2017 9:49 AM EST) PARATHYROID HORMONE 31 15 - 65 pg/mL [facility] Blood 09/04/2017 9:49 AM EST 09/04/2017 9:57 AM EST us Raymond Shafer MD LAB BLOOD BKR ORDERABLES Final R [facility] Performing Organization Address [facility] de Phone Number [address] [address] * Lipid panel (09/04/2017 9:49 AM EST) HDL 47 mg/dL [facility] Comment: Interpretation: Risk Level Males Decreased >45 mg/dL Average 40-45 mg/dL Increased <40 mg/dL CHOLESTEROL 195 0 - 240 mg/dL [facility] TRIGLYCERIDES 113 30 - 160 mg/dL [facility] LDL 125 50 - 129 mg/dL [facility] Comment: LDL levels in terms of risk for coronary heart disease: <100 mg/dL: Optimal 100-129 mg/dL: Near or above optimal 130-159 mg/dL: Borderline high 160-189 mg/dL: High >190 mg/dL: Very High CARDIAC RISK RATIO 4.1 3.4 - 5.0 [facility] Blood 09/04/2017 9:49 AM EST 09/04/2017 9:53 AM EST us Raymond Shafer MD LAB BLOOD BKR ORDERABLES Final R esult Performing Organization Address [facility] Co de Phone Number [address] [address] * 25-OH vitamin D (09/04/2017 9:49 AM EST) 25 OH VIT D (TOTAL) 46 30 - 1,000 ng/mL [facility] Blood 09/04/2017 9:49 AM EST 09/04/2017 9:53 AM EST Raymond Shafer MD LAB BLOOD BKR ORDERABLES Final R esult Performing Organization Address City/[facility] Co de Phone Number [address] [address] * (ABNORMAL) Renal panel (09/04/2017 9:49 AM EST) SODIUM 141 133 - 146 mmol/L [facility] POTASSIUM 4.5 3.3 - 5.1 mmol/L [facility] CHLORIDE 102 96 - 108 mmol/L [facility] CO2 28 21 - 35 mmol/L [facility] GLUCOSE 135(H) 70 - 99 mg/dL [facility] BUN 23(H) 6 - 19 mg/dL [facility] CREATININE 1.20 0.5 - 1.5 mg/dL [facility] CALCIUM 9.8 8.4 - 10.3 mg/dL [facility] PHOSPHORUS 3.3 2.7 - 4.5 mg/dL [facility] ALBUMIN 4.6 3.9 - 4.8 g/dL [facility] EGFR >60 >60 mL/min/1.7 3m2 [facility] Comment:Abnormal if <60. If patient is -Tuvaluan, multiply the result by 1.21. ANION GAP 16 10 - 20 mmol/L [facility] Blood 09/04/2017 9:49 AM EST 09/04/2017 9:53 AM EST Raymond Shafer MD LAB BLOOD BKR ORDERABLES Final R esult Performing Organization Address [facility] Co de Phone Number [address] [address] documented in this encounter 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 Care Teams Wheel And Axle Inspector Relationship Specialty Start Date End Date Rosalind Cornejo MD [address] [place] [address] [email or web address] PCP - General 02/03/14 08/08/23 Sp Gusman DO [address] [place] [address] PCP - General Family Medicine 08/09/23 02/18/24 Andrei Hayes MD [address] [place] [address] PCP - General Family Medicine 02/19/24 09/15/24 Derrek Abdullahi MD [address] [place] [address] [place] [address] PCP - General Internal Medicine 09/16/24 Janak Hassan MD [address] [place] [address] [email or web address] Historical LMR Provider 05/27/17 08/13/21 Tex Lin MD [email or web address] Historical LMR Provider 05/27/17 08/13/21 Juwan Su MD [address] [place] [address] [email or web address] Historical LMR Provider 05/27/17 Rosalind Cornejo MD [address] [place] [address] [email or web address] Historical LMR Provider 05/27/17 08/08/23 John Santoyo CNP [address] [place] [address], [address] [place] [address] [email or web address] Historical LMR Provider 05/27/17 08/13/21 Rosalind Cornejo MD [address] [place] [address] [email or web address] Insurance Assigned Provider 12/07/18 08/08/23 Chanda Fernando NP [address] [place] [address] Nurse Practitioner 08/09/23 09/15/24 Rosalind Cornejo MD [address] [place] [address] [email or web address] Insurance Assigned Provider 12/07/18 10/13/23 documented as of this encounter Additional Source Comments The information contained in this document represents components of the legal health record. It is not the complete legal health record.[facility]
--- OUTSIDE RECORDS SUMMARY | 2025-07-22 17:35 | XMS_ITS | Encounter Summary ---
Author Organization [facility] Address [address] [place] [address] [place] [address] Phone Care Team Providers Care Dredge Operator Name Role Phone Rosalind Cornejo MD Primary Care Provider [phone] Janak Hassan MD Unavailable [phone] Tex Lin MD Unavailable [email or web address] Juwan Su MD Unavailable [phone] Rosalind Cornejo MD Unavailable John Santoyo ALUMINIZER Unavailable [phone] Rosalind Cornejo MD Unavailable [phone] Sp Gusman DO Primary Care Provider Chanda Fernando RADIOLOGY PHYSICIAN Unavailable [phone] Rosalind Cornejo MD Unavailable [phone] Andrei Hayes MD Primary Care Provider Derrek Abdullahi MD Primary Care Provider [phone] Encounter Details Date Type Department Care Team (Late st Contact Info) Description 09/04/2017 Transcribe Orders [facility] Phleb Main 30 [place], [place] [phone] Rosalind Cornejo MD [address] [place] [address] [email or web address] Elevated LFTs (Primary Dx) Social History Tobacco [...] Description 01/14/2026 10:20 AM EDT Office Visit [facility] Diabetes [facility] [address] [place] [address] Matilda Hannah, BAILEY [address] [facility], 1st [place] [address] [email or web address] documented as of this encounter Results * (ABNORMAL) Hemoglobin A1c (09/04/2017 9:49 AM EST) HEMOGLOBIN A1C 7.4(H) 4.3 - 5.8 % [facility] Blood 09/04/2017 9:49 AM EST 09/04/2017 9:53 AM EST us Rosalind Cornejo MD LAB BLOOD BKR ORDERABLES Fi nal Result [facility] 30 [place] [address] * Cytomegalovirus (CMV) PCR, blood (09/04/2017 9:49 AM EST) CMV DNA DETECT/QUANT <137 Undetected IU/mL [facility] Comment: (NOTE) Result [...] the HUE AmpliPrep/HUE TaqMan CMV Test ([employer] Mutations within the CMV UL54 [...] LAB BLOOD BKR ORDERABLES Fi nal Result [facility] [address] [place] [address] documented in this encounter Visit Diagnoses Diagnosis Elevated LFTs- Primary Other abnormal blood chemistry documented in this encounter Care Teams Dredge Operator Relationship Specialty Start Date End Date Rosalind Cornejo MD [address] [place] [address] PCP - General 02/03/14 08/08/23 pS Gusmna DO [address] [place] [address] PCP - General Family Medicine 08/09/23 02/18/24 Andrei Hayes MD [address] [place] [address] PCP - General Family Medicine 02/19/24 09/15/24 Derrek Abdullahi MD [address] [place] [address] [place] [address] PCP - General Internal Medicine 09/16/24 Janak Hassan MD [address] [place] [address] [email or web address] Historical LMR Provider 05/27/17 08/13/21 Tex Lin MD [email or web address] Historical LMR Provider 05/27/17 08/13/21 Juwan Su MD [address] [place] [address] [email or web address] Historical LMR Provider 05/27/17 Rosalind Cornejo MD [address] [place] [address] [email or web address] Historical LMR Provider 05/27/17 08/08/23 John Santoyo CNP [address] [place] [address] Historical LMR Provider 05/27/17 08/13/21 Rosalind Cornejo MD [address] [place] [address] [email or web address] Insurance Assigned Provider 12/07/18 08/08/23 Chanda Fernando NP [address] [place] [address] Nurse Practitioner 08/09/23 09/15/24 Rosalind Cornejo MD [address] [place] [address] [email or web address] Insurance Assigned Provider 12/07/18 10/13/23 documented as of this encounter Additional Source Comments The information contained in this document represents components of the legal health record. It is not the complete legal health record.[facility]
--- OUTSIDE RECORDS SUMMARY | 2025-07-22 17:35 | XMS_ITS | Encounter Summary ---
Author Organization [facility] Address [address] [place] [address] [place] [address] Phone Care Team Providers Care It Applications Analyst Name Role Phone Rosalind Cornejo MD Primary Care Provider [phone] Janak Hassan MD Unavailable [phone] Tex Lin MD Unavailable [email or web address] Juwan Su MD Unavailable [phone] Rosalind Cornejo MD Unavailable [phone] John Santoyo BUREAU DIRECTOR Unavailable [phone] Rosalind Cornejo MD Unavailable [phone] Sp Gusman DO Primary Care Provider Chanda Fernando INSULATION ESTIMATOR Unavailable [phone] Rosalind Cornejo MD Unavailable [phone] Andrei Hayes MD Primary Care Provider Derrek Abdullahi MD Primary Care Provider [phone] Encounter Details Date Type Department Care Team (Latest Contact Info) Description 09/07/2017 Transcribe Orders [facility] Specimen Processing 30 [place], [place] [phone] Rosalind Cornejo MD 15 [place], [place] [phone] [email or web address] Positive serum cytomegalovirus (CMV) IgM antibody (Primary [...] Description 01/14/2026 10:20 AM EDT Office Visit [facility] Diabetes Clinic 22 [place] [address] Matilda Hannah, BAILEY 22 [facility], 1st [place] [address] [email or web address] documented as of this encounter Procedures Procedure Name Priority Date/Time Associated Diagnosis Comments MISCELLANEOUS LAB TEST Routine 09/04/2017 9:49 AM EST LAB ADD ON Routine 09/04/2017 9:49 AM EST Positive serum cytomegalovirus (CMV) IgM antibody Elevated LFTs documented in this encounter Results * Miscellaneous lab test (09/04/2017 9:49 AM EST) TESTS REQUESTED CYTOMEGALOVIRUS AB, IGM AND IGG [facility] SPECIMEN/TUBE TYPE SERUM [facility] REQUEST RECEIVED Request received. A separate order for the requested test will be generated by the laboratory. [facility] 09/04/2017 9:49 AM EST 09/07/2017 12:39 PM EST us Rosalind Cornejo MD LAB BLOOD ORDERABLES Final Result [facility] 30 [place] [address] * Lab Add On: CMV IGG/IGM (09/04/2017 9:49 AM EST) CONTACT INFORMATION [id number] [facility] TEST REQUESTED CMV IGG IGM [employer] [facility] Comments (Chemistry) ADD ON COMPLETE. [facility] 09/04/2017 9:49 AM EST 09/07/2017 12:39 PM EST us Rosalind Cornejo MD LAB BLOOD ORDERABLES Edited Result - Final [facility] [address] [place] [address] documented in this encounter Visit Diagnoses Diagnosis Positive serum cytomegalovirus (CMV) IgM antibody- Primary Elevated LFTs Other abnormal blood chemistry documented in this encounter Care Teams It Applications Analyst Relationship Specialty Start Date End Date Rosalind Cornejo MD 15 [place] [address] [email or web address] PCP - General 02/03/14 08/08/23 Sp Gusman DO [address] [place] [address] PCP - General Family Medicine 08/09/23 02/18/24 Andrei Hayes MD [address] [place] [address] PCP - General Family Medicine 02/19/24 09/15/24 Derrek Abdullahi MD [address] [place] [address] [place] [address] PCP - General Internal Medicine 09/16/24 Janak Hassan MD [address] [place] [address] [email or web address] Historical LMR Provider 05/27/17 08/13/21 Tex Lin MD [email or web address] Historical LMR Provider 05/27/17 08/13/21 Juwan Su MD [address] [address] Historical LMR Provider 05/27/17 Rosalind Cornejo MD [address] [place] [address] Historical LMR Provider 05/27/17 08/08/23 John Santoyo, BUREAU DIRECTOR [address] [place] [address] Historical LMR Provider 05/27/17 08/13/21 Rosalind Cornejo MD [address] [place] [address] Insurance Assigned Provider 12/07/18 08/08/23 Chanda Fernando NP [address] [place] [address] Nurse Practitioner 08/09/23 09/15/24 Rosalind Cornejo MD [address] [place] [address] Insurance Assigned Provider 12/07/18 10/13/23 documented as of this encounter Additional Source Comments The information contained in this document represents components of the legal health record. It is not the complete legal health record.[facility]
--- OUTSIDE RECORDS SUMMARY | 2025-07-22 17:35 | XMS_ITS | Encounter Summary ---
Author Organization [facility] Address [address] [place] [address] [place] [address] Phone Care Team Providers Care Paperboard Boxes Estimator Name Role Phone Rosalind Cornejo MD Primary Care Provider [phone] Janak Hassan MD Unavailable [phone] Tex Lin MD Unavailable [email or web address] Juawn Su MD Unavailable [phone] Rosalind Cornejo MD Unavailable [phone] John Santoyo SECURITY SALES MANAGER Unavailable [phone] Rosalind Cornejo MD Unavailable Sp Gusman DO Primary Care Provider Chanda Fernando [employer] Unavailable [phone] Rosalind Cornejo MD Unavailable [phone] Andrei Hayes MD Primary Care Provider Derrek Abdullahi MD Primary Care Provider [phone] Encounter Details Date Type Department Care Team (Late st Contact Info) Description 07/23/2017 Transcribe Orders [facility] Phleb Main 30 [place], [place] [phone] Rosalind Cornejo MD [address] [place] [address] [email or web address] Elevated liver function tests (Primary [...] Description 01/14/2026 10:20 AM EDT Office Visit [facility] Diabetes [facility] 22 [place] [address] Matilda Hannah, BAILEY 22 [facility], 1st [place] [address] [email or web address] documented as of this encounter Results * (ABNORMAL) LFTs (hepatic panel) (07/23/2017 10:12 AM EST) ALKALINE PHOSPHATASE 57 39 - 117 U/L [facility] TOTAL BILIRUBIN 0.4 0 - 1.2 mg/dL [facility] DIRECT BILIRUBIN <0.2 0 - 0.3 mg/dL [facility] Bilirubin (Indirect) NOT CALCULATED 0 - 1.5 mg/dL [facility] AST 61(H) 0 - 37 U/L [facility] ALT 104(H) 0 - 40 U/L [facility] TOTAL PROTEIN 6.4(L) 6.5 - 8.0 g/dL [facility] ALBUMIN 3.8(L) 3.9 - 4.8 g/dL [facility] GLOBULIN 2.6 1 - 4.8 g/dL [facility] A/G Ratio 1.46 1.00 - 4.80 RATIO [facility] Blood 07/23/2017 10:1 2 AM EST 07/23/2017 10:13 AM EST us Rosalind Cornejo MD LAB BLOOD BKR ORDERABLES Fi nal Result [facility] 30 [place] [address] documented in this encounter Visit Diagnoses Diagnosis Elevated liver function tests- Primary Other abnormal blood chemistry documented in this encounter Care Teams Paperboard Boxes Estimator Relationship Specialty Start Date End Date Rosalind Cornejo MD [address] [place] [address] [email or web address] PCP - General 02/03/14 08/08/23 Sp Gusman DO [address] [place] [address] PCP - General Family Medicine 08/09/23 02/18/24 Andrei Hayes MD [address] [place] [address] PCP - General Family Medicine 02/19/24 09/15/24 Derrek Abdullahi MD [address] [place] [address] [place] [address] PCP - General Internal Medicine 09/16/24 Janak Hassan MD [address] [place] [address] [email or web address] Historical LMR Provider 05/27/17 08/13/21 Tex Lin MD [email or web address] Historical LMR Provider 05/27/17 08/13/21 Juwan Su MD [address] [place] [address] [email or web address] Historical LMR Provider 05/27/17 Rosalind Cornejo MD [address] [place] [address] Historical LMR Provider 05/27/17 08/08/23 John Santoyo CNP [address] [place] [address], [address] [place] [address] Historical LMR Provider 05/27/17 08/13/21 Rosalind Cornejo MD [address] [place] [address] [email or web address] Insurance Assigned Provider 12/07/18 08/08/23 Chanda Fernando NP [address] [place] [address] Nurse Practitioner 08/09/23 09/15/24 Rosalind Cornejo MD [address] [place] [address] [email or web address] Insurance Assigned Provider 12/07/18 10/13/23 documented as of this encounter Additional Source Comments The information contained in this document represents components of the legal health record. It is not the complete legal health record.[facility]
--- OUTSIDE RECORDS SUMMARY | 2025-07-22 17:36 | XMS_ITS | Encounter Summary ---
Author Organization [facility] Address [address] [place] [address] Phone Care Team Providers Care Reel Repairer Name Role Phone Rosalind Cornejo MD Primary Care Provider [phone] Janak Hassan MD Unavailable [phone] Tex Lin MD Unavailable [email or web address] Juwan Su MD Unavailable [phone] Rosalind Cornejo MD Unavailable John Santoyo RESEARCH MECHANIC Unavailable [phone] Rosalind Cornejo MD Unavailable [phone] Sp Gusman DO Primary Care Provider [phone] Chanda Fernando PHARMACY RETAIL SUPPORT SPECIALIST Unavailable [phone] Rosalind Cornejo MD Unavailable [phone] Andrei Hayes MD Primary Care Provider Derrek Abdullahi MD Primary Care Provider [phone] Encounter Details Date Type Department Care Team (Latest Contact Info) Description 06/08/2017 Transcribe Orders [address] [address] Gm Torres MD Count includes the [facility], [address] [place], [place] [id number] [email or web address] Benign localized hyperplasia of prostate with urinary [...] Visit [facility] [address] [place] [address] Matilda Hannah, RESEARCH MECHANIC 22 [facility], 1st [place] [address] documented as of this encounter Procedures Procedure Name Priority Date/Time Associated Diagnosis Comments PSA (SCREENING) Routine 06/08/2017 9:12 AM EDT Benign localized hyperplasia of prostate with urinary retention documented in this encounter Results * PSA (screening) (06/08/2017 9:12 AM EDT) PSA 0.34 0 - 4.00 ng/mL [facility] Blood 06/08/2017 9:12 AM EDT 06/08/2017 9:20 AM EDT us Gm Torres MD LAB BLOOD BKR ORDERABLES Final Result [facility] [address] [place] [address] documented in this encounter Visit Diagnoses Diagnosis Benign localized hyperplasia of prostate with urinary retention- Primary Benign localized hyperplasia of prostate with urinary obstruction and other lower urinary tract symptoms (LUTS) documented in this encounter Care Teams Reel Repairer Relationship Specialty Start Date End Date Rosalind Cornejo MD [address] [place] [address] PCP - General 02/03/14 08/08/23 Sp Gusman DO [address] [place] [address] PCP - General Family Medicine 08/09/23 02/18/24 Andrei Hayes MD [address] [place] [address] PCP - General Family Medicine 02/19/24 09/15/24 Derrek Abdullahi MD [address] [place] [address] [facility] [place] [address] PCP - General Internal Medicine 09/16/24 Janak Hassan MD [address] [place] [address] [email or web address] Historical LMR Provider 05/27/17 08/13/21 Tex Lin MD [email or web address] Historical LMR Provider 05/27/17 08/13/21 Juwan Su MD [address] [place] [address] Historical LMR Provider 05/27/17 Rosalind Cornejo MD [address] [place] [address] Historical LMR Provider 05/27/17 08/08/23 John Santoyo, RESEARCH MECHANIC [address] [place] [address] Historical LMR Provider 05/27/17 08/13/21 Rosalind Cornejo MD [address] [place] [address] [email or web address] Insurance Assigned Provider 12/07/18 08/08/23 Chanda Fernando NP [address] [place] [address] Nurse Practitioner 08/09/23 09/15/24 Rosalind Cornejo MD [address] [place] [address] [email or web address] Insurance Assigned Provider 12/07/18 10/13/23 documented as of this encounter Additional Source Comments The information contained in this document represents components of the legal health record. It is not the complete legal health record.[facility]
--- OUTSIDE RECORDS SUMMARY | 2025-07-22 17:36 | XMS_ITS | Encounter Summary ---
Author Organization [facility] Address [address] [facility] [address] [place] [address] Phone Care Team Providers Care Holder Pile Driving Name Role Phone Rosalind Cornejo MD Primary Care Provider [phone] Janak Hassan MD Unavailable [phone] Tex Lin MD Unavailable [email or web address] Juwan Su MD Unavailable Rosalind Cornejo MD Unavailable John Santoyo WELDING ENGINEER Unavailable [phone] Rosalind Cornejo MD Unavailable Sp Gusman DO Primary Care Provider Chanda Fernando COMMERCIAL LOAN SPECIALIST Unavailable [phone] Rosalind Cornejo MD Unavailable [phone] Andrei Hayes MD Primary Care Provider Derrek Abdullahi MD Primary Care Provider [phone] Encounter Details Date Type Department Care Team (Latest Contact Info) Description 09/11/2017 Transcribe Orders [facility] [address] [place], [place] [phone] Raymond Shafer MD [address] [facility] [address] [place], [place] [phone] [email or web address] Uric acid nephrolithiasis (Primary Dx) Social History [...] Description 01/14/2026 10:20 AM EDT Office Visit [facility] [address] [place] [address] Matilda Hannah, WELDING ENGINEER 22 [facility], 1st [place] [address] [email or web address] documented as of this encounter Results * Creatinine clearance (09/11/2017 4:11 PM EST) URINE CREATININE Cancelled due to incomplete collection. mg/dL [facility] Comment:Corrected on 09/12 A T 1004: previously reported as 51 Blood 09/11/2017 4:11 PM EST 09/11/2017 4:14 PM EST us Raymond Shafer MD LAB BLOOD BKR ORDERABLES Edited Result - Final [facility] [address] [place] [address] * Sodium, 24 hr urine (09/11/2017 4:11 PM EST) URINE SODIUM Cancelled due to incomplete collection. mmol/L [facility] Comment:Corrected on 09/12 A T 1004: previously reported as 91 SODIUM OUTPUT NOT CALCULATED 40 - 220 mmol/total output [facility] Comment:Corrected on 09/12 A T 1004: previously reported as 288 Urine (Urine) 09/11/2017 4:1 1 PM EST 09/11/2017 4:14 PM EST us Raymond Shafer MD URINE ORDERABLES Edited Result - Final Performing Organization Address City/State/[facility] Co de Phone Number [address] [address] * Potassium, 24 hr urine (09/11/2017 4:11 PM EST) URINE POTASSIUM Cancelled due to incomplete collection. mmol/L [facility] Comment:Corrected on 09/12 A T 1004: previously reported as 21.9 POTASSIUM OUTPUT NOT CALCULATED mmol/total output [facility] Comment:Corrected on 09/12 A T 1004: previously reported as 69.2 Urine (Urine) 09/11/2017 4:1 1 PM EST 09/11/2017 4:14 PM EST us Raymond Shafer MD URINE ORDERABLES Edited Result - Final Performing Organization Address [facility] de Phone Number [address] [address] * Uric acid, 24 hr urine (09/11/2017 4:11 PM EST) URINE URIC ACID Cancelled due to incomplete clooection. mg/dL [facility] Comment:Corrected on 09/12 A T 1004: previously reported as 20.8 Uric Acid, Timed Urine NOT CALCULATED 250 - 750 mg/total output [facility] Comment:Corrected on 09/12 A T 1004: previously reported as 657.3 Urine (Urine) 09/11/2017 4:1 1 PM EST 09/11/2017 4:14 PM EST us Raymond Shafer MD URINE ORDERABLES Edited Result - Final Performing Organization Address [facility] Co de Phone Number [address] [address] * Phosphorus, 24 hr urine (09/11/2017 4:11 PM EST) URINE PHOSPHORUS Cancelled due to incomplete collection. mg/dL [facility] Comment:Corrected on 09/12 A T 1004: previously reported as 29.7 PHOSPHORUS OUTPUT NOT CALCULATED 400 - 1300 mg/total output [facility] Comment:Corrected on 09/12 A T 1004: previously reported as 938.5 Urine (Urine) 09/11/2017 4:1 1 PM EST 09/11/2017 4:14 PM EST us Raymond Shafer MD URINE ORDERABLES Edited Result - Final Performing Organization Address [facility] Co de Phone Number [address] [address] * Calcium, 24 hour urine (09/11/2017 4:11 PM EST) URINE CALCIUM Cancelled due to incomplete collection. mg/dL [facility] Comment:Corrected on 09/12 A T 1004: previously reported as 2.8 CALCIUM OUTPUT NOT CALCULATED 100 - 300 mg/total output [facility] Comment:Corrected on 09/12 A T 1004: previously reported as 88 Urine (Urine) 09/11/2017 4:1 1 PM EST 09/11/2017 4:14 PM EST us Raymond Shafer MD URINE ORDERABLES Edited Result - Final Performing Organization Address [facility] de Phone Number [address] [address] * Total protein, 24 hr urine (09/11/2017 4:11 PM EST) URINE TOTAL PROTEIN Cancelled due to incomplete collection. mg/dL [facility] Comment:Corrected on 09/12 A T 1004: previously reported as 7.6 Protein, time varied urine (mg/TV) NOT CALCULATED 0 - 165 mg/total output [facility] Comment:Corrected on 09/12 A T 1004: previously reported as 240 Urine (Urine) 09/11/2017 4:1 1 PM EST 09/11/2017 4:14 PM EST us Raymond Shafer MD LAB URINE ORDERABLES Edited Resu lt - Final Performing Organization Address [facility] Co de Phone Number [address] [address] documented in this encounter 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 Care Teams Holder Pile Driving Relationship Specialty Start Date End Date Rosalind Cornejo MD [address] [place] [address] [email or web address] PCP - General 02/03/14 08/08/23 Sp Gusman DO [address] [place] [address] PCP - General Family Medicine 08/09/23 02/18/24 Andrei Hayes MD [address] [place] [address] PCP - General Family Medicine 02/19/24 09/15/24 Derrek Abdullahi MD [address] [place] [address] [place] [address] PCP - General Internal Medicine 09/16/24 Janak Hassan MD [address] [place] [address] [email or web address] Historical LMR Provider 05/27/17 08/13/21 Tex Lin MD [email or web address] Historical LMR Provider 05/27/17 08/13/21 Juwan Su MD [address] [place] [address] [email or web address] Historical LMR Provider 05/27/17 Rosalind Cornejo MD [address] [place] [address] [email or web address] Historical LMR Provider 05/27/17 08/08/23 John Santoyo CNP [address] [place] [address] Historical LMR Provider 05/27/17 08/13/21 Rosalind Cornejo MD [address] [place] [email or web address] Insurance Assigned Provider 12/07/18 08/08/23 Chanda Fernando NP [address] [place] [address] Nurse Practitioner 08/09/23 09/15/24 Rosalind Cornejo MD [address] [place] [address] [email or web address] Insurance Assigned Provider 12/07/18 10/13/23 documented as of this encounter Additional Source Comments The information contained in this document represents components of the legal health record. It is not the complete legal health record.[facility]
--- OUTSIDE RECORDS SUMMARY | 2025-07-22 17:36 | XMS_ITS | Clinical Summary ---
Author Organization [facility] Address [address] [place] [address] [place] [address] Phone Care Team Providers Care Curtain Cutter Hand Name Role Phone Juwan Su MD Unavailable [phone] Derrek Abdullahi MD Primary Care Provider [phone] Allergies Active Allergy Reactions Criticality Noted Date [...] Overview (09/26/2014): Diabetes mellitus Assessment & Plan (07/16/2025 2:41 PM EST): Continues on moderate dosing of GIP/GLP1, max dosing of SGLT2 Has been off metformin and longstanding GI symptoms have resolved Will continue current doses of GLP1/GIP and SGLT2i Blood pressure normal today, up to date on annual routine labwork which has been scanned in, there are some missing values but I have included these in my note above per review of patient's portal marcus Up to date on eye and foot care, concern for lower extremity ulceration, John is being followed closely by PCP who referred to wound care, advised this will be the best specialist to help treat ulceration that has been resistant to fully heal, also sees podiatry in a couple weeks so encouraged to show them wound as well, keeping blood sugars well controlled like they are will help improve healing and reduce risk of infection Advised to contact office with any questions or concerns, otherwise we will follow up in 4 months Assessment & Plan (01/15/2025 12:30 PM EDT): [...] Procedures: Glucose Monitoring: Type of Sensor: Dexcom G6 Pro Instruction: Patient Instructed on:, Calibrations, [...] in 2 weeks to 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 Assessment & Plan (06/11/2023 2:04 PM EST): A1c has worsened since last visit despite starting GLP1ra therapy, patient is tolerating this well for the most part, does some unusual side effects We discussed optimizing dose or switching to GLP1ra/GIP medication, Mounjaro, we discussed this at length today Through [...] reduction compared to Januvia component part of Janumet John is agreeable to try this, reviewed that [...] normal today. Labs >2 years old in [facility], has had recent labs at [facility] which we can [...] Encounters Date Type Department Care Team Description 07/16/2025 11:20 AM EST Office Visit [facility] Diabetes [address] [place] [address] Matilda Hannah CNP Type 2 diabetes mellitus without complication, without long-term current use of insulin (Primary Dx) 07/15/2025 Transcribe Orders [facility] [address] [place] [address] [place] [address] Martha Dela Cruz [place] Cerebral infarction, unspecified (Primary Dx) 06/03/2025 Refill [facility] Diabetes [address] [place] [address] Matilda Hannah CNP Medication Refill from Last [...] Sign Reading Time Taken Comments Blood Pressure 122/62 07/16/2025 11:15 AM EST Pulse 78 07/16/2025 11:15 AM EST Temperature 36.6 C (97.8 F) 09/11/2023 10:10 AM EST Respiratory Rate 20 08/10/2020 12:3 7 AM EST Oxygen Saturation 98% 07/16/2025 11: 15 AM EST Inhaled Oxygen Concentration - - Weight 104.5 kg (230 lb 6.4 oz) 025 11:15 AM EST Height 185.4 cm (6' 0.99 ) 07/16/2025 1 1:15 AM EST Body Mass Index 30.4 07/16/2025 11:15 AM EST Plan of Treatment Upcoming Encounters Date Type Department Care Team (Late st Contact Info) Description 01/14/2026 10:20 AM EDT Office Visit [facility] [address] [place] [address] Matilda Hannah, BAILEY 22 [facility], [address] [place] [address] [email or web address] Health Maintenance Due Date Last Done Comments [...] 2025 05/17/2023, 05/09/2022, 11/17/2021, Additional history exists HEMOGLOBIN A1C 07/17/2025 01/15/2025, 09/06, 06/16/2024, Additional history exists BLOOD PRESSURE 01/14/2026 07/16/2025 COLONOSCOPY 01/09/2028 01/08/2018 COLORECTAL CANCER SCREENING 01/09/2028 [...] Hemoglobin A1c 6.0(A) 4.2 - 5.6 % [facility] Other 01/15/2025 11:4 8 AM EDT us Matilda Hannah INSTRUMENT TECHNOLOGIST LAB POCT ENTER/EDIT ORDERABLE S Final Result [facility] [address] [place] [address], [facility] * (ABNORMAL) Basic metabolic panel (08/10/2020 1:05 AM EST) SODIUM 139 133 - 146 mmol/L [facility] CHLORIDE 103 96 - 108 mmol/L [facility] POTASSIUM 4.5 3.3 - 5.1 mmol/L [facility] CO2 28 21 - 35 mmol/L [facility] BUN 19 6 - 19 mg/dL [facility] CREATININE 1.10 0.5 - 1.5 mg/dL [facility] GLUCOSE 156(H) 70 - 99 mg/dL [facility] CALCIUM 9.4 8.4 - 10.3 mg/dL [facility] EGFR 71 >59 mL/min/1.7 3m2 [facility] Comment:Estimated glomerular filtration rate calculated using the CKD-EPI equation. ANION GAP 13 10 - 20 mmol/L [facility] Blood 08/10/2020 1:05 AM EST 08/10/2020 1:29 AM EST us Jeromy Klein MD LAB BLOOD BKR ORDERABLES Final Result [address] [address] * ENDOSCOPY, COLON (01/08/2018 5:39 PM EDT) Narrative Transcriptions Ray Hernandez MD - 01/08/2018 5:39 PM EDT Patient Name: John Roa Attending MD:: RAY HERNANDEZ MD Procedure Date: 01/08/2018 5:39 PM Date of : 1955 Age: 62 Admit Type: Outpatient Gender: Male Room: [place] [address] Referring MD: ROSALIND CORNEJO MD Exam Type: [...] 5:39 PM Procedure Code(s): --- Professional --- 91340, Colonoscopy, flexible; with biopsy, single or multiple --- Technical --- 20188, Colonoscopy, flexible; with biopsy, single or multiple Diagnosis Code(s): --- Professional --- D12.3, Benign neoplasm of transverse colon (hepatic flexure orsplenic flexure) K64.8, Other hemorrhoids R19.4, Change in bowel habit --- Technical --- D12.3, Benign neoplasm of transverse colon (hepatic flexure orsplenic flexure) K64.8, Other hemorrhoids R19.4, Change in bowel habit CPT copyright 2016 [employer]. All rights reserved. The codes documented in this report are preliminary and upon drug purchaser reviewmay be revised to meet current compliance requirements. [address] [place] [address] us Rosalind Cornejo MD GI PROCEDURE ORDERABLES Fin al Result * Lipid panel (09/04/2017 9:49 AM EST) HDL 47 mg/dL [facility] Comment: Interpretation: Risk Level Males Decreased >45 mg/dL Average 40-45 mg/dL Increased <40 mg/dL CHOLESTEROL 195 0 - 240 mg/dL [facility] TRIGLYCERIDES 113 30 - 160 mg/dL [facility] LDL 125 50 - 129 mg/dL [facility] Comment: LDL levels in terms of risk for coronary heart disease: <100 mg/dL: Optimal 100-129 mg/dL: Near or above optimal 130-159 mg/dL: Borderline high 160-189 mg/dL: High >190 mg/dL: Very High CARDIAC RISK RATIO 4.1 3.4 - 5.0 C [facility] Blood 09/04/2017 9:49 AM EST 09/04/2017 9:53 AM EST us Raymond Shafer MD LAB BLOOD BKR ORDERABLES Final R esult Performing Organization Address City/State/[place] Co de Phone Number [address] [address] from Last 3 Months or Most Recently Relevant to Health Maintenance [place] [address] [place] [address] [place] [address] [place] [address] Care Teams Curtain Cutter Hand Relationship Specialty Start Date End Date Derrek Abdullahi MD [address] [place] [address] [place] [address] PCP - General Internal Medicine 09/16/24 Juwan Su MD [address] [place] [address] [email or web address] Historical LMR Provider 05/27/17 Additional Source Comments The information contained in this document represents components of the legal health record. It is not the complete legal health record.[facility]
--- OUTSIDE RECORDS SUMMARY | 2025-07-22 17:36 | XMS_ITS | Encounter Summary ---
Author Organization [facility] Address [address] [place] [address] [place] [address] Phone Care Team Providers Care Pulling Unit Floorhand Name Role Phone Rosalind Cornejo MD Primary Care Provider Janak Hassan MD Unavailable [phone] Tex Lin MD Unavailable [email or web address] Juwan Su MD Unavailable Rosalind Cornejo MD Unavailable John Santoyo OPERATIONS RESEARCH ANALYST Unavailable [phone] Rosalind Cornejo MD Unavailable [phone] Sp Gusman DO Primary Care Provider [phone] Chanda Fernando FLUORESCENT LIGHTING MODEL MAKER Unavailable [phone] Rosalind Cornejo MD Unavailable [phone] Andrei Hayes MD Primary Care Provider Derrek Abdullahi MD Primary Care Provider [phone] Encounter Details Date Type Department Care Team (Late st Contact Info) Description 07/05/2017 Transcribe Orders [facility] [phone] Rosalind Cornejo MD [address] [place] [address] [phone] Tick bite, subsequent encounter (Primary Dx) Social [...] 01/14/2026 10:20 AM EDT Office Visit [facility] [address] [place] [address] Matilda Hannah, BAILEY 22 [facility], 1st [place] [address] @[email or web address] documented as of this encounter Procedures Procedure Name Priority Date/Time Associated Diagnosis Comments CMV ANTIBODY, IGG ([place] SENDOUT) Routine 07/05/2017 1:20 PM EST Tick [...] EST) Specimen Source/ Description BLOOD Blood BLOOD [facility] Special Requests None [facility] Culture/Test NO GROWTH 5 DAYS [facility] Report Status 07/10/2017 FINAL [facility] Blood (Blood) 07/05/2017 1:2 0 PM EST 07/05/2017 1:35 PM EST Rosalind Cornejo MD LAB MICROBIOLOGY CULTURE OR DERABLES Final Result [address] [address] * Blood culture, routine (07/05/2017 1:20 PM EST) Specimen Source/ Description BLOOD Blood BLOOD [facility] Special Requests None [facility] Culture/Test NO GROWTH 5 DAYS [facility] Report Status 07/10/2017 FINAL [facility] Blood (Blood) 07/05/2017 1:2 0 PM EST 07/05/2017 1:36 PM EST us Rosalind Cornejo MD LAB MICROBIOLOGY CULTURE OR DERABLES Final Result Performing Organization Address City/[facility]/ZIP Co de Phone Number [address] [address] * Babesia species PCR (07/05/2017 1:20 PM EST) B.Microti PCR Negative Negative [facility] DPT OF LAB MED AND PAT+ B.Duncani PCR Negative Negative [facility] DPT OF LAB MED AND PAT+ B.Divergens/MO-1 PCR Negative Negative [facility] DPT OF LAB MED AND PAT+ Comment: (NOTE) ADDITIONAL INFORMATION This test was developed and its performance characteristics determined by [facility] in a manner consistent with CLIA requirements. This test has not been cleared or approved by the U.S. Food and Drug Administration. Blood 07/05/2017 1:20 PM EST 07/05/2017 1:37 PM EST Rosalind Cornejo MD LAB BLOOD ORDERABLES Final Result [facility] DPT OF LAB MED AND PAT+ [address] [place] [address] * Babesia serology (07/05/2017 1:20 PM EST) BABESIA MICROTI IGG <1:64 JENSEN REFERRAL BABESIA MICROTI IGM <1:20 [place] REFERRAL Interpretation (B. microti) SEE NOTE JENSEN [...] analytical performance characteristics have been determined by [facility]. It has not been cleared or approved by FDA. This assay has been validated pursuant to the CLIA regulations and is used for clinical purposes. Test Performed by: [facility] [address] [place] [address] Blood (Blood) 07/05/2017 1:2 0 PM EST 07/05/2017 1:37 PM EST us Rosalind Cornejo MD MICROBIOLOGY - GENERAL ORDE [facility] Final Result Performing Organization Address City/[facility]/ZIP Co de Phone Number [facility] * Ehrlichia/anaplasma PCR (07/05/2017 1:20 PM EST) ANAPLASMA PHAGOCYTO Negative Negative [facility] DPT OF LAB MED AND PAT+ EHRLICHIA CHAFFEENS Negative Negative [facility] DPT OF LAB MED AND PAT+ EHRL EWINGII/CANIS Negative Negative [facility] DPT OF LAB MED AND PAT+ EHRL MURIS-LIKE Negative Negative [facility] DPT OF LAB MED AND PAT+ Comment: (NOTE) ADDITIONAL INFORMATION This test was developed and its performance characteristics determined by [facility] in a manner consistent with CLIA requirements. This test has not been cleared or approved by the U.S. Food and Drug Administration. Blood 07/05/2017 1:20 PM EST 07/05/2017 1:37 PM EST us Rosalind Cornejo MD LAB BLOOD ORDERABLES Final Result Performing Organization Address City/[facility]/ZIP Co de Phone Number [facility] DPT OF LAB MED AND PAT+ [address] [place] [address] * Cytomegalovirus (CMV) antibody, IgM (07/05/2017 1:20 PM EST) CMV IGM ANTIBODY Positive Negative [facility]PATH SUPERIOR Comment: (NOTE) Results suggest recent infection. Blood (Blood) 07/05/2017 1:2 0 PM EST 07/05/2017 1:37 PM EST us Rosalind Cornejo MD LAB BLOOD BKR ORDERABLES Fi nal Result Performing Organization Address [facility] Co de Phone Number [facility] [place] [address] [place] [address] * CMV antibody, IgG ([place] sendout) (07/05/2017 1:20 PM EST) CYTOMEGALOVIRUS IGG Negative Negative [facility] Blood 07/05/2017 1:20 PM EST 07/05/2017 1:37 PM EST Rosalind Cornejo MD LAB BLOOD ORDERABLES Final Result Performing Organization Address [facility] de Phone Number [facility] [place] [address] * Nick-Boudreaux Virus (EBV) serology (07/05/2017 1:20 PM EST) Pathologist [facility] EBV VCA, IGG Positive Negative [facility] EBV VCA, IGM Negative Negative [facility] EB NUCLEAR AG ABS Positive Negative [facility] [place] EBV AB PANEL INTERP SEE NOTE [facility] [place] Comment: (NOTE) Results suggest past infection. ADDITIONAL [...] ORDERABLES Fi nal Result Performing Organization Address [facility] Co de Phone Number [facility] [place] [address] * Sedimentation rate (ESR) (07/05/2017 1:20 PM EST) ESR 8 0 - 20 mm/h [facility] Blood 07/05/2017 1:20 PM EST 07/05/2017 1:36 PM EST us Rosalind Cornejo MD LAB BLOOD BKR ORDERABLES Fi nal Result Performing Organization Address City/[facility]/ZIP Co de Phone Number [address] [address] * Lyme screen with reflex to Western blot, blood (07/05/2017 1:20 PM EST) Pathologist [facility] Lyme AB IgG Negative Negative [facility] Lyme AB IgM Negative Negative [facility] Blood 07/05/2017 1:20 PM EST 07/05/2017 1:36 PM EST us Rosalind Cornejo MD LAB BLOOD BKR ORDERABLES Fi nal Result Performing Organization Address [facility] Co de Phone Number [address] [address] * (ABNORMAL) C-Reactive Protein (07/05/2017 1:20 PM EST) Pathologist [facility] C REACTIVE PROTEIN 1.6(H) 0 - 0.5 mg/L [facility] Blood 07/05/2017 1:20 PM EST 07/05/2017 1:36 PM EST us Rosalind Cornejo MD LAB BLOOD BKR ORDERABLES Fi nal Result Performing Organization Address [facility] Co de Phone Number [address] [address] * (ABNORMAL) CBC and differential (07/05/2017 1:20 PM EST) WBC 5.18 3.40 - 11.20 K/uL [facility] RBC 4.81 4.50 - 5.50 M/uL [facility] HGB 13.9 13.0 - 17.0 g/dL [facility] HCT 39.7(L) 40.0 - 51.0 % [facility] PLT 187 130 - 400 K/uL [facility] MCV 82.5 79.0 - 98.0 fL [facility] MCH 28.9 27.0 - 34.8 pg [facility] MCHC 35.0 31.5 - 36.0 g/dL [facility] RDW 12.7 10.8 - 14.6 % [facility] MPV 9.0(L) 9.4 - 12.4 fl [facility] NRBC 0.00 /100 WBCs [facility] ABSOLUTE NRBC 0.00 K/uL [facility] DIFF METHOD Auto [facility] NEUTS 43.1(L) 45.30 - 77.70 % [facility] LYMPHS 37.1 12.30 - 39.70 % [facility] MONOS 14.1(H) 4.10 - 12.80 % [facility] EOS 4.1 0 - 7.2 % [facility] BASOS 0.8 0 - 2.80 % [facility] Granulocytes, immature (%) 0.8 0.0 - 0.9 % [facility] ABSOLUTE NEUTS 2.24 1.40 - 7.70 K/uL [facility] ABSOLUTE LYMPHS 1.92 0.60 - 3.20 K/uL [facility] ABSOLUTE MONOS 0.73(H) 0.11 - 0.59 K/uL [facility] ABSOLUTE EOS 0.21 0.01 - 0.50 K/uL [facility] ABSOLUTE BASOS 0.04 0.00 - 0.08 K/uL [facility] Granulocytes, immature 0.04 0.00 - 0.05 K/uL [facility] Blood 07/05/2017 1:20 PM EST 07/05/2017 1:36 PM EST us Rosalind Cornejo MD LAB BLOOD BKR ORDERABLES Fi nal Result [facility] [address] [place], [place] [id number] * (ABNORMAL) Comprehensive metabolic panel (07/05/2017 1:20 PM EST) SODIUM 139 133 - 146 mmol/L [facility] POTASSIUM 4.1 3.3 - 5.1 mmol/L [facility] CHLORIDE 102 96 - 108 mmol/L [facility] CO2 22 21 - 35 mmol/L [facility] BUN 17 6 - 19 mg/dL [facility] CREATININE 1.10 0.5 - 1.5 mg/dL [facility] GLUCOSE 197(H) 70 - 99 mg/dL [facility] ALBUMIN 4.1 3.9 - 4.8 g/dL [facility] TOTAL PROTEIN 6.8 6.5 - 8.0 g/dL [facility] CALCIUM 9.2 8.4 - 10.3 mg/dL [facility] ALKALINE PHOSPHATASE 70 39 - 117 U/L [facility] TOTAL BILIRUBIN 0.4 0 - 1.2 mg/dL [facility] AST 58(H) 0 - 37 U/L [facility] ALT 111(H) 0 - 40 U/L [facility] GLOBULIN 2.7 1 - 4.8 g/dL [facility] EGFR >60 >60 mL/min/1.7 3m2 [facility] Comment:Abnormal if <60. If patient is -Lithuanian, multiply the result by 1.21. ANION GAP 19 10 - 20 mmol/L [facility] Blood 07/05/2017 1:20 PM EST 07/05/2017 1:36 PM EST us Rosalind Cornejo MD LAB BLOOD BKR ORDERABLES Fi nal Result Performing Organization Address City/State/[facility] Co de Phone Number [address] [address] documented in this encounter Visit Diagnoses Diagnosis Tick bite, subsequent encounter- Primary documented in this encounter Care Teams Pulling Unit Floorhand Relationship Specialty Start Date End Date Rosalind Cornejo MD [address] [place] [address] PCP - General 02/03/14 08/08/23 Sp Gusman DO [address] [place] [address] PCP - General Family Medicine 08/09/23 02/18/24 Andrei Hayes MD [address] [place] [address] PCP - General Family Medicine 02/19/24 09/15/24 Derrek Abdullahi MD [address] [place] [address] [place] [address] PCP - General Internal Medicine 09/16/24 Janak Hassan MD [address] [place] [address] [email or web address] Historical LMR Provider 05/27/17 08/13/21 Tex Lin MD [email or web address] Historical LMR Provider 05/27/17 08/13/21 Juwan Su MD [address] [place] [address] Historical LMR Provider 05/27/17 Rosalind Cornejo MD [address] [place] [address] [email or web address] Historical LMR Provider 05/27/17 08/08/23 John Santoyo CNP [address] [place] [address] Historical LMR Provider 05/27/17 08/13/21 Rosalind Cornejo MD [address] [place] [address] [email or web address] Insurance Assigned Provider 12/07/18 08/08/23 Chanda Fernando NP [address] [place] [address] Nurse Practitioner 08/09/23 09/15/24 Rosalind Cornejo MD [address] [place] [address] [email or web address] Insurance Assigned Provider 12/07/18 10/13/23 documented as of this encounter Additional Source Comments The information contained in this document represents components of the legal health record. It is not the complete legal health record.[facility]
--- OUTSIDE RECORDS SUMMARY | 2025-07-22 17:36 | XMS_ITS | Encounter Summary ---
Author Organization [facility] Address [address] [place] [address] [place] [address] Phone Care Team Providers Care Commercial Fishing Vessel Operator Name Role Phone Rosalind Cornejo MD Primary Care Provider [phone] Janak Hassan MD Unavailable [phone] Tex Lin MD Unavailable [email or web address] Juwan Su MD Unavailable [phone] Rosalind Cornejo MD Unavailable [phone] John Santoyo MACHINERY ENGINEER Unavailable [phone] Rosalind Cornejo MD Unavailable [phone] Sp Gusman DO Primary Care Provider Chanda Fernando [employer] Unavailable [phone] Rosalind Cornejo MD Unavailable [phone] Andrei Hayes MD Primary Care Provider Derrek Abdullahi MD Primary Care Provider [phone] Encounter Details Date Type Department Care Team (Late st Contact Info) Description 04/02/2018 Ancillary Orders [facility] Department [address] [place] [address] Bernadette Tinsley, BARBARA [address] [place] [address] [email or web address] Kidney stone Social History Tobacco Use Types [...] Description 01/14/2026 10:20 AM EDT Office Visit [facility] [address] [place] [address] Matilda Hannah CNP [address] [place] [address] [email or web address] documented as of this encounter Visit Diagnoses Diagnosis Kidney stone Calculus of kidney documented in this encounter Care Teams Commercial Fishing Vessel Operator Relationship Specialty Start Date End Date Rosalind Cornejo MD [address] [place] [address] [email or web address] PCP - General 02/03/14 08/08/23 Sp Gusman DO [address] [place] [address] PCP - General Family Medicine 08/09/23 02/18/24 Andrei Hayes MD [address] [place] [address] PCP - General Family Medicine 02/19/24 09/15/24 Derrek Abdullahi MD [address] [place] [address] [place] [address] PCP - General Internal Medicine 09/16/24 Janak Hassan MD [address] [place] [address] [email or web address] Historical LMR Provider 05/27/17 08/13/21 Tex Lin MD [email or web address] Historical LMR Provider 05/27/17 08/13/21 Juwan Su MD [address] [place] [address] [email or web address] Historical LMR Provider 05/27/17 Rosalind Cornjeo MD [address] [place] [address] [email or web address] Historical LMR Provider 05/27/17 08/08/23 John Santoyo CNP [address] [place] [address] Historical LMR Provider 05/27/17 08/13/21 Rosalind Cornejo MD [address] [place] [address] [email or web address] Insurance Assigned Provider 12/07/18 08/08/23 Chanda Fernando, [employer] [address] [place] [address] Nurse Practitioner 08/09/23 09/15/24 Rosalind Cornejo MD [address] [place] [address] [email or web address] Insurance Assigned Provider 12/07/18 10/13/23 documented as of this encounter Additional Source Comments The information contained in this document represents components of the legal health record. It is not the complete legal health record.[facility]
--- OUTSIDE RECORDS SUMMARY | 2025-07-22 17:36 | XMS_ITS | Encounter Summary ---
Author Organization [facility] Address [address] [place] [address] [place] [address] Phone Care Team Providers Care Rotary Driller Name Role Phone Rosalind Cornejo MD Primary Care Provider [phone] Benji Hassan MD Unavailable [phone] Tex Lin MD Unavailable [email or web address] Juwan Su MD Unavailable [phone] Rosalind Cornejo MD Unavailable [phone] John Santoyo SPRING FORGER Unavailable [phone] Rosalind Cornejo MD Unavailable [phone] Sp Gusman DO Primary Care Provider [phone] Chanda Fernando PLATFORM SOFTWARE ENGINEER Unavailable [phone] Rosalind Cornejo MD Unavailable [phone] Andrei Hayes MD Primary Care Provider Derrek Abdullahi MD Primary Care Provider [phone] Encounter Details Date Type Department Care Team (Late st Contact Info) Description 05/26/2017 Ancillary Orders [facility] Department [address] [place] [address] Gm Torres MD [facility], [address] [place], [place] [phone] Kidney stones Social History Tobacco Use Types [...] Description 01/14/2026 10:20 AM EDT Office Visit [facility] [address] [place] [address] Matilda Hannah CNP 22 [facility], 1st [place] [address] [email or web address] documented as of this encounter Results * [...] within normal limits overall size with right ziwmuenac87.2 x 6.5 cm and left 13.1 x [...] kidney documented in this encounter Care Teams Rotary Driller Relationship Specialty Start Date End Date Rosalind Cornejo MD [address] [place] [address] [email or web address] PCP - General 02/03/14 08/08/23 Sp Gusman DO [address] [place] [address], 2nd [place] [address] PCP - General Family Medicine 08/09/23 02/18/24 Andrei Hayes MD [address] [place] [address] PCP - General Family Medicine 02/19/24 09/15/24 Derrek Abdullahi MD [address] [place] [address] [place] [address] PCP - General Internal Medicine 09/16/24 Benji Hassan MD [address] [place] [address] [email or web address] Historical LMR Provider 05/27/17 08/13/21 Tex Lin MD [email or web address] Historical LMR Provider 05/27/17 08/13/21 Juwan Su MD [address] [place] [address] [email or web address] Historical LMR Provider 05/27/17 Rosalind Cornejo MD [address] [place] [address] [email or web address] Historical LMR Provider 05/27/17 08/08/23 John Santoyo SPRING FORGER [address] [place] [address] [email or web address] Historical LMR Provider 05/27/17 08/13/21 Rosalind Cornejo MD [address] [place] [address] [email or web address] Insurance Assigned Provider 12/07/18 08/08/23 Chanda eFrnando, PLATFORM SOFTWARE ENGINEER [address] [place] [address] Nurse Practitioner 08/09/23 09/15/24 Rosalind Cornejo MD [address] [place] [email or web address] Insurance Assigned Provider 12/07/18 10/13/23 documented as of this encounter Additional Source Comments The information contained in this document represents components of the legal health record. It is not the complete legal health record.[facility]
--- OUTSIDE RECORDS SUMMARY | 2025-07-22 17:36 | XMS_ITS | Encounter Summary ---
Author Organization [facility] Address [address] [place] [address] [place] [address] Phone Care Team Providers Care Optician Name Role Phone Rosalind Cornejo MD Primary Care Provider [phone] Janak Hassan MD Unavailable [phone] Tex Lin MD Unavailable [email or web address] Juwan Su MD Unavailable [phone] Rosalind Cornejo MD Unavailable [phone] John Santoyo ADMINISTRATIVE ASSOCIATE Unavailable [phone] Rosalind Cornejo MD Unavailable [phone] Sp Gusman DO Primary Care Provider Chanda Fernando VEHICLE MAINTENANCE TECHNICIAN Unavailable [phone] Rosalind Cornejo MD Unavailable [phone] Andrei Hayes MD Primary Care Provider Derrek Abdullahi MD Primary Care Provider [phone] Encounter Details Date Type Department Care Team (Late st Contact Info) Description 01/08/2018 Procedure Pass [facility] Endoscopy Admitting Dept Virtual Department [address] [place] [address] Social History Tobacco Use Types Packs/Day [...] Description 01/14/2026 10:20 AM EDT Office Visit [facility] [address] [place] [address] Matilda Hannah, BAILEY [address] [address] documented as of this encounter Visit Diagnoses Not on filedocumented in this encounter Care Teams Optician Relationship Specialty Start Date End Date Rosalind Cornejo MD [address] [place] [address] PCP - General 02/03/14 08/08/23 Sp Gusman DO [address] [place] [address] PCP - General Family Medicine 08/09/23 02/18/24 Andrei Hayes MD [address] [place] [address] PCP - General Family Medicine 02/19/24 09/15/24 Derrek Abdullahi MD [address] [place] [address] [place] [address] PCP - General Internal Medicine 09/16/24 Janak Hassan MD [address] [place] [address] Historical LMR Provider 05/27/17 08/13/21 Tex Lin MD [email or web address] Historical LMR Provider 05/27/17 08/13/21 Juwan Su MD [address] [place] [address] Historical LMR Provider 05/27/17 Rosalind Cornejo MD [address] [place] [place] [address] Historical LMR Provider 05/27/17 08/08/23 John Santoyo CNP [address] [place] [address] Historical LMR Provider 05/27/17 08/13/21 Rosalind Cornejo MD [address] [place] [place] [address] Insurance Assigned Provider 12/07/18 08/08/23 Chanda Fernando NP [address] [place] [address] Nurse Practitioner 08/09/23 09/15/24 Rosalind Cornejo MD [address] [place] [place] [address] Insurance Assigned Provider 12/07/18 10/13/23 documented as of this encounter Additional Source Comments The information contained in this document represents components of the legal health record. It is not the complete legal health record.[facility]
--- OUTSIDE RECORDS SUMMARY | 2025-07-22 17:36 | XMS_ITS | Patient Health Record ---
Author Organization [facility] david Purchase Address [address] [place] [address] Care Team Providers Care Aviation Support Equipment Repairer Name Role Phone Chantal CHANG, Rosalind Primary Care Provider Andres Westbrook Unavailable [phone] Allergies Allergen (clinical drug ingredient) Drug/Non Drug [...] a day Active Fish Oil + D3 7117-5451 MG-UNIT 1 capsule Orally Three times a [...] Test Name Order Date Hemoglobin A1c 02/09/2015 [id number] NAIL, 6 OR MORE 05/11/2015 [id number] NAIL, 6 OR MORE 08/13/2015 [id number] NAIL, 6 OR MORE 02/17/2014 [id number] NAIL, 6 OR MORE 02/09/2015 20958-Sstu Destruction, 1-14 02/09/2015 38563-Kvrq Destruction, 1-14 02/17/2014 32912-Jgtm Destruction, 1-14 08/13/2015 34738-ODXC SKIN LESIONS, OVER 4 02/18/20 14 59452-LATX SKIN LESIONS, OVER 4 02/10/20 15 81601-VUQO SKIN LESIONS, OVER 4 08/13/19 16 97540-PKXM SKIN LESIONS, OVER 4 05/11/20 15 Insurance Providers Payer Name Payer Address Payer Phone Subscriber Number Group Number Insured Name Patient Relationship to Insured Coverage Start Date Coverage End Date [facility] [address] [place] [address] [phone] [id number] Crystal Oliver Spouse - patient is the spouse of the insured Medical (General) History Medical History History ICD Code Anxiety Arthritis Back,Hip,and Knee pain Fibromyalgia Headaches High blood pressure Reflux Sinus conditions Diabetic Surgical History Surgery Date(Month/Year) UPPP 2003 Sinus cleaning 2003
--- OUTSIDE RECORDS SUMMARY | 2025-07-22 17:36 | XMS_ITS | Encounter Summary ---
Author Organization [facility] Address [address] [place] [address] [place] [address] Phone Care Team Providers Care Dock Associate Name Role Phone Rosalind Cornejo MD Primary Care Provider [phone] Janak Hassan MD Unavailable [phone] Tex Lin MD Unavailable [email or web address] Juwan Su MD Unavailable [phone] Rosalind Cornejo MD Unavailable John Santoyo R&D ENGINEER Unavailable [phone] Rosalind Cornejo MD Unavailable Sp Gusman DO Primary Care Provider Chanda Fernando DATA CENTER MANAGER Unavailable [phone] Rosalind Cornejo MD Unavailable [phone] Andrei Hayes MD Primary Care Provider Derrek Abdullahi MD Primary Care Provider [phone] Encounter Details Date Type Department Care Team (Late st Contact Info) Description 07/05/2017 Transcribe Orders [facility] Lab Main [address] [place] [address] Rosalind Cornejo MD [address] [place] [address] [phone] [email or web address] Fever, unspecified fever cause (Primary Dx) Social [...] Description 01/14/2026 10:20 AM EDT Office Visit [facility] [address] [place] [address] Matilda Hannah CNP 22 [facility], [address] [place] [address] [email or web address] documented as of this encounter Results * Rapid influenza A and B (07/05/2017 2:02 PM EST) Influenza A Ag Negative Negative [facility] Influenza B Ag Negative Negative [facility] Other (Nasal) 07/05/2017 2:0 2 PM EST 07/05/2017 2:06 PM EST Rosalind Cornejo MD MICROBIOLOGY - [facility] FINA DEXTER Final Result Performing Organization Address [facility]/State/[facility] Co de Phone Number [address] [address] documented in this encounter Visit Diagnoses Diagnosis Fever, unspecified fever cause- Primary documented in this encounter Care Teams Dock Associate Relationship Specialty Start Date End Date Rosalind Cornejo MD [address] [place] [address] [email or web address] PCP - General 02/03/14 08/08/23 Sp Gusman DO [address] [address] PCP - General Family Medicine 08/09/23 02/18/24 Andrei Hayes MD [address] [place] [address] PCP - General Family Medicine 02/19/24 09/15/24 Derrek Abdullahi MD [address] [place] [address] [place] [address] PCP - General Internal Medicine 09/16/24 Janak Hassan MD [address] [place] [address] [email or web address] Historical LMR Provider 05/27/17 08/13/21 Tex Lin MD [email or web address] Historical LMR Provider 05/27/17 08/13/21 Juwan Su MD [address] [place] [address] [email or web address] Historical LMR Provider 05/27/17 Rosalind Cornejo MD [address] [place] [address] [email or web address] Historical LMR Provider 05/27/17 08/08/23 John Santoyo CNP [address] [place] [address] [email or web address] Historical LMR Provider 05/27/17 08/13/21 Rosalind Cornejo MD [address] [place] [address] [email or web address] Insurance Assigned Provider 12/07/18 08/08/23 Chanda Fernando NP [address] [place] [address] Nurse Practitioner 08/09/23 09/15/24 Rosalind Cornejo MD [address] [place] [address] [email or web address] Insurance Assigned Provider 12/07/18 10/13/23 documented as of this encounter Additional Source Comments The information contained in this document represents components of the legal health record. It is not the complete legal health record.[facility]
--- OUTSIDE RECORDS SUMMARY | 2025-07-22 17:37 | XMS_ITS | Encounter Summary ---
Author Organization [facility] Address [address] [place] [address] [place] [address] Phone Care Team Providers Care Technology Project Manager Name Role Phone Rosalind Cornejo MD Primary Care Provider [phone] Janak Hassan MD Unavailable [phone] Tex Lin MD Unavailable [email or web address] Juwan Su MD Unavailable [phone] Rosalind Cornejo MD Unavailable [phone] John Santoyo JAVA WEBSPHERE DEVELOPER Unavailable [phone] Rosalind Cornejo MD Unavailable [phone] Sp Gusman DO Primary Care Provider [phone] Chanda Fernando BOOMSWING OPERATOR Unavailable [phone] Rosalind Cornejo MD Unavailable [phone] Andrei Hayes MD Primary Care Provider Derrek Abdullahi MD Primary Care Provider [phone] Encounter Details Date Type Department Care Team (Late st Contact Info) Description 07/23/2017 Ancillary Orders [facility] Department [address] [place], [place] [phone] Rosalind Cornejo MD [address] [place] [address] [phone] [email or web address] Abdominal pain, unspecified abdominal location; Elevated LFTs [...] Description 01/14/2026 10:20 AM EDT Office Visit [facility] [address] [place] [address] Matilda Hannah CNP 22 [facility] [place], 1[address] [place] [address] [email or web address] documented as of this encounter Results * US ABDOMEN LIMITED RIGHT UPPER QUADRANT (07/23/2017 9:49 AM EST) Anatomical Region Laterality Modality Abdomen Ultrasound 07/23/2017 1:22 PM EST Impressions 07/23/2017 1:25 PM EST Findings consistent with fatty infiltration of the liver. No definite signs of hepatic cirrhosis or evidence of portal venous hypertension. POS - [id number] Narrative 07/23/2017 1:25 PM EST HISTORY: Pain [...] evidence of portal venous hypertension. POS - [id number] Rosalind Cornejo MD IMG US ABDOMEN Final Resul t documented in this encounter Visit Diagnoses Diagnosis Abdominal pain, unspecified abdominal location Elevated LFTs Other abnormal blood chemistry Abdominal pain, unspecified abdominal location Elevated LFTs Other abnormal blood chemistry documented in this encounter Care Teams Technology Project Manager Relationship Specialty Start Date End Date Rosalind Cornejo MD [address] [place] [address] PCP - General 02/03/14 08/08/23 Sp Gusman DO [address] [place] [address] PCP - General Family Medicine 08/09/23 02/18/24 Andrei Hayes MD [address] [place] [address] PCP - General Family Medicine 02/19/24 09/15/24 Derrek Abdullahi MD [address] [place] [address] [place] [address] PCP - General Internal Medicine 09/16/24 Janak Hassan MD [address] [place] [address] [email or web address] Historical LMR Provider 05/27/17 08/13/21 Tex Lin MD [email or web address] Historical LMR Provider 05/27/17 08/13/21 Juwan Su MD [address] [place] [address] [email or web address] Historical LMR Provider 05/27/17 Rosalind Cornejo MD [address] [place] [address] [email or web address] Historical LMR Provider 05/27/17 08/08/23 John Santoyo CNP [address] [place] [address] Historical LMR Provider 05/27/17 08/13/21 Rosalind Cornejo MD [address] [place] [address] [email or web address] Insurance Assigned Provider 12/07/18 08/08/23 Chanda Fernando NP [address] [place] [address] Nurse Practitioner 08/09/23 09/15/24 Rosalind Cornejo MD [address] [place] [address] [email or web address] Insurance Assigned Provider 12/07/18 10/13/23 documented as of this encounter Additional Source Comments The information contained in this document represents components of the legal health record. It is not the complete legal health record.[facility]
--- OUTSIDE RECORDS SUMMARY | 2025-07-22 17:37 | XMS_ITS | Encounter Summary ---
Author Organization [facility] Address [address] [place] [address] [place] [address] Phone Care Team Providers Care Polyethylene Combiner Name Role Phone Rosalind Cornejo MD Primary Care Provider [phone] Janak Hassan MD Unavailable [phone] Tex Lin MD Unavailable [email or web address] Juwan Su MD Unavailable [phone] Rosalind Cornejo MD Unavailable [phone] John Santoyo LOANS CONSULTANT Unavailable [phone] Rosalind Cornejo MD Unavailable [phone] Sp Gusman DO Primary Care Provider Chanda Fernando WHOLESALE LOAN PROCESSOR Unavailable [phone] Rosalind Cornejo MD Unavailable [phone] Andrei Hayes MD Primary Care Provider Derrek Abdullahi MD Primary Care Provider [phone] Encounter Details Date Type Department Care Team (Late st Contact Info) Description 07/16/2017 Ancillary Orders [facility] Department [address] [place] [address] [phone] Rosalind Cornejo MD [address] [place] [address] [email or web address] Abdominal pain, unspecified abdominal location; Elevated LFTs [...] 01/14/2026 10:20 AM EDT Office Visit [facility] [address] [place] [address] Matilda Hannah, BAILEY [address] [address] [email or web address] documented as of this encounter Visit Diagnoses Diagnosis Abdominal pain, unspecified abdominal location Elevated LFTs Other abnormal blood chemistry documented in this encounter Care Teams Polyethylene Combiner Relationship Specialty Start Date End Date Rosalind Cornejo MD [address] [place] [address] [email or web address] PCP - General 02/03/14 08/08/23 Sp Gusman DO [address] [place] [address] PCP - General Family Medicine 08/09/23 02/18/24 Andrei Hayes MD [address] [place] [address] PCP - General Family Medicine 02/19/24 09/15/24 Derrek Abdullahi MD [address] [place] [address] [place] [address] PCP - General Internal Medicine 09/16/24 Janak Hassan MD [address] [place] [address] [email or web address] Historical LMR Provider 05/27/17 08/13/21 Tex Lin MD [email or web address] Historical LMR Provider 05/27/17 08/13/21 Juwan Su MD [address] [place] [address] [email or web address] Historical LMR Provider 05/27/17 Rosalind Cornejo MD [address] [place] [address] [email or web address] Historical LMR Provider 05/27/17 08/08/23 John Santoyo CNP [address] [place] [address] Historical LMR Provider 05/27/17 08/13/21 Rosalind Cornejo MD [address] [place] [email or web address] Insurance Assigned Provider 12/07/18 08/08/23 Chanda Fernando NP [address] [place] [address] Nurse Practitioner 08/09/23 09/15/24 Rosalind Cornejo MD [address] [place] [address] [email or web address] Insurance Assigned Provider 12/07/18 10/13/23 documented as of this encounter Additional Source Comments The information contained in this document represents components of the legal health record. It is not the complete legal health record.[facility]
--- OUTSIDE RECORDS SUMMARY | 2025-07-22 17:37 | XMS_ITS | Encounter Summary ---
Author Organization [facility] Address [address] [place] [address] [place] [address] Phone Care Team Providers Care Tobacco Sweeper Name Role Phone Rosalind Cornejo MD Primary Care Provider [phone] Janak Hassan MD Unavailable [phone] Tex Lin MD Unavailable [email or web address] Juwan Su MD Unavailable [phone] Rosalind Cornejo MD Unavailable John Santoyo PRODUCT TEST SPECIALIST Unavailable [phone] Rosalind Corenjo MD Unavailable Sp Gusman DO Primary Care Provider Chanda Fernando HOME SALES CONSULTANT Unavailable [phone] Rosalind Cornejo MD Unavailable [phone] Andrei Hayes MD Primary Care Provider Derrek Abdullahi MD Primary Care Provider [phone] Encounter Details Date Type Department Care Team (Late st Contact Info) Description 07/14/2017 Transcribe Orders [facility] Lab Main [address] [place] [address] Rosalind Cornejo MD [address] [place], [place] [phone] Elevated LFTs (Primary Dx) Social History Tobacco [...] Description 01/14/2026 10:20 AM EDT Office Visit [facility] [address] [place] [address] Matilda Hannah, BAILEY [address] [address] [email or web address] documented as of this encounter Visit Diagnoses Diagnosis Elevated LFTs- Primary Other abnormal blood chemistry documented in this encounter Care Teams Tobacco Sweeper Relationship Specialty Start Date End Date Rosalind Cornejo MD [address] [place] [address] PCP - General 02/03/14 08/08/23 Sp Gusman DO [address] [place] [address] PCP - General Family Medicine 08/09/23 02/18/24 Andrei Hayes MD [address] [place] [address] PCP - General Family Medicine 02/19/24 09/15/24 Derrek Abdullahi MD [address] [place] [address] [place] [address] PCP - General Internal Medicine 09/16/24 Janak Hassan MD [address] [place] [address] Historical LMR Provider 05/27/17 08/13/21 Tex Lin MD [email or web address] Historical LMR Provider 05/27/17 08/13/21 Juwan Su MD [address] [place] [address] [email or web address] Historical LMR Provider 05/27/17 Rosalind Cornejo MD [address] [place] [address] [email or web address] Historical LMR Provider 05/27/17 08/08/23 John Santoyo CNP [address] [place] [address] [email or web address] Historical LMR Provider 05/27/17 08/13/21 Rosalind Cornejo MD [address] [place] [address] [email or web address] Insurance Assigned Provider 12/07/18 08/08/23 Chanda Fernando NP [address] [place] [address] Nurse Practitioner 08/09/23 09/15/24 Rosalind Cornejo MD [address] [place] [address] [email or web address] Insurance Assigned Provider 12/07/18 10/13/23 documented as of this encounter Additional Source Comments The information contained in this document represents components of the legal health record. It is not the complete legal health record.[facility]
== END 2025-07-22 14:32 | disposition home or self-care (01) ==
LOC: HO.HGI 13:28
PROVIDERS: PCP Internal Medicine; Visit Provider Nurse Practitioner
DX: R10.13 Epigastric pain (principal); D12.6 Benign neoplasm of colon, unspecified
CPT/HCPCS: 99203